=== PATIENT | male | born 1975 | race Caucasian/White ===

== ENCOUNTER 2024-06-24 08:33 | Emergency (ER) | payer OTHER, SELFPAY ==
[2024-06-24 08:42] VITALS: BP 132/95; PULSE 85; TEMP 36.6; O2SAT 97; BMI 38.4
--- NOTE | 2024-06-24 09:29 | ED_ITS ---
HPI HPI - General Adult General Chief complaint: Back Pain/Injury Stated complaint: BACK PAIN Time Seen by Provider: 06/24/24 08:56 Source: patient Mode of arrival: walk-in Limitations: no limitations History of Present Illness HPI narrative: Patient is a 49-year-old male who is presenting to the ER today with chief complaint of acute on chronic lower back pain, left lumbar radiculopathy and left sciatica. Patient said that on Sunday he was lifting a bucket of fish water to dump into the toilet at home, and he felt a pain to his left lower back. The pain has been radiating to left buttock and down his left lateral leg into his pinky toe and also down to the left ankle. Patient does have a history of sciatica, the last time patient had any sciatica complications was skip bally 1.5 years ago. Patient girlfriend at bedside. No loss of urine or bowels in his pants. Patient has been using ice, using [id number] ibuprofen with no relief. Patient try to get into Dr. Wilhelm office today, he was unable to get into the office today so he came to the ER. Patient has received Kenalog shots in the past from Dr. Wilhelm in his office when his pain is occurred no abdominal pain, nausea, vomiting, or any other acute complaints. All systems are negative except as noted/marked. All systems reviewed and otherwise negative. Nurses note and vital signs reviewed and patient is not hypoxic. General: The patient appears well and in no apparent distress. Patient is resting comfortably on cart. Patient is not toxic, lethargic, or listless Skin: Warm, dry, no pallor noted. There is no rash noted. No petechiae, purpura. Head: Normocephalic, atraumatic Eye: Normal conjunctiva, no drainage, EOMI. PERRL Ears, Nose, Mouth, and Throat: oral mucosa is moist. Nares patent. Mouth without vesicles. Cardiovascular: Regular Rate and Rhythm, no murmur, gallop, rub Respiratory: Patient is in no distress, no accessory muscle use, lungs are clear to auscultation, no wheezing, rales or rhonchi Back: Patient has moderate tenderness to palpation to the left lower paralumbar area, no midline lumbar tenderness to palpation. Patient had moderate tenderness to palpation to left piriformis muscle, positive straight leg raising test to the left, negative on the right. No loss of motor or sensory function into the left leg. No signs of saddle anesthesia or cauda equina. No right paralumbar tenderness to palpation, no right piriformis tenderness to palpation, otherwise non-tender, no CVA tenderness bilaterally to percussion. No CT LS midline pain GI: no tenderness to palpation, no masses appreciated. No rebound, guarding, or rigidity noted. No distention, obese, soft, Musculoskeletal: Patient has full range of motion of all of the extremities, no motor, sensory, or focal neurological deficits Neurological: A&O x4, normal speech Psychiatric: Cooperative Related Data Previous Rx's ?Medication ?Instructions ?Recorded hydrocodone 5 mg-acetaminophen 325 1 tab PO Q4H PRN pain #10 tabs 06/24/24 mg tablet lidocaine 5 % topical patch 1 patch topical Q24H #15 ea 06/24/24 (Lidoderm) methocarbamol 500 mg tablet 500 mg PO Q8H PRN muscle pain #10 06/24/24 tabs methylprednisolone 4 mg tablets in 4 mg PO DAILY 6 days #21 ea 06/24/24 a dose pack (Medrol (Fausto)) Allergies Allergy/AdvReac Type Severity Reaction Status Date / Time prochlorperazine (From AdvReac Severe panic Verified 06/24/24 08:41 Compazine) attack Opioid HPI Opioid Management Most Recent Opioid Data: Last Pain Scale 8 06/24/24 09:50 06/24/24 Last JUN Pain Assessment 06/24/24 09:50 PFSH PFSH Social History Little interest or pleasure in doing things: not at all Feeling down, depressed, or hopeless: not at all Exam Constitutional Vital Signs, click to edit/add: Last Vital Signs Temp 97.9 F 06/24/24 08:42 Pulse 85 06/24/24 08:42 Resp 20 06/24/24 08:42 BP 132/95 H 06/24/24 08:42 Pulse Ox 97 06/24/24 08:42 O2 Del Method Room Air 06/24/24 08:42 Course Vital Signs Vital signs: Vital Signs Temperature 97.9 F 06/24/24 08:42 Pulse Rate 85 06/24/24 08:42 Respiratory Rate 20 06/24/24 08:42 Blood Pressure 132/95 H 06/24/24 08:42 Pulse Oximetry 97 06/24/24 08:42 Oxygen Delivery Method Room Air 06/24/24 08:42 Temperature 97.9 F 06/24/24 08:42 Pulse Rate 85 06/24/24 08:42 Respiratory Rate 20 06/24/24 08:42 Blood Pressure 132/95 H 06/24/24 08:42 Pulse Oximetry 97 06/24/24 08:42 Oxygen Delivery Method Room Air 06/24/24 08:42 Medical Decision Making MDM Narrative Medical decision making narrative: Patient was given injection of Toradol and a Schuyler. Education on ice and stretching was done at bedside and on discharge paper. Patient was placed on a Medrol Dosepak, [place], Robaxin. Patient will follow-up with Dr. Wilhelm for further evaluation or physical therapy if needed. Patient may seek home care and home health aides teacher as well as needed. Patient girlfriend is driving home. Discharge Plan Discharge Chief Complaint: Back Pain/Injury Clinical Impression: Acute left lumbar radiculopathy, Left sided sciatica Patient Disposition: Home, Self-Care Time of Disposition Decision: 09:33 Condition: Fair Prescriptions / Home Meds: New methocarbamol 500 mg tablet 500 mg PO Q8H PRN (Reason: muscle pain) Qty: 10 0RF hydrocodone-acetaminophen 5-325 mg tablet 1 tab PO Q4H PRN (Reason: pain) Qty: 10 0RF lidocaine [Lidoderm] 5 % adhesive patch,medicated 1 patch topical Q24H Qty: 15 0RF Rx Instructions: leave on most painful area for up to 12 hrs methylprednisolone [Medrol (Fausto)] 4 mg tablets,dose pack 4 mg PO DAILY 6 Days Qty: 21 0RF Rx Instructions: as directed Print Language: Slovenian Instructions: Sciatica (ED), Acute Low Back Pain (ED), Lumbar Radiculopathy (ED), Lower Back Exercises (ED) Additional Instructions: Ice 20 minutes on, 20 minutes off. No heat. Sciatica and piriformis syndrome stretching 3-4 times a day for the next 1 to 2 weeks as discussed. Finish Medrol Dosepak. Alternate Tylenol and either Motrin, Advil, or ibuprofen every 4 hours to help with pain. If you are having severe pain, substitute a Schuyler tablet instead of Tylenol. Do not take Tylenol and Schuyler at the same time, you may actually take too much Tylenol at 1 setting or in 1 day. Maximum Tylenol dose of Tylenol is 3000 mg a day. Maximum dose of either Motrin, Advil, or ibuprofen is 2400 mg a day. Follow-up with PCP for referral to physical therapy if indicated or see a chiropractor if needed as well Referrals: Cesar Wilhelm MD [Primary Care Provider] - 1 week Discharge Date/Time: 06/24/24 09:58
[2024-06-24] MEDS: HYDROCODONE/ACET 5-325 MG TABLET 1 TAB PO (09:50)
[2024-06-24] MEDS: KETOROLAC TROMETHAMINE 60 MG/2 ML VIAL IM (09:50)
== END 2024-06-24 09:58 | disposition home or self-care (01) ==
PROVIDERS: Emergency Provider Emergency Medicine; PCP Family Medicine
DX: M54.16 Radiculopathy, lumbar region (principal); M54.42 Lumbago with sciatica, left side
CPT/HCPCS: 96372; 99284; J1885

== ENCOUNTER 2024-06-28 08:02 | Emergency (ER) | payer OTHER, SELFPAY ==
[2024-06-28 08:06] VITALS: BP 169/107; PULSE 84; TEMP 36.5; O2SAT 99; BMI 35.2
--- NOTE | 2024-06-28 08:25 | ED_ITS ---
HPI HPI - General Adult General Chief complaint: Back Pain/Injury Stated complaint: BACK PAIN Time Seen by Provider: 06/28/24 08:19 Source: patient Mode of arrival: walk-in Limitations: no limitations History of Present Illness HPI narrative: Patient presents to the ED with chief complaint of severe left lower back pain going down the left leg. He was seen in this ED 4 days ago for the same pain and was placed on lidocaine patch and oral pain meds and muscle relaxants. Last night he slept on the couch and when he got up this morning the pain had intensified. He does not report leg weakness or loss of bladder control. Patient is diabetic. Related Data Home Medications ?Medication ?Instructions ?Recorded ?Confirmed aripiprazole 2 mg tablet mg 06/28/24 atorvastatin 40 mg tablet mg 06/28/24 citalopram 20 mg tablet mg 06/28/24 clonidine HCl 0.2 mg tablet mg 06/28/24 diclofenac sodium 75 mg mg PO 06/28/24 tablet,delayed release insulin glargine 100 unit/mL (3 unit subcut 06/28/24 mL) subcutaneous pen (Lantus Solostar U-100 Insulin) insulin glulisine U-100 100 subcut 06/28/24 unit/mL subcutaneous pen (Apidra SoloStar U-100 Insulin) levothyroxine 100 mcg tablet mcg 06/28/24 lisinopril 40 mg tablet mg 06/28/24 pantoprazole 40 mg tablet,delayed mg PO 06/28/24 release pregabalin 300 mg capsule mg 06/28/24 tizanidine 4 mg tablet mg 06/28/24 trazodone 100 mg tablet mg 06/28/24 Previous Rx's ?Medication ?Instructions ?Recorded hydrocodone 5 mg-acetaminophen 325 1 tab PO Q4H PRN pain #10 tabs 06/24/24 mg tablet lidocaine 5 % topical patch 1 patch topical Q24H #15 ea 06/24/24 (Lidoderm) methocarbamol 500 mg tablet 500 mg PO Q8H PRN muscle pain #10 06/24/24 tabs methylprednisolone 4 mg tablets in 4 mg PO DAILY 6 days #21 ea 06/24/24 a dose pack (Medrol (Fausto)) hydrocodone 5 mg-acetaminophen 325 1 tab PO Q4H PRN pain #20 tabs 06/28/24 mg tablet methocarbamol 750 mg tablet 750 mg PO TID #30 tabs 06/28/24 Allergies Allergy/AdvReac Type Severity Reaction Status Date / Time prochlorperazine (From AdvReac Severe panic Verified 06/28/24 08:06 Compazine) attack Opioid HPI Opioid Management Most Recent Opioid Data: Last Pain Scale 6 06/28/24 09:15 06/28/24 Last ED Pain Assessment 06/28/24 09:15 Last MAR Pain Assessment 06/28/24 08:37 Review of Systems ROS Status of ROS 10 or more systems reviewed and unremark able except as noted in history and below [facility] Social History Little interest or pleasure in doing things: not at all Feeling down, depressed, or hopeless: not at all Exam Narrative Exam Narrative: Vital signs are stable and are as documented. Patient appears in mild discomfort due to pain. HEENT exam is normal to inspection. Neck is supple. Lung sounds are clear to auscultation bilaterally. Heart has regular rate and rhythm. Abdomen is protuberant, soft and nontender. Patient is lying in a Semi-Hancock position with the left leg slightly flexed. He does not tolerate straight leg raising at all in the left leg. Tone and power are normal and symmetric in both lower extremities. Examination of the back did not reveal any midline lumbar spine tenderness. There is no redness or warmth over the area. Constitutional Vital Signs, click to edit/add: Last Vital Signs Temp 97.7 F 06/28/24 08:06 Pulse 67 06/28/24 09:42 Resp 18 06/28/24 09:42 BP 119/81 06/28/24 09:42 Pulse Ox 99 06/28/24 09:42 O2 Del Method Room Air 06/28/24 09:42 Course Vital Signs Vital signs: Vital Signs Temperature 97.7 F 06/28/24 08:06 Pulse Rate 84 06/28/24 08:06 Respiratory Rate 16 06/28/24 08:06 Blood Pressure 169/107 H 06/28/24 08:06 Pulse Oximetry 99 06/28/24 08:06 Oxygen Delivery Method Room Air 06/28/24 08:06 Temperature 97.7 F 06/28/24 08:06 Pulse Rate 67 06/28/24 09:42 Respiratory Rate 18 06/28/24 09:42 Blood Pressure 119/81 06/28/24 09:42 Pulse Oximetry 99 06/28/24 09:42 Oxygen Delivery Method Room Air 06/28/24 09:42 Medical Decision Making [facility] Narrative Medical decision making narrative: Patient presents with lumbar radiculopathy symptoms without evidence of overt myelopathy. He is treated with Dilaudid 1 mg and Phenergan 25 mg IM and is discharged with an additional prescription for Robaxin and [place]. He is to follow-up with his PCP after the weekend and is to return anytime for worsening symptoms. Discharge Plan Discharge Chief Complaint: Back Pain/Injury Clinical Impression: Acute left lumbar radiculopathy Patient Disposition: Home, Self-Care Time of Disposition Decision: 08:27 Condition: Good Mode of Transportation: Private Vehicle Prescriptions / Home Meds: New methocarbamol 750 mg tablet 750 mg PO TID Qty: 30 0RF hydrocodone-acetaminophen 5-325 mg tablet 1 tab PO Q4H PRN (Reason: pain) Qty: 20 0RF No Action methocarbamol 500 mg tablet 500 mg PO Q8H PRN (Reason: muscle pain) Qty: 10 0RF hydrocodone-acetaminophen 5-325 mg tablet 1 tab PO Q4H PRN (Reason: pain) Qty: 10 0RF lidocaine [Lidoderm] 5 % adhesive patch,medicated 1 patch topical Q24H Qty: 15 0RF Rx Instructions: leave on most painful area for up to 12 hrs methylprednisolone [Medrol (Fausto)] 4 mg tablets,dose pack 4 mg PO DAILY 6 Days Qty: 21 0RF Rx Instructions: as directed atorvastatin 40 mg tablet tizanidine 4 mg tablet levothyroxine 100 mcg tablet clonidine HCl 0.2 mg tablet citalopram 20 mg tablet trazodone 100 mg tablet pantoprazole 40 mg tablet,delayed release (DR/EC) PO diclofenac sodium 75 mg tablet,delayed release (DR/EC) PO lisinopril 40 mg tablet pregabalin 300 mg capsule aripiprazole 2 mg tablet insulin glargine [Lantus Solostar U-100 Insulin] 100 unit/mL (3 mL) insulin pen SUBCUT Apidra SoloStar U-100 Insulin 100 unit/mL insulin pen SUBCUT Print Language: Armenian Instructions: Lumbar Radiculopathy (ED) Additional Instructions: Medications as prescribed. Follow-up with PCP after the weekend for further management. Return for worsening symptoms. Referrals: Cesar Wilhelm MD [Primary Care Provider] - 1 week Discharge Date/Time: 06/28/24 09:43
[2024-06-28] MEDS: PROMETHAZINE HCL 25 MG/ML VIAL IM (08:36)
[2024-06-28] MEDS: HYDROMORPHONE HCL 1 MG/ML CARTRIDGE IM (08:37)
--- OUTSIDE RECORDS SUMMARY | 2024-06-28 09:08 | XMS_ITS | CCD ---
Author Organization [facility] Care Team Providers Care Live In Housekeeper Name Role Phone VIVIAN LESTER Admitting Unavailable RAI DUPREE Attending Unavailable KENTON FINCH Referring Unavailable KENTON FINCH Primary Care Unavailable Jadyn Wilhelm Primary Care Physician [phone] CAROLINE LALA Attending Unavailable CAROLINE LALA Admitting Unavailable MEGHANA Carbajal, DR SALAMANCA Primary Care Unavailable CAROLINE LALA Consulting Unavailable DR JIMBO MCCOLLUM Consulting Unavailable LUCIO NEVAREZ Attending Unavailable DR JADYN SALEH Primary Care Unavailable LUCIO NEVAREZ Admitting Unavailable LUCIO NEVAREZ Consulting Unavailable SONA ELLSWORTH Consulting Unavailable AKILAH ., SONA Attending Unavailable MEGHANA Carbajal, DR SALAMANCA Primary Care Unavailable AKILAH Carbajal, SONA Admitting Unavailable ALBARO NORIEGA Attending Unavailable ALBARO NORIEGA Admitting Unavailable MEGHANA ., DR SALAMANCA Primary Care Unavailable AKILAH ., SONA Admitting Unavailable AKILAH ., SONA Consulting Unavailable AKILAH .SONA Attending Unavailable MEGHANA ., DR SALAMANCA Primary Care Unavailable MEGHANA ., DR SALAMANCA Primary Care Unavailable MEGHANA ., DR SALAMANCA Consulting Unavailable MEGHANA ., DR SALAMANCA Attending Unavailable HONigel ., DR SALAMANCA Admitting Unavailable JOSIAS, DR IGNACIO Ruiz Consulting Unavailable AKILAH ., SONA Admitting Unavailable AKILAH ., SONA Consulting Unavailable AKILAH .SONA Attending Unavailable MEGHANA .DR SALAMANCA Primary Care Unavailable MEGHANA ., DR SALAMANCA Primary Care Unavailable MEGHANA ., DR SALAMANCA Admitting Unavailable HONigel ., DR SALAMANCA Attending Unavailable MEGHANA ., DR SALAMANCA Consulting Unavailable JOSIAS, DR IGNACIO Ruiz Consulting Unavailable MEGHANA ., DR SALAMANCA Consulting Unavailable MEGHANA ., DR SALAMANCA Admitting Unavailable MEGHANA ., DR SALAMANCA Attending Unavailable EVARISTOY ., DR SALAMANCA Primary Care Unavailable HOY ., DR SALAMANCA Admitting Unavailable HOY ., DR SALAMANCA Attending Unavailable HOY ., DR SALAMANCA Primary Care Unavailable HOY ., DR SALAMANCA Consulting Unavailable HOY ., DR SALAMANCA Primary Care Unavailable HOY ., DR SALAMANCA Consulting Unavailable HOY ., DR SALAMANCA Admitting Unavailable HOY ., DR SALAMANCA Attending Unavailable NILL ., DR YANCEY Consulting Unavailable NILL ., DR YANCEY Attending Unavailable HOY ., DR SALAMANCA Primary Care Unavailable NILL ., DR YANCEY Admitting Unavailable MCCASTERROBERTA Consulting Unavailable GEMBUS, RENETTA Consulting Unavailable NILL ., DR YANCEY Admitting Unavailable NILL ., DR YANCEY Consulting Unavailable NILL ., DR YANCEY Attending Unavailable HOY ., DR SALAMANCA Primary Care Unavailable HAY ., DR CHOI Admitting Unavailable HAY ., DR CHOI Consulting Unavailable HAY ., DR CHOI Attending Unavailable HOY ., DR SALAMANCA Primary Care Unavailable GERI, LUCIO Consulting Unavailable GERI, LUCIO Attending Unavailable HOY ., DR SALAMANCA Primary Care Unavailable LUCIO NEVAREZ Admitting Unavailable NILL, Naye Ruiz Attending Unavailable NILL, Naye Ruiz Attending Unavailable NILL, Naye R Attending Unavailable Allergies Allergy Classification Reported Allergen(s) Allergy Type Date of Onset Reaction(s) Facility (3 sources) Prochlorperazine ; Translations: [Compazine] Drug Allergy [address] [facility] Repository (1 source) Prochlorperazine ; Translations: [prochlorperazin e] Drug Allergy Cramp (finding) [facility] Medications Current Medications Medication Drug Class(es) Dates Sig (Normalized) Sig (Original) ARIPiprazole 2 mg oral tablet (1 source) Atypical Antipsychotic Start: 03-08-2022 take 1 tablet by mouth once daily Abilify 2 mg Tab 2 mg = 1 tab(s), Oral, Daily, Refills(s) 0 Start Date: 03/08/22 Status: Ordered atorvastatin 40 mg oral tablet (1 source) HMG-CoA Reductase Inhibitor Start: 03-08-2022 take 1 tablet by mouth once daily atorvastatin 40 mg Tab 40 mg = 1 tab(s), Oral, Daily, Refills(s) 0 Start Date: 03/08/22 Status: Ordered buprenorphine 8 mg / naloxone 2 mg sublingual film (1 source) Partial Opioid Agonist, Opioid Antagonist Start: 03-08-2022 Suboxone 8 mg-2 mg sublingual film 1.5-2, SubLingual, Daily, Refill(s) 0 Start Date: 03/08/22 Status: Ordered citalopram 20 mg oral tablet (1 source) Serotonin Reuptake Inhibitor Start: 03-08-2022 take 1 tablet by mouth once daily CeleXA 20 mg Tab 20 mg = 1 tab(s), Oral, Daily, Refills(s) 0 Start Date: 03/08/22 Status: Ordered Dulera 100 mcg-5 mcg/inh inhalation aerosol (1 source) Start: 03-08-2022 take 2 puff(s) by inhalation twice daily Dulera 100 mcg-5 mcg/inh inhalation aerosol 2 puff(s), Inhalation, BID, Refill(s) 0 Start Date: 03/08/22 Status: Ordered ferrous sulfate 325 mg delayed release oral tablet (1 source) Start: 03-08-2022 take 1 tablet by mouth twice daily ferrous sulfate 325 mg oral enteric coated tablet 325 mg = 1 tab(s), Oral, BID, Refills(s) 0 Start Date: 03/08/22 Status: Ordered hyoscyamine sulfate 0.125 mg oral tablet (1 source) Start: 03-08-2022 take 1 tablet by mouth four times daily Levsin 0.125 mg SL Tab 0.125 mg = 1 tab(s), Oral, QID, Refills(s) 0 Start Date: 03/08/22 Status: Ordered 3 ml insulin glargine 100 unt/ml pen injector (1 source) Insulin Analog Start: 03-08-2022 Lantus Solostar Pen 100 units/mL subcutaneous solution 60 unit(s), SubCutaneous, BID, Refills(s) 0 Start Date: 03/08/22 Status: Ordered 3 ml insulin glulisine, human 100 unt/ml pen injector (1 source) Insulin Analog Start: 03-08-2022 Apidra SoloStar Pen 100 units/mL injectable solution per sliding scale, Refills(s) 0 Start Date: 03/08/22 Status: Ordered levothyroxine sodium 0.1 mg oral tablet (1 source) l-Thyroxine Start: 03-08-2022 take 1 tablet by mouth once daily levothyroxine 100 mcg (0.1 mg) Tab 100 mcg = 1 tab(s), Oral, Daily, Refills(s) 0 Start Date: 03/08/22 Status: Ordered lisinopril 40 mg oral tablet (1 source) Angiotensin Converting Enzyme Inhibitor Start: 03-08-2022 take 1 tablet by mouth once daily lisinopril 40 mg Tab 40 mg = 1 tab(s), Oral, Daily, Refills(s) 0 Start Date: 03/08/22 Status: Ordered pantoprazole 40 mg delayed release oral tablet (1 source) Proton Pump Inhibitor Start: 03-08-2022 take 1 tablet by mouth once daily Protonix 40 mg Tab-DR 40 mg = 1 tab(s), Oral, Daily, Refills(s) 0 Start Date: 03/08/22 Status: Ordered pregabalin 300 mg oral capsule (1 source) Start: 03-08-2022 Lyrica 300 mg Cap as directed, Refills(s) 0 Start Date: 03/08/22 Status: Ordered ProAir HFA 90 mcg/inh inhalation aerosol (1 source) Start: 03-08-2022 take 2 puff(s) by inhalation four times daily ProAir HFA 90 mcg/inh inhalation aerosol 2 puff(s), Inhalation, QID, Refill(s) 0 Start Date: 03/08/22 Status: Ordered 24 hr testosterone 0.167 mg/hr transdermal system (1 source) Androgen Start: 03-08-2022 Androderm 4 mg/24 hr transdermal film, extended release = 1 patch(es), Topical, Once a day (at bedtime), Refills(s) 0 Start Date: 03/08/22 Status: Ordered traZODone hydrochloride 50 mg oral tablet (1 source) Serotonin Reuptake Inhibitor Start: 03-08-2022 take 1-2 tablets by mouth once daily at bedtime traZODONE 50 mg Tab 1-2 tabs, Oral, Once a day (at bedtime), Refills(s) 0 Start Date: 03/08/22 Status: Ordered Problems Active Problems Problem Classification Problem Date Documented Da te Episodic/Chronic Anxiety disorders (6 sources) Anxiety; Translations: [Anxiety disorder, unspecified] Onset: 02-27-2022 03-08-2022 Chronic Congestive heart failure; nonhypertensive (1 source) Unspecified diastolic (congestive) heart failure; Translations: [UNSPECIFIED DIASTOLIC HEART FAILURE] Onset: 02-19-2022 Chronic Deficiency and other anemia (1 source) Anemia due to chronic blood loss; Translations: [Iron deficiency anemia secondary to blood loss (chronic)] Onset: 03-13-2022 Chronic Deficiency and other anemia (1 source) Iron deficiency anemia due to blood loss 03-13-2022 Chronic Deficiency and other anemia (1 source) Iron deficiency anemia 03-08-2022 Episodic Diabetes mellitus without complication (2 sources) Diabetes mellitus; Translations: [Type 2 diabetes mellitus without complications] Onset: 08-14-2022 03-08-2022 Chronic Disorders of lipid metabolism (4 sources) Pure hyperglyceridemia; Translations: [PURE HYPERGLYCERIDEMIA] Onset: 06-12-2022 Chronic Epilepsy; convulsions (1 source) Epilepsy, unspecified, not intractable, without status epilepticus; Translations: [EPILEPSY UNS NOT INTRACT W/O SE] Onset: 04-27-2022 Chronic Epilepsy; convulsions (1 source) Seizure 03-08-2022 Episodic Essential hypertension (2 sources) Hypertensive disorder; Translations: [Essential (primary) hypertension] Onset: 04-27-2022 03-08-2022 Chronic Headache; including migraine (3 sources) Migraine; Translations: [Migraine, unspecified, not intractable, without status migrainosus] Onset: 04-27-2022 03-08-2022 Chronic Headache; including migraine (3 sources) Headache; including migraine; Translations: [HEADACHE UNSPECIFIED] Onset: 08-10-2022 Hypertension with complications and secondary hypertension (2 sources) Hypertensive urgency; Translations: [Hypertensive heart disease with heart failure] Onset: 02-19-2022 Chronic Menopausal disorders (1 source) Hormone replacement therapy; Translations: [HORMONE REPLACEMENT THERAPY] Onset: 08-14-2022 Episodic Other aftercare (1 source) 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; Translations: [OTH FPC CURRENT DRUG THERAPY] Onset: 08-14-2022 Episodic Other aftercare (1 source) manager terminal (current) use of insulin; Translations: [FPC CURRENT USE OF INSULIN] Onset: 08-14-2022 Episodic Other endocrine disorders (1 source) Testicular hypofunction 03-08-2022 Chronic Other endocrine disorders (1 source) Testicular hypofunction; Translations: [TESTICULAR HYPOFUNCTION] Onset: 04-27-2022 Chronic Other nutritional; endocrine; and metabolic disorders (2 sources) Body mass index 40+ - severely obese; Translations: [Body mass index (BMI) 40.0-44.9, adult] Onset: 03-13-2022 Chronic Other nutritional; endocrine; and metabolic disorders (1 source) Obesity, unspecified; Translations: [OBESITY UNSPECIFIED] Onset: 04-27-2022 Chronic Other nutritional; endocrine; and metabolic disorders (1 source) Body mass index (BMI) 40.0-44.9, adult; Translations: [BODY MASS INDEX BMI 40.0-44.9 ADULT] Onset: 04-27-2022 Chronic Other upper respiratory disease (1 source) Allergic rhinitis 03-08-2022 Chronic Residual codes; unclassified (1 source) Tobacco user; Translations: [Tobacco use] Onset: 03-13-2022 Episodic Residual codes; unclassified (1 source) Insomnia 03-08-2022 Episodic Residual codes; unclassified (1 source) Nicotine-filled electronic cigarette user 03-13-2022 Episodic Residual codes; unclassified (1 source) Sleep disorder 03-08-2022 Episodic Residual codes; unclassified (1 source) Acquired absence of other specified parts of digestive tract; Translations: [ACQ ABSENCE OTH PART DIGESTV TRACT] Onset: 08-14-2022 Episodic Spondylosis; intervertebral disc disorders; other back problems (1 source) Disorder of lumbar disc 03-08-2022 Chronic Spondylosis; intervertebral disc disorders; other back problems (1 source) Lumbar radiculopathy 03-08-2022 Episodic Substance-related disorders (4 sources) Psychoactive substance abuse; Translations: [Opioid abuse, uncomplicated] Onset: 01-16-2022 03-08-2022 Chronic Thyroid disorders (3 sources) Ascencion thyroiditis; Translations: [Hypothyroidism, unspecified] Onset: 04-27-2022 03-08-2022 Chronic Unclassified (1 source) PERSONAL HISTORY OF COVID-19; Translations: [PERSONAL HISTORY OF COVID-19] Onset: 08-14-2022 Unclassified (1 source) CONTACT W/AND (SUSP) EXPOS COVID-19; Translations: [CONTACT W/AND (SUSP) EXPOS COVID-19] Onset: 04-21-2022 Unclassified (3 sources) COUGH, UNSPECIFIED; Translations: [COUGH, UNSPECIFIED] Onset: 01-16-2022 Past or Other Problems Problem Classification Problem Date Documented Da te Episodic/Chronic Abdominal pain (1 source) Unspecified abdominal pain; Translations: [UNSPECIFIED ABDOMINAL PAIN] Onset: 02-19-2022 Episodic Deficiency and other anemia (4 sources) Iron deficiency anemia, unspecified; Translations: [IRON DEFICIENCY ANEMIA UNSPECIFIED] Onset: 04-19-2022 Episodic Deficiency and other anemia (1 source) Anemia, unspecified; Translations: [ANEMIA UNSPECIFIED] Onset: 02-19-2022 Episodic Gastritis and duodenitis (1 source) Gastritis, unspecified, without bleeding; Translations: [GASTRITIS UNS WITHOUT BLEEDING] Onset: 04-27-2022 Episodic Nausea and vomiting (4 sources) Nausea with vomiting, unspecified; Translations: [NAUSEA WITH VOMITING UNSPECIFIED] Onset: 03-09-2022 Episodic Other and unspecified benign neoplasm (1 source) Benign neoplasm of rectum; Translations: [BENIGN NEOPLASM OF RECTUM] Onset: 04-27-2022 Episodic Other lower respiratory disease (4 sources) Dyspnea, unspecified; Translations: [DYSPNEA UNSPECIFIED] Onset: 02-15-2022 Episodic Other upper respiratory infections (1 source) Acute upper respiratory infection, unspecified; Translations: [ACUTE UP RESPIRATORY INFECTION UNS] Onset: 01-16-2022 Episodic Residual codes; unclassified (1 source) Insomnia, unspecified; Translations: [INSOMNIA UNSPECIFIED] Onset: 04-27-2022 Episodic Residual codes; unclassified (4 sources) Procedure and treatment not carried out due to patient leaving prior to being seen by health care provider; Translations: [PROC AND TX NOT CARRIED OUT PT LEAVE] Onset: 11-21-2021 Episodic Substance-related disorders (1 source) Cannabis use, unspecified, uncomplicated; Translations: [CANNABIS USE UNS UNCOMPLICATED] Onset: 01-23-2022 Episodic Unclassified (1 source) COUGH, UNSPECIFIED; Translations: [COUGH, UNSPECIFIED] Onset: 01-14-2022 Results Test Name Value Interpretation Reference Range Facility Auth for Release of Medical Recordson 12-07-2022 Auth for Release of Medical Records [id number] Normal [facility] CARDIAC ROSLYN 3-6on 3 CK [Catalytic activity/Vol] 288 U/L Normal 39-308 [facility] Comment on above: Performed By: #### C MREP #### [facility] [address] [place] [address] Dr. Kiran Ivey CK.MB [Mass/Vol] 4.71 ng/mL Critically high <=3.60 [facility] Comment on above: Performed By: #### C ALONZOP #### [facility] [address] [place] [address] Dr. Kiran Ivey HSTROP 5.8 pg/mL Normal 4.0-76.1 [facility] Comment on above: Result Comment: CUT- OFF POINTS HAVE BEEN ESTABLISHED BASED ON THE FOURTH UNIVERSAL DEFINITIONS OF MYOCARDIAL INFARCTION. THE UPPER REFERENCE LIMIT (URL) OF TROPONIN, DEFINED THE 99TH PERCENTILE OF cTnI DISTRIBUTION IN A REFERENCE POPULATION, HAS BEEN CONFIRMED THE DECISION THRESHOLD FOR MO DIAGNOSIS. Performed By: #### C ALONZOP #### [facility] [address] [place] [address] Dr. Kiran Ivey CARDIAC ROSLYN ADMITon 023 CK [Catalytic activity/Vol] 297 U/L Normal 39-308 [facility] Comment on above: Performed By: #### C ERICKA, BMP #### [facility] [address] [place] [address] Dr. Kiran Ivey CK.MB [Mass/Vol] 5.29 ng/mL Critically high <=3.60 [facility] Comment on above: Performed By: #### C ERICKA, BMP #### [facility] [address] [place] [address] Dr. Kiran Ivey HSTROP 6.1 pg/mL Normal 4.0-76.1 [facility] Comment on above: Result Comment: CUT- OFF POINTS HAVE BEEN ESTABLISHED BASED ON THE FOURTH UNIVERSAL DEFINITIONS OF MYOCARDIAL INFARCTION. THE UPPER REFERENCE LIMIT (URL) OF TROPONIN, DEFINED THE 99TH PERCENTILE OF cTnI DISTRIBUTION IN A REFERENCE POPULATION, HAS BEEN CONFIRMED THE DECISION THRESHOLD FOR MO DIAGNOSIS. Performed By: #### C ERICKA, BMP #### [facility] [address] [place], [place] [id number] Dr. Kiran Ivey MALIHA 50 ng/mL Normal 16-96 [facility] Comment on above: Performed By: #### C IBETHM, [facility] #### [facility] [address] [place] [address] Dr. Kiran Ivey CBC AUTO DIFFon 08-10-2022 BASO # 0.1 103/ul Normal 0.0-0.1 [facility] Comment on above: Performed By: #### C BC #### [facility] [address] [place] [address] Dr. Kiran Ivey Basophils/100 WBC (Bld) 0.8 % Normal 0.2-2.0 [facility] Comment on above: Performed By: #### C BC #### [facility] [address] [place] [address] Dr. Kiran Ivey EO # 0.3 103/ul Normal 0.0-0.7 [facility] Comment on above: Performed By: #### C BC #### [facility] [address] [place] [address] Dr. Kiran Ivey Eosinophils/100 WBC (Bld) 3.6 % Normal 0.9-7.0 [facility] Comment on above: Performed By: #### C BC #### [facility] [address] [place] [address] Dr. Kiran Ivey Erythrocyte distribution width (RBC) [Ratio] 14.9 % Normal 11.0-15.0 [facility] Comment on above: Performed By: #### C BC #### [facility] [address] [place] [address] Dr. Kiran Ivey Hematocrit (Bld) [Volume fraction] 38.9 % Critically low 42.0-54.0 [facility] Comment on above: Performed By: #### C BC #### [facility] [address] [place] [address] Dr. Kiran Ivey Hemoglobin (Bld) [Mass/Vol] 12.6 g/dL Critically low 14.0-18.0 [facility] Comment on above: Performed By: #### C BC #### [facility] [address] [place] [address] Dr. Kiran Ivey IG # 0.02 10e3/ul Normal 0.00-0.03 [facility] Comment on above: Performed By: #### C BC #### [facility] [address] [place] [address] Dr. Kiran Ivey IG % 0.3 % Normal 0.0-0.5 [facility] Comment on above: Performed By: #### C BC #### [facility] [address] [place] [address] Dr. Kiran Ivey LYMPH # 2.4 103/ul Normal 1.2-3.8 [facility] Comment on above: Performed By: #### C BC #### [facility] [address] [place] [address] Dr. Kiran Ivey Lymphocytes/100 WBC (Bld) 33.1 % Normal 20.5-60.0 [facility] Comment on above: Performed By: #### C BC #### [facility] [address] [place] [address] Dr. Kiran Ivey MANUAL DIFF REQ NO Normal [facility] Comment on above: Performed By: #### C BC #### [facility] [address] [place] [address] Dr. Kiran Ivey MCH (RBC) [Entitic mass] 24.4 pg Critically low 25.9-34.0 [facility] Comment on above: Performed By: #### C BC #### [facility] [address] [place] [address] Dr. Kiran Ivey MCHC (RBC) [Mass/Vol] 32.4 g/dL Normal 29.9-35.2 [facility] Comment on above: Performed By: #### C BC #### [facility] [address] [place] [address] Dr. Kiran Ivey MCV (RBC) [Entitic vol] 75.4 fL Critically low 80.0-94.0 [facility] Comment on above: Performed By: #### C BC #### [facility] [address] [place] [address] Dr. Kiran Ivey MONO # 0.5 103/ul Normal 0.3-0.8 [facility] Comment on above: Performed By: #### C BC #### [facility] [address] [place] [address] Dr. Kiran Ivey Monocytes/100 WBC (Bld) 7.0 % Normal 1.7-12.0 [facility] Comment on above: Performed By: #### C BC #### [facility] [address] [place] [address] Dr. Kiran Ivey NEUT # 4.0 103/ul Normal 1.4-6.5 [facility] Comment on above: Performed By: #### C BC #### [facility] [address] [place] [address] Dr. Kiran Ivey Neutrophils/100 WBC (Bld) 55.2 % Normal 43.0-75.0 [facility] Comment on above: Performed By: #### C BC #### [facility] [address] [place] [address] Dr. Kiran Ivey Platelet mean volume (Bld) [Entitic vol] 9.1 fL Critically low 9.5-13.5 [facility] Comment on above: Performed By: #### C BC #### [facility] [address] [place] [address] Dr. Kiran Ivey PLT 310 103/ul Normal 150-450 [facility] Comment on above: Performed By: #### C BC #### [facility] [address] [place] [address] Dr. Kiran Ivey RBC 5.16 106/ul Normal 4.70-6.10 [facility] Comment on above: Performed By: #### C BC #### [facility] [address] [place] [address] Dr. Kiran Ivey WBC 7.2 103/ul Normal 4.0-11.0 [facility] Comment on above: Performed By: #### C BC #### [facility] [address] [place] [address] Dr. Kiran Ivey PROF CHEM 8 (BAS METB)on Anion gap [Moles/Vol] 11.1 mmol/L Normal [facility] Comment on above: Performed By: #### C ERICKA, BMP #### [facility] [address] [place] [address] Dr. Kiran Ivey Calcium [Mass/Vol] 9.3 mg/dL Normal 8.5-10.1 [facility] Comment on above: Performed By: #### C ERICKA, BMP #### [facility] [address] [place] [address] Dr. Kiran Ivey Chloride [Moles/Vol] 100 mmol/L Normal 98-107 [facility] Comment on above: Performed By: #### C ERICKA, BMP #### [facility] [address] [place] [address] Dr. Kiran Ivey CO2 [Moles/Vol] 30.1 mmol/L Normal 21.0-32.0 [facility] Comment on above: Performed By: #### C ERICKA, BMP #### [facility] [address] [place] [address] Dr. Kiran Ivey Creatinine [Mass/Vol] 1.03 mg/dL Normal 0.70-1.30 [facility] Comment on above: Performed By: #### C ERICKA, BMP #### [facility] [address] [place] [address] Dr. Kiran Ivey EGFR-AF HAITIAN >60 Normal >=60 [facility] Comment on above: Performed By: #### C ERICKA, BMP #### [facility] [address] [place] [address] Dr. Kiran Ivey EGFR-NON AF HAITIAN >60 Normal >=60 [facility] Comment on above: Performed By: #### C ERICKA, BMP #### [facility] [address] [place] [address] Dr. Kiran Ivey Glucose [Mass/Vol] 226 mg/dL Critically high 74-106 [facility] Comment on above: Performed By: #### C ERICKA, BMP #### [facility] [address] [place] [address] Dr. Kiran Ivey Potassium [Moles/Vol] 4.2 mmol/L Normal 3.5-5.1 [facility] Comment on above: Performed By: #### C ERICKA, BMP #### [facility] [address] [place] [address] Dr. Kiran Ivey Sodium [Moles/Vol] 137 mmol/L Normal 136-145 [facility] Comment on above: Performed By: #### C ERICKA, BMP #### [facility] [address] [place] [address] Dr. Kiran Ivey Urea nitrogen [Mass/Vol] 19.0 mg/dL Critically high 7.0-18.0 [facility] Comment on above: Performed By: #### C ERICKA, BMP #### [facility] [address] [place] [address] Dr. Kiran Ivey Urea nitrogen/Creatinin e [Mass ratio] 18.4 mg/mg Normal [facility] Comment on above: Performed By: #### C ERICKA, BMP #### [facility] [address] [place] [address] Dr. Kiran Ievy GLYCOHEMOGLOBIN A1Con 2022 ADA RECOMMENDATION SEE BELOW Normal [facility] Comment on above: Result Comment: ADA RECOMMENDED LIMIT 4.0 - 6.0 ADA THERAPEUTIC TARGET < 7.0 ACTION SUGGESTED > 7.0 Performed By: #### C BC #### [facility] [address] [place] [address] Dr. Kiran Ivey Glucose [Mass/Vol] 269 mg/dL Normal [facility] Comment on above: Performed By: #### C BC #### [facility] [address] [place] [address] Dr. Kiran Ivey HbA1c (Bld) [Mass fraction] 11.0 % Critically high 4.5-6.2 [facility] Comment on above: Performed By: #### C BC #### [facility] [address] [place] [address] Dr. Kiran Ivey LIPID PROFILEon 06-12-2022 CHOL-HDL RATIO NORM SEE BELOW Normal [facility] Comment on above: Result Comment: 3.3 - 4.4 LOW RISK 4.4 - 7.1 AVERAGE RISK 7.1 - 11.0 MODERATE RISK >11.0 HIGH RISK Performed By: #### L IPID #### [facility] [address] [place] [address] Dr. Kiran Ivey Cholesterol [Mass/Vol] 193 mg/dL Normal <=200 [facility] Comment on above: Performed By: #### L IPID #### [facility] [address] [place] [address] Dr. Kiran Ivey Cholesterol in HDL [Mass/Vol] 47 mg/dL Normal 40-60 [facility] Comment on above: Performed By: #### L IPID #### [facility] [address] [place] [address] Dr. Kiran Ivey Cholesterol in LDL [Mass/Vol] 109.4 mg/dL Normal [facility] Comment on above: Performed By: #### L IPID #### [facility] [address] [place] [address] Dr. Kiran Ivey Cholesterol.total/ Cholesterol in HDL [Mass ratio] 4.1 {ratio} Normal [facility] Comment on above: Performed By: #### L IPID #### [facility] [address] [place] [address] Dr. Kirna Ivey HDL NORMAL > or = 60 mg/dl - LO W CARDIOVASCULAR RISK <40 mg/dl - HIGH CARDIOVASCULAR RISK Normal [facility] Comment on above: Performed By: #### L IPID #### [facility] [address] [place] [address] Dr. Kiran Ivey LDL CALC NORMAL SEE BELOW Normal [facility] Comment on above: Result Comment: <100 mg/dl OPTIMAL 100 - 129 mg/dl NEAR OR ABOVE OPTIMAL 130 - 159 mg/dl BORDERLINE HIGH 160 - 189 mg/dl HIGH >190 mg/dl VERY HIGH Performed By: #### L IPID #### [facility] [address] [place] [address] Dr. Kiran Ivey Triglyceride [Mass/Vol] 183 mg/dL Critically high <=150 [facility] Comment on above: Performed By: #### L IPID #### [facility] [address] [place], [place] [address] Dr. Kiran Ivey VLDL CALC 36.6 mg/dL Normal [facility] Comment on above: Performed By: #### L IPID #### [facility] [address] [place], [place] [address] Dr. Kiran Ivey General Surgery Office/Clini c Noteon 05-02-2022 General Surgery Office/Clinic Note Chief Complaint post operative follow up HPI Staff 13 day post operative follow up post EGD with antral biopsy and colonoscopy with rectal polypectomy. History of Present Illness f/u after EGD/colonoscopy with rectal polypectomy; EGD with mild antral gastritis, bx negative for H pylori; 4 mm rectal polyp removed, serrated adenoma, denies abd pain or blood in stools. Review of Systems ROS - Provider Constitutional: no fever, no sweats, no weight loss. Eyes: no glasses, no blurred vision, no visual loss. ENMT: no dentures, no hoarseness, no swallowing difficulties, no hearing loss, no ear infection(s), no nose bleeds. Cardiovascular: normal blood pressure, no chest pain, regular heartbeat, no heart murmur. Respiratory: no shortness of breath, no cough, no asthma, no wheezing. Gastrointestinal: no nausea, no vomiting, no diarrhea, no constipation, no blood in stool, no change in bowel habits, no abdominal pain, no hepatitis. Genitourinary: no kidney stones, no urine infection, no dysuria. Musculoskeletal: no pain, no weakness. Skin: no changing moles, no rash, no skin lumps. Neurologic: no seizures, no epilepsy, no headache. Psychiatric: no emotional or psychiatric problem. Heme/Lymph: no bleeding problems, no anemia, no blood clots, no transfusions. Allergy/Immunologic: no swollen lymph nodes/glands, no IV drug abuse. Other: Additional ROS info: Except as noted in the above Review of Systems and in the History of Present Illness, all other systems have been reviewed and are negative or noncontributory. Assessment/Plan 1. Serrated adenoma of colon (D12.6: Benign neoplasm of colon, unspecified) plan surveillance colonoscopy in 5 years, call sooner if problems/questions. Follow-up No qualifying data available Problem List/Past Medical History Ongoing Allergic rhinitis Anemia Anxiety BMI 40.0-44.9, adult Diabetes Ascencion's thyroiditis HTN (hypertension) Insomnia Iron deficiency anemia Lumbar disc disease Lumbar radiculopathy Migraines Narcotic abuse Seizure Serrated adenoma of colon Sleep disorder Testicular hypofunction Vapes nicotine containing substance Historical No qualifying data Procedure/Surgical History Colonoscopy (04/19/2022), EGD - Esophagogastroduodenoscopy (04/19/2022), Appendectomy, Cholecystectomy, Reconstruction of mandible, Renal artery stent. Medications Abilify 2 mg Tab, 2 mg= 1 tab(s), Oral, Daily Androderm 4 mg/24 hr transdermal film, extended release, 1 patch(es), Topical, Once a day (at bedtime) Apidra SoloStar Pen 100 units/mL injectable solution atorvastatin 40 mg Tab, 40 mg= 1 tab(s), Oral, Daily CeleXA 20 mg Tab, 20 mg= 1 tab(s), Oral, Daily Dulera 100 mcg-5 mcg/inh inhalation aerosol, 2 puff(s), Inhalation, BID ferrous sulfate 325 mg oral enteric coated tablet, 325 mg= 1 tab(s), Oral, BID Lantus Solostar Pen 100 units/mL subcutaneous solution, 60 unit(s), SubCutaneous, BID levothyroxine 100 mcg (0.1 mg) Tab, 100 mcg= 1 tab(s), Oral, Daily Levsin 0.125 mg SL Tab, 0.125 mg= 1 tab(s), Oral, QID lisinopril 40 mg Tab, 40 mg= 1 tab(s), Oral, Daily Lyrica 300 mg Cap ProAir HFA 90 mcg/inh inhalation aerosol, 2 puff(s), Inhalation, QID Protonix 40 mg Tab-DR, 40 mg= 1 tab(s), Oral, Daily Suboxone 8 mg-2 mg sublingual film, 1.5-2, SubLingual, Daily traZODONE 50 mg Tab, 1-2 tabs, Oral, Once a day (at bedtime) Allergies Compazine (Muscle cramp) Social History Alcohol - Denies Alcohol Use, 03/13/2022 Substance Abuse Current, Marijuana, 3-5 times per week, 03/13/2022 Tobacco Never (less than 100 in lifetime) Tobacco Use:. Smokeless tobacco user within last 30 days Smokeless Tobacco Use:. Vaping, Started age 46.0 Years. Yes, 03/13/2022 Family History Aneurysm: Sister. COPD: Father. Heart disease: Father. Normal [facility] Comment on above: Result Comment: Elec tronically Signed By: CAMI HUNT, Naye Bell\Date and Time Signed: 05/02/22 15:50 EST Reminderson 05-02-2022 Reminders - From: Suad Fitzpatrick LPN To: N - Clinical; Sent: 05/02/2022 15:51:15 EST Show up: 03/20/2027 07:00:00 EST Subject: colonoscopy recall Due Date/Time: 04/19/2027 07:00:00 EST Reminder/Recall Patient is due for colonoscopy 04/19/2027 due to history of colonic polyp. Normal [facility] Pathology Noteon 04-21-2022 Pathology Note [id number]#[id number]:127 Normal [facility] Outside Colonoscopyon 2021 Outside Colonoscopy [id number]#[id number]:127 Normal [facility] POINT OF CARE GLUCOSEon 03-24 Glucose [Mass/Vol] 114 mg/dL Critically high 74-106 T [facility] Comment on above: Performed By: #### P OCGLUC #### [facility] [address] [place] [address] Dr. Kiran Ivey Lab Reportson 2022 Lab Reports [id number]#[id number]:127 Normal [facility] Covid-19 PCR (CVDTBH)on 03-24 SARS-CoV-2 (COVID-19) RNA JOANNA+probe Ql (Unsp spec) Not detected Normal NOT DETECTED [facility] Comment on above: Result Comment: This test is not yet approved or cleared by the [place] FDA. When there are no FDA-approved or cleared tests available, and other criteria are met, FDA can make tests available under an emergency access mechanism called an Emergency Use Authorization (EUA). The EUA for this test is supported by the Ribbing Machine Operator of Health and Human Service's (HHS's) declaration that circumstances exist to justify the emergency use of in vitro diagnostics for the detection and/or diagnosis of the virus that causes COVID-19. This EUA will remain in effect (meaning this test can be used) for the duration of the COVID-19 declaration justifying emergency of IVDs, unless it is terminated or revoked by FDA (after which the test may no longer be used). When diagnostic testing is negative, the possibility of a false negative should be considered in the context of a patient's recent exposures and the presence of clinical signs and symptoms consistent with SARS-CoV-2. Performed By: #### C [facility] #### [facility] [address] [place] [address] Dr. Kiran Ivey Pre-Certification Formon Pre-Certification Form [id number]#[id number]:127 Normal [facility] Consent for Procedure/Surger yon 03-20-2022 Consent for Procedure/Surgery [id number]#[id number]:127 Normal [facility] Ambulatory Visit Summaryon 1 05-13-2021 Ambulatory Visit Summary NONI SOTO Sade :1975 Visit Date:03/13/2022 Ambulatory Visit Instructions Your Diagnosis Iron deficiency anemia secondary to blood loss (chronic) Vapes nicotine containing substance BMI 40.0-44.9, adult Your Care Team Attending Physician - CAMI HUNT, Naye Ruiz Primary Care Physician - Jadyn Wilhelm MD This Is Your Medications List Contact prescribing physician if questions or concerns albuterol (ProAir HFA 90 mcg/inh inhalation aerosol) aripiprazole (Abilify 2 mg Tab) atorvastatin (atorvastatin 40 mg Tab) buprenorphine-naloxone (Suboxone 8 mg-2 mg sublingual film) citalopram (CeleXA 20 mg Tab) ferrous sulfate (ferrous sulfate 325 mg oral enteric coated tablet) formoterol-mometasone (Dulera 100 mcg-5 mcg/inh inhalation aerosol) hyoscyamine (Levsin 0.125 mg SL Tab) insulin glargine (Lantus Solostar Pen 100 units/mL subcutaneous solution) insulin glulisine (Apidra SoloStar Pen 100 units/mL injectable solution) levothyroxine (levothyroxine 100 mcg (0.1 mg) Tab) lisinopril (lisinopril 40 mg Tab) pantoprazole (Protonix 40 mg Tab-DR) pregabalin (Lyrica 300 mg Cap) testosterone (Androderm 4 mg/24 hr transdermal film, extended release) trazodone (traZODONE 50 mg Tab) Procedures Performed Appendectomy, Cholecystectomy, Reconstruction of mandible, Renal artery stent. Discharge Vitals Heart Rate (Peripheral) 89 Respiratory Rate 16 Blood Pressure 160/97 Height 170 cm Height 67 in Weight 117.5 kg Weight 258.5 lb BMI 40.66 Medications What How Much When Instructions Unchanged albuterol (ProAir HFA 90 mcg/ inh inhalation aerosol) 2 Puffs Inhalation 4 times a day Contact prescribing physician if questions or concerns Unchanged aripiprazole (Abilify 2 mg Tab) 1 Tablets By Mouth Every day Contact prescribing physician if questions or concerns Unchanged atorvastatin (atorvastatin 40 mg Tab) 1 Tablets By Mouth Every day Contact prescribing physician if questions or concerns Unchanged buprenorphine-naloxone (Suboxone 8 mg-2 mg sublingual film) 1.5-2 Sublingual Every day Contact prescribing physician if questions or concerns Unchanged citalopram (CeleXA 20 mg Tab) 1 Tablets By Mouth Every day Contact prescribing physician if questions or concerns Unchanged ferrous sulfate (ferrous sulfate 325 mg oral enteric coated tablet) 1 Tablets By Mouth 2 times a day Contact prescribing physician if questions or concerns Unchanged formoterol-mometasone (Dulera 100 mcg-5 mcg/ inh inhalation aerosol) 2 Puffs Inhalation 2 times a day Contact prescribing physician if questions or concerns Unchanged hyoscyamine (Levsin 0.125 mg SL Tab) 1 Tablets By Mouth 4 times a day Contact prescribing physician if questions or concerns Unchanged insulin glargine (Lantus Solostar Pen 100 units/ mL subcutaneous solution) 60 Units Subcutaneous 2 times a day Contact prescribing physician if questions or concerns Unchanged insulin glulisine (Apidra SoloStar Pen 100 units/ mL injectable solution) per sliding scale Contact prescribing physician if questions or concerns Unchanged levothyroxine (levothyroxine 100 mcg (0.1 mg) Tab) 1 Tablets By Mouth Every day Contact prescribing physician if questions or concerns Unchanged lisinopril (lisinopril 40 mg Tab) 1 Tablets By Mouth Every day Contact prescribing physician if questions or concerns Unchanged pantoprazole (Protonix 40 mg Tab-DR) 1 Tablets By Mouth Every day Contact prescribing physician if questions or concerns Unchanged pregabalin (Lyrica 300 mg Cap) as directed Contact prescribing physician if questions or concerns Unchanged testosterone (Androderm 4 mg/ 24 hr transdermal film, extended release) 1 Patches Topical Once a day (at bedtime) Contact prescribing physician if questions or concerns Unchanged trazodone (traZODONE 50 mg Tab) 1-2 tabs By Mouth Once a day (at bedtime) Contact prescribing physician if questions or concerns Allergies Compazine (Muscle cramp) Problems Ongoing - Any problem that you are currently receiving treatment for. Allergic rhinitis Anemia Anxiety BMI 40.0-44.9, adult Diabetes Ascencion's thyroiditis HTN (hypertension) Insomnia Iron deficiency anemia Lumbar disc disease Lumbar radiculopathy Migraines Narcotic abuse Seizure Sleep disorder Testicular hypofunction Vapes nicotine containing substance Normal [facility] CBC AUTO DIFFon 03-09-2022 BASO # 0.0 103/ul Normal 0.0-0.1 [facility] Comment on above: Performed By: #### C BC #### [facility] [address] [place] [address] [address] Kiran Ivey Basophils/100 WBC (Bld) 0.6 % Normal 0.2-2.0 [facility] Comment on above: Performed By: #### C BC #### [facility] [address] [place] [address] [address] Kiran Ivey EO # 0.0 103/ul Normal 0.0-0.7 [facility] Comment on above: Performed By: #### C BC #### [facility] [address] [address] [address] Kiran Ivey Eosinophils/100 WBC (Bld) 1.2 % Normal 0.9-7.0 [facility] Comment on above: Performed By: #### C BC #### [facility] [address] [place] [address] Dr. Kiran Ivey Erythrocyte distribution width (RBC) [Ratio] 16.7 % Critically high 11.0-15.0 [facility] Comment on above: Performed By: #### C BC #### [facility] [address] [place] [address] Dr. Kiran Ivey Hematocrit (Bld) [Volume fraction] 38.5 % Critically low 42.0-54.0 [facility] Comment on above: Performed By: #### C BC #### [facility] [address] [place] [address] Dr. Kiran Ivey Hemoglobin (Bld) [Mass/Vol] 11.6 g/dL Critically low 14.0-18.0 [facility] Comment on above: Performed By: #### C BC #### [facility] [address] [place] [address] Dr. Kiran Ivey IG # 0.01 10e3/ul Normal 0.00-0.03 [facility] Comment on above: Performed By: #### C BC #### [facility] [address] [place] [address] Dr. Kiran Ivey IG % 0.3 % Normal 0.0-0.5 [facility] Comment on above: Performed By: #### C BC #### [facility] [address] [place] [address] Dr. Kiran Ivey LYMPH # 1.2 103/ul Normal 1.2-3.8 [facility] Comment on above: Performed By: #### C BC #### [facility] [address] [place] [address] Dr. Kiran Ivey Lymphocytes/100 WBC (Bld) 36.0 % Normal 20.5-60.0 [facility] Comment on above: Performed By: #### C BC #### [facility] [address] [place] [address] Dr. Kiran Ivey MANUAL DIFF REQ NO Normal [facility] Comment on above: Performed By: #### C BC #### [facility] [address] [place] [address] Dr. Kiran Ivey MCH (RBC) [Entitic mass] 22.2 pg Critically low 25.9-34.0 [facility] Comment on above: Performed By: #### C BC #### [facility] [address] [place] [address] Dr. Kiran Ivey MCHC (RBC) [Mass/Vol] 30.1 g/dL Normal 29.9-35.2 [facility] Comment on above: Performed By: #### C BC #### [facility] [address] [place] [address] Dr. Kiran Ivey MCV (RBC) [Entitic vol] 73.8 fL Critically low 80.0-94.0 [facility] Comment on above: Performed By: #### C BC #### [facility] [address] [place] [address] Dr. Kiran Ivey MONO # 0.5 103/ul Normal 0.3-0.8 [facility] Comment on above: Performed By: #### C BC #### [facility] [address] [place] [address] Dr. Kiran Ivey Monocytes/100 WBC (Bld) 15.1 % Critically high 1.7-12.0 [facility] Comment on above: Performed By: #### C BC #### [facility] [address] [place] [address] Dr. Kiran Ivey NEUT # 1.5 103/ul Normal 1.4-6.5 [facility] Comment on above: Performed By: #### C BC #### [facility] [address] [place] [address] Dr. Kiran Ivey Neutrophils/100 WBC (Bld) 46.8 % Normal 43.0-75.0 [facility] Comment on above: Performed By: #### C BC #### [facility] [address] [place] [address] Dr. Kiran Ivey Platelet mean volume (Bld) [Entitic vol] 10.2 fL Normal 9.5-13.5 [facility] Comment on above: Performed By: #### C BC #### [facility] [address] [place] [address] Dr. Kiran Ivey PLT 168 103/ul Normal 150-450 [facility] Comment on above: Performed By: #### C BC #### [facility] [address] [place] [address] [address] Kiran Ivey RBC 5.22 106/ul Normal 4.70-6.10 [facility] Comment on above: Performed By: #### C BC #### [facility] [address] [place] [address] [address] Kiran Ivey WBC 3.3 103/ul Critically low 4.0-11.0 [facility] Comment on above: Performed By: #### C BC #### [facility] [address] [place] [address] Dr. Kiran Ivey PROF CHEM 8 (BAS METB)on Anion gap [Moles/Vol] 10.3 mmol/L Normal [facility] Comment on above: Performed By: #### B MP #### [facility] [address] [place] [address] Dr. Kiran Ivey Calcium [Mass/Vol] 8.5 mg/dL Normal 8.5-10.1 [facility] Comment on above: Performed By: #### B MP #### [facility] [address] [place] [address] Dr. Kiran Ivey Chloride [Moles/Vol] 99 mmol/L Normal 98-107 [facility] Comment on above: Performed By: #### B MP #### [facility] [address] [place] [address] [address] Kiran Ivey CO2 [Moles/Vol] 28.3 mmol/L Normal 21.0-32.0 [facility] Comment on above: Performed By: #### B MP #### [facility] [address] [place] [address] Dr. Kiran Ievy Creatinine [Mass/Vol] 0.81 mg/dL Normal 0.70-1.30 [facility] Comment on above: Performed By: #### B MP #### [facility] [address] [place] [address] Dr. Kiran Ivey EGFR-AF HAITIAN >60 Normal >=60 [facility] Comment on above: Performed By: #### B MP #### [facility] [address] [place] [address] [address] Kiran Ivey EGFR-NON AF HAITIAN >60 Normal >=60 [facility] Comment on above: Performed By: #### B MP #### [facility] [address] [place] [id number] Kiran Ivey Glucose [Mass/Vol] 152 mg/dL Critically high 74-106 T [facility] Comment on above: Performed By: #### B MP #### [facility] [address] [place] [address] [address] Kiran Ivey Potassium [Moles/Vol] 4.6 mmol/L Normal 3.5-5.1 [facility] Comment on above: Performed By: #### B MP #### [facility] [address] [place] [address] [address] Kiran Ivey Sodium [Moles/Vol] 133 mmol/L Critically low 136-145 [facility] Comment on above: Performed By: #### B MP #### [facility] [address] [place] [address] [address] Kiran Ivey Urea nitrogen [Mass/Vol] 13.0 mg/dL Normal 7.0-18.0 [facility] Comment on above: Performed By: #### B MP #### [facility] [address] [place] [id number] Kiran Ivey Urea nitrogen/Creatinin e [Mass ratio] 16.0 mg/mg Normal [facility] Comment on above: Performed By: #### B MP #### [facility] [address] [place] [id number] Kiran Ivey Physician Referralon 022 Physician Referral [id number]:127 Normal [facility] TESTOSTERONE, TOTALon 2021 Testosterone [Mass/Vol] 56 ng/dL Critically low 264-916 [facility] Comment on above: Result Comment: Adul t male reference interval is based on a population of healthy nonobese males (BMI <30) between 19 and 39 years old. Carlos, et.al. JCEM 2017,102;6061-1299. PMID: [id number]. Performed By: #### C BC #### [facility] [address] [place] [address] Dr. Kiran Ivey AMYLASEon 02-15-2022 Amylase [Catalytic activity/Vol] 35 U/L Normal 25-115 [facility] Comment on above: Performed By: #### C BC #### [facility] [address] [place] [address] Dr. Kiran Ivey BNPon 02-15-2022 Natriuretic peptide B (Bld) [Mass/Vol] 7.0 pg/mL Normal <=450.0 [facility] Comment on above: Performed By: #### C BC #### [facility] [address] [place] [address] Dr. Kiran Ivey CBC AUTO DIFFon 02-15-2022 BASO # 0.1 103/ul Normal 0.0-0.1 [facility] Comment on above: Performed By: #### C BC #### [facility] [address] [place] [address] Dr. Kiran Ivey Basophils/100 WBC (Bld) 0.7 % Normal 0.2-2.0 [facility] Comment on above: Performed By: #### C BC #### [facility] [address] [place] [address] Dr. Kiran Ivey EO # 0.2 103/ul Normal 0.0-0.7 [facility] Comment on above: Performed By: #### C BC #### [facility] [address] [place] [address] Dr. Kiran Ivey Eosinophils/100 WBC (Bld) 2.3 % Normal 0.9-7.0 [facility] Comment on above: Performed By: #### C BC #### [facility] [address] [place] [address] Dr. Kiran Ivey Erythrocyte distribution width (RBC) [Ratio] 15.2 % Critically high 11.0-15.0 [facility] Comment on above: Performed By: #### C BC #### [facility] [address] [place] [address] Dr. Kiran Ivey Hematocrit (Bld) [Volume fraction] 38.3 % Critically low 42.0-54.0 [facility] Comment on above: Performed By: #### C BC #### [facility] [address] [place] [address] Dr. Kiran Ivey Hemoglobin (Bld) [Mass/Vol] 12.1 g/dL Critically low 14.0-18.0 [facility] Comment on above: Performed By: #### C BC #### [facility] [address] [place] [address] Dr. Kiran Ivey IG # 0.06 10e3/ul Critically high 0.00-0.03 [facility] Comment on above: Performed By: #### C BC #### [facility] [address] [place] [address] Dr. Kiran Ivey IG % 0.6 % Critically high 0.0-0.5 [facility] Comment on above: Performed By: #### C BC #### [facility] [address] [place] [address] Dr. Kiran Ivey LYMPH # 2.6 103/ul Normal 1.2-3.8 [facility] Comment on above: Performed By: #### C BC #### [facility] [address] [place] [address] Dr. Kiran Ivey Lymphocytes/100 WBC (Bld) 25.0 % Normal 20.5-60.0 [facility] Comment on above: Performed By: #### C BC #### [facility] [address] [place] [address] Dr. Kiran Ivey MANUAL DIFF REQ NO Normal [facility] Comment on above: Performed By: #### C BC #### [facility] [address] [place] [address] Dr. Kiran Ivey MCH (RBC) [Entitic mass] 22.5 pg Critically low 25.9-34.0 [facility] Comment on above: Performed By: #### C BC #### [facility] [address] [place] [address] [address] Kiran Ivey MCHC (RBC) [Mass/Vol] 31.6 g/dL Normal 29.9-35.2 [facility] Comment on above: Performed By: #### C BC #### [facility] [address] [place] [address] [address] Kiran Ivey MCV (RBC) [Entitic vol] 71.2 fL Critically low 80.0-94.0 [facility] Comment on above: Performed By: #### C BC #### [facility] [address] [address] [address] Kiran Ivey MONO # 0.7 103/ul Normal 0.3-0.8 [facility] Comment on above: Performed By: #### C BC #### [facility] [address] [address] [address] Kiran Ivey Monocytes/100 WBC (Bld) 6.6 % Normal 1.7-12.0 [facility] Comment on above: Performed By: #### C BC #### [facility] [address] [address] [address] Kiran Ivey NEUT # 6.7 103/ul Critically high 1.4-6.5 [facility] Comment on above: Performed By: #### C BC #### [facility] [address] [address] [address] Kiran Ivey Neutrophils/100 WBC (Bld) 64.8 % Normal 43.0-75.0 [facility] Comment on above: Performed By: #### C BC #### [facility] [address] [address] [address] Kiran Ivey Platelet mean volume (Bld) [Entitic vol] 9.0 fL Critically low 9.5-13.5 [facility] Comment on above: Performed By: #### C BC #### [facility] [address] [address] [address] Kiran Ivey PLT 338 103/ul Normal 150-450 [facility] Comment on above: Performed By: #### C BC #### [facility] [address] [address] [address] Kiran Ivey RBC 5.38 106/ul Normal 4.70-6.10 [facility] Comment on above: Performed By: #### C BC #### [facility] [address] [address] [address] Kiran Ivey WBC 10.3 103/ul Normal 4.0-11.0 [facility] Comment on above: Performed By: #### C BC #### [facility] [address] [place] [address] Dr. Kiran Ivey FREE THYROXINE INDEX T7on FTI 3.04 Normal 1.30-4.50 [facility] Comment on above: Performed By: #### C BC #### [facility] [address] [place] [address] Dr. Kiran Ivey T3U 33.0 % Normal 33.0-40.0 [facility] Comment on above: Performed By: #### C BC #### [facility] [address] [place] [address] Dr. Kiran Ivey T4 [Mass/Vol] 9.20 ug/dL Normal 4.50-12.10 [facility] Comment on above: Performed By: #### C BC #### [facility] [address] [place] [address] Dr. Kiran Ivey IRONon 02-15-2022 Iron [Mass/Vol] 25.0 ug/dL Critically low 65.0-175.0 [facility] Comment on above: Performed By: #### C BC #### [facility] [address] [place] [address] Dr. Kiran Ivey LIPASEon 02-15-2022 Lipase [Catalytic activity/Vol] 90.0 U/L Normal 73.0-393.0 [facility] Comment on above: Performed By: #### C BC #### [facility] [address] [place] [address] Dr. Kiran Ivey PROF 14(COMP METB)on 10-26-2 022 Albumin [Mass/Vol] 3.4 g/dL Normal 3.4-5.0 [facility] Comment on above: Performed By: #### C BC #### [facility] [address] [place] [address] Dr. Kiran Ivey Albumin/Globulin [Mass ratio] 0.8 {ratio} Normal [facility] Comment on above: Performed By: #### C BC #### [facility] [address] [place] [address] Dr. Kiran Ivey ALP [Catalytic activity/Vol] 118 U/L Critically high 46-116 [facility] Comment on above: Performed By: #### C BC #### [facility] [address] [place] [address] Dr. Kiran Ivey ALT [Catalytic activity/Vol] 30 U/L Normal 16-63 [facility] Comment on above: Performed By: #### C BC #### [facility] [address] [place] [address] Dr. Kiran Ivey Anion gap [Moles/Vol] 9.8 mmol/L Normal [facility] Comment on above: Performed By: #### C BC #### [facility] [address] [place] [address] Dr. Kiran Ivey AST [Catalytic activity/Vol] 20 U/L Normal 15-37 [facility] Comment on above: Performed By: #### C BC #### [facility] [address] [place] [address] Dr. Kiran Ivey Bilirubin [Mass/Vol] 0.2 mg/dL Normal 0.2-1.0 [facility] Comment on above: Performed By: #### C BC #### [facility] [address] [place] [address] Dr. Kiran Ivey Calcium [Mass/Vol] 9.5 mg/dL Normal 8.5-10.1 [facility] Comment on above: Performed By: #### C BC #### [facility] [address] [place] [address] Dr. Kiran Ivey Chloride [Moles/Vol] 99 mmol/L Normal 98-107 [facility] Comment on above: Performed By: #### C BC #### [facility] [address] [address] [address] Kiran Ivey CO2 [Moles/Vol] 29.1 mmol/L Normal 21.0-32.0 [facility] Comment on above: Performed By: #### C BC #### [facility] [address] [address] [address] Kiran Ivey Creatinine [Mass/Vol] 0.83 mg/dL Normal 0.70-1.30 [facility] Comment on above: Performed By: #### C BC #### [facility] [address] [address] [address] Kiran Ivey EGFR-AF HAITIAN >60 Normal >=60 [facility] Comment on above: Performed By: #### C BC #### [facility] [address] [place] [address] Dr. Kiran Ivey EGFR-NON AF HAITIAN >60 Normal >=60 [facility] Comment on above: Performed By: #### C BC #### [facility] [address] [place] [address] Dr. Kiran Ivey Globulin (S) [Mass/Vol] 4.1 g/dL Normal [facility] Comment on above: Performed By: #### C BC #### [facility] [address] [place] [address] Dr. Kiran Ivey Glucose [Mass/Vol] 157 mg/dL Critically high 74-106 T [facility] Comment on above: Performed By: #### C BC #### [facility] [address] [place] [address] Dr. Kiran Ivey Potassium [Moles/Vol] 3.9 mmol/L Normal 3.5-5.1 [facility] Comment on above: Performed By: #### C BC #### [facility] [address] [place] [address] Dr. Kiran Ivey Protein [Mass/Vol] 7.5 g/dL Normal 6.4-8.2 [facility] Comment on above: Performed By: #### C BC #### [facility] [address] [place] [address] Dr. Kiran Ivey Sodium [Moles/Vol] 134 mmol/L Critically low 136-145 [facility] Comment on above: Performed By: #### C BC #### [facility] [address] [place] [address] Dr. Kiran Ivey Urea nitrogen [Mass/Vol] 13.0 mg/dL Normal 7.0-18.0 [facility] Comment on above: Performed By: #### C BC #### [facility] [address] [place] [address] Dr. Kiran Ivey Urea nitrogen/Creatinin e [Mass ratio] 15.7 mg/mg Normal [facility] Comment on above: Performed By: #### C BC #### [facility] [address] [place] [address] Dr. Kiran Ivey TSHon 02-15-2022 TSH 1.756 uIU/mL Normal 0.358-3.740 [facility] Comment on above: Performed By: #### C BC #### [facility] [address] [place] [address] Dr. Kiran Ivey [facility]23 SARS-CoV-2 (COVID-19) RNA JOANNA+probe Ql (Unsp spec) Not detected Normal NOT DETECTED [facility] Comment on above: Result Comment: When diagnostic testing is negative, the possibility of a false negative should be considered in the context of a patient's recent exposures and the presence of clinical signs and symptoms consistent with SARS-CoV-2. This test is not yet approved or cleared by the [place] FDA. When there are no FDA-approved or cleared tests available, and other criteria are met, FDA can make tests available under an emergency access mechanism called an Emergency Use Authorization (EUA). The EUA for this test is supported by the [place] of Health and Human Service's declaration that circumstances exist to justify the emergency use of in vitro diagnostics for the detection and/or diagnosis of the virus that causes COVID-19. This EUA will remain in effect for the duration of the COVID-19 declaration justifying emergency of IVDs, unless it is terminated or revoked by the FDA (after which the test may no longer be used). Performed By: #### C #### [facility] [address] [address] [address] Kiran Ivey ECHOCARDIO M/2D COMPLETEon 0 09-14-2021 ECHOCARDIO M/2D COMPLETE Patient: NONI SOTO Exam Date: 09/14/2021 : 1975 Gender:M Ordering : DR JADYN WILHELM . Admission #: [id number] Family : Order #: [id number] CLICK HERE TO VIEW EXAM ECHOCARDIOGRAM REPORT PROCEDURE: CARDIO PULMONARY ECHOCARDIO M/2D COMP INDICATIONS: Dyspnea, S / P Covid (w/ scarring per pt) COMPARISON: None. DESCRIPTION: COMPLETE ECHOCARDIOGRAM Real-time transthoracic echocardiography with 2D, M-mode, spectral and color flow Doppler performed. QUALITY: Technical quality was limited. 66 240# 124/82 LEFT VENTRICLE: Normal chamber size. Normal left ventricular wall thickness. Global left ventricular systolic function appears normal. No segmental wall motion abnormalities are seen. Unable to evaluate diastolic function. LV EF: DIASTOLIC: ATRIAL SEPTUM: LEFT ATRIUM: Normal chamber size. RIGHT ATRIUM: Normal chamber size. RIGHT VENTRICLE: Normal chamber size. Normal right ventricular systolic function. TRICUSPID VALVE: Normal mobility and thickness. No stenosis with trivial regurgitation. No evidence of pulmonary hypertension. Unable to calculate right sided pressures due to lack of tricuspid regurgitation. MITRAL VALVE: Normal mobility and thickness. No evidence of mitral valve stenosis. Trivial mitral regurgitation. AORTIC VALVE: Normal trileaflet appearance. No evidence of aortic valve stenosis. No aortic regurgitation. AORTIC ROOT: Ascending aorta is normal in size. PULMONIC VALVE: Normal thickness and mobility. No stenosis. Trivial regurgitation. PERICARDIUM: No evidence of pericardial effusion. IVC: Not well visualized. PLEURA: CONCLUSION: 1. Normal ventricular systolic function. 2. No significant valvular dysfunction. 3. No pericardial effusion. 4. Unable to assess right-sided pressures due to lack of measurable tricuspid regurgitation. Adult Echocardiography Procedure Report Left Ventricle Left Atrium Mitral Valve Right Ventricle Aorta Aortic Valve Peak Velocity (Antegrade Flow): 1.43 m/s AoV Area (Peak Moses): 2.83 cm2, 2.83 cm2 Peak Velocity(Antegrade Flow): 1.43 m/s Peak Gradient(Antegrade Flow): 8.23 mm[Hg] Tricuspid Valve Peak Velocity: 0.64 m/s, 0.64 m/s Pulmonic Valve PV Max Moses (0.6 - 0.9 m per sec): 1.17 m/s PV Max Gradient: 5.48 mm[Hg] Right Atrium Dictated by: Topher Perez M.D. on 09/15/2021 at 13:10 Approved by: Topher Perez M.D. on 09/15/2021 at 13:12 Normal [facility] CREATININEon 09-09-2021 Creatinine [Mass/Vol] 0.95 mg/dL Normal 0.70-1.30 [facility] Comment on above: Performed By: #### C BC #### [facility] [address] [place] [address] Dr. Kiran vIey EGFR-AF HAITIAN >60 Normal >=60 [facility] Comment on above: Performed By: #### C BC #### [facility] [address] [place] [address] Dr. Kiran Ivey EGFR-NON AF HAITIAN >60 Normal >=60 [facility] Comment on above: Performed By: #### C BC #### [facility] [address] [place] [address] Dr. Kiran Ivey CTA CHEST WO W CONon 022 CTA CHEST WO W CON EXAMINATION: CTA PIPER ST WO W CON HISTORY: Dyspnea , shortness breath with exertion since Covid 7 months ago COMPARISON: No relevant comparison available. TECHNIQUE: Multi-planar CT images were created with IV contrast. Axial, Coronal, and Sagittal images. Dose reduction techniques were achieved by using automated exposure control and/or adjustment of mA and/or kV according to patient size and/or use of iterative reconstruction technique. 3-D reconstruction was performed on a separate workstation. FINDINGS: VASCULATURE: No pulmonary embolism or abnormal opacity. LUNGS: Underexpanded lungs with small amount of stranding in the lung bases favoring scarring or discoid atelectasis. PLEURA: No mass, effusion, or pneumothorax. DEX: No mass or adenopathy. MEDIASTINUM: No mass or adenopathy. CARDIAC: No enlargement, pericardial effusion, or pericardial thickening. AORTA: No aneurysm or dissection. CHEST WALL: No mass or axillary adenopathy. BONES: No bone lesion or fracture. LIMITED ABDOMEN: No suspicious findings. Limited images of the upper abdomen. OTHER: Negative. IMPRESSION: 1. No pulmonary embolism. 2. Trace amount of bibasilar scarring or discoid atelectasis. No acute infiltrates. Electronically authenticated by: IGNACIO FERRARA Date: 2021-09-09 10:05 Normal [facility] US WOODROW DOP LEG BILon 022 US WOODROW DOP LEG KEENA EXAMINATION: US WOODROW DOP LEG KEENA HISTORY: Dyspnea COMPARISON: No relevant comparison available. FINDINGS: REGION: Bilateral lower extremities THROMBI: None. COMPRESSIBILITY: Normal compressibility. FLOW: Normal waveform and antegrade flow between 5 and 20 cm/s. OTHER: None. IMPRESSION: 1. No deep vein thrombus within the right or left lower extremity. Electronically authenticated by: IGNACIO FERRARA Date: 2021-09-05 16:26 Normal [facility] POC GLUCOSE LABon 01-09-2019 Glucose [Mass/Vol] 233 mg/dL High 70-[address] [facility] Comment on above: Performed By: #### 8 [id number] #### [facility] [address] [place] [address], [place] Glucose [Mass/Vol] 199 mg/dL High 70-[address] [facility] Comment on above: Performed By: #### 8 [id number] #### [facility] [address] [place] [address], [place] POC GLUCOSE LABon 01-08-2019 Glucose [Mass/Vol] 251 mg/dL High 70-[address] [facility] Comment on above: Performed By: #### 8 [id number] #### [facility] [address] [place] [address], [place] Glucose [Mass/Vol] 212 mg/dL High 70-[address] [facility] Comment on above: Performed By: #### 8 [id number] #### [facility] [address] [place] [address], [place] Glucose [Mass/Vol] 238 mg/dL High 70-[address] [facility] Comment on above: Performed By: #### 8 [id number] #### [facility] [address] [place] [address], [place] Glucose [Mass/Vol] 160 mg/dL High 70-[address] [facility] Comment on above: Performed By: #### 0 0121 #### [facility] [address] [place] [address], [place] BASIC METABOLIC PANELon 12-22 Calcium [Mass/Vol] 9.3 mg/dL Normal 8.6-10.[address] [facility] Comment on above: Order Comment: Yes: Add to Previous draw if able Performed By: #### 0 0121 #### [facility] [address] [place] [address], [place] Chloride [Moles/Vol] 100 mmol/L Normal 98-[address] [facility] Comment on above: Order Comment: Yes: Add to Previous draw if able Performed By: #### 0 0121 #### [facility] [address] [place] [address], [place] CO2 [Moles/Vol] 30 mmol/L Normal 21-[address] [facility] Comment on above: Order Comment: Yes: Add to Previous draw if able Performed By: #### 0 0121 #### [facility] [address] [place] [address], [place] Creatinine [Mass/Vol] 0.74 mg/dL Normal 0.70-1.[address] [facility] Comment on above: Order Comment: Yes: Add to Previous draw if able Performed By: #### 0 0121 #### [facility] [address] [place] [address], [place] GFR/1.73 sq M predicted among blacks MDRD (S/P/Bld) [Vol rate/Area] mL/min/{1.73_m2} Normal >[address] [facility] Comment on above: Order Comment: Yes: Add to Previous draw if able Performed By: #### 0 0121 #### [facility] [address] [place] [address], [facility] GFR/1.73 sq M predicted among non-blacks MDRD (S/P/Bld) [Vol rate/Area] mL/min/{1.73_m2} Normal >[address] [facility] Comment on above: Order Comment: Yes: Add to Previous draw if able Performed By: #### 0 0121 #### [facility] [address] [place] [address], [place] Glucose [Mass/Vol] 176 mg/dL High 70-[address] [facility] Comment on above: Order Comment: Yes: Add to Previous draw if able Performed By: #### 0 0121 #### [facility] [address] [place] [address], [place] Potassium [Moles/Vol] 3.6 mmol/L Normal 3.5-5.[address] [facility] Comment on above: Order Comment: Yes: Add to Previous draw if able Performed By: #### 0 0121 #### [facility] [address] [place] [address], [place] Sodium [Moles/Vol] 137 mmol/L Normal 136-[address] [facility] Comment on above: Order Comment: Yes: Add to Previous draw if able Performed By: #### 0 0121 #### [facility] [address] [place] [address], [facility] Urea nitrogen [Mass/Vol] 15 mg/dL Normal 7-[address] [facility] Comment on above: Order Comment: Yes: Add to Previous draw if able Performed By: #### 0 0121 #### [facility] [address] [place] [address], [facility] CBC COMPLETE BLOOD COUNTon 0 - Erythrocyte distribution width (RBC) [Ratio] 12.7 % Normal 11.5-15.[address] [facility] Comment on above: Order Comment: Yes: Add to Previous draw if able Performed By: #### 0 0121 #### [facility] [address] [place] [address], [facility] Hematocrit (Bld) [Volume fraction] 35.4 % Low 39.0-50.[address] [facility] Comment on above: Order Comment: Yes: Add to Previous draw if able Performed By: #### 0 0121 #### [facility] [address] [place] [address], [facility] Hemoglobin (Bld) [Mass/Vol] 11.8 g/dL Low 13.0-17.[address] [facility] Comment on above: Order Comment: Yes: Add to Previous draw if able Performed By: #### 0 0121 #### [facility] [address] [place] [address], [facility] MCH (RBC) [Entitic mass] 26.1 pg Low 27.0-33.[address] [facility] Comment on above: Order Comment: Yes: Add to Previous draw if able Performed By: #### 0 0121 #### [facility] [address] [place] [address], [facility] MCHC (RBC) [Mass/Vol] 33.3 g/dL Normal 32.0-35.[address] [facility] Comment on above: Order Comment: Yes: Add to Previous draw if able Performed By: #### 0 0121 #### [facility] [address] [place] [address], [facility] MCV (RBC) [Entitic vol] 78.3 fL Low 82.0-98.[address] [facility] Comment on above: Order Comment: Yes: Add to Previous draw if able Performed By: #### 0 0121 #### [facility] [address] [place] [id number], [facility] Nucleated RBC/100 WBC (Bld) [Ratio] 0 % Normal 0-[address] [facility] Comment on above: Order Comment: Yes: Add to Previous draw if able Performed By: #### 0 0121 #### [facility] [address] [place] [address], [facility] PLAT CNT 411 10*3/uL High 150-[address] [facility] Comment on above: Order Comment: Yes: Add to Previous draw if able Performed By: #### 0 0121 #### [facility] [address] [place] [address], [facility] RBC (Bld) [#/Vol] 4.52 10*6/uL Normal 4.20-5.[address] [facility] Comment on above: Order Comment: Yes: Add to Previous draw if able Performed By: #### 0 0121 #### [facility] [address] [place] [address], [facility] WBC (Bld) [#/Vol] 7.62 10*3/uL Normal 4.00-10.[address] [facility] Comment on above: Order Comment: Yes: Add to Previous draw if able Performed By: #### 0 0121 #### [facility] [address] [place] [address], [facility] HEMOGLOBIN A1Con 01-07-2019 HbA1c (Bld) [Mass fraction] 338 mg/dL High 70-[address] [facility] Comment on above: Order Comment: Yes: Add to Previous draw if able Performed By: #### 8 [id number] #### [facility] [address] [place] [address], [facility] HbA1c (Bld) [Mass fraction] 13.4 % High 4.0-6.[address] [facility] Comment on above: Order Comment: Yes: Add to Previous draw if able Performed By: #### 8 [id number] #### [facility] [address] [place] [address], [facility] POC GLUCOSE LABon 01-07-2019 Glucose [Mass/Vol] 317 mg/dL High 70-[address] [facility] Comment on above: Performed By: #### 0 0121 #### [facility] [address] [place] [id number], [facility] Glucose [Mass/Vol] 142 mg/dL High 70-[address] [facility] Comment on above: Performed By: #### 0 0121 #### [facility] [address] [place] [address], [facility] Glucose [Mass/Vol] 190 mg/dL High 70-[address] [facility] Comment on above: Performed By: #### 0 0121 #### [facility] [address] [address], [facility] VANCOMYCIN TROUGHon 01-08-20 19 VANCOMYCIN TROU 11.5 mcg/mL Normal 5.0-20.[address] [facility] Comment on above: Performed By: #### 0 0121 #### [facility] [address] [facility] [place] [address], [facility] BASIC METABOLIC PANELon 12-22 Calcium [Mass/Vol] 9.1 mg/dL Normal 8.6-10.[address] [facility] Comment on above: Order Comment: No: D o not add to previous draw Performed By: #### 1 0, [id number], [id number] #### [facility] [address] [facility] [place] [address], [facility] Chloride [Moles/Vol] 100 mmol/L Normal 98-[address] [facility] Comment on above: Order Comment: No: D o not add to previous draw Performed By: #### 1 0, [id number], [id number] #### [facility] [address] [facility] [place] [address], [facility] CO2 [Moles/Vol] 29 mmol/L Normal 21-[address] [facility] Comment on above: Order Comment: No: D o not add to previous draw Performed By: #### 1 0070, 55154, 65810 #### [facility] [address] [place] [address], [place] Creatinine [Mass/Vol] 0.57 mg/dL Low 0.70-1.[address] [facility] Comment on above: Order Comment: No: D o not add to previous draw Performed By: #### 1 0, 99596, 68976 #### [facility] [address] [place] [address], [place] GFR/1.73 sq M predicted among blacks MDRD (S/P/Bld) [Vol rate/Area] mL/min/{1.73_m2} Normal >[address] [facility] Comment on above: Order Comment: No: D o not add to previous draw Performed By: #### 1 0, 15770, 43703 #### [facility] [address] [place] [address], [place] GFR/1.73 sq M predicted among non-blacks MDRD (S/P/Bld) [Vol rate/Area] mL/min/{1.73_m2} Normal >[address] [facility] Comment on above: Order Comment: No: D o not add to previous draw Performed By: #### 1 0, 09792, 36040 #### [facility] [address] [place] [address], [place] Glucose [Mass/Vol] 157 mg/dL High 70-[address] [facility] Comment on above: Order Comment: No: D o not add to previous draw Performed By: #### 1 0, 12908, 56241 #### [facility] [address] [place] [address], [place] Potassium [Moles/Vol] 3.5 mmol/L Normal 3.5-5.[address] [facility] Comment on above: Order Comment: No: D o not add to previous draw Performed By: #### 1 0, 90263, 73566 #### [facility] [address] [place] [address], [place] Sodium [Moles/Vol] 135 mmol/L Low 136-[address] [facility] Comment on above: Order Comment: No: D o not add to previous draw Performed By: #### 1 0, 02971, 69403 #### [facility] [address] Urea nitrogen [Mass/Vol] 7 mg/dL Normal 7-[address] [facility] Comment on above: Order Comment: No: D o not add to previous draw Performed By: #### 1 0070, 88075, 20939 #### [facility] [address] [place] [address], [facility] CBC W/DIFFon 01-06-2019 ABS BASOPHILS 0.1 10*3/uL Normal 0.0-0.[address] [facility] Comment on above: Order Comment: No: D o not add to previous draw Performed By: #### 5 0103 #### [facility] [address] ABS IMM GRANS 0.1 10*3/uL Normal 0.0-0.[address] [facility] Comment on above: Order Comment: No: D o not add to previous draw Performed By: #### 5 0103 #### [facility] [address] ABS NEUTROPHILS 4.5 10*3/uL Normal 1.6-7.[address] [facility] Comment on above: Order Comment: No: D o not add to previous draw Performed By: #### 5 0103 #### [facility] [address] [place] [address], [facility] Basophils/100 WBC (Bld) 0.7 % Normal 0.0-1.[address] [facility] Comment on above: Order Comment: No: D o not add to previous draw Performed By: #### 5 0103 #### [facility] [address] [place] [address], [facility] Eosinophils (Bld) [#/Vol] 0.3 10*3/uL Normal 0.0-0.[address] [facility] Comment on above: Order Comment: No: D o not add to previous draw Performed By: #### 5 0103 #### [facility] [address] [facility]. [address] Eosinophils/100 WBC (Bld) 3.4 % Normal 0.0-6.[address] [facility] Comment on above: Order Comment: No: D o not add to previous draw Performed By: #### 5 0103 #### [facility] [address] [place] [address], [facility] Erythrocyte distribution width (RBC) [Ratio] 12.7 % Normal 11.5-15.[address] [facility] Comment on above: Order Comment: No: D o not add to previous draw Performed By: #### 5 0103 #### [facility] [address] [place] [address], [facility] Hematocrit (Bld) [Volume fraction] 35.1 % Low 39.0-50.[address] [facility] Comment on above: Order Comment: No: D o not add to previous draw Performed By: #### 5 0103 #### [facility] [address] [place] [address], [facility] Hemoglobin (Bld) [Mass/Vol] 11.9 g/dL Low 13.0-17.[address] [facility] Comment on above: Order Comment: No: D o not add to previous draw Performed By: #### 5 0103 #### [facility] [address] [place] [address], [facility] IMMATURE GRANS 0.6 % Normal 0.0-1.[address] [facility] Comment on above: Order Comment: No: D o not add to previous draw Performed By: #### 5 0103 #### [facility] [address] [place] [id number], [facility] Lymphocytes (Bld) [#/Vol] 3.0 10*3/uL Normal 1.2-4.[address] [facility] Comment on above: Order Comment: No: D o not add to previous draw Performed By: #### 5 0103 #### [facility] [address] [place] [id number] [place] [address] Lymphocytes/100 WBC (Bld) 34.7 % Normal 20.0-45.[address] [facility] Comment on above: Order Comment: No: D o not add to previous draw Performed By: #### 5 0103 #### [facility] [address] [place] [id number], [facility] MCH (RBC) [Entitic mass] 26.6 pg Low 27.0-33.[address] [facility] Comment on above: Order Comment: No: D o not add to previous draw Performed By: #### 5 0103 #### [facility] [address] [place] [id number], [facility] MCHC (RBC) [Mass/Vol] 33.9 g/dL Normal 32.0-35.[address] [facility] Comment on above: Order Comment: No: D o not add to previous draw Performed By: #### 5 0103 #### [facility] [address] [place] [address], [facility] MCV (RBC) [Entitic vol] 78.5 fL Low 82.0-98.[address] [facility] Comment on above: Order Comment: No: D o not add to previous draw Performed By: #### 5 0103 #### [facility] [address] [place] [address], [facility] Monocytes (Bld) [#/Vol] 0.7 10*3/uL Normal 0.1-1.[address] [facility] Comment on above: Order Comment: No: D o not add to previous draw Performed By: #### 5 0103 #### [facility] [address] [place] [address], [facility] MONOS 8.1 % Normal 5.0-12.[address] [facility] Comment on above: Order Comment: No: D o not add to previous draw Performed By: #### 5 0103 #### [facility] [address] [place] [address], [facility] Neutrophils/100 WBC (Bld) 52.5 % Normal 40.0-72.[address] [facility] Comment on above: Order Comment: No: D o not add to previous draw Performed By: #### 5 0103 #### [facility] [address] [place] [address], [facility] Nucleated RBC/100 WBC (Bld) [Ratio] 0 % Normal 0-[address] [facility] Comment on above: Order Comment: No: D o not add to previous draw Performed By: #### 5 0103 #### [facility] [address] [place] [address], [facility] PLAT CNT 445 10*3/uL High 150-[address] [facility] Comment on above: Order Comment: No: D o not add to previous draw Performed By: #### 5 0103 #### [facility] [address] [facility] [place] [address], [facility] RBC (Bld) [#/Vol] 4.47 10*6/uL Normal 4.20-5.[address] [facility] Comment on above: Order Comment: No: D o not add to previous draw Performed By: #### 5 0103 #### [facility] [address] [facility] [address], [facility] WBC (Bld) [#/Vol] 8.51 10*3/uL Normal 4.00-10.[address] [facility] Comment on above: Order Comment: No: D o not add to previous draw Performed By: #### 5 0103 #### [facility] [address] [facility] [address], [facility] MAGNESIUM BLOODon 01-06-2019 Magnesium [Mass/Vol] 1.5 mg/dL Low 1.9-2.[address] [facility] Comment on above: Order Comment: No: D o not add to previous draw Performed By: #### 1 0070, [id number], [id number] #### [facility] [address] [place] [address], [facility] PHOSPHORUS BLOODon 9 Phosphate [Mass/Vol] 3.0 mg/dL Normal 2.5-5.[address] [facility] Comment on above: Order Comment: No: D o not add to previous draw Performed By: #### 1 0070, [id number], [id number] #### [facility] [address] [place] [address], [place] POC GLUCOSE LABon 01-06-2019 Glucose [Mass/Vol] 293 mg/dL High 70-[address] [facility] Comment on above: Performed By: #### 0 0121 #### [facility] [address] [place] [address], [place] Glucose [Mass/Vol] 317 mg/dL High 70-[address] [facility] Comment on above: Performed By: #### 0 0121 #### [facility] [address] [place] [address], [place] Glucose [Mass/Vol] 264 mg/dL High 70-[address] [facility] Comment on above: Performed By: #### 0 0121 #### [facility] [address] [place] [address], [place] Glucose [Mass/Vol] 104 mg/dL High 70-[address] [facility] Comment on above: Performed By: #### 8 5499 #### [facility] [address] [place] [address], [place] Glucose [Mass/Vol] 236 mg/dL High 70-[address] [facility] Comment on above: Performed By: #### 8 5499 #### [facility] [address] [place] [address], [place] Glucose [Mass/Vol] 247 mg/dL High 70-[address] [facility] Comment on above: Performed By: #### 8 5499 #### [facility] [address] [place] [address], [place] CBC W/DIFFon 01-05-2019 ABS BASOPHILS 0.1 10*3/uL Normal 0.0-0.[address] [facility] Comment on above: Performed By: #### 5 0103 #### [facility] [address] ABS IMM GRANS 0.1 10*3/uL Normal 0.0-0.[address] [facility] Comment on above: Performed By: #### 5 0103 #### [facility] [address] [place] [address], [facility] ABS NEUTROPHILS 5.9 10*3/uL Normal 1.6-7.[address] [facility] Comment on above: Performed By: #### 5 0103 #### [facility] [address] Basophils/100 WBC (Bld) 0.5 % Normal 0.0-1.[address] [facility] Comment on above: Performed By: #### 5 0103 #### [facility] [address] Eosinophils (Bld) [#/Vol] 0.4 10*3/uL Normal 0.0-0.[address] [facility] Comment on above: Performed By: #### 5 0103 #### [facility] [address] Eosinophils/100 WBC (Bld) 3.8 % Normal 0.0-6.[address] [facility] Comment on above: Performed By: #### 5 0103 #### [facility] [address] Erythrocyte distribution width (RBC) [Ratio] 12.8 % Normal 11.5-15.[address] [facility] Comment on above: Performed By: #### 5 3 #### [facility] [address] Hematocrit (Bld) [Volume fraction] 42.5 % Normal 39.0-50.[address] [facility] Comment on above: Performed By: #### 5 0103 #### [facility] [address] [facility] [address], [facility] Hemoglobin (Bld) [Mass/Vol] 14.2 g/dL Normal 13.0-17.[address] [facility] Comment on above: Performed By: #### 5 3 #### [facility] [address] [facility] [place] [address], [facility] IMMATURE GRANS 0.7 % Normal 0.0-1.[address] [facility] Comment on above: Performed By: #### 102 #### [facility] [address] [place] [address], [facility] Lymphocytes (Bld) [#/Vol] 2.9 10*3/uL Normal 1.2-4.[address] [facility] Comment on above: Performed By: #### 5 102 #### [facility] [address] [place] [address], [facility] Lymphocytes/100 WBC (Bld) 28.8 % Normal 20.0-45.[address] [facility] Comment on above: Performed By: #### 5 102 #### [facility] [address] [place] [address], [facility] MCH (RBC) [Entitic mass] 25.8 pg Low 27.0-33.[address] [facility] Comment on above: Performed By: #### 5 3 #### [facility] [address] [place] [address], [facility] MCHC (RBC) [Mass/Vol] 33.4 g/dL Normal 32.0-35.[address] [facility] Comment on above: Performed By: #### 5 3 #### [facility] [address] [facility] [place] [address], [facility] MCV (RBC) [Entitic vol] 77.3 fL Low 82.0-98.[address] [facility] Comment on above: Performed By: #### 5 0103 #### [facility] [address] [place] [address], [facility] Monocytes (Bld) [#/Vol] 0.8 10*3/uL Normal 0.1-1.[address] [facility] Comment on above: Performed By: #### 3 #### [facility] [address] [place] [address], [facility] MONOS 8.1 % Normal 5.0-12.[address] [facility] Comment on above: Performed By: #### 102 #### [facility] [address] [facility] [place] [address], [facility] Neutrophils/100 WBC (Bld) 58.1 % Normal 40.0-72.[address] [facility] Comment on above: Performed By: #### 102 #### [facility] [address] [facility] [place] [address], [facility] Nucleated RBC/100 WBC (Bld) [Ratio] 0 % Normal 0-[address] [facility] Comment on above: Performed By: #### 102 #### [facility] [address] [facility] [address], [facility] PLAT CNT 524 10*3/uL High 150-[address] [facility] Comment on above: Performed By: #### 102 #### [facility] [address] [facility] [place] [address], [facility] RBC (Bld) [#/Vol] 5.50 10*6/uL Normal 4.20-5.[address] [facility] Comment on above: Performed By: #### 3 #### [facility] [address] [facility] [place] [address], [facility] WBC (Bld) [#/Vol] 10.19 10*3/uL Normal 4.00-10.[address] [facility] Comment on above: Performed By: #### 102 #### [facility] [address] [place] [address], [facility] COMP METABOLIC PANELon 01-05 Albumin [Mass/Vol] 4.3 g/dL Normal 3.5-5.[address] [facility] Comment on above: Performed By: #### 0 0121 #### [facility] [address] [place] [address], [place] ALKALINE PHOSPH 115 IU/L High 34-[address] [facility] Comment on above: Performed By: #### 0 0121 #### [facility] [address] [place] [address], [place] ALT [Catalytic activity/Vol] 14 U/L Normal 7-[address] [facility] Comment on above: Performed By: #### 0 0121 #### [facility] [address] [place] [address], [facility] AST [Catalytic activity/Vol] 16 U/L Normal 13-[address] [facility] Comment on above: Performed By: #### 0 0121 #### [facility] [address] [place] [address], [place] Bilirubin [Mass/Vol] 0.4 mg/dL Normal 0.3-1.[address] [facility] Comment on above: Performed By: #### 0 0121 #### [facility] [address] [place] [address], [place] Calcium [Mass/Vol] 10.2 mg/dL Normal 8.6-10.[address] [facility] Comment on above: Performed By: #### 0 0121 #### [facility] [address] [place] [address], [place] Chloride [Moles/Vol] 92 mmol/L Low 98-[address] [facility] Comment on above: Performed By: #### 0 0121 #### [facility] [address] [place] [address], [place] CO2 [Moles/Vol] 32 mmol/L High 21-[address] [facility] Comment on above: Performed By: #### 0 0121 #### [facility] [address] [place] [address], [facility] Creatinine [Mass/Vol] 0.74 mg/dL Normal 0.70-1.[address] [facility] Comment on above: Performed By: #### 0 0121 #### [facility] [address] [place] [address], [place] GFR/1.73 sq M predicted among blacks MDRD (S/P/Bld) [Vol rate/Area] mL/min/{1.73_m2} Normal >[address] [facility] Comment on above: Performed By: #### 0 0121 #### [facility] [address] [place] [address], [facility] GFR/1.73 sq M predicted among non-blacks MDRD (S/P/Bld) [Vol rate/Area] mL/min/{1.73_m2} Normal >[address] [facility] Comment on above: Performed By: #### 0 0121 #### [facility] [address] [place] [address], [place] Glucose [Mass/Vol] 320 mg/dL High 70-[address] [facility] Comment on above: Performed By: #### 0 0121 #### [facility] [address] [place] [address], [place] Potassium [Moles/Vol] 4.2 mmol/L Normal 3.5-5.[address] [facility] Comment on above: Performed By: #### 0 0121 #### [facility] [address] [place] [address], [place] Protein [Mass/Vol] 8.6 g/dL High 6.0-8.[address] [facility] Comment on above: Performed By: #### 0 0121 #### [facility] [address] [place] [address], [place] Sodium [Moles/Vol] 133 mmol/L Low 136-[address] [facility] Comment on above: Performed By: #### 0 0121 #### [facility] [address] [facility] [address] Urea nitrogen [Mass/Vol] 9 mg/dL Normal 7-[address] [facility] Comment on above: Performed By: #### 0 0121 #### [facility] [address] [facility] SOFT TISSUE NECK W CONTRA STon 01-05-2019 CT SOFT TISSUE NECK W CONTRAST [facility] Department of Radiology [address] [place] [id number] Patient Name: NONI SOTO : 1975 Sex: M Age: Race: White Pt. Location: [facility] Patient Status: I Ordered Date: 01/05/2019 6:40:00 PM Completed Date: 01/05/2019 08:06 PM Requesting Provider: ARIES OLMSTEAD Attending Provider: KENTON FINCH Report Copy To: Signs & Symptoms: Mass/Tumor History: See Comments Comments: Exam: CT SOFT TISSUE NECK W CONTRAST CT SOFT TISSUE NECK W CONTRAST 01/05/2019 8:06 PM EDT SIGNS AND SYMPTOMS: Mass/Tumor TECHNOLOGIST COMMENTS: pt states he had a tooth removed dec 17 at dentist was on antibiotics and found out he had a fracture to his jaw c/o running out of his meds and that an abscess appeared on his face in the last few days PROTOCOL: Axial CT images of the soft tissue neck were obtained with IV contrast. CONTRAST: Contrast: OMNIPAQUE 350 (LOCM), 100 milliliter, Intravenous TECHNIQUE: Multidetector CT axial slices of the soft tissues of the neck were obtained with IV contrast. Sagittal, coronal, and 3-D reconstructions were performed and viewed on separate workstation. Appropriate CT dose lowering techniques were utilized. COMPARISON: None. FINDINGS: There is a right submandibular phlegmonous collection measuring approximately 4.8 x 2.1 x 3.6 cm. There is a comminuted fracture at the base of the right mandible and cannot exclude superimposed bony erosion and destruction. There is reactive lymphadenopathy within the submandibular and level 2A lymph node regions, the largest measuring approximately 1.5 cm in short axis in the right submandibular region. There are multiple right lower teeth periodontal lucencies. Soft tissues of the orbits are within normal limits. The soft tissues of the infratemporal fossa fossa structures show no acute abnormality. Mucosal surfaces of the nasopharynx, oropharynx, hypopharynx, glottic, and subglottic airways are grossly unremarkable. The parotid glands, submandibular, and the thyroid gland are within normal limits. The carotid and jugular circulations are within normal limits. The visualized lung parenchyma shows no acute pathology. No acute bony abnormalities of the cervical spine are appreciated. The skull base, craniocervical junction, atlantoaxial joints are within normal limits. Nonaggressive mucosal thickening in the right maxillary sinus otherwise paranasal sinuses are clear. IMPRESSION: 1. Right submandibular phlegmon measuring approximately 4.8 x 2.1 x 3.6 cm with reactive right lymphadenopathy. No drainable abscess formation. 2. Comminuted fracture at the base of the right mandible however cannot exclude superimposed osteomyelitis. 3. Multiple right lower teeth periodontal disease. Approved by:Antonella Whitfield on 01/05/2019 8:39 PM EDT. I, Mamta Garcia, have reviewed the images and report and concur with these findings. Electronically signed by:Mamta aGrcia. Transcribed by: [email or web address], User Resident: ANTONELLA WHITFIELD Electronically Signed by: MAMTA GARCIA @ 01/06/2019 09:55 AM I personally read this/these film(s) with this resident Normal [facility] Vital Signs Date Time Vital Sign Value Performing Clinician Ynes méndez 03-13-2022 13:08-0500 Blood Pressure Location Naye STILL [facility] 03-13-2022 13:08-0500 Diastolic blood pressure 97 mm[Hg] Naye FLEMINGL [facility] 03-13-2022 13:08-0500 Heart rate 89 /min Naye NILL [facility] 03-13-2022 13:08-0500 Respiratory rate 16 /min Naye FLEMINGL [facility] 03-13-2022 13:08-0500 Systolic blood pressure 160 mm[Hg] Naye STILL [facility] Encounters Encounter Date Encounter Type Care Provider Facility Start: 08-10-2022 End: 08-11-2022 ambulatory LUCIO NEVAREZ Facility:[facility] Start: 06-12-2022 End: 06-13-[address] JADYN WILHELM . Facility: Start: 05-02-2022 End: 05-03-2022 ambulatory Naye STILL Facility:[facility] Start: 04-26-2022 ambulatory Naye STILL Facility:[facility] Start: 04-21-2022 Encounter for preprocedural laboratory examination DR NAYE Carbajal [facility] Start: 04-19-2022 End: 04-20-[address] NAYE Carbajal Facility:[facility] Start: 04-17-2022 End: [address] NAYE STILL . Facility:[facility] Start: 04-17-2022 End: 2022 Encounter for preprocedural laboratory examination DR NAYE STILL . Facility: Start: 03-13-2022 End: 03-14-2022 ambulatory Naye STILL Facility:[facility] Start: 03-13-2022 End: 03-13-2022 Patient encounter procedure Naye Ruiz [facility] [place] Start: 03-09-2022 End: 03-09-2022 ambulatory CAROLINE ALLA Facility:[facility] Start: 02-27-2022 End: 02-27-2022 ambulatory SONA ISBELL . Facility:[facility] Start: 02-15-2022 ambulatory Naye STILL Facility:[facility] Start: 02-15-2022 End: 02-16-[address] JADYN WILHELM . Facility:[facility] Start: 01-21-2022 End: 01-21-2022 ambulatory SONA ISBELL . Facility:[facility] Start: 01-14-2022 End: 01-14-[address] JIMBO HER . Facility:[facility] Start: 12-19-2021 End: 12-19-2021 ambulatory SONA ISBELL . Facility:[facility] Start: 11-27-2021 End: 11-27-[address] JIMBO HER . Facility:[facility] Start: 11-21-2021 End: 11-22-2021 ambulatory ALBARO NORIEGA Facility:[facility] Start: 09-14-2021 End: 09-15-[address] JADYN WILHELM . Facility:[facility] Start: 09-09-2021 End: 09-10-[address] JADYN WILHELM . Facility:[facility] Start: 09-05-2021 End: 09-06-[address] JADYN WILHELM . Facility:[facility] Start: 01-05-2019 End: 01-09-2019 Evaluation and management of inpatient MUBBASHER A TREVON Facility:[facility] Procedures Date Procedure Procedure Detail Performing Clinician Appendectomy Naye SITLL Cholecystectomy Naye STILL Reconstruction of mandible Sade justin [facility] Renal artery stent ( physical object) Naye STILL Payers Date Payer Category Payer Unknown [id number] 2.16.8 [id number] 1975 Unknown [id number] 2.16.84 [id number] 1975 Unknown [id number] 2.16.84 0.1.877901.3.579.2.593 1975 Unknown [id number] 2.16.84 0.1.294794.3.579.2.593 1975 Unknown [id number] 2.16.84 0.1.219759.3.579.2.593 1975 Unknown [id number] 2.16.84 0.1.015758.3.579.2.593 1975 Unknown [id number] 2.16.84 0.1.416847.3.579.2.593 1975 Unknown [id number] 2.16.84 0.1.502446.3.579.2.593 1975 Unknown [id number] 2.16.84 0.1.684271.3.579.2.593 1975 Unknown [id number] 2.16.84 0.1.324186.3.579.2.593 1975 Unknown [id number] 2.16.84 0.1.951052.3.579.2.593 1975 Unknown [id number] 2.16.84 0.1.839456.3.579.2.593 1975 Unknown [id number] 2.16.84 0.1.383187.3.579.2.593 1975 Unknown [id number] 2.16.84 0.1.155540.3.579.2.593 1975 Unknown [id number] 2.16.84 0.1.401827.3.579.2.593 1975 Unknown [id number] 2.16.84 0.1.196068.3.579.2.593 1975 Unknown [id number] 2.16.8 40.1.804028.3.579.2.727 1975 Unknown [id number] 2.16.8 40.1.903542.3.579.2.727 1975 Unknown [id number] 2.16.8 40.1.313163.3.579.2.727 1975 Unknown [id number] 2.16.8 40.1.766635.3.579.2.727 1959 Unknown [id number] Social History Date Type Detail Facility Start: 03-13-2022 Tobacco smoking status Never s moked tobacco (finding) [facility] Tobacco smoking status Smokeless tobacco user within last 30 days [facility] Sex Assigned At Male [facility] Functional Status Date Assessment Result Facility 03-13-2022 Functional Status N/A [facility] Clinical Note 04-19-2022 Note Date & Type Note Facility 04-19-2022 Note OPERATIVE NOTE OPERATION DATE: 04/19/2022 PREOPERATIVE DIAGNOSIS: Iron deficiency anemia. POSTOPERATIVE DIAGNOSIS: Antral gastritis and rectal polyp. PROCEDURE: EGD with antral biopsy and colonoscopy to cecum with cold forceps polypectomy x1 for rectal polyp. SURGEON: Naye Still M.D. ANESTHESIA: Monitored anesthesia care. ESTIMATED BLOOD LOSS: Less than 1 mL. INDICATIONS AND CONSENT: Patient is a 47-year-old male with history of iron deficiency anemia. Indications, risks, benefits, alternatives of proceeding with EGD and colonoscopy were explained extensively to the patient, including the risks of bleeding, aspiration, esophageal/gastric/duodenal or colonic perforation or anesthetic complications. All of his questions were answered. Informed consent was obtained. PROCEDURE: Patient brought to the operating room, placed in the left lateral decubitus position. Monitored anesthesia care was provided. A bite block was placed in the patient's mouth. Scope was inserted into the oropharynx. Under direct visualization, it was advanced into the esophagus, past the cricopharyngeus, down to the stomach. The stomach was insufflated with air. The pylorus was traversed down to the descending portion of the duodenum. There was no evidence of duodenitis or ulceration. There was no scarring within the pyloric channel. The scope was pulled back into the stomach and retroflexed. There was no significant hiatal hernia. There was some mild antral gastritis, mosaic pattern. Biopsies were obtained x2 with cold biopsy forceps with good hemostasis. The GE junction was noted at 41 cm. There was no distal esophagitis or Davis's changes. Remainder of the esophagus was unremarkable. The scope was then withdrawn. The patient was then positioned for colonoscopy. Rectal exam was performed which showed decreased tone but no masses. Scope was inserted into the anal canal. Under direct visualization was advanced. With the aid of abdominal compression, it was advanced to the cecum where cecal markings were clearly identified. There was noted to be a good prep. Upon withdrawal of the scope, mucosal surfaces were carefully examined. There were no mass lesions or inflammatory changes. No significant diverticulosis. Within the rectum, at approximately 17 cm, there was noted to be a sessile, 4 mm polyp that was removed with cold biopsy forceps with good hemostasis. The scope was retroflexed in the anal canal. There was no significant hemorrhoidal disease. Scope was then withdrawn. Patient tolerated procedure well, was sent to recovery room in good condition. CC: Jadyn Wilhelm M.D. [facility] Clinical Note 03-13-2022 Note Date & Type Note Facility 03-13-2022 Note Chief Complaint consultation for iron deficiency anemia HPI Staff 46 year old male presents on consultation from Dr. Wilhelm for iron deficiency anemia. Labs completed 02/15- iron 25, HGB 12.1, HCT 38.3. Recently prescribed Ferrous Sulfate 325mg BID. Denies abdominal or rectal pain. No rectal bleeding or change in bowel habits. Denies nausea or vomiting. No unexplained weight loss. Denies dizziness, lightheadedness or SOB. Never had colonoscopy or EGD in the past. Uncle with history of colon cancer, diagnosed late 70's or early 80's. History of Present Illness 46 yo male with h/o DMII, htn, migraines, seizure d/o, anxiety, h/o narcotic abuse, on Suboxone, referred for iron deficiency anemia, denies change in bowel habits or blood in stools, no melena or hematochezia, no GERD symptoms or abdominal pain; abdominal operations significant for cholecystectomy and appendectomy; no previous endoscopy; vapes nicotine containing substance. Review of Systems PHQ Score Initial Depression Screen Score: 0 ROS - Provider Constitutional: no fever, no sweats, no weight loss. Eyes: no glasses, no blurred vision, no visual loss. ENMT: no dentures, no hoarseness, no swallowing difficulties, no hearing loss, no ear infection(s), no nose bleeds. Cardiovascular: normal blood pressure, no chest pain, regular heartbeat, no heart murmur. Respiratory: no shortness of breath, no cough, no asthma, no wheezing. Gastrointestinal: no nausea, no vomiting, no diarrhea, no constipation, no blood in stool, no change in bowel habits, no abdominal pain, no hepatitis. Genitourinary: no kidney stones, no urine infection, no dysuria. Musculoskeletal: no pain, no weakness. Skin: no changing moles, no rash, no skin lumps. Neurologic: no seizures, no epilepsy, no headache. Psychiatric: no emotional or psychiatric problem. Heme/Lymph: no bleeding problems, no anemia, no blood clots, no transfusions. Allergy/Immunologic: no swollen lymph nodes/glands, no IV drug abuse. Other: Additional ROS info: Except as noted in the above Review of Systems and in the History of Present Illness, all other systems have been reviewed and are negative or noncontributory. Physical Exam Vitals & Measurements HR: 89(Peripheral) RR: 16 BP: 160/97 HT: 67 in HT: 170 cm WT: 117.5 kg WT: 258.5 lb BMI: 40.66 HEENT: normal conjunctiva, sclera clear, no scleral icterus, EOM intact, PERRLA, oral mucosa moist without lesions. Neck: trachea midline, no mass, symmetric, no thyromegaly or nodules, no adenopathy Respiratory: lungs CTA, respirations non labored. Cardiovascular: regular rate and rhythm, no murmur, no pedal edema or varicosities. Gastrointestinal: obese,soft, non distended, no tenderness, no masses, no palpable hernias, diastasis recti yes, no hepatosplenomegaly; normal bs Lymphatic: no cervical adenopathy, no axillary adenopathy, no inguinal adenopathy. Musculoskeletal: normal gait, digits and nails without infection, nodes, cyanosis, clubbing. Skin: no rashes, no lesions, no ulcers, no subcutaneous nodules, induration. Psychiatric/Neuro: oriented to time, place, person, judgement normal, affect appropriate for age, insight intact, no focal deficits. Tests: labs reviewed, review of old records completed, Discussed surgical options, risks, and possible complications with patient. Assessment/Plan 1. Iron deficiency anemia secondary to blood loss (chronic) (D50.0: Iron deficiency anemia secondary to blood loss (chronic)) plan EGD and colonoscopy under anesthesia, informed consent obtained. 2. Vapes nicotine containing substance (Z72.0: Tobacco use) We strongly recommend to quit tobacco use. Cigarette smoking harms nearly every organ of the body, causes many diseases, and reduces the health of smokers in general. Quitting smoking lowers your risk for smoking-related diseases and can add years to your life. We encourage you to visit www.smokefree.gov access to helpful resources including free telephone support. If you decide on prescription treatment to help you quit, your family doctor would be happy to provide these. 3. BMI 40.0-44.9, adult (Z68.41: Body mass index [BMI] 40.0-44.9, adult) recommend diet and exercise. Follow-up No qualifying data available Problem List/Past Medical History Ongoing Allergic rhinitis Anemia Anxiety BMI 40.0-44.9, adult Diabetes Ascencion's thyroiditis HTN (hypertension) Insomnia Iron deficiency anemia Lumbar disc disease Lumbar radiculopathy Migraines Narcotic abuse Seizure Sleep disorder Testicular hypofunction Vapes nicotine containing substance Historical No qualifying data Procedure/Surgical History Appendectomy, Cholecystectomy, Reconstruction of mandible, Renal artery stent. Medications Abilify 2 mg Tab, 2 mg= 1 tab(s), Oral, Daily Androderm 4 mg/24 hr transdermal film, extended release, 1 patch(es), Topical, Once a day (at bedtime) Apidra SoloStar Pen 100 units/mL injectable solution huang (more content not included)... [facility] Comment on above: Result Comment: Elec tronically Signed By: CAMI HUNT, Naye Srivastava.melania\Date and Time Signed: 03/13/22 13:38 EST Evaluation + Plan note Note Date & Type Note Facility Evaluation + Plan note No data available for this section [facility] Discharge instructions Note Date & Type Note Facility Hospital Discharge instructions No data available for this section [facility] note Note Date & Type Note Facility Progress note No data available for this section [facility] Summary Purpose Family History No Family History Records FoundNo Family History Records FoundNo Family History Records Found Advance Directives No Advanced Directives Records FoundNo Advanced Directives Records FoundNo Advanced Directives Records Found Hospital Course Note MR#: [id number] [facility] Pt. Name: Noni Soto Admitted: 01/06/2019 Discharged: 01/09/2019 Date of : 1975 Physician: Rai Dupree MD DISCHARGE SUMMARY PRIMARY CARE PHYSICIAN: Kenton Finch MD. CONSULTING PHYSICIAN: Plastic Surgery. HOSPITAL COURSE: This is a 43-year-old male with past medical history of IV drug abuse, on Suboxone for the last almost 3 years along with history of essential hypertension, who came to the hospital with swelling on the angle of right side of the face. There was some discharge on the wound on the right submandibular area. The patient was admitted with dental abscess. CT neck was obtained which confirmed the patient has right submandibular phlegmon measuring 0.4 x 0.8 x 2.1 x 3.6 cm with reactive lymphadenopathy, though no drainable abscess formation along with comminuted fracture at the base of the right mandible. So, the patient was started on Zosyn and vancomycin. The patient was afebrile without any leukocyt (more content not included)... Additional Source Comments (unrecognized sect ion and content) No Status Records FoundNo Status Records FoundNo Status Records Found INFORMATION SOURCE (unrecogn ized section and content) DATE CREATED AUTHOR 01/27/2019 [facility] DATE CREATED AUTHOR AUTHOR'S ORGANIZ ATION 08/14/2022 [facility] DATE CREATED AUTHOR AUTHOR'S ORGANIZ ATION 12/08/2022 [facility] Patient Care team informatio n (unrecognized section and content) Personnel Name: Jadyn Wilhelm MD Address: Address: [address] [place] [address] FOR RECORDS PERTAINING TO PATIENTS WHO ARE OR HAVE BEEN ENROLLED IN A CHEMICAL DEPENDENCY/SUBSTANCEABUSE PROGRAM, SOME INFORMATION MAY BE OMITTED. This clinical summary was aggregated from multiple sources. Caution should be exercised in using it in the provision of clinical care. This summary normalizes information from multiple sources, and as a consequence, information in this document may materially change the coding, format and clinical context of patient data. In addition, data may be omitted in some cases. CLINICAL DECISIONS SHOULD BE BASED ON THE PRIMARY CLINICAL RECORDS. [facility] [employer] [facility]. provides no warranty or guarantee of the accuracy or completeness of information in this document.
[2024-06-28 09:42] VITALS: BP 119/81; PULSE 67; O2SAT 99
== END 2024-06-28 09:43 | disposition home or self-care (01) ==
LOC: ER 09:06
PROVIDERS: Emergency Provider Emergency Medicine; PCP Family Medicine
DX: M54.16 Radiculopathy, lumbar region (principal); E11.9 Type 2 diabetes mellitus without complications; Z79.4 Long term (current) use of insulin
CPT/HCPCS: 96372; 99284; J1171; J2550

== ENCOUNTER 2024-07-08 14:46 | Emergency (ER) | payer OTHER, SELFPAY ==
[2024-07-08 14:57] VITALS: BP 153/94; PULSE 82; TEMP 36.9; O2SAT 97; BMI 33.5
[2024-07-08] MEDS: OXYCODONE HCL/ACETAMINOPHEN 5MG/325MG 1 TAB PO (16:55)
[2024-07-08] MEDS: KETOROLAC TROMETHAMINE 60 MG/2 ML VIAL IM (16:55)
--- NOTE | 2024-07-08 17:11 | ED_ITS ---
HPI HPI - Back Pain/Injury General Chief Complaint: Back Pain/Injury Stated Complaint: BACK PAIN Time Seen by Provider: 07/08/24 16:15 History of Present Illness HPI Narrative: Patient is coming today with history of chronic back pain that got exacerbated over the last few days, he mentioned that he was doing some work at home and apparently that got his pain worse pain radiated to the left leg he already had a history of chronic back pain and supposed to get an MRI as outpatient The patient denies any incontinence of urine or stool he denies any fall or trauma, Related Data Home Medications ?Medication ?Instructions ?Recorded ?Confirmed aripiprazole 2 mg tablet mg 06/28/24 atorvastatin 40 mg tablet mg 06/28/24 citalopram 20 mg tablet mg 06/28/24 clonidine HCl 0.2 mg tablet mg 06/28/24 diclofenac sodium 75 mg mg PO 06/28/24 tablet,delayed release insulin glargine 100 unit/mL (3 unit subcut 06/28/24 mL) subcutaneous pen (Lantus Solostar U-100 Insulin) insulin glulisine U-100 100 subcut 06/28/24 unit/mL subcutaneous pen (Apidra SoloStar U-100 Insulin) levothyroxine 100 mcg tablet mcg 06/28/24 lisinopril 40 mg tablet mg 06/28/24 pantoprazole 40 mg tablet,delayed mg PO 06/28/24 release pregabalin 300 mg capsule mg 06/28/24 tizanidine 4 mg tablet mg 06/28/24 trazodone 100 mg tablet mg 06/28/24 Previous Rx's ?Medication ?Instructions ?Recorded hydrocodone 5 mg-acetaminophen 325 1 tab PO Q4H PRN pain #10 tabs 06/24/24 mg tablet lidocaine 5 % topical patch 1 patch topical Q24H #15 ea 06/24/24 (Lidoderm) methocarbamol 500 mg tablet 500 mg PO Q8H PRN muscle pain #10 06/24/24 tabs methylprednisolone 4 mg tablets in 4 mg PO DAILY 6 days #21 ea 06/24/24 a dose pack (Medrol (Fausto)) hydrocodone 5 mg-acetaminophen 325 1 tab PO Q4H PRN pain #20 tabs 06/28/24 mg tablet methocarbamol 750 mg tablet 750 mg PO TID #30 tabs 06/28/24 diclofenac sodium 75 mg 75 mg PO BID PRN pain #14 tabs 07/08/24 tablet,delayed release oxycodone-acetaminophen 5 mg-325 1 tab PO Q8H PRN pain 2 days #6 07/08/24 mg tablet (Percocet) tabs Allergies Allergy/AdvReac Type Severity Reaction Status Date / Time prochlorperazine (From AdvReac Severe panic Verified 07/08/24 15:00 Compazine) attack Opioid HPI Opioid Management Most Recent Opioid Data: Last Pain Scale 8 07/08/24 16:55 07/08/24 Last MAR Pain Assessment 07/08/24 16:55 Review of Systems ROS Status of ROS 10 or more systems reviewed and unremark able except as noted in history and below [facility] Social History Little interest or pleasure in doing things: not at all Feeling down, depressed, or hopeless: not at all Exam Narrative Exam Narrative: Nurses notes and vital signs reviewed and patient is not hypoxic. General: Well-appearing and in no apparent distress. Skin: Warm, dry, no pallor noted. No rash. Head: Normocephalic, atraumatic. Neck: Supple Lungs are clear to auscultation, no wheezing, rales or rhonchi Chest Wall: no tenderness Back: The patient have tenderness at the sacral area mostly in the lower lumbar spine at the mid vertebral and also paraspinal Musculoskeletal: normal ROM, no calf or popliteal tenderness, no lower ex tremity edema/swelling Neurological: A&O x4. No cranial nerve dysfunction observed. No truncal ataxia. Psychiatric: Cooperative and interactive. Normal mood and affect. Constitutional Vital Signs, click to edit/add: Last Vital Signs Temp 98.4 F 07/08/24 14:57 Pulse 82 07/08/24 14:57 Resp 20 07/08/24 14:57 BP 153/94 H 07/08/24 14:57 Pulse Ox 97 07/08/24 14:57 O2 Del Method Room Air 07/08/24 14:57 Course Vital Signs Vital signs: Vital Signs Temperature 98.4 F 07/08/24 14:57 Pulse Rate 82 07/08/24 14:57 Respiratory Rate 20 07/08/24 14:57 Blood Pressure 153/94 H 07/08/24 14:57 Pulse Oximetry 97 07/08/24 14:57 Oxygen Delivery Method Room Air 07/08/24 14:57 Temperature 98.4 F 07/08/24 14:57 Pulse Rate 82 07/08/24 14:57 Respiratory Rate 20 07/08/24 14:57 Blood Pressure 153/94 H 07/08/24 14:57 Pulse Oximetry 97 07/08/24 14:57 Oxygen Delivery Method Room Air 07/08/24 14:57 MDM - Back Pain/Injury MDM Narrative Medical decision making narrative: Reviewing the patient opiate intake I found that he only been prescribed opiate 2 times in the last few months and most of them were in the ER I did explain to the patient right now that we will start him on Voltaren twice daily for control of the pain and I will give him 3 days of Percocet to control his pain. But I also spoke with the patient explained to him that he should be addressing the back pain with his primary care regarding pain management The patient also will come back to the ER in case of any increase in pain or any alarming symptoms The patient is to follow up with primary care physician in next 2-3 days or to return to the emergency department should any of the signs or symptoms worsen or new symptoms develop. The patient agrees with the following Diagnosis and Treatment plan and the patient will be discharged home. Discharge Plan Discharge Chief Complaint: Back Pain/Injury Clinical Impression: Back pain Patient Disposition: Home, Self-Care Time of Disposition Decision: 16:47 Condition: Good Prescriptions / Home Meds: New oxycodone-acetaminophen [Percocet] 5-325 mg tablet 1 tab PO Q8H PRN (Reason: pain) 2 Days Qty: 6 0RF diclofenac sodium 75 mg tablet,delayed release (DR/EC) 75 mg PO BID PRN (Reason: pain) Qty: 14 0RF No Action methocarbamol 500 mg tablet 500 mg PO Q8H PRN (Reason: muscle pain) Qty: 10 0RF hydrocodone-acetaminophen 5-325 mg tablet 1 tab PO Q4H PRN (Reason: pain) Qty: 10 0RF lidocaine [Lidoderm] 5 % adhesive patch,medicated 1 patch topical Q24H Qty: 15 0RF Rx Instructions: leave on most painful area for up to 12 hrs methylprednisolone [Medrol (Fausto)] 4 mg tablets,dose pack 4 mg PO DAILY 6 Days Qty: 21 0RF Rx Instructions: as directed atorvastatin 40 mg tablet tizanidine 4 mg tablet levothyroxine 100 mcg tablet clonidine HCl 0.2 mg tablet citalopram 20 mg tablet trazodone 100 mg tablet pantoprazole 40 mg tablet,delayed release (DR/EC) PO diclofenac sodium 75 mg tablet,delayed release (DR/EC) PO lisinopril 40 mg tablet pregabalin 300 mg capsule aripiprazole 2 mg tablet insulin glargine [Lantus Solostar U-100 Insulin] 100 unit/mL (3 mL) insulin pen SUBCUT Apidra SoloStar U-100 Insulin 100 unit/mL insulin pen SUBCUT methocarbamol 750 mg tablet 750 mg PO TID Qty: 30 0RF hydrocodone-acetaminophen 5-325 mg tablet 1 tab PO Q4H PRN (Reason: pain) Qty: 20 0RF Print Language: Armenian Instructions: Acute Low Back Pain (ED), Back Pain (ED) Referrals: Cesar Wilhelm MD [Primary Care Provider] - 1 week Discharge Date/Time: 07/08/24 17:00
== END 2024-07-08 17:00 | disposition home or self-care (01) ==
PROVIDERS: Emergency Provider Emergency Medicine; PCP Family Medicine
DX: M54.9 Dorsalgia, unspecified (principal); G89.29 Other chronic pain
CPT/HCPCS: 96372; 99284; J1885

== ENCOUNTER 2024-07-22 16:04 | Outpatient (RCR) | payer OTHER, SELFPAY | END 2024-07-31 13:25 | disposition home or self-care (01) | LOC: PT 16:04 | PROVIDERS: PCP Family Medicine; Visit Provider Family Medicine | DX: M54.16 Radiculopathy, lumbar region (principal) | CPT/HCPCS: 97012; 97110; 97162 ==

== ENCOUNTER 2024-07-25 07:43 | Outpatient (OUT) | payer OTHER, SELFPAY ==
--- NOTE | 2024-07-25 07:53 | MR_ITS ---
The [address] [address] Patient Name: NONI SOTO MRN: [id number] date: 1975 Sex: M Assigned Patient Location: PT Current Patient Location: PT Accession/Order Number: [id number] Exam Date: 07/25/2024 10:46 Report Date: 07/25/2024 11:08 At the request of: JADYN KOWALSKI MD Procedure: MR lumbar spine wo con MRI LUMBAR SPINE WITHOUT CONTRAST CLINICAL DATA: Acute back pain with left lower extremity radiculopathy COMPARISON: 03/28/2021 Multiecho imaging in the axial and sagittal plane was performed without contrast. There is minor stairstep retrolisthesis from L3-4 through L5-S1. There are no acute compression fractures or marrow edema. Conus medullaris is within normal limits for caliber, position and signal intensity. No paraspinal soft tissue abnormalities are noted. And T12-L1 and L1-2 there is no disc disease or stenosis. At L2-3 and L3-4, the discs are within normal limits for height and signal intensity. There is minor disc bulging toward the neural foramen. There is minimal facet and ligamentous hypertrophy. There is no significant thecal sac effacement. There is slight inferior foraminal encroachment at both levels bilaterally. At L4-5, there is loss of disc height. There is annular disc bulging with a persistent central/left parasagittal disc protrusion measuring approximately 12 mm in width. This may be minimally larger. Slight caudal extension of disc material is present. Bilateral facet hypertrophy is seen. Moderate thecal sac effacement is noted toward the left. There is impingement of the traversing L5 nerve root on the left. There is minor inferior right and mild to moderate left foraminal encroachment. At the lumbosacral junction, there is slight loss of disc height. There is annular disc bulging with a persistent central/left parasagittal broad-based protrusion contacting the traversing left S1 nerve root. There is no significant thecal sac effacement. Bilateral facet hypertrophy is seen. Mild to moderate foraminal impingement is seen, left side slightly worse than right. MR/MR lumbar spine wo con IMPRESSION: CONTINUED DISC HERNIATIONS AT L4-5 AND L5-S1 TOWARD THE LEFT, SLIGHTLY PROGRESSED SINCE THE PRIOR Impression dictated by: Samara Waddell M.D.07/25/2024 11:08 AM Dictation Location: [place] [address] Electronically authenticated by: [id number] Y Date: 07/25/2024 11:08
--- NOTE | 2024-07-25 07:54 | XR_ITS ---
The [address] [address] Patient Name: NONI SOTO MRN: [id number] date: 1975 Sex: M Assigned Patient Location: PT Current Patient Location: PT Accession/Order Number: [id number] Exam Date: 07/25/2024 09:04 Report Date: 07/25/2024 09:07 At the request of: JADYN KOWALSKI MD Procedure: XR foreign body eye KEENA PRE-MRI ORBITS - 2 views COMPARISON: 03/28/2021 CLINICAL DATA: Foreign body assessment. AP and lateral views were obtained. No orbital radiopaque foreign bodies are identified. The bony structures are intact. The imaged paranasal sinuses are clear. Patient is edentulous. XR/XR foreign body eye KEENA IMPRESSION: NO EVIDENCE OF RADIOPAQUE ORBITAL FOREIGN BODY. Impression dictated by: Samara Waddell M.D.07/25/2024 9:07 AM Dictation Location: [place] [address] Electronically authenticated by: [id number] Y Date: 07/25/2024 09:07
== END 2024-07-25 07:44 | disposition home or self-care (01) ==
LOC: RAD 07:44
PROVIDERS: PCP Family Medicine; Visit Provider Family Medicine
DX: M54.16 Radiculopathy, lumbar region (principal); M51.26 Other intervertebral disc displacement, lumbar region
CPT/HCPCS: 70030; 72148

== ENCOUNTER 2024-07-28 13:53 | Outpatient (OUT) | payer OTHER, SELFPAY ==
--- NOTE | 2024-07-28 15:30 | P.CN_ITS ---
Consult Note: HPI Data of Consult Patient: new to practice Consult date: 07/28/24 Requesting Physician: Hawk Ryan MD Primary Care Provider: Cesar Wilhelm MD Consult Narrative Reason for consult: low back, left leg pain Narrative: 49yom who presents for evaluation. longstanding low back pain with radiation i nto left leg. imaging reviewed, significant for disc herniation at l4-5 and l5- s1 with resultant stenosis. has engaged in >6 weeks of provider directed home exercise course, without benefit. uses lyrica. cc:: CC: Hawk Ryan MD Review of Systems ROS Status of ROS 10 or more systems reviewed and unremark able except as noted in history and below PFSH PFSH Social History Little interest or pleasure in doing things: not at all Feeling down, depressed, or hopeless: not at all Meds Home Medications and Allergies Home Medications ?Medication ?Instructions ?Recorded ?Confirmed ?Type aripiprazole 2 mg tablet 2 mg PO BEDTIME 06/28/24 07/28/24 History atorvastatin 40 mg tablet 40 mg PO BEDTIME 06/28/24 07/28/24 History citalopram 20 mg tablet 20 mg PO BEDTIME 06/28/24 07/28/24 History clonidine HCl 0.2 mg tablet 0.2 mg PO Q8H 06/28/24 07/28/24 History insulin glargine 100 unit/mL (3 60 unit subcut BID 06/28/24 07/28/24 History mL) subcutaneous pen (Lantus Solostar U-100 Insulin) insulin glulisine U-100 100 15 unit subcut QID 06/28/24 07/28/24 History unit/mL subcutaneous pen (Apidra SoloStar U-100 Insulin) lisinopril 40 mg tablet 40 mg PO DAILY 06/28/24 07/28/24 History pantoprazole 40 mg tablet,delayed 40 mg PO DAILY 06/28/24 07/28/24 History release pregabalin 300 mg capsule 300 mg PO TID 06/28/24 07/28/24 History trazodone 100 mg tablet 100 mg PO DAILY 06/28/24 07/28/24 History etodolac 400 mg tablet (Lodine) 400 mg PO BID PRN pain #60 tabs 07/28/24 Rx Allergies Allergy/AdvReac Type Severity Reaction Status Date / Time prochlorperazine (From AdvReac Severe panic Verified 07/08/24 15:00 Compazine) attack Exam Narrative Exam Narrative: Psych-alert and oriented x 3. Attentive and appropriate, constitutionally normal, displays normal mood and affect per situation. There are no obvious deficits in memory, reasoning, or intellect.? Skin-no obvious rashes, bruising, erythema noted to the patient's area of pain.? Extremities- extremities are warm with minimal edema and palpable pulses. Lumbar-tenderness to palpation noted in the lumbar spine and paraspinal musculature. Pain is elicited with flexion, extension, and lateral rotation of the lumbar spine. Range of motion is diminished with these motions. Facet loading maneuvers are positive.? Strength-noted to be unremarkable with the exception of decreased strength rated at 4 out of 5 in left quadriceps femoris, anterior tibialis. Sensory-no notable sensory deficits in the bilateral lower extremities to touch or pinprick in all dermatomal distributions with the exception to decreased sensation to the left L4, 5 dermatomal distribution Coordination remains intact.? Gait remains non-antalgic. Assessment and Plan Assessment and Plan (1) Lumbar stenosis with neurogenic claudication: (2) Disc displacement, lumbar: Plan 49yom who presents for evaluation. failed conservative measures, as noted. imaging reviewed, as noted. given symptoms and imaging, prudent to attempt left l4-5, l5-s1 tfesi under fluoroscopic guidance. he is in agreement. meds reviewed, will trial lodine 400mg bid prn. follow up after procedure.
== END 2024-07-28 13:54 | disposition home or self-care (01) ==
PROVIDERS: PCP Family Medicine; Visit Provider Anesthesiology
DX: M48.062 Spinal stenosis, lumbar region with neurogenic claudication (principal); M51.26 Other intervertebral disc displacement, lumbar region
CPT/HCPCS: G0463

== ENCOUNTER 2024-08-01 15:26 | Emergency (ER) | payer OTHER, SELFPAY ==
[2024-08-01 15:29] VITALS: BP 163/95; PULSE 88; TEMP 36.7; O2SAT 98; BMI 35.5
--- NOTE | 2024-08-01 15:49 | ED.BACK1 ---
HPI HPI - Back Pain/Injury General Chief Complaint: Back Pain/Injury Stated Complaint: BACK PAIN Time Seen by Provider: 08/01/24 15:27 Source: patient Mode of arrival: Wheelchair History of Present Illness HPI Narrative: Patient is a 49-year-old male presents to the ER with concerns of left lower back pain radiating into his left leg. He denies any fever fall or trauma. States he has had this episode in the past but symptoms flared more recently and has been dealing with symptoms for the past 6 to 8 weeks he had a outpatient MRI done on 07/25 and has had 1 appointment with pain management to discuss potential injections and treatment. Patient states he has been on gabapentin without relief and recently started etodolac. They are discussing potential injections but concerned with his history of elevated blood sugars from diabetes. He denies any anterior abdominal pain. Denies nausea or vomiting. He notes pain with numbness and tingling radiating from his left lower back to the left lateral thigh left lateral quarles and into his foot. Patient states his leg has been numb for over a month and has had difficulty walking using a cane. He denies any bowel or bladder incontinence or saddle paresthesias. Patient states he was at home and was in the process of pulling a trash can back out and into another container when he felt increased pain in his lower back which is more acute than his previous symptoms. MD elicited complaint: Reports back pain Pertinent past history: Reports prior back pain Onset (ago): month(s) Timing: Reports constant Severity: severe Similar Symptoms Previously: Yes Quality: Reports sharp, aching and tingling Location: Reports left lower back Radiation: Reports left upper leg (Left upper leg to left lower quarles along the L5 dermatome.) Exacerbating factors: Reports coughing/sneezing Relieving factors: Reports other (. Positional.) Context: turning/twisting Associated symptoms: numbness (left lateral leg. more pain, sensation to pinch present. ), increased urinary urgency, urinary incontinence, fecal incontinence, a change in bowel habits and fever Related Data Home Medications ?Medication ?Instructions ?Recorded ?Confirmed aripiprazole 2 mg tablet 2 mg PO BEDTIME 06/28/24 08/01/24 atorvastatin 40 mg tablet 40 mg PO BEDTIME 06/28/24 08/01/24 citalopram 20 mg tablet 20 mg PO BEDTIME 06/28/24 08/01/24 clonidine HCl 0.2 mg tablet 0.2 mg PO Q8H 06/28/24 08/01/24 insulin glargine 100 unit/mL (3 60 unit subcut BID 06/28/24 08/01/24 mL) subcutaneous pen (Lantus Solostar U-100 Insulin) insulin glulisine U-100 100 15 unit subcut QID 06/28/24 08/01/24 unit/mL subcutaneous pen (Apidra SoloStar U-100 Insulin) lisinopril 40 mg tablet 40 mg PO DAILY 06/28/24 08/01/24 pantoprazole 40 mg tablet,delayed 40 mg PO DAILY 06/28/24 08/01/24 release pregabalin 300 mg capsule 300 mg PO TID 06/28/24 08/01/24 trazodone 100 mg tablet 100 mg PO DAILY 06/28/24 08/01/24 tizanidine 4 mg tablet 4 mg PO TID 08/01/24 08/01/24 Previous Rx's ?Medication ?Instructions ?Recorded etodolac 400 mg tablet (Lodine) 400 mg PO BID PRN pain #60 tabs 07/28/24 hydrocodone 5 mg-acetaminophen 325 1 tab PO Q6H PRN pain 3 days #12 08/01/24 mg tablet tabs Allergies Allergy/AdvReac Type Severity Reaction Status Date / Time prochlorperazine (From AdvReac Severe panic Verified 07/08/24 15:00 Compazine) attack Opioid HPI Opioid Management Most Recent Opioid Data: Last Pain Scale 9 08/01/24 15:57 08/01/24 Last MAR Pain Assessment 08/01/24 15:57 Review of Systems ROS Constitutional Denies: fever or chills Eyes Denies: change in vision Ears, nose, mouth, and throat Denies: throat pain or neck pain Cardiovascular Denies: chest pain, palpitations or edema Respiratory Denies: shortness of breath, cough or wheezing Gastrointestinal Denies: abdominal pain, nausea or vomiting Genitourinary Denies: painful urination Musculoskeletal Reports: back pain; Denies: neck pain Integumentary/Breast Denies: rash Neurological Reports: numbness in extremities (left leg/ lateral); Denies: headache Psychiatric Denies: anxiety PFSH PFS Social History Little interest or pleasure in doing things: not at all Feeling down, depressed, or hopeless: not at all Exam Narrative Exam Narrative: Vital Signs reviewed and nurse's notes reviewed. The patient is not hypoxic. General: Alert, patient appears uncomfortable lying in a certain position noting constant pain radiating from his left lower back to his left lower leg. Skin: warm, intact, no pallor noted, no rash Head: Normocephalic, atraumatic Eye: Normal conjunctiva, EOMI Respiratory: No acute distress Abdomen: Normal bowel sounds, soft, nontender, no masses detected. No rebound, guarding, or rigidity noted. No midline pulsatile mass. Back: inspection of the back shows no obvious deformity, no swelling, no ecchymosis, contusion, abrasion, swelling, erythema, fluctuance or induration. No step offs or crepitus noted. No CVA tenderness noted bilaterally. Tenderness noted to left paravertebral lumbar region. Straight leg raise on left is positive at 20 degrees. Straight leg raise on right is negative. Musculoskeletal: No deformity noted to bilateral lower extremities. no cyanosis or mottling noted. normal pulses at DP and PT 2+ bilaterally and symmetrically. Normal 5/5 strength at ankles with dorsiflexion and plantar flexion on right, Left ankle with 3/5 dorsiflexion and 5/5 plantar flexion. Patient is able to ambulate. Normal sensation noted to the bilateral lower extremities. Neurological: alert and oriented x4, normal sensory and motor observed exception of paresthesia to L5 dermatome left leg.. DTR 2+ at patellar and achilles bilaterally. Negative clonus he does have mild drop foot on left Psychiatric: Cooperative Constitutional Vital Signs, click to edit/add: Last Vital Signs Temp 98.1 F 08/01/24 15:29 Pulse 88 08/01/24 15:29 Resp 20 08/01/24 15:29 BP 163/95 H 08/01/24 15:29 Pulse Ox 98 08/01/24 15:29 O2 Del Method Room Air 08/01/24 15:29 Course Vital Signs Vital signs: Vital Signs Temperature 98.1 F 08/01/24 15: Pulse Rate 88 08/01/24 15:29 Respiratory Rate 20 08/01/24 15:29 Blood Pressure 163/95 H 04/11/25 15:29 Pulse Oximetry 98 08/01/24 15:29 Oxygen Delivery Method Room Air 08/01/24 15:29 Temperature 98.1 F 08/01/24 15:29 Pulse Rate 88 08/01/24 15:29 Respiratory Rate 20 08/01/24 15:29 Blood Pressure 163/95 H 08/01/24 15:29 Pulse Oximetry 98 08/01/24 15:29 Oxygen Delivery Method Room Air 08/01/24 15:29 MDM - Back Pain/Injury MDM Narrative Medical decision making narrative: Patient notes increase in lower left black back pain with pain radiating into the left lower leg lateral aspect and into his toes. Patient states for the last 6 to 8 weeks he has been battling symptoms from a likely bulged disc, he had an MRI done on 07/25/2024 that showed disc herniations at L4-L5 and L5-S1 on the left which have been progressed from prior MRI done 12 09/2020. Patient has met with pain management who prescribed pregabalin which she is taking 300 mg 3 times a day and at times muscle relaxant. He is diabetic and treated with insulin and they are considering epidural steroid injections but concerned about elevated blood sugars patient notes his blood sugars have been well lately with recent treatment. He is currently taking etodolac without relief. Patient states he reached to throw a garbage bag into the trash with worsening symptoms this evening prompting ER visit. He denies any bowel or bladder continence or saddle paresthesias. His MRI done 1 week ago was reviewed noting significant disc herniation consistent with his clinical presentation we did express concern regarding his dropfoot which patient was unaware of previously and discussed prompt follow-up to his pain management doctor and is also given the name of local spine surgeons for possible surgical consultation. We discussed the need to return to the ER if any red flag symptoms such as bowel or bladder incontinence or saddle paresthesias discussed in layman's terms at the bedside. Patient denies having any of these issues today and is looking for pain relief with IM [id number] and IM Dilaudid 1 mg given here. Patient is aware that the Decadron will likely raise his blood sugars and he will need to treat with his insulin. He will be given a short prescription of [place] with medication caution discussed and the need to establish more definitive treatment plan if symptoms or not improving. Patient was very thankful for appointment supine The patient is to followup with primary care physician in next 2-3 days or to return to the emergency department should any of the signs or symptoms worsen or new symptoms develop. Patient had questions answered. The patient agrees with the following Diagnosis and Treatment plan and the patient will be discharged home. Medical Records Attestation: I reviewed the patient's medical records. Medical records narrative: JADYN WILHELM MD Procedure: MR lumbar spine wo con MRI LUMBAR SPINE WITHOUT CONTRAST CLINICAL DATA: Acute back pain with left lower extremity radiculopathy COMPARISON: 03/28/2021 Multiecho imaging in the axial and sagittal plane was performed without contrast. There is minor stairstep retrolisthesis from L3-4 through L5-S1. There are no acute compression fractures or marrow edema. Conus medullaris is within normal limits for caliber, position and signal intensity. No paraspinal soft tissue abnormalities are noted. And T12-L1 and L1-2 there is no disc disease or stenosis. At L2-3 and L3-4, the discs are within normal limits for height and signal intensity. There is minor disc bulging toward the neural foramen. There is minimal facet and ligamentous hypertrophy. There is no significant thecal sac effacement. There is slight inferior foraminal encroachment at both levels bilaterally. At L4-5, there is loss of disc height. There is annular disc bulging with a persistent central/left parasagittal disc protrusion measuring approximately 12 mm in width. This may be minimally larger. Slight caudal extension of disc material is present. Bilateral facet hypertrophy is seen. Moderate thecal sac effacement is noted toward the left. There is impingement of the traversing L5 nerve root on the left. There is minor inferior right and mild to moderate left foraminal encroachment. At the lumbosacral junction, there is slight loss of disc height. There is annular disc bulging with a persistent central/left parasagittal broad-based protrusion contacting the traversing left S1 nerve root. There is no significant thecal sac effacement. Bilateral facet hypertrophy is seen. Mild to moderate foraminal impingement is seen, left side slightly worse than right. IMPRESSION: CONTINUED DISC HERNIATIONS AT L4-5 AND L5-S1 TOWARD THE LEFT, SLIGHTLY PROGRESSED SINCE THE PRIOR Impression dictated by: Samara Waddell M.D.07/25/2024 11:08 AM Discharge Plan Discharge Chief Complaint: Back Pain/Injury Clinical Impression: Acute left lumbar radiculopathy, Foot drop, left Patient Disposition: Home, Self-Care Time of Disposition Decision: 15:49 Condition: Good Prescriptions / Home Meds: New hydrocodone-acetaminophen 5-325 mg tablet 1 tab PO Q6H PRN (Reason: pain) 3 Days Qty: 12 0RF No Action tizanidine 4 mg tablet 4 mg PO TID atorvastatin 40 mg tablet 40 mg PO BEDTIME clonidine HCl 0.2 mg tablet 0.2 mg PO Q8H citalopram 20 mg tablet 20 mg PO BEDTIME trazodone 100 mg tablet 100 mg PO DAILY pantoprazole 40 mg tablet,delayed release (DR/EC) 40 mg PO DAILY lisinopril 40 mg tablet 40 mg PO DAILY pregabalin 300 mg capsule 300 mg PO TID aripiprazole 2 mg tablet 2 mg PO BEDTIME insulin glargine [Lantus Solostar U-100 Insulin] 100 unit/mL (3 mL) insulin pen 60 unit SUBCUT BID Apidra SoloStar U-100 Insulin 100 unit/mL insulin pen 15 unit SUBCUT QID etodolac [Lodine] 400 mg tablet 400 mg PO BID PRN (Reason: pain) Qty: 60 2RF Print Language: Ivorian Instructions: Foot Drop (ED), Lumbar Radiculopathy (ED) Additional Instructions: Dr. Fuentes ortho spine surgeon [phone] ( call for appt) [facility], [place] Spine surgeons: [phone] [place] [address] ( MRI was pushed to [facility] [place] PACS) Referrals: Hawk Ryan MD [Physician] - As soon as possible Jadyn Wilhelm MD [Primary Care Provider] - 1 week
--- OUTSIDE RECORDS SUMMARY | 2024-08-01 15:51 | XMS_ITS | CCD ---
Author Organization [facility] ion [facility] Care Team Providers Care Record Searcher Name Role Phone VIVIAN LESTER Admitting Unavailable RAI DUPREE Attending Unavailable KENTON FINCH Referring Unavailable KENTON FINCH Primary Care Unavailable Jadyn Wilhelm Primary Care Physician CAROLINE LALA Attending Unavailable CAROLINE LALA Admitting Unavailable CHOCO Carbajal, DR SALAMANCA Primary Care Unavailable CAROLINE LALA Consulting Unavailable DR JIMBO MCCOLLUM Consulting Unavailable LUCIO NEVAREZ Attending Unavailable DR JADYN SALEH Primary Care Unavailable LUCIO NEVAREZ Admitting Unavailable LUCIO NEVAREZ Consulting Unavailable SONA ELLSWORTH Consulting Unavailable SONA ELLSWORTH Attending Unavailable CHOCO Carbajal, DR SALAMANCA Primary Care Unavailable AKILAH Carbajal, SONA Admitting Unavailable ALBARO NORIEGA Attending Unavailable ALBARO NORIEGA Admitting Unavailable CHOCO Carbajal, DR SALAMANCA Primary Care Unavailable AKILAH ., SONA Admitting Unavailable AKILAH ., SONA Consulting Unavailable SONA ELLSWORTH Attending Unavailable DR JADYN SALEH Primary Care Unavailable CHOCO ., DR SALAMANCA Primary Care Unavailable CHOCO ., DR SALAMANCA Consulting Unavailable CHOCO ., DR SALAMANCA Attending Unavailable HOY ., DR SALAMANCA Admitting Unavailable JOSIAS, DR IGNACIO Ruzi Consulting Unavailable AKILAH ., SONA Admitting Unavailable AKILAH ., SONA Consulting Unavailable SONA ELLSWORTH Attending Unavailable CHOCO .DR SALAMANCA Primary Care Unavailable CHOCO ., DR SALAMANCA Primary Care Unavailable EVARISTOY ., DR SALAMANCA Admitting Unavailable CHOCO ., DR SALAMANCA Attending Unavailable CHOCO ., DR SALAMANCA Consulting Unavailable ZISARTHAKER, DR IGNACIO Ruiz Consulting Unavailable CHOCO ., DR SALAMANCA Consulting Unavailable CHOCO ., DR SALAMANCA Admitting Unavailable HONigel ., DR SALAMANCA Attending Unavailable HOY ., [...] Unavailable NILL ., DR YANCEY Admitting Unavailable MCCASTER, ROBERTA Consulting Unavailable GEMBUS, RENETTA Consulting Unavailable NILL [...] DR SALAMANCA Primary Care Unavailable GERI, LUCIO Admitting Unavailable NILL, Naye Ruiz Attending Unavailable NILL, Naye R Attending Unavailable NILL, Naye R Attending Unavailable Shelby HUNT, Hawk Cuellar Attending Unavailable Allergies Allergy Classification Reported Allergen(s) Allergy Type Date of Onset Reaction(s) Facility (3 sources) Prochlorperazine ; Translations: [Compazine] Drug Allergy 3 [facility] (1 source) Prochlorperazine ; Translations: [prochlorperazin e] Drug Allergy Cramp (finding) [facility] [place] Medications Current Medications Medication Drug Class(es) Dates [...] 08-14-2022 Episodic Other aftercare (1 source) Other alf (current) drug therapy; Translations: [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 Kiran Ivey CK.MB [Mass/Vol] 4.71 ng/mL Critically high <=3.60 [facility] Comment on above: Performed By: #### C MREP #### [facility] [address] [place] [address] Dr. Kiran Ivey HSTROP 5.8 pg/mL Normal 4.0-76.1 [facility] Comment on above: Result Comment: CUT- OFF POINTS HAVE BEEN ESTABLISHED BASED ON THE FOURTH UNIVERSAL DEFINITIONS OF MYOCARDIAL INFARCTION. THE UPPER REFERENCE LIMIT (URL) OF TROPONIN, DEFINED THE 99TH PERCENTILE OF cTnI DISTRIBUTION IN A REFERENCE POPULATION, HAS BEEN CONFIRMED THE DECISION THRESHOLD FOR WA DIAGNOSIS. Performed By: #### C MREP #### [facility] [address] [place] [address] Dr. Kiran Ivey CARDIAC ROSLYN ADMITon 023 CK [Catalytic activity/Vol] 297 U/L Normal 39-308 [facility] Comment on above: Performed By: #### C MADM, BMP #### [facility] [address] [place] [address] Dr. Kiran Ivey CK.MB [Mass/Vol] 5.29 ng/mL Critically high <=3.60 [facility] Comment on above: Performed By: #### C MADM, BMP #### [facility] [address] [place] [address] Dr. Kiran Ivey HSTROP 6.1 pg/mL Normal 4.0-76.1 [facility] Comment on above: Result Comment: CUT- OFF POINTS HAVE BEEN ESTABLISHED BASED ON THE FOURTH UNIVERSAL DEFINITIONS OF MYOCARDIAL INFARCTION. THE UPPER REFERENCE LIMIT (URL) OF TROPONIN, DEFINED THE 99TH PERCENTILE OF cTnI DISTRIBUTION IN A REFERENCE POPULATION, HAS BEEN CONFIRMED THE DECISION THRESHOLD FOR WA DIAGNOSIS. Performed By: #### C MADM, BMP #### [facility] [address] [place] [address] Dr. Kiran Ivey MALIHA 50 ng/mL Normal 16-96 [facility] Comment on above: Performed By: #### C MADM, BMP #### [facility] [address] [address] [address] Kiran Ivey CBC AUTO DIFFon 08-10-2022 BASO # 0.1 103/ul Normal 0.0-0.1 [facility] Comment on above: Performed By: #### C BC #### [facility] [address] [place] [address] Dr. Kiran Ivey Basophils/100 WBC (Bld) 0.8 % Normal 0.2-2.0 [facility] Comment on above: Performed By: #### C BC #### [facility] [address] [place] [address] Dr. Kiran Ivey EO # 0.3 103/ul Normal 0.0-0.7 [facility] Comment on above: Performed By: #### C BC #### [facility] [address] [place] [address] Dr. Kiran Ivey Eosinophils/100 WBC (Bld) 3.6 % Normal 0.9-7.0 [facility] Comment on above: Performed By: #### C BC #### [facility] [address] [place] [address] Dr. Kiran Ivey Erythrocyte distribution width (RBC) [Ratio] 14.9 % Normal 11.0-15.0 [facility] Comment on above: Performed By: #### C BC #### [facility] [address] [place] [address] Dr. Kiran Ivey Hematocrit (Bld) [Volume fraction] 38.9 % Critically low 42.0-54.0 [facility] Comment on above: Performed By: #### C BC #### [facility] [address] [place] [address] Dr. Kiran Ivey Hemoglobin (Bld) [Mass/Vol] 12.6 g/dL Critically low 14.0-18.0 [facility] Comment on above: Performed By: #### C BC #### [facility] [address] [place] [address] Dr. Kiran Ivey IG # 0.02 10e3/ul Normal 0.00-0.03 [facility] Comment on above: Performed By: #### C BC #### [facility] [address] [place] [address] Dr. Kiran Ivey IG % 0.3 % Normal 0.0-0.5 [facility] Comment on above: Performed By: #### C BC #### [facility] [address] [place] [address] Dr. Kiran Ivey LYMPH # 2.4 103/ul Normal 1.2-3.8 [facility] Comment on above: Performed By: #### C BC #### [facility] [address] [place] [address] Dr. Kiran Ivey Lymphocytes/100 WBC (Bld) 33.1 % Normal 20.5-60.0 [facility] Comment on above: Performed By: #### C BC #### [facility] [address] [place] [address] Dr. Kiran Ivey MANUAL DIFF REQ NO Normal [facility] Comment on above: Performed By: #### C BC #### [facility] [address] [place] [address] Dr. Kiran Ivey MCH (RBC) [Entitic mass] 24.4 pg Critically low 25.9-34.0 [facility] Comment on above: Performed By: #### C BC #### [facility] [address] [place] [address] Dr. Kiran Ivey MCHC (RBC) [Mass/Vol] 32.4 g/dL Normal 29.9-35.2 [facility] Comment on above: Performed By: #### C BC #### [facility] [address] [place] [address] Dr. Kiran Ivey MCV (RBC) [Entitic vol] 75.4 fL Critically low 80.0-94.0 [facility] Comment on above: Performed By: #### C BC #### [facility] [address] [place] [address] Dr. Kiran Ivey MONO # 0.5 103/ul Normal 0.3-0.8 [facility] Comment on above: Performed By: #### C BC #### [facility] [address] [place] [address] Dr. Kiran Ivey Monocytes/100 WBC (Bld) 7.0 % Normal 1.7-12.0 [facility] Comment on above: Performed By: #### C BC #### [facility] [address] [place] [address] Dr. Kiran Ivey NEUT # 4.0 103/ul Normal 1.4-6.5 [facility] Comment on above: Performed By: #### C BC #### [facility] [address] [place] [address] Dr. Kiran Ivey Neutrophils/100 WBC (Bld) 55.2 % Normal 43.0-75.0 [facility] Comment on above: Performed By: #### C BC #### [facility] [address] [place] [address] Dr. Kiran Ivey Platelet mean volume (Bld) [Entitic vol] 9.1 fL Critically low 9.5-13.5 [facility] Comment on above: Performed By: #### C BC #### [facility] [address] [place] [address] Dr. Kiran Ivey PLT 310 103/ul Normal 150-450 [facility] Comment on above: Performed By: #### C BC #### [facility] [address] [place] [address] Dr. Kiran Ivey RBC 5.16 106/ul Normal 4.70-6.10 [facility] Comment on above: Performed By: #### C BC #### [facility] [address] [place] [address] Dr. Kiran Ivey WBC 7.2 103/ul Normal 4.0-11.0 [facility] Comment on above: Performed By: #### C BC #### [facility] [address] [place] [address] Dr. Kiran Ivey PROF CHEM 8 (BAS METB)on Anion gap [Moles/Vol] 11.1 mmol/L Normal [facility] Comment on above: Performed By: #### C ERICKA, BMP #### [facility] [address] [place] [address] Dr. Kiran Ivey Calcium [Mass/Vol] 9.3 mg/dL Normal 8.5-10.1 [facility] Comment on above: Performed By: #### C IBETHM, BMP #### [facility] [address] [place] [address] Dr. Kiran Ivey Chloride [Moles/Vol] 100 mmol/L Normal 98-107 [facility] Comment on above: Performed By: #### C ERICKA, BMP #### [facility] [address] [place] [address] Dr. Kiran Ivey CO2 [Moles/Vol] 30.1 mmol/L Normal 21.0-32.0 [facility] Comment on above: Performed By: #### C ERICKA, BMP #### [facility] [address] [place] [address] Dr. Kiran Ivey Creatinine [Mass/Vol] 1.03 mg/dL Normal 0.70-1.30 [facility] Comment on above: Performed By: #### C ERICKA, BMP #### [facility] [address] [place] [address] Dr. Kiran Ivey EGFR-AF SERBIAN >60 Normal >=60 [facility] Comment on above: Performed By: #### C ERICKA, BMP #### [facility] [address] [place] [address] Dr. Kiran Ivey EGFR-NON AF SERBIAN >60 Normal >=60 [facility] Comment on above: Performed By: #### C IBETHM, BMP #### [facility] [address] [place] [address] Dr. Kiran Ivey Glucose [Mass/Vol] 226 mg/dL Critically high 74-[address] [facility] Comment on above: Performed By: #### C ERICKA, BMP #### [facility] [address] [address] [address] Kiran Ivey Potassium [Moles/Vol] 4.2 mmol/L Normal 3.5-5.1 [facility] Comment on above: Performed By: #### C ERICKA, BMP #### [facility] [address] [place] [address] Dr. Kiran Ivey Sodium [Moles/Vol] 137 mmol/L Normal 136-145 [facility] Comment on above: Performed By: #### C ERICKA, BMP #### [facility] [address] [place] [address] Dr. Kiran Ivey Urea nitrogen [Mass/Vol] 19.0 mg/dL Critically high 7.0-18.0 [facility] Comment on above: Performed By: #### C ERICKA, BMP #### [facility] [address] [place] [address] Dr. Kiran Ivey Urea nitrogen/Creatinin e [Mass ratio] 18.4 mg/mg Normal [facility] Comment on above: Performed By: #### C ERICKA, BMP #### [facility] [address] [place] [address] Dr. Kiran Ivey GLYCOHEMOGLOBIN A1Con 2022 ADA RECOMMENDATION SEE BELOW Normal [facility] Comment on above: Result Comment: ADA RECOMMENDED LIMIT 4.0 - 6.0 ADA THERAPEUTIC TARGET < 7.0 ACTION SUGGESTED > 7.0 Performed By: #### C BC #### [facility] [address] [place] [address] Dr. Kiran Ivey Glucose [Mass/Vol] 269 mg/dL Normal [facility] Comment on above: Performed By: #### C BC #### [facility] [address] [place] [address] Dr. Kiran Ivey HbA1c (Bld) [Mass fraction] 11.0 % Critically high 4.5-6.2 [facility] Comment on above: Performed By: #### C BC #### [facility] [address] [place] [address] Dr. Kiran Ivey LIPID PROFILEon 06-12-2022 CHOL-HDL RATIO NORM SEE BELOW Normal [facility] Comment on above: Result Comment: 3.3 - 4.4 LOW RISK 4.4 - 7.1 AVERAGE RISK 7.1 - 11.0 MODERATE RISK >11.0 HIGH RISK Performed By: #### L IPID #### [facility] [address] [address] [address] Kiran Ivey Cholesterol [Mass/Vol] 193 mg/dL Normal <=200 [facility] Comment on above: Performed By: #### L IPID #### [facility] [address] [address] [address] Kiran Ivey Cholesterol in HDL [Mass/Vol] 47 mg/dL Normal 40-60 [facility] Comment on above: Performed By: #### L IPID #### [facility] [address] [address] [address] Kiran Ivey Cholesterol in LDL [Mass/Vol] 109.4 mg/dL Normal [facility] Comment on above: Performed By: #### L IPID #### [facility] [address] [address] [address] Kiran Ivey Cholesterol.total/ Cholesterol in HDL [Mass ratio] 4.1 {ratio} Normal [facility] Comment on above: Performed By: #### L IPID #### [facility] [address] [address] [address] Kiran Ivey HDL NORMAL > or = 60 mg/dl - LO W CARDIOVASCULAR RISK <40 mg/dl - HIGH CARDIOVASCULAR RISK Normal [facility] Comment on above: Performed By: #### L IPID #### [facility] [address] [address] [address] Kiran Ivey LDL CALC NORMAL SEE BELOW Normal [facility] Comment on above: Result Comment: <100 mg/dl OPTIMAL 100 - 129 mg/dl NEAR OR ABOVE OPTIMAL 130 - 159 mg/dl BORDERLINE HIGH 160 - 189 mg/dl HIGH >190 mg/dl VERY HIGH Performed By: #### L IPID #### [facility] [address] [address] [address] Kiran Ivey Triglyceride [Mass/Vol] 183 mg/dL Critically high <=150 [facility] Comment on above: Performed By: #### L IPID #### [facility] [address], [place] [address] Dr. Kiran Ivey VLDL CALC 36.6 mg/dL Normal [facility] Comment on above: Performed By: #### L IPID #### [facility] [address], [place] [address] Dr. Kiran Ivey General Surgery Office/Clini c [...] Sister. COPD: Father. Heart disease: Father. Normal [facility] Comment on above: Result Comment: Elec tronically Signed By: CAMI HUNT, Naye Bell\Date and Time Signed: 05/02/22 15:50 EST Reminderson 05-02-2022 Reminders - From: Suad Fitzpatrick LPN To: [facility] - Clinical; Sent: 05/02/2022 15:51:15 EST Show up: 03/20/2027 07:00:00 EST Subject: colonoscopy recall Due Date/Time: 04/19/2027 07:00:00 EST Reminder/Recall Patient is due for colonoscopy 04/19/2027 due to history of colonic polyp. Normal [facility] Pathology Noteon 04-21-2022 Pathology Note [id number]#[id number]:127 Normal [facility] Outside Colonoscopyon 2021 Outside Colonoscopy [id number]#[id number]:127 Normal [facility] POINT OF CARE GLUCOSEon 03-24 Glucose [Mass/Vol] 114 mg/dL Critically high 74-106 [facility] Comment on above: Performed By: #### P OCGLUC #### [facility] [address] [place] [address] Dr. Kiran Ivey Lab Reportson 2022 Lab Reports [id number]#[id number]:127 Normal [facility] Covid-19 PCR (CVDTBH)on 03-24 SARS-CoV-2 (COVID-19) RNA JOANNA+probe Ql (Unsp spec) Not detected Normal NOT DETECTED [facility] Comment on above: Result Comment: This test is not yet approved or cleared by the [place] FDA. When there are no FDA-approved or cleared tests available, and other criteria are met, FDA can make tests available under an emergency access mechanism called an Emergency Use Authorization (EUA). The EUA for this test is supported by the [employer] of Health and Human Service's (HHS's) [...] consistent with SARS-CoV-2. Performed By: #### C [facility] #### [facility] [address] [place] [address] Dr. Kiran Ivey Pre-Certification Formon Pre-Certification Form [id number]#[id number]:127 Normal [facility] Consent for Procedure/Surger yon 03-20-2022 Consent for Procedure/Surgery [id number]#[id number]:127 Normal [facility] Ambulatory Visit Summaryon 1 05-13-2021 Ambulatory Visit Summary ALVARADOGEOFF OLSONRalph Stuart :1975 Visit Date:03/13/2022 Ambulatory Visit Instructions Your Diagnosis Iron deficiency anemia secondary to blood loss (chronic) Vapes nicotine containing substance BMI 40.0-44.9, adult Your Care Team Attending Physician - CAMI HUNT, Naye Ruiz Primary Care Physician - Choco HUNT, Jadyn This Is Your Medications List Contact prescribing [...] Testicular hypofunction Vapes nicotine containing substance Normal [facility] CBC AUTO DIFFon 03-09-2022 BASO # 0.0 103/ul Normal 0.0-0.1 [facility] Comment on above: Performed By: #### C BC #### [facility] [address] [address] [address] Kiran Ivey Basophils/100 WBC (Bld) 0.6 % Normal 0.2-2.0 [facility] Comment on above: Performed By: #### C BC #### [facility] [address] [address] [address] Kiran Ivey EO # 0.0 103/ul Normal 0.0-0.7 [facility] Comment on above: Performed By: #### C BC #### [facility] [address] [address] [address] Kiran Ivey Eosinophils/100 WBC (Bld) 1.2 % Normal 0.9-7.0 [facility] Comment on above: Performed By: #### C BC #### [facility] [address] [place] [address] Dr. Kiran Ivey Erythrocyte distribution width (RBC) [Ratio] 16.7 % Critically high 11.0-15.0 [facility] Comment on above: Performed By: #### C BC #### [facility] [address] [place] [address] Dr. Kiran Ivey Hematocrit (Bld) [Volume fraction] 38.5 % Critically low 42.0-54.0 [facility] Comment on above: Performed By: #### C BC #### [facility] [address] [place] [address] Dr. Kiran Ivey Hemoglobin (Bld) [Mass/Vol] 11.6 g/dL Critically low 14.0-18.0 [facility] Comment on above: Performed By: #### C BC #### [facility] [address] [place] [address] Dr. Kiran Ivey IG # 0.01 10e3/ul Normal 0.00-0.03 [facility] Comment on above: Performed By: #### C BC #### [facility] [address] [place] [address] Dr. Kiran Ivey IG % 0.3 % Normal 0.0-0.5 [facility] Comment on above: Performed By: #### C BC #### [facility] [address] [place] [address] Dr. Kiran Ivey LYMPH # 1.2 103/ul Normal 1.2-3.8 [facility] Comment on above: Performed By: #### C BC #### [facility] [address] [place] [address] Dr. Kiran Ivey Lymphocytes/100 WBC (Bld) 36.0 % Normal 20.5-60.0 [facility] Comment on above: Performed By: #### C BC #### [facility] [address] [place] [address] Dr. Kiran Ivey MANUAL DIFF REQ NO Normal [facility] Comment on above: Performed By: #### C BC #### [facility] [address] [place] [address] Dr. Kiran Ivey MCH (RBC) [Entitic mass] 22.2 pg Critically low 25.9-34.0 [facility] Comment on above: Performed By: #### C BC #### [facility] [address] [place] [address] Dr. Kiran Ivey MCHC (RBC) [Mass/Vol] 30.1 g/dL Normal 29.9-35.2 [facility] Comment on above: Performed By: #### C BC #### [facility] [address] [place] [address] Dr. Kiran Ivey MCV (RBC) [Entitic vol] 73.8 fL Critically low 80.0-94.0 [facility] Comment on above: Performed By: #### C BC #### [facility] [address] [place] [address] Dr. Kiran Ivey MONO # 0.5 103/ul Normal 0.3-0.8 [facility] Comment on above: Performed By: #### C BC #### [facility] [address] [place] [address] Dr. Kiran Ivey Monocytes/100 WBC (Bld) 15.1 % Critically high 1.7-12.0 [facility] Comment on above: Performed By: #### C BC #### [facility] [address] [place] [address] Dr. Kiran Ivey NEUT # 1.5 103/ul Normal 1.4-6.5 [facility] Comment on above: Performed By: #### C BC #### [facility] [address] [place] [address] Dr. Kiran Ivey Neutrophils/100 WBC (Bld) 46.8 % Normal 43.0-75.0 [facility] Comment on above: Performed By: #### C BC #### [facility] [address] [place] [address] Dr. Kiran Ivey Platelet mean volume (Bld) [Entitic vol] 10.2 fL Normal 9.5-13.5 [facility] Comment on above: Performed By: #### C BC #### [facility] [address] [address] [address] Kiran Ivey PLT 168 103/ul Normal 150-450 [facility] Comment on above: Performed By: #### C BC #### [facility] [address] [address] [address] Kiran Ivey RBC 5.22 106/ul Normal 4.70-6.10 [facility] Comment on above: Performed By: #### C BC #### [facility] [address] [address] [address] Kiran Ivey WBC 3.3 103/ul Critically low 4.0-11.[address] [facility] Comment on above: Performed By: #### C BC #### [facility] [address] [place] [address] Dr. Kiran Ivey PROF CHEM 8 (BAS METB)on Anion gap [Moles/Vol] 10.3 mmol/L Normal [facility] Comment on above: Performed By: #### B MP #### [facility] [address] [place] [address] Dr. Kiran Ivey Calcium [Mass/Vol] 8.5 mg/dL Normal 8.5-10.1 [facility] Comment on above: Performed By: #### B MP #### [facility] [address] [place] [address] Dr. Kiran Ivey Chloride [Moles/Vol] 99 mmol/L Normal 98-107 [facility] Comment on above: Performed By: #### B MP #### [facility] [address] [place] [address] Dr. Kiran Ivey CO2 [Moles/Vol] 28.3 mmol/L Normal 21.0-32.0 [facility] Comment on above: Performed By: #### B MP #### [facility] [address] [place] [address] Dr. Kiran Ivey Creatinine [Mass/Vol] 0.81 mg/dL Normal 0.70-1.30 [facility] Comment on above: Performed By: #### B MP #### [facility] [address] [address] [address] Kiran Ivey EGFR-AF SERBIAN >60 Normal >=60 [facility] Comment on above: Performed By: #### B MP #### [facility] [address] [place] [address] Dr. Kiran Ivey EGFR-NON AF SERBIAN >60 Normal >=60 [facility] Comment on above: Performed By: #### B MP #### [facility] [address] [address] [address] Kiran Ivey Glucose [Mass/Vol] 152 mg/dL Critically high 74-106 [facility] Comment on above: Performed By: #### B MP #### [facility] [address] [place] [address] Dr. Kiran Ivey Potassium [Moles/Vol] 4.6 mmol/L Normal 3.5-5.1 [facility] Comment on above: Performed By: #### B MP #### [facility] [address] [place] [address] Dr. Kiran Ivey Sodium [Moles/Vol] 133 mmol/L Critically low 136-145 Th [facility] Comment on above: Performed By: #### B MP #### [facility] [address] [place] [address] Dr. Kiran Ivey Urea nitrogen [Mass/Vol] 13.0 mg/dL Normal 7.0-18.0 [facility] Comment on above: Performed By: #### B MP #### [facility] [address] [place] [address] Dr. Kiran Ivey Urea nitrogen/Creatinin e [Mass ratio] 16.0 mg/mg Normal [facility] Comment on above: Performed By: #### B MP #### [facility] [address] [place] [address] Dr. Kiran Ivey Physician Referralon 022 Physician Referral [id number]:[id number] Normal [facility] TESTOSTERONE, TOTALon 2021 Testosterone [Mass/Vol] 56 ng/dL Critically low 264-916 [facility] Comment on above: Result Comment: Adul t male reference interval is based on a population of healthy nonobese males (BMI <30) between 19 and 39 years old. tatiana Gonzalez.al. JCEM 2017,102;2812-3594. PMID: [id number]. Performed By: #### C BC #### [facility] [address] [place] [address] Dr. Kiran Ivey AMYLASEon 02-15-2022 Amylase [Catalytic activity/Vol] 35 U/L Normal 25-115 [facility] Comment on above: Performed By: #### C BC #### [facility] [address] [place] [address] Dr. Kiran Ivey BNPon 02-15-2022 Natriuretic peptide B (Bld) [Mass/Vol] 7.0 pg/mL Normal <=450.0 [facility] Comment on above: Performed By: #### C BC #### [facility] [address] [place] [address] Dr. Kiran Ivey CBC AUTO DIFFon 02-15-2022 BASO # 0.1 103/ul Normal 0.0-0.1 [facility] Comment on above: Performed By: #### C BC #### [facility] [address] [place] [address] Dr. Kiran Ivey Basophils/100 WBC (Bld) 0.7 % Normal 0.2-2.0 [facility] Comment on above: Performed By: #### C BC #### [facility] [address] [place] [address] Dr. Kiran Ivey EO # 0.2 103/ul Normal 0.0-0.7 [facility] Comment on above: Performed By: #### C BC #### [facility] [address] [place] [address] Dr. Kiran Ivey Eosinophils/100 WBC (Bld) 2.3 % Normal 0.9-7.0 [facility] Comment on above: Performed By: #### C BC #### [facility] [address] [place] [address] Dr. Kiran Ivey Erythrocyte distribution width (RBC) [Ratio] 15.2 % Critically high 11.0-15.0 [facility] Comment on above: Performed By: #### C BC #### [facility] [address] [place] [address] Dr. Kiran Ivey Hematocrit (Bld) [Volume fraction] 38.3 % Critically low 42.0-54.0 [facility] Comment on above: Performed By: #### C BC #### [facility] [address] [place] [address] Dr. Kiran Ivey Hemoglobin (Bld) [Mass/Vol] 12.1 g/dL Critically low 14.0-18.0 [facility] Comment on above: Performed By: #### C BC #### [facility] [address] [place] [address] Dr. Kiran Ivey IG # 0.06 10e3/ul Critically high 0.00-0.03 [facility] Comment on above: Performed By: #### C BC #### [facility] [address] [place] [address] Dr. Kiran Ivey IG % 0.6 % Critically high 0.0-0.5 [facility] Comment on above: Performed By: #### C BC #### [facility] [address] [place] [address] Dr. Kiran Ivey LYMPH # 2.6 103/ul Normal 1.2-3.8 [facility] Comment on above: Performed By: #### C BC #### [facility] [address] [place] [address] Dr. Kiran Ivey Lymphocytes/100 WBC (Bld) 25.0 % Normal 20.5-60.0 [facility] Comment on above: Performed By: #### C BC #### [facility] [address] [place] [address] Dr. Kiran Ivey MANUAL DIFF REQ NO Normal [facility] Comment on above: Performed By: #### C BC #### [facility] [address] [place] [address] Dr. Kiran Ivey MCH (RBC) [Entitic mass] 22.5 pg Critically low 25.9-34.0 [facility] Comment on above: Performed By: #### C BC #### [facility] [address] [place] [address] Dr. Kiran Ivey MCHC (RBC) [Mass/Vol] 31.6 g/dL Normal 29.9-35.2 [facility] Comment on above: Performed By: #### C BC #### [facility] [address] [place] [address] Dr. Kiran Ivey MCV (RBC) [Entitic vol] 71.2 fL Critically low 80.0-94.0 [facility] Comment on above: Performed By: #### C BC #### [facility] [address] [place] [address] Dr. Kiran Ivey MONO # 0.7 103/ul Normal 0.3-0.8 [facility] Comment on above: Performed By: #### C BC #### [facility] [address] [place] [address] Dr. Kiran Ivey Monocytes/100 WBC (Bld) 6.6 % Normal 1.7-12.0 [facility] Comment on above: Performed By: #### C BC #### [facility] [address] [place] [address] Dr. Kiran Ivey NEUT # 6.7 103/ul Critically high 1.4-6.5 [facility] Comment on above: Performed By: #### C BC #### [facility] [address] [place] [address] Dr. Kiran Ivey Neutrophils/100 WBC (Bld) 64.8 % Normal 43.0-75.0 [facility] Comment on above: Performed By: #### C BC #### [facility] [address] [place] [address] Dr. Kiran Ivey Platelet mean volume (Bld) [Entitic vol] 9.0 fL Critically low 9.5-13.5 [facility] Comment on above: Performed By: #### C BC #### [facility] [address] [place] [address] Dr. Kiran Ivey PLT 338 103/ul Normal 150-450 [facility] Comment on above: Performed By: #### C BC #### [facility] [address] [place] [address] Dr. Kiran Ivey RBC 5.38 106/ul Normal 4.70-6.10 [facility] Comment on above: Performed By: #### C BC #### [facility] [address] [place] [address] Dr. Kiran Ivey WBC 10.3 103/ul Normal 4.0-11.0 [facility] Comment on above: Performed By: #### C BC #### [facility] [address] [place] [address] Dr. Kiran Ivey FREE THYROXINE INDEX T7on FTI 3.04 Normal 1.30-4.50 [facility] Comment on above: Performed By: #### C BC #### [facility] [address] [place] [address] Dr. Kiran Ivey T3U 33.0 % Normal 33.0-40.0 [facility] Comment on above: Performed By: #### C BC #### [facility] [address] [place] [address] Dr. Kiran Ivey T4 [Mass/Vol] 9.20 ug/dL Normal 4.50-12.10 [facility] Comment on above: Performed By: #### C BC #### [facility] [address] [place] [address] Dr. Kiran Ivey IRONon 02-15-2022 Iron [Mass/Vol] 25.0 ug/dL Critically low 65.0-175.0 [facility] Comment on above: Performed By: #### C BC #### [facility] [address] [place] [address] Dr. Kiran Ivey LIPASEon 02-15-2022 Lipase [Catalytic activity/Vol] 90.0 U/L Normal 73.0-393.0 [facility] Comment on above: Performed By: #### C BC #### [facility] [address] [place] [address] Dr. Kiran Ivey PROF 14(COMP METB)on 022 Albumin [Mass/Vol] 3.4 g/dL Normal 3.4-5.0 [facility] Comment on above: Performed By: #### C BC #### [facility] [address] [place] [address] Dr. Kiran Ivey Albumin/Globulin [Mass ratio] 0.8 {ratio} Normal [facility] Comment on above: Performed By: #### C BC #### [facility] [address] [place] [address] Dr. Kiran Ivey ALP [Catalytic activity/Vol] 118 U/L Critically high 46-116 [facility] Comment on above: Performed By: #### C BC #### [facility] [address] [place] [address] Dr. Kiran Ivey ALT [Catalytic activity/Vol] 30 U/L Normal 16-63 [facility] Comment on above: Performed By: #### C BC #### [facility] [address] [place] [address] Dr. Kiran Ivey Anion gap [Moles/Vol] 9.8 mmol/L Normal [facility] Comment on above: Performed By: #### C BC #### [facility] [address] [place] [address] Dr. Kiran Ivey AST [Catalytic activity/Vol] 20 U/L Normal 15-37 [facility] Comment on above: Performed By: #### C BC #### [facility] [address] [place] [address] Dr. Kiran Ivey Bilirubin [Mass/Vol] 0.2 mg/dL Normal 0.2-1.0 [facility] Comment on above: Performed By: #### C BC #### [facility] [address] [place] [address] Dr. Kiran Ivey Calcium [Mass/Vol] 9.5 mg/dL Normal 8.5-10.1 [facility] Comment on above: Performed By: #### C BC #### [facility] [address] [place] [address] Dr. Kiran Ivey Chloride [Moles/Vol] 99 mmol/L Normal 98-107 [facility] Comment on above: Performed By: #### C BC #### [facility] [address] [address] [address] Kiran Ivey CO2 [Moles/Vol] 29.1 mmol/L Normal 21.0-32.0 [facility] Comment on above: Performed By: #### C BC #### [facility] [address] [address] [address] Kiran Ivey Creatinine [Mass/Vol] 0.83 mg/dL Normal 0.70-1.30 [facility] Comment on above: Performed By: #### C BC #### [facility] [address] [place] [address] Dr. Kiran Ivey EGFR-AF SERBIAN >60 Normal >=60 [facility] Comment on above: Performed By: #### C BC #### [facility] [address] [place] [address] Dr. Kiran Ivey EGFR-NON AF SERBIAN >60 Normal >=60 [facility] Comment on above: Performed By: #### C BC #### [facility] [address] [address] [address] Kiran Ivey Globulin (S) [Mass/Vol] 4.1 g/dL Normal [facility] Comment on above: Performed By: #### C BC #### [facility] [address] [place] [address] Dr. Kiran Ivey Glucose [Mass/Vol] 157 mg/dL Critically high 74-[address] [facility] Comment on above: Performed By: #### C BC #### [facility] [address] [place] [address] Dr. Kiran Ivey Potassium [Moles/Vol] 3.9 mmol/L Normal 3.5-5.1 [facility] Comment on above: Performed By: #### C BC #### [facility] [address] [address] [address] Kiran Ivey Protein [Mass/Vol] 7.5 g/dL Normal 6.4-8.2 [facility] Comment on above: Performed By: #### C BC #### [facility] [address] [address] [address] Kiran Ivey Sodium [Moles/Vol] 134 mmol/L Critically low 136-145 [facility] Comment on above: Performed By: #### C BC #### [facility] [address] [id number] Kiran Ivey Urea nitrogen [Mass/Vol] 13.0 mg/dL Normal 7.0-18.0 [facility] Comment on above: Performed By: #### C BC #### [facility] [address] [place] [address] Dr. Kiran Ivey Urea nitrogen/Creatinin e [Mass ratio] 15.7 mg/mg Normal [facility] Comment on above: Performed By: #### C BC #### [facility] [address] [place] [address] Dr. Kiran Ivey TSHon 02-15-2022 TSH 1.756 uIU/mL Normal 0.358-3.740 [facility] Comment on above: Performed By: #### C BC #### [facility] [address] [place] [address] Dr. Kiran Ivey Covid-19 PCR ([facility])on 12-23 SARS-CoV-2 (COVID-19) RNA JOANNA+probe Ql (Unsp spec) Not detected Normal NOT DETECTED [facility] Comment on above: Result Comment: When diagnostic [...] for this test is supported by the [employer] of Health and Human Service's declaration that [...] be used). Performed By: #### C #### [facility] [id number] Kiran Ivey ECHOCARDIO M/2D COMPLETEon 0 09-14-2021 ECHOCARDIO M/2D COMPLETE Patient: NONI SOTO. Exam Date: 09/14/2021 : 1975 Gender:M Ordering : DR JADYN WILHELM . Admission #: [id number] Family : Order #: [id number] CLICK HERE TO VIEW EXAM ECHOCARDIOGRAM REPORT [...] Perez M.D. on 09/15/2021 at 13:12 Normal [facility] CREATININEon 09-09-2021 Creatinine [Mass/Vol] 0.95 mg/dL Normal 0.70-1.30 [facility] Comment on above: Performed By: #### C BC #### [facility] [address] [place] [address] Dr. Kiran Ivey EGFR-AF SERBIAN >60 Normal >=60 [facility] Comment on above: Performed By: #### C BC #### [facility] [address] [place] [address] Dr. Kiran Ivey EGFR-NON AF SERBIAN >60 Normal >=60 [facility] Comment on above: Performed By: #### C BC #### [facility] [address] [place] [address] Dr. Kiran Ivey CTA CHEST WO W [...] by: IGNACIO FERRARA Date: 2021-09-09 10:05 Normal [facility] US WOODROW DOP LEG BILon 022 US [...] by: IGNACIO FERRARA Date: 2021-09-05 16:26 Normal [facility] POC GLUCOSE LABon 01-09-2019 Glucose [Mass/Vol] 233 mg/dL High 70-100 [facility] Comment on above: Performed By: #### 8 [id number] #### [facility] [address] [place] [address], [facility] Glucose [Mass/Vol] 199 mg/dL High 70-100 [facility] Comment on above: Performed By: #### 8 [id number] #### [facility] [address] [facility] [place] [address], [place] POC GLUCOSE LABon 01-08-2019 Glucose [Mass/Vol] 251 mg/dL High 70-100 [facility] Comment on above: Performed By: #### 8 [id number] #### [facility] [address] [place] [address], [place] Glucose [Mass/Vol] 212 mg/dL High 70-100 [facility] Comment on above: Performed By: #### 8 [id number] #### [facility] [address] [place] [address], [place] Glucose [Mass/Vol] 238 mg/dL High 70-100 [facility] Comment on above: Performed By: #### 8 [id number] #### [facility] [address] [place] [address], [place] Glucose [Mass/Vol] 160 mg/dL High 70-100 [facility] Comment on above: Performed By: #### 0 0121 #### [facility] [address] [place] [address], [facility] BASIC METABOLIC PANELon 12-22 Calcium [Mass/Vol] 9.3 mg/dL Normal 8.6-10.3 [facility] Comment on above: Order Comment: Yes: Add to Previous draw if able Performed By: #### 0 0121 #### [facility] [address] [place] [address], [facility] Chloride [Moles/Vol] 100 mmol/L Normal 98-107 [facility] Comment on above: Order Comment: Yes: Add to Previous draw if able Performed By: #### 0 0121 #### [facility] [address] [place] [address], [facility] CO2 [Moles/Vol] 30 mmol/L Normal 21-31 [facility] Comment on above: Order Comment: Yes: Add to Previous draw if able Performed By: #### 0 0121 #### [facility] [address] [place] [address], [place] Creatinine [Mass/Vol] 0.74 mg/dL Normal 0.70-1.30 [facility] Comment on above: Order Comment: Yes: Add to Previous draw if able Performed By: #### 0 0121 #### [facility] [address] [place] [address], [facility] GFR/1.73 sq M predicted among blacks MDRD (S/P/Bld) [Vol rate/Area] mL/min/{1.73_m2} Normal >60 [facility] Comment on above: Order Comment: Yes: Add to Previous draw if able Performed By: #### 0 0121 #### [facility] [address] [place] [address], [facility] GFR/1.73 sq M predicted among non-blacks MDRD (S/P/Bld) [Vol rate/Area] mL/min/{1.73_m2} Normal >60 [facility] Comment on above: Order Comment: Yes: Add to Previous draw if able Performed By: #### 0 0121 #### [facility] [address] [place] [address], [facility] Glucose [Mass/Vol] 176 mg/dL High 70-100 [facility] Comment on above: Order Comment: Yes: Add to Previous draw if able Performed By: #### 0 0121 #### [facility] [address] [place] [id number], [facility] Potassium [Moles/Vol] 3.6 mmol/L Normal 3.5-5.1 [facility] Comment on above: Order Comment: Yes: Add to Previous draw if able Performed By: #### 0 0121 #### [facility] [address] [place] [id number], [facility] Sodium [Moles/Vol] 137 mmol/L Normal 136-145 [facility] Comment on above: Order Comment: Yes: Add to Previous draw if able Performed By: #### 0 0121 #### [facility] [address] [place] [address], [facility] Urea nitrogen [Mass/Vol] 15 mg/dL Normal 7-25 [facility] Comment on above: Order Comment: Yes: Add to Previous draw if able Performed By: #### 0 0121 #### [facility] [address] CBC COMPLETE BLOOD COUNTon 0 - Erythrocyte distribution width (RBC) [Ratio] 12.7 % Normal 11.5-15.0 [facility] Comment on above: Order Comment: Yes: Add to Previous draw if able Performed By: #### 0 0121 #### [facility] [address] [place] [address], [facility] Hematocrit (Bld) [Volume fraction] 35.4 % Low 39.0-50.0 [facility] Comment on above: Order Comment: Yes: Add to Previous draw if able Performed By: #### 0 0121 #### [facility] [address] [place] [address], [facility] Hemoglobin (Bld) [Mass/Vol] 11.8 g/dL Low 13.0-17.0 [facility] Comment on above: Order Comment: Yes: Add to Previous draw if able Performed By: #### 0 0121 #### [facility] [address] [place] [address], [facility] MCH (RBC) [Entitic mass] 26.1 pg Low 27.0-33.0 [facility] Comment on above: Order Comment: Yes: Add to Previous draw if able Performed By: #### 0 0121 #### [facility] [address] [place] [address], [facility] MCHC (RBC) [Mass/Vol] 33.3 g/dL Normal 32.0-35.0 [facility] Comment on above: Order Comment: Yes: Add to Previous draw if able Performed By: #### 0 0121 #### [facility] [address] [place] [address], [facility] MCV (RBC) [Entitic vol] 78.3 fL Low 82.0-98.0 [facility] Comment on above: Order Comment: Yes: Add to Previous draw if able Performed By: #### 0 0121 #### [facility] [address] [place] [address], [facility] Nucleated RBC/100 WBC (Bld) [Ratio] 0 % Normal 0-0 [facility] Comment on above: Order Comment: Yes: Add to Previous draw if able Performed By: #### 0 0121 #### [facility] [address] [place] [address], [place] PLAT CNT 411 10*3/uL High 150-400 [facility] Comment on above: Order Comment: Yes: Add to Previous draw if able Performed By: #### 0 0121 #### [facility] [address] [place] [address], [place] RBC (Bld) [#/Vol] 4.52 10*6/uL Normal 4.20-5.70 [facility] Comment on above: Order Comment: Yes: Add to Previous draw if able Performed By: #### 0 0121 #### [facility] [address] [place] [address], [facility] WBC (Bld) [#/Vol] 7.62 10*3/uL Normal 4.00-10.60 [facility] Comment on above: Order Comment: Yes: Add to Previous draw if able Performed By: #### 0 0121 #### [facility] [address] [place] [address], [facility] HEMOGLOBIN A1Con 01-07-2019 HbA1c (Bld) [Mass fraction] 338 mg/dL High 70-126 [facility] Comment on above: Order Comment: Yes: Add to Previous draw if able Performed By: #### 8 [id number] #### [facility] [address] [place] [address], [facility] HbA1c (Bld) [Mass fraction] 13.4 % High 4.0-6.0 [facility] Comment on above: Order Comment: Yes: Add to Previous draw if able Performed By: #### 8 [id number] #### [facility] [address] [place] [address], [facility] POC GLUCOSE LABon 01-07-2019 Glucose [Mass/Vol] 317 mg/dL High 70-100 [facility] Comment on above: Performed By: #### 0 0121 #### [facility] [address] [place] [address], [facility] Glucose [Mass/Vol] 142 mg/dL High 70-100 [facility] Comment on above: Performed By: #### 0 0121 #### [facility] [address] [place] [address], [place] Glucose [Mass/Vol] 190 mg/dL High 70-100 [facility] Comment on above: Performed By: #### 0 0121 #### [facility] [address] [place] [address], [facility] VANCOMYCIN TROUGHon 01-08-20 19 VANCOMYCIN TROU 11.5 mcg/mL Normal 5.0-20.0 [facility] Comment on above: Performed By: #### 0 0121 #### [facility] [address] [place] [address], [facility] BASIC METABOLIC PANELon 12-22 Calcium [Mass/Vol] 9.1 mg/dL Normal 8.6-10.3 [facility] Comment on above: Order Comment: No: D o not add to previous draw Performed By: #### 1 0, 64839, 16637 #### [facility] [address] [place] [address], [place] Chloride [Moles/Vol] 100 mmol/L Normal 98-107 [facility] Comment on above: Order Comment: No: D o not add to previous draw Performed By: #### 1 0, 70652, 79119 #### [facility] [address] [place] [address], [place] CO2 [Moles/Vol] 29 mmol/L Normal 21-31 [facility] Comment on above: Order Comment: No: D o not add to previous draw Performed By: #### 1 0, 97942, 50584 #### [facility] [address] [place] [address], [place] Creatinine [Mass/Vol] 0.57 mg/dL Low 0.70-1.30 [facility] Comment on above: Order Comment: No: D o not add to previous draw Performed By: #### 1 0, 28408, 62904 #### [facility] [address] [place] [address], [place] GFR/1.73 sq M predicted among blacks MDRD (S/P/Bld) [Vol rate/Area] mL/min/{1.73_m2} Normal >60 [facility] Comment on above: Order Comment: No: D o not add to previous draw Performed By: #### 1 0070, 11328, 54946 #### [facility] [address] [place] [address], [place] GFR/1.73 sq M predicted among non-blacks MDRD (S/P/Bld) [Vol rate/Area] mL/min/{1.73_m2} Normal >60 [facility] Comment on above: Order Comment: No: D o not add to previous draw Performed By: #### 1 0, 87743, 59354 #### [facility] [address] [place] [address], [place] Glucose [Mass/Vol] 157 mg/dL High 70-100 [facility] Comment on above: Order Comment: No: D o not add to previous draw Performed By: #### 1 0, 10181, 11483 #### [facility] [address] [place] [address], [place] Potassium [Moles/Vol] 3.5 mmol/L Normal 3.5-5.1 [facility] Comment on above: Order Comment: No: D o not add to previous draw Performed By: #### 1 0, 21978, 74123 #### [facility] [address] [place] [address], [place] Sodium [Moles/Vol] 135 mmol/L Low 136-145 [facility] Comment on above: Order Comment: No: D o not add to previous draw Performed By: #### 1 0, [id number], [id number] #### [facility] [address] [place] [address], [facility] Urea nitrogen [Mass/Vol] 7 mg/dL Normal 7-25 [facility] Comment on above: Order Comment: No: D o not add to previous draw Performed By: #### 1 0070, [id number], 23035 #### [facility] [address] [place] [address], [facility] CBC W/DIFFon 01-06-2019 ABS BASOPHILS 0.1 10*3/uL Normal 0.0-0.2 [facility] Comment on above: Order Comment: No: D o not add to previous draw Performed By: #### 5 0103 #### [facility] [address] [place] [address], [facility] ABS IMM GRANS 0.1 10*3/uL Normal 0.0-0.2 [facility] Comment on above: Order Comment: No: D o not add to previous draw Performed By: #### 5 0103 #### [facility] [address] [place] [address], [facility] ABS NEUTROPHILS 4.5 10*3/uL Normal 1.6-7.6 [facility] Comment on above: Order Comment: No: D o not add to previous draw Performed By: #### 5 0103 #### [facility] [address] [place] [address], [facility] Basophils/100 WBC (Bld) 0.7 % Normal 0.0-1.0 [facility] Comment on above: Order Comment: No: D o not add to previous draw Performed By: #### 5 0103 #### [facility] [address] [place] [address], [facility] Eosinophils (Bld) [#/Vol] 0.3 10*3/uL Normal 0.0-0.5 [facility] Comment on above: Order Comment: No: D o not add to previous draw Performed By: #### 5 0103 #### [facility] [address] [place] [address], [facility] Eosinophils/100 WBC (Bld) 3.4 % Normal 0.0-6.0 [facility] Comment on above: Order Comment: No: D o not add to previous draw Performed By: #### 5 3 #### [facility] [address] [place] [address], [facility] Erythrocyte distribution width (RBC) [Ratio] 12.7 % Normal 11.5-15.0 [facility] Comment on above: Order Comment: No: D o not add to previous draw Performed By: #### 3 #### [facility] [address] [place] [address], [facility] Hematocrit (Bld) [Volume fraction] 35.1 % Low 39.0-50.0 [facility] Comment on above: Order Comment: No: D o not add to previous draw Performed By: #### 3 #### [facility] [address] Hemoglobin (Bld) [Mass/Vol] 11.9 g/dL Low 13.0-17.0 [facility] Comment on above: Order Comment: No: D o not add to previous draw Performed By: #### 102 #### [facility] [address] [place] [address], [facility] IMMATURE GRANS 0.6 % Normal 0.0-1.0 [facility] Comment on above: Order Comment: No: D o not add to previous draw Performed By: #### 5 0103 #### [facility] [address] [place] [address], [facility] Lymphocytes (Bld) [#/Vol] 3.0 10*3/uL Normal 1.2-4.0 [facility] Comment on above: Order Comment: No: D o not add to previous draw Performed By: #### 5 3 #### [facility] [address] [place] [address], [facility] Lymphocytes/100 WBC (Bld) 34.7 % Normal 20.0-45.0 [facility] Comment on above: Order Comment: No: D o not add to previous draw Performed By: #### 5 0103 #### [facility] [address] [place] [id number], [facility] MCH (RBC) [Entitic mass] 26.6 pg Low 27.0-33.0 [facility] Comment on above: Order Comment: No: D o not add to previous draw Performed By: #### 5 0103 #### [facility] [address] [facility] [place] [address], [facility] MCHC (RBC) [Mass/Vol] 33.9 g/dL Normal 32.0-35.0 [facility] Comment on above: Order Comment: No: D o not add to previous draw Performed By: #### 5 0103 #### [facility] [address] [place] [address], [facility] MCV (RBC) [Entitic vol] 78.5 fL Low 82.0-98.0 [facility] Comment on above: Order Comment: No: D o not add to previous draw Performed By: #### 5 0103 #### [facility] [address] [facility] [place] [place] [address], [facility] Monocytes (Bld) [#/Vol] 0.7 10*3/uL Normal 0.1-1.0 [facility] Comment on above: Order Comment: No: D o not add to previous draw Performed By: #### 5 0103 #### [facility] [address] [place] [address], [facility] MONOS 8.1 % Normal 5.0-12.0 [facility] Comment on above: Order Comment: No: D o not add to previous draw Performed By: #### 5 0103 #### [facility] [address] [place] [address], [facility] Neutrophils/100 WBC (Bld) 52.5 % Normal 40.0-72.0 [facility] Comment on above: Order Comment: No: D o not add to previous draw Performed By: #### 5 0103 #### [facility] [address] [place] [id number], [facility] Nucleated RBC/100 WBC (Bld) [Ratio] 0 % Normal 0-0 [facility] Comment on above: Order Comment: No: D o not add to previous draw Performed By: #### 5 0103 #### [facility] [address] [facility] [place] [place] [address], [facility] PLAT CNT 445 10*3/uL High 150-400 [facility] Comment on above: Order Comment: No: D o not add to previous draw Performed By: #### 5 0103 #### [facility] [address] [place] [address], [facility] RBC (Bld) [#/Vol] 4.47 10*6/uL Normal 4.20-5.70 [facility] Comment on above: Order Comment: No: D o not add to previous draw Performed By: #### 5 0103 #### [facility] [address] [facility] [place] [place] [address], [facility] WBC (Bld) [#/Vol] 8.51 10*3/uL Normal 4.00-10.60 [facility] Comment on above: Order Comment: No: D o not add to previous draw Performed By: #### 5 0103 #### [facility] [address] [facility] [place] [id number], [place] MAGNESIUM BLOODon 01-06-2019 Magnesium [Mass/Vol] 1.5 mg/dL Low 1.9-2.7 [facility] Comment on above: Order Comment: No: D o not add to previous draw Performed By: #### 1 0070, 46908, [id number] #### [facility] [address] [place] [address], [place] PHOSPHORUS BLOODon 9 Phosphate [Mass/Vol] 3.0 mg/dL Normal 2.5-5.0 [facility] Comment on above: Order Comment: No: D o not add to previous draw Performed By: #### 1 0070, 38030, 74889 #### [facility] [address] [place] [address], [place] POC GLUCOSE LABon 01-06-2019 Glucose [Mass/Vol] 293 mg/dL High 70-100 [facility] Comment on above: Performed By: #### 0 0121 #### [facility] [address] [place] [address], [place] Glucose [Mass/Vol] 317 mg/dL High 70-100 [facility] Comment on above: Performed By: #### 0 0121 #### [facility] [address] [place] [address], [place] Glucose [Mass/Vol] 264 mg/dL High 70-100 [facility] Comment on above: Performed By: #### 0 0121 #### [facility] [address] [place] [address], [place] Glucose [Mass/Vol] 104 mg/dL High 70-100 [facility] Comment on above: Performed By: #### 8 5499 #### [facility] [address] [place] [address], [place] Glucose [Mass/Vol] 236 mg/dL High 70-100 [facility] Comment on above: Performed By: #### 8 5499 #### [facility] [address] [place] [address], [place] Glucose [Mass/Vol] 247 mg/dL High 70-100 [facility] Comment on above: Performed By: #### 8 5499 #### [facility] [address] [place] [address], [place] CBC W/DIFFon 01-05-2019 ABS BASOPHILS 0.1 10*3/uL Normal 0.0-0.2 [facility] Comment on above: Performed By: #### 5 0103 #### [facility] [address] [place] [address], [facility] ABS IMM GRANS 0.1 10*3/uL Normal 0.0-0.2 [facility] Comment on above: Performed By: #### 5 0103 #### [facility] [address] [place] [address], [facility] ABS NEUTROPHILS 5.9 10*3/uL Normal 1.6-7.6 [facility] Comment on above: Performed By: #### 5 0103 #### [facility] [address] Basophils/100 WBC (Bld) 0.5 % Normal 0.0-1.0 [facility] Comment on above: Performed By: #### 5 0103 #### [facility] [address] [place] [address], [facility] Eosinophils (Bld) [#/Vol] 0.4 10*3/uL Normal 0.0-0.5 [facility] Comment on above: Performed By: #### 5 0103 #### [facility] [address] [place] [address], [facility] Eosinophils/100 WBC (Bld) 3.8 % Normal 0.0-6.0 [facility] Comment on above: Performed By: #### 5 0103 #### [facility] [address] Erythrocyte distribution width (RBC) [Ratio] 12.8 % Normal 11.5-15.0 [facility] Comment on above: Performed By: #### 5 0103 #### [facility] [address] [place] [address], [facility] Hematocrit (Bld) [Volume fraction] 42.5 % Normal 39.0-50.0 [facility] Comment on above: Performed By: #### 5 0103 #### [facility] [address] [facility] [place] [place] [address], [facility] Hemoglobin (Bld) [Mass/Vol] 14.2 g/dL Normal 13.0-17.0 [facility] Comment on above: Performed By: #### 5 0103 #### [facility] [address] [place] [address], [facility] IMMATURE GRANS 0.7 % Normal 0.0-1.0 [facility] Comment on above: Performed By: #### 5 0103 #### [facility] [address] [place] [address], [facility] Lymphocytes (Bld) [#/Vol] 2.9 10*3/uL Normal 1.2-4.0 [facility] Comment on above: Performed By: #### 5 0103 #### [facility] [address] [place] [address], [facility] Lymphocytes/100 WBC (Bld) 28.8 % Normal 20.0-45.0 [facility] Comment on above: Performed By: #### 5 0103 #### [facility] [address] [facility] [place] [place] [address], [facility] MCH (RBC) [Entitic mass] 25.8 pg Low 27.0-33.0 [facility] Comment on above: Performed By: #### 5 0103 #### [facility] [address] [facility] [place] [place] [address], [facility] MCHC (RBC) [Mass/Vol] 33.4 g/dL Normal 32.0-35.0 [facility] Comment on above: Performed By: #### 5 3 #### [facility] [address] [place] [address], [facility] MCV (RBC) [Entitic vol] 77.3 fL Low 82.0-98.0 [facility] Comment on above: Performed By: #### 5 0103 #### [facility] [address] [place] [address], [facility] Monocytes (Bld) [#/Vol] 0.8 10*3/uL Normal 0.1-1.0 [facility] Comment on above: Performed By: #### 5 0103 #### [facility] [address] MONOS 8.1 % Normal 5.0-12.0 [facility] Comment on above: Performed By: #### 5 3 #### [facility] [address] [place] [address], [facility] Neutrophils/100 WBC (Bld) 58.1 % Normal 40.0-72.0 [facility] Comment on above: Performed By: #### 5 3 #### [facility] [address] [place] [address], [facility] Nucleated RBC/100 WBC (Bld) [Ratio] 0 % Normal 0-0 [facility] Comment on above: Performed By: #### 5 3 #### [facility] [address] [place] [address], [facility] PLAT CNT 524 10*3/uL High 150-400 [facility] Comment on above: Performed By: #### 5 3 #### [facility] [address] [place] [address], [facility] RBC (Bld) [#/Vol] 5.50 10*6/uL Normal 4.20-5.70 [facility] Comment on above: Performed By: #### 5 3 #### [facility] [address] [place] [address], [facility] WBC (Bld) [#/Vol] 10.19 10*3/uL Normal 4.00-10.60 [facility] Comment on above: Performed By: #### 5 0103 #### [facility] [address] [place] [address], [facility] COMP METABOLIC PANELon 01-05 Albumin [Mass/Vol] 4.3 g/dL Normal 3.5-5.7 [facility] Comment on above: Performed By: #### 0 0121 #### [facility] [address] [place] [address], [facility] ALKALINE PHOSPH 115 IU/L High 34-104 [facility] Comment on above: Performed By: #### 0 0121 #### [facility] [address] [place] [address], [facility] ALT [Catalytic activity/Vol] 14 U/L Normal 7-52 [facility] Comment on above: Performed By: #### 0 0121 #### [facility] [address] [place] [address], [facility] AST [Catalytic activity/Vol] 16 U/L Normal 13-39 [facility] Comment on above: Performed By: #### 0 0121 #### [facility] [address] [place] [place] [address], [facility] Bilirubin [Mass/Vol] 0.4 mg/dL Normal 0.3-1.0 [facility] Comment on above: Performed By: #### 0 0121 #### [facility] [address] [place] [id number], [facility] Calcium [Mass/Vol] 10.2 mg/dL Normal 8.6-10.3 [facility] Comment on above: Performed By: #### 0 0121 #### [facility] [address] [place] [address], [facility] Chloride [Moles/Vol] 92 mmol/L Low 98-107 [facility] Comment on above: Performed By: #### 0 0121 #### [facility] [address] [place] [address], [facility] CO2 [Moles/Vol] 32 mmol/L High 21-31 [facility] Comment on above: Performed By: #### 0 0121 #### [facility] [address] [place] [address], [facility] Creatinine [Mass/Vol] 0.74 mg/dL Normal 0.70-1.30 [facility] Comment on above: Performed By: #### 0 0121 #### [facility] [address] [place] [address], [facility] GFR/1.73 sq M predicted among blacks MDRD (S/P/Bld) [Vol rate/Area] mL/min/{1.73_m2} Normal >60 [facility] Comment on above: Performed By: #### 0 0121 #### [facility] [address] [facility] [place] [place] [address], [facility] GFR/1.73 sq M predicted among non-blacks MDRD (S/P/Bld) [Vol rate/Area] mL/min/{1.73_m2} Normal >60 [facility] Comment on above: Performed By: #### 0 0121 #### [facility] [address] [facility] [place] [address], [facility] Glucose [Mass/Vol] 320 mg/dL High 70-100 [facility] Comment on above: Performed By: #### 0 0121 #### [facility] [address] [facility] [place] [id number], [facility] Potassium [Moles/Vol] 4.2 mmol/L Normal 3.5-5.1 [facility] Comment on above: Performed By: #### 0 0121 #### [facility] [address] [facility] [place] [address], [facility] Protein [Mass/Vol] 8.6 g/dL High 6.0-8.3 [facility] Comment on above: Performed By: #### 0 0121 #### [facility] [address] [place] [address], [facility] Sodium [Moles/Vol] 133 mmol/L Low 136-145 [facility] Comment on above: Performed By: #### 0 0121 #### [facility] [address] [place] [address], [facility] Urea nitrogen [Mass/Vol] 9 mg/dL Normal 7-25 [facility] Comment on above: Performed By: #### 0 0121 #### [facility] [address] [place], [place] [address] [place] [address] CT SOFT TISSUE NECK W CONTRA STon 01-05-2019 CT SOFT TISSUE NECK W CONTRAST [facility] Department of Radiology [address] [place] [id number] Patient Name: NONI SOTO : 1975 Sex: M Age: Race: White Pt. Location: [facility] Patient Status: I Ordered Date: 01/05/2019 6:40:00 [...] on 01/05/2019 8:39 PM EDT. I, Mamta Ashby, have reviewed the images and report and concur with these findings. Electronically signed by:Mamta Ashby. Transcribed by: [email or web address], User Resident: ANTONELLA WHITFIELD Electronically Signed by: MAMTA LOVELLNigel @ 01/06/2019 09:55 AM I personally read this/these film(s) with this resident Normal [facility] Vital Signs Date Time Vital Sign Value Performing Clinician Ynes méndez 03-13-2022 13:08-0500 Blood Pressure Location Naye NILL [facility] 03-13-2022 13:08-0500 Diastolic blood pressure 97 mm[Hg] Naye NILL [facility] 03-13-2022 13:08-0500 Heart rate 89 /min Naye NILL [facility] 03-13-2022 13:08-0500 Respiratory rate 16 /min Naye NILL [facility] 03-13-2022 13:08-0500 Systolic blood pressure 160 mm[Hg] Naye NILL [facility] Encounters Encounter Date Encounter Type Care Provider Facility Start: 07-28-2024 End: 07-28-2024 ambulatory Hawk Ryan MD Facility: [facility] Start: 08-10-2022 End: 08-11-2022 ambulatory LUCIO NEVAREZ Facility: Start: 06-12-2022 End: 06-13-[address] JADYN Carbajal Facility: Start: 05-02-2022 End: 05-03-2022 [facility]ulatory [facility] Start: 04-26-2022 ambulatory Naye STILL Facility:[facility] Start: 04-21-2022 Encounter for preprocedural laboratory examination DR NAYE Carbajal [facility] Start: 04-19-2022 End: 04-20-[address] NAYE Carbajal Facility:[facility] Start: 04-17-2022 End: [address] NAYE Carbajal Facility:[facility] Start: 04-17-2022 End: 2022 Encounter for preprocedural laboratory examination DR NAYE STILL . Facility: Start: 03-13-2022 End: 03-14-2022 ambulatory Naye STILL Facility: [facility] Start: 03-13-2022 End: 03-13-2022 Patient encounter procedure Naye STILL [facility] Start: 03-09-2022 End: 03-09-2022 ambulatory CAROLINE LALA Facility:[facility] Start: 02-27-2022 End: 02-27-2022 ambulatory SONA ISBELL . Facility:[facility] Start: 02-15-2022 ambulatory Naye STILL Facility:[facility] Start: 02-15-2022 End: 02-16-[address] JADYN [...] End: 01-09-2019 Evaluation and management of inpatient ASHLYNASHER Ariel TREVON Facility:[facility] Procedures Date Procedure Procedure Detail Performing Clinician Appendectomy Naye STILL Cholecystectomy Naye STILL Reconstruction of mandible Sade levymiguel STILL Renal artery stent ( physical object) Naye STILL Payers Date Payer Category Payer Unknown 1975 Unknown [id number] 2.16.8 [id number] 1975 Unknown [id number] 2.16.84 0.1.149419.3.579.2.593 1975 Unknown [id number] 2.16.84 0.1.772215.3.579.2.593 1975 Unknown [id number] 2.16.84 0.1.928970.3.579.2.593 1975 Unknown [id number] 2.16.84 0.1.035081.3.579.2.593 1975 Unknown [id number] 2.16.84 0.1.010743.3.579.2.593 1975 Unknown [id number] 2.16.84 0.1.665639.3.579.2.593 1975 Unknown [id number] 2.16.84 0.1.312300.3.579.2.593 1975 Unknown [id number] 2.16.84 0.1.695591.3.579.2.593 1975 Unknown [id number] 2.16.84 0.1.920704.3.579.2.593 1975 Unknown [id number] 2.16.84 0.1.641483.3.579.2.593 1975 Unknown [id number] 2.16.84 0.1.829857.3.579.2.593 1975 Unknown [id number] 2.16.84 0.1.447411.3.579.2.593 1975 Unknown [id number] 2.16.84 0.1.384079.3.579.2.593 1975 Unknown [id number] 2.16.84 0.1.096185.3.579.2.593 1975 Unknown [id number] 2.16.84 0.1.021654.3.579.2.593 1975 Unknown [id number] 2.16.8 40.1.381382.3.579.2.727 1975 Unknown [id number] 2.16.8 40.1.097073.3.579.2.727 1975 Unknown [id number] 2.16.8 40.1.116338.3.579.2.727 1975 Unknown [id number] 2.16.8 40.1.081718.3.579.2.727 1975 Unknown [id number] 2.16. 840.1.978929.3.579.2.196 1959 Unknown [id number] Social History Date Type Detail Facility Start: 03-13-2022 Tobacco smoking status Never s moked tobacco (finding) [facility] Tobacco smoking status Smokeless tobacco user within last 30 days [facility] Sex Assigned At Male [facility] Functional Status Date Assessment Result Facility 03-13-2022 Functional Status N/A [facility] Clinical Note 04-19-2022 Note Date & [...] good condition. CC: Jadyn Wilhelm M.D. [facility] Clinical Note 03-13-2022 Note Date & Type Note Facility 03-13-2022 Note Chief Complaint consultation for iron deficiency anemia [facility] [employer] 46 year old male presents on [...] injectable solution huang (more content not included)... [facility] Comment on above: Result Comment: Elec tronically Signed By: CAMI HUNT, Naye Srivastava.melania\Date and Time Signed: 03/13/22 13:38 EST Evaluation + Plan note Note Date & Type Note Facility Evaluation + Plan note No data available for this section [facility] Discharge instructions Note Date & Type Note Facility Hospital Discharge instructions No data available for this section [facility] Progress note Note Date & Type Note Facility Progress note No data available for this section [facility] Summary Purpose Family History No Family History Records FoundNo Family History Records FoundNo Family History Records FoundNo Family History Records Found Advance Directives No Advanced Directives Records FoundNo Advanced Directives Records FoundNo Advanced Directives Records FoundNo Advanced Directives Records Found Hospital Course Note MR#: [id number] [facility] Pt. Name: Noni Soto Admitted: 01/06/2019 Discharged: [...] Records FoundNo Status Records FoundNo Status Records FoundNo Status Records Found INFORMATION SOURCE (unrecogn ized section and content) DATE CREATED AUTHOR 01/27/2019 [facility] DATE CREATED AUTHOR AUTHOR'S ORGANIZ ATION 08/14/2022 [facility] DATE CREATED AUTHOR AUTHOR'S ORGANIZ ATION 12/08/2022 [facility] DATE CREATED AUTHOR AUTHOR'S ORGANIZ ATION 08/01/2024 [facility] Patient Care team barbara torre (unrecognized section and content) Personnel Name: Jadyn Wilhelm MD Address: Address: [address] [place] [address] FOR RECORDS PERTAINING TO PATIENTS WHO ARE [...] BE BASED ON THE PRIMARY CLINICAL RECORDS. [facility] provides no warranty or guarantee of the accuracy or completeness of information in this document.
[2024-08-01] MEDS: HYDROMORPHONE HCL 1 MG/ML CARTRIDGE IM (15:57)
[2024-08-01] MEDS: DEXAMETHASONE SOD PHOS 10 MG/ML VIAL IM (15:57)
== END 2024-08-01 16:10 | disposition home or self-care (01) ==
PROVIDERS: Emergency Provider Emergency Medicine; PCP Family Medicine
DX: M54.16 Radiculopathy, lumbar region (principal); M21.372 Foot drop, left foot; E11.9 Type 2 diabetes mellitus without complications; Z79.4 Long term (current) use of insulin
CPT/HCPCS: 96372; 99284; J1100; J1171

== ENCOUNTER 2024-08-25 09:14 | Day surgery (SDC) | payer OTHER, SELFPAY ==
[2024-08-25 10:11] VITALS: BP 132/90; PULSE 63; TEMP 36.2; O2SAT 97
[2024-08-25 10:17] LABS: Glucometer 310 mg/dL (74-106)
[2024-08-25 10:47] VITALS: BP 125/86; PULSE 67; O2SAT 94
[2024-08-25 10:48] VITALS: BP 131/85; PULSE 66; O2SAT 93
[2024-08-25] MEDS: BUPIVACAINE HCL 0.25% PF 25 MG/10 ML VIAL INJ (10:49)
[2024-08-25] MEDS: 0.9 % SODIUM CHLORIDE 10 ML SYRINGE - SALINE FLUSH INJ (10:49)
[2024-08-25] MEDS: IOHEXOL 240 MG/ML - 10 ML VIAL INJ (10:49)
[2024-08-25] MEDS: METHYLPREDNISOLONE ACETATE 80 MG/ML VIAL INJ (10:50)
[2024-08-25] MEDS: LIDOCAINE HCL 2% 400 MG/20 ML MDV 3 ML INJ (10:50)
--- NOTE | 2024-08-25 10:54 | P.ON_ITS ---
Date of procedure: 08/25/24 Pre-op diagnosis: Pain due to lumbar stenosis with neurogenic claudication Post-op diagnosis: same as pre-op Procedure: Procedure: Left L4-5, L5-S1 transforaminal epidural steroid injection Medications: Bupivacaine 0.25% 2cc, lidocaine 2% 1cc, depomedrol 80mg The patient was seen and examined in the preoperative holding area.? Informed consent was obtained and placed on the chart.? Patient was brought to the medical procedure unit and placed in the prone position where a timeout was completed verifying the correct patient, procedure site, position, and planned special equipment using sterile aseptic technique.? Under direct fluoroscopic visualization a 25-gauge Quincke tipped spinal needle was advanced to the designated neural foramen where contrast dye was injected to show adequate spread.? The needle was inserted at level left L4-5. There was no evidence of vascular or adverse uptake.? Epidural spread was appreciated.? The above- mentioned injectate was then placed in a 1.5 mL aliquot preceded by negative aspiration.? The needle was removed. The needle was inserted and the procedure repeated at level left L5-S1.? The surgery site was covered.? Patient was taken to the postprocedural recovery area and monitored for an appropriate length of time before found suitable for discharge in the accompaniment of a responsible adult. Anesthesia: Local Surgeon: Hawk Ryan Pathology: none sent Condition: stable Disposition: no change
== END 2024-08-25 10:59 | disposition home or self-care (01) ==
LOC: SURGOUT 09:14
PROVIDERS: PCP Family Medicine; Visit Provider Anesthesiology
DX: M48.062 Spinal stenosis, lumbar region with neurogenic claudication (principal); E11.69 Type 2 diabetes mellitus with other specified complication; Z79.85 Long-term (current) use of injectable non-insulin antidiabetic drugs
CPT/HCPCS: 36415; 64483; 64484; 82948; J0665; J1010; Q9966

== ENCOUNTER 2024-09-03 14:26 | Outpatient (OUT) | payer OTHER, SELFPAY ==
--- NOTE | 2024-09-03 15:02 | PM.CN ---
Consult Note: HPI Data of Consult Patient: known to practice within the last 3 years Requesting Physician: Brii Moran NP Primary Care Provider: Cesar Wilhelm MD Consult Narrative Reason for consult: back pain Narrative: Jeffery Razoishman a 49 year old male with low back and SIJ pain presents for evaluation. pt has failed > 6 weeks of PT/provider guided HEP, heat, ice, tylenol, NSAIDs. pending lumbar fusion with Dr Werner. recently underwent left L4/5 L5/S1 TFESI with 50% improvement in radicular pain. SHERYL 64% with severe pain impacting ADLs, sitting, standing, walking, lying, sleep, social life, and travel. pain today 6/10 increasing to 10/10. pt utilizing kratom, marijuana, advil, lyrica, lodine PRN. cc:: CC: Brii Moran NP Review of Systems ROS Status of ROS 10 or more systems reviewed and unremarkable except as noted in history and below Musculoskeletal Reports: back pain, extremity pain and joint pain PFSH PFSH Medical History (Updated 09/03/24 @ 15:06 by Brii Moran NP) TMJ (dislocation of temporomandibular joint) ?S03.00XA - Dislocation of jaw, unspecified side, initial encounter (ICD-10) Low back pain ?M54.50 - Low back pain, unspecified (ICD-10) Osteoarthritis ?M19.90 - Unspecified osteoarthritis, unspecified site (ICD-10) Anxiety ?F41.9 - Anxiety disorder, unspecified (ICD-10) Heartburn ?R12 - Heartburn (ICD-10) Obesity ?E66.9 - Obesity, unspecified (ICD-10) Diabetes ?E11.9 - Type 2 diabetes mellitus without complications (ICD-10) High cholesterol ?E78.00 - Pure hypercholesterolemia, unspecified (ICD-10) Surgical History History of appendectomy ?Z90.49 - Acquired absence of other specified parts of digestive tract (ICD-10) Hx of cholecystectomy ?Z90.49 - Acquired absence of other specified parts of digestive tract (ICD-10) Social History Little interest or pleasure in doing things: not at all Feeling down, depressed, or hopeless: not at all Meds Home Medications and Allergies Home Medications ?Medication ?Instructions ?Recorded ?Confirmed ?Type aripiprazole 2 mg tablet 2 mg PO BEDTIME 06/28/24 08/25/24 History atorvastatin 40 mg tablet 40 mg PO BEDTIME 06/28/24 08/25/24 History citalopram 20 mg tablet 20 mg PO BEDTIME 06/28/24 08/25/24 History clonidine HCl 0.2 mg tablet 0.2 mg PO Q8H 06/28/24 08/25/24 History insulin glargine 100 unit/mL (3 60 unit subcut BID 06/28/24 08/25/24 History mL) subcutaneous pen (Lantus Solostar U-100 Insulin) insulin glulisine U-100 100 15 unit subcut QID 06/28/24 08/25/24 History unit/mL subcutaneous pen (Apidra SoloStar U-100 Insulin) lisinopril 40 mg tablet 40 mg PO DAILY 06/28/24 08/25/24 History pantoprazole 40 mg tablet,delayed 40 mg PO DAILY 06/28/24 08/25/24 History release pregabalin 300 mg capsule 300 mg PO TID 06/28/24 08/25/24 History trazodone 100 mg tablet 100 mg PO DAILY 06/28/24 08/25/24 History etodolac 400 mg tablet (Lodine) 400 mg PO BID PRN pain #60 tabs 07/28/24 08/25/24 Rx hydrocodone 5 mg-acetaminophen 325 1 tab PO Q6H PRN pain 3 days #12 08/01/24 08/25/24 Rx mg tablet tabs tizanidine 4 mg tablet 4 mg PO TID 08/01/24 08/25/24 History diazepam 10 mg tablet (Valium) 10 mg PO .before procedure PRN 08/25/24 08/25/24 History procedure Allergies Allergy/AdvReac Type Severity Reaction Status Date / Time prochlorperazine (From AdvReac Severe panic Verified 08/25/24 10:08 Compazine) attack Exam Back & Pelvis Lumbar spine/lower back: ROM limited, pain with ROM and lumbar spinal tenderness Sacroiliac joints: SI joint(s) abnormal Other: left sij positive haris(patricks), gaenslens, thigh thrust, compression test Assessment and Plan Assessment and Plan (1) Sacroiliitis: (2) Disc displacement, lumbar: (3) Lumbar stenosis with neurogenic claudication: Plan left SIJ injection under fluoroscopy for sacroiliitis continue f/u with NS as planned pt advised to caution kratom use and discuss with PCP stop otc nsaids, utilize lodine 400mg BID PRN pain with food continue HEP as tolerated f/u 2 weeks after SIJ injection
== END 2024-09-03 14:27 | disposition home or self-care (01) ==
LOC: PM 14:27
PROVIDERS: PCP Family Medicine; Visit Provider Nurse Practitioner
DX: M46.1 Sacroiliitis, not elsewhere classified (principal); M51.26 Other intervertebral disc displacement, lumbar region; M48.062 Spinal stenosis, lumbar region with neurogenic claudication
CPT/HCPCS: G0463

== ENCOUNTER 2024-09-20 08:35 | Outpatient (OUT) | payer OTHER, SELFPAY ==
--- OUTSIDE RECORDS SUMMARY | 2024-08-22 05:40 | XMS_ITS ---
Author Organization [facility] Address [address] [place] [address] Care Team Providers Care Wrapper Caser Name Role Phone Royal Eugene Unavailable [phone] Cesar Wilhelm Unavailable Unavailable Simon Bello Unavailable [phone] Allergies Allergen (clinical drug ingredient) Drug/Non Drug Allergy documented on EMR Reaction Allergy Type Onset Date Status compazine (uncoded) severe muscle cramps Allergy Active REASON FOR VISIT Lumbar pain Medications Medication SIG (Take, Route, Frequency, Duration) Notes Start Date End Date Status Abilify Active CeleXA Active Lyrica Active Lodine Active Protonix Active traZODone Active cloNIDine Active lisinopril Active Social History Tobacco Use: Social History Observation Description Date Details (start date - stop date) Never Smoker NA - NA AUDIT-C (Standard) Question Answer Notes Did you have a drink containing alcohol in the p ast year? No Points 0 Interpretation Negative Tobacco Control (Standard) Question Answer Notes Tobacco use: Nonsmoker Encounters Encounter Location Date Provider Diagnosis [address] [place] [address] 08/22/2024 Simon Bello Degeneration of intervertebral disc of lumbar region with discogenic back pain M51.360 Assessments Encounter Date Diagnosis (ICD Code) Assessment Notes Treatment Notes Treatment Clinical Notes Section Notes 08/22/2024 Degeneration of intervertebral disc of lumbar region with discogenic back pain (ICD-10 - M51.360) 1. L4-S1 degenerative disc disease and disc herniation with neuroforaminal stenosis and radiculopathy 08/22/2024 Other Plan established by Dr. Wilde. Patient seen and evaluated by Dr. Wilde today. MR imaging of the lumbar spine was reviewed and discussed with the patient. The recommended surgery is a L4-S1 decompression and fusion with L5-S1 transforaminal lumbar interbody fusion. Fusion being necessary due to the destabilizing facetectomy required to free up the moderate to severe foraminal stenosis. Risk, benefits and alternatives to surgery were discussed. Risk include but not limited to infection, hematoma, dural tear, nerve root injury, paralysis, nonunion, DVT/PE, ME, stroke etc. Patient has tried and failed conservative treatment medication management and physical therapy would like to proceed with surgery. We will have him medically cleared prior to proceeding with surgery. We will then see him back in our office at a later date for preoperative history and physical to discuss surgery in further detail pending medical clearance. Recommend continuing/compl eting physical therapy. He is okay to proceed with an upcoming epidural steroid injection planned with pain management if he wishes. The patient is very much in agreement with the treatment and/or diagnostic plan set forth and all questions were answered to the patient's satisfaction. Thanks once again. If we can be of further service to your patients with disorders of the spine, cervical, thoracic, or lumbar, please do not hesitate to contact Dr. Wilde. Best regards, 1. L4-S1 degenerative disc disease and disc herniation with neuroforaminal stenosis and radiculopathy Plan Of Treatment Treatment Notes Assessment Notes Other Plan established by Dr. Wilde. Patient seen and evaluated by Dr. Wilde today. MR imaging of the lumbar spine was reviewed and discussed with the patient. The recommended surgery is a L4-S1 decompression and fusion with L5-S1 transforaminal lumbar interbody fusion. Fusion being necessary due to the destabilizing facetectomy required to free up the moderate to severe foraminal stenosis. Risk, benefits and alternatives to surgery were discussed. Risk include but not limited to infection, hematoma, dural tear, nerve root injury, paralysis, nonunion, DVT/PE, ME, stroke etc. Patient has tried and failed conservative treatment medication management and physical therapy would like to proceed with surgery. We will have him medically cleared prior to proceeding with surgery. We will then see him back in our office at a later date for preoperative history and physical to discuss surgery in further detail pending medical clearance. Recommend continuing/completing physical therapy. He is okay to proceed with an upcoming epidural steroid injection planned with pain management if he wishes. The patient is very much in agreement with the treatment and/or diagnostic plan set forth and all questions were answered to the patient's satisfaction. Thanks once again. If we can be of further service to your patients with disorders of the spine, cervical, thoracic, or lumbar, please do not hesitate to contact Dr. Wilde. Best regards, Pending Test Test Name Order Date Lumbar spine, 4v flex ext - 64043 2024 Next Appt Details Follow Up: SCHEDULE SURGERY, Reason: Provider Name:Royal Kent, 11/11/2024 01:30:00 PM, [address] [place] [address], [phone], Progress Notes * NONI SOTO MDOB:[birth year] (49 yo M)Acc No.[id number]:08/22/2024 Patient: Kvng MEZA CHAD Sade Provider: Ariel Bello PA-C :1975 A ge:49 Y S ex:Male Date:08/22/2024 Address:[address] [place], [place] [id number] Subjective: * Chief Complaints: * L umbar pain * HPI: H PI: Dictated by Simon Bello PA-C Thank you for referring your patient to see Dr. Wilde in surgical spine consultation at the [facility]. The patient is a 49-year-old male with complaints of left-sided low back pain that radiates pain, numbness and tingling down the lateral thigh into the anterior lateral quarles top of the foot and big toe. He also reports electric shocks intermittently. Patient reports symptoms began initially in 2003. No specific injury or fall. His most recent flareup started about 2 months ago when he was dumping a 5 gallon bucket of fish water. Current VAS score of 6 out of 10. Percentagewise, 50% the pain is the back, 50% left leg. Activities aggravate the pain include standing, walking, leaning forward, bending forward, rising from sitting and changing positions. Activities to help relieve the pain include sitting, lying on his side and lying on his back. Modifying factors include Advil, muscle relaxers, narcotic pain medications, couple sessions of physical therapy, back exercises and traction. These modalities provided only minimal relief of his symptoms. No previous spinal surgeries. No bowel or bladder incontinence. G eneral Info per Patient Report: Side affected is L eft. J oint or body part affected is?lower back, leg. D ate of Injury: 2 months. S tart of Pain/Cause of Injury . P ain occurred i njury. W ork related: N o. M otor vehicle accident: N o. T hird democrat responsibility: N o. H ave you been seen by a Dentist in the last year? N o. D o you have any dental problems? N o. * ROS: C onstitutional: Difficulty Sleeping Y es. M arked Fatigue Y es.?Night Sweats Y es. E yes: Glasses/ Contacts Y es. G astrointestinal: Frequent Constipation Y es. G enitourinary: Denies I ncontinence. D ifficulty Starting to Urinate?Yes. U rinate at Night More Than Once Y es. P sychiatric: Anxiety Y es. * Medical History: * Surgical History: N o Surgical History documented. * Family History: N o Family History documented.. * Social History: E xercise regularly D o you exercise? N o. W hat is your place of residence? W here do you live? P rivate apartment. A DAJA-C (Standard) D id you have a drink containing alcohol in the past year? N o, P oints 0 , I nterpretation N egative. T obacco Control (Standard) T obacco use: N onsmoker. * Medications: T akingtraZODone Protonix Lodine Lyrica CeleXA Abilify lisinopril cloNIDine Medication List reviewed and reconciled with the patientTaking traZODone Taking Protonix Taking Lodine Taking Lyrica Taking CeleXA Taking Abilify Taking lisinopril Taking cloNIDine Medication List reviewed and reconciled with the patient * Allergies: c ompazine: severe muscle crampsno[Allergies Verified] Objective: * Vitals: P ain Scale (NRS): 6. * Examination: G eneral examination: O n examination, the patient is well-developed, well-nourished, well-groomed, alert and oriented x3, normal mood. Antalgic gait. On inspection of the spine, no skin lesions or open wounds. Using no assistive device to ambulate. Limited lumbar ROM. Tender over the left low lumbar spine. 5/5 muscle strength bilateral lower extremities. Sensory intact lower extremities except decreased to touch along the lateral left leg and top of foot. Negative clonus. Positive straight leg raise on the left. X -ray Imaging Studies: X -rays of the lumbar spine, 4 views AP, lateral, flexion extension done in the office today show L4-S1 degenerative disc disease. Overall alignment is well- maintained. No obvious signs of any acute fractures. [facility] Imaging Studies: [facility] lumbar spine dated 07/25/2024 done at [facility]; disc herniation at L4-5 and L5-S1 toward the left, slightly progressed since the prior study. Assessment: * Assessment: 1. D egeneration of intervertebral disc of lumbar region with discogenic back pain - M51.360 (Primary) 1. L4-S1 degenerative disc d isease and disc herniation with neuroforaminal stenosis and radiculopathy. Plan: * Treatment: * Procedure Codes: 7 2109 X-ray Lumbar Spine, 5 view complete * Follow Up: [facility] Forms: * Images: * Sign off status: Completed true * Provider: Ariel Bello PA-C Date: 0 08/22/2024 Generated for Russel gillespie/Lior/Madhuitting on: 0 09/20/2024 08:37 AM EDT History and Physical Notes * HPI (History of Present Illness) Category Sub-Category Detail Notes Category Not es General Info per Patient Report Side affected is Left Joint or body part affected is lower carey k, leg Pain occurred injury Work related: No Motor vehicle accident: No Date of Injury: 2 months Start of Pain/Cause of Injury 06/21/24 Third democrat responsibility: No Have you been seen by a Dentist in the l ast year? No Do you have any dental problems? No HPI Dictated by Simon Bello PA-C Thank you for referring your patient to see Dr. Wilde in surgical spine consultation at the [facility]. The patient is a 49-year-old male with complaints of left-sided low back pain that radiates pain, numbness and tingling down the lateral thigh into the anterior lateral quarles top of the foot and big toe. He also reports electric shocks intermittently. Patient reports symptoms began initially in 2003. No specific injury or fall. His most recent flareup started about 2 months ago when he was dumping a 5 gallon bucket of fish water. Current VAS score of 6 out of 10. Percentagewise, 50% the pain is the back, 50% left leg. Activities aggravate the pain include standing, walking, leaning forward, bending forward, rising from sitting and changing positions. Activities to help relieve the pain include sitting, lying on his side and lying on his back. Modifying factors include Advil, muscle relaxers, narcotic pain medications, couple sessions of physical therapy, back exercises and traction. These modalities provided only minimal relief of his symptoms. No previous spinal surgeries. No bowel or bladder incontinence. Examination Category Sub-Category Detail Notes Category Not es General examination On exami nation, the patient is well-developed, well-nourished, well-groomed, alert and oriented x3, normal mood. Antalgic gait. On inspection of the spine, no skin lesions or open wounds. Using no assistive device to ambulate. Limited lumbar ROM. Tender over the left low lumbar spine. 5/5 muscle strength bilateral lower extremities. Sensory intact lower extremities except decreased to touch along the lateral left leg and top of foot. Negative clonus. Positive straight leg raise on the left. X-ray Imaging Studies X-rays of the lumbar spine, 4 views AP, lateral, flexion extension done in the office today show L4-S1 degenerative disc disease. Overall alignment is well-maintained. No obvious signs of any acute fractures. MRI Imaging Studies MRI lumbar spine dated 07/25/2024 done at [facility]; disc herniation at L4-5 and L5-S1 toward the left, slightly progressed since the prior study
--- OUTSIDE RECORDS SUMMARY | 2024-09-08 06:18 | XMS_ITS | Encounter Summary ---
Author Organization [place] Address [id number] [address] [place] [address] Care Team Providers Care Computer Patternmaker Name Role Phone Cesar Wilhelm MD Primary Care Provider [phone] Reason for Visit * Reason Comments Panic Attack Encounter Details Date Type Department Care Team (Late st Contact Info) Description 09/08/2024 6:18 AM EDT - 09/08/2024 7:16 AM EDT Emergency [facility] - Emergency [address] [place] [address] Guido Dotson MD [address] [place] [address] Panic attack (Primary Dx); Epigastric pain Discharge Disposition: Left Against Medical Advice or Discontinued Care Social History Tobacco Use Types Packs/Day Years Used Date Smoking Tobacco: Never Smokeless Tobacco: Never Alcohol Use Standard Drinks/Week Comments No 0 (1 standard drink = 0.6 oz pur e alcohol) Childcare Answer Date Recorded Childcare Unknown 10/02/2018 Employment Answer Date Recorded Employment Unknown 10/02/2018 Hunger Screening Answer Date Recorded Within the past 12 months we worried whether our food would run out before we got money to buy more. Never True 09/08/2024 Within the past 12 months th e food we bought just didn't last and we didn't have money to get more. Never True 09/08/2024 Purpose - Life Answer Date Recorded Purpose and direction in life Unknown Sex and Gender Information Value Date Recorded Sex Assigned at Not on file Legal Sex Male 11:56 AM EDT Gender Identity Not on file Sexual Orientation Not on file documented as of this encounter Last Filed Vital Signs Vital Sign Reading Time Taken Comments Blood Pressure 132/96 09/08/2024 6:21 AM EDT Pulse 90 09/08/2024 6:21 AM EDT Temperature 36.4 C (97.6 F) 09/08/2024 6:21 AM EDT Respiratory Rate 16 09/08/2024 6:21 AM EDT Oxygen Saturation 97% 09/08/2024 6:21 AM EDT Inhaled Oxygen Concentration - - Weight - - Height - - Body Mass Index - - documented in this encounter Discharge Instructions * Discharge Instructions* Guido Dotson MD - 09/08/2024 7:11 AM EDT As we discussed your evaluation today shows that you have an elevated white blood cell count, whichcan be an indication of an infection or something more serious causing your symptoms, as we discussed I do recommend that you stay in the emergency department to have further evaluation as going homeat this time could result in life-threatening or deadly injuries if not diagnosed or treated. As wediscussed if you develop any worsening or concerning symptoms return to the emergency department orcall 911. * Attachments The following attachments cannot be sent through Care Everywhere. * Abdominal pain in adults ??? ED discharge instructions (Mauritian) documented in this encounter Medications at Time of Discharge ARIPiprazole (ABILIFY) 2 mg tablet Take 1 tablet (2 mg total) by mouth in the morning. buprenorphine-naloxo ne (SUBOXONE) 8-2 mg per [address] tablet Place 1 tablet under the tongue daily. PT ONLY TAKES A 1/4 OF THIS TAB. citalopram (CeleXA) 20 mg tablet Take 20 mg by mouth daily. guaiFENesin (ROBITUSSIN) 100 mg/5 mL syrup Take 10 mL (200 mg total) by mouth 3 (three) times a day as needed for cough. 120 mL 08/09/2024 hydrOXYzine (ATARAX) 50 mg tablet Take 1 tablet (50 mg total) by mouth 3 (three) times a day as needed for itching. levothyroxine (SYNTHROID, LEVOTHROID) 100 MCG tablet Take 100 mcg by mouth daily. lisinopril (PRINIVIL,ZESTRIL) 40 mg tablet Take 40 mg by mouth daily. ondansetron ODT (ZOFRAN-ODT) 4 mg disintegrating tablet Dissolve 1 tablet (4 mg total) on tongue every 8 (eight) hours as needed for nausea for up to 10 doses. 10 tablet 06/19/2018 documented as of this encounter ED Notes * Kraig Odom RN - 09/08/2024 7:00 AM EDT Pt currently refusing CT and IV access. * Guido Dotson MD - 09/08/2024 6:24 AM EDT Images from the original note were not included. [facility] - EMERGENCY Pt Name: Jeffery Gibbs Birthdate: 1975 Chief Complaint: Chief Complaint Patient presents with Panic Attack History of Present Illness: Patient is a 49-year-old male, history of anxiety, panic attacks, DM, hypertension, presenting withpanic attack. Patient reports earlier today he started have some epigastric abdominal pain followedby some nonbloody diarrhea after eating, states following this he became very anxious, and feels like he is having a panic attack which he has had before. Denies any chest pain, shortness of breath, vomiting, fevers, palpitations, nausea/vomiting. Has not taken any medications for the anxiety. Denies SI/HI. Hx of appendectomy and cholecystectomy. Past Medical History: Past Medical History: Diagnosis Date Anxiety Chronic back pain DM (diabetes mellitus screen) HTN (hypertension) Past Surgical History: Past Surgical History: Procedure Laterality Date APPENDECTOMY CHOLECYSTECTOMY Family History: History reviewed. No pertinent family history. Social History: Social History Socioeconomic History Marital status: Single Tobacco Use Smoking status: Never Smokeless tobacco: Never Substance and Sexual Activity Alcohol use: No Drug use: Yes Types: Marijuana Comment: RARELY Sexual activity: Defer Social Drivers of Health Food Insecurity: No Food Insecurity (09/08/2024) Hunger Screening Food Insecurity - Worry: Never True Food Insecurity - Inability: Never True Received from [facility] Safety & Environment Review of Systems: Review of Systems All other systems are reviewed and are negative except as noted. Physical Exam: ED Triage Vitals [09/08/24 0621] Temp Heart Rate Resp BP SpO2 36.4 ??C (97.6 ??F) 90 16 (!) 132/96 97 % Temp Source Heart Rate Source Patient Position BP Location FiO2 (%) Skin Pulse Ox Sitting Left arm -- Vitals: 09/08/24 0621 BP: (!) 132/96 Temp: 36.4 ??C (97.6 ??F) TempSrc: Skin Pulse: 90 Resp: 16 SpO2: 97% 97 Physical Exam Vitals and nursing note reviewed. Constitutional: General: He is not in acute distress. HENT: Head: Normocephalic and atraumatic. Nose: Nose normal. Mouth/Throat: Mouth: Mucous membranes are moist. Eyes: Extraocular Movements: Extraocular movements intact. Conjunctiva/sclera: Conjunctivae normal. Cardiovascular: Rate and Rhythm: Normal rate and regular rhythm. Pulses: Normal pulses. Heart sounds: Normal heart sounds. Pulmonary: Effort: Pulmonary effort is normal. Breath sounds: Normal breath sounds. Abdominal: General: Abdomen is flat. There is no distension. Palpations: Abdomen is soft. Comments: TTP epigastric and periumbilical, no guarding or rebound Musculoskeletal: General: Normal range of motion. Cervical back: Normal range of motion. Right lower leg: No edema. Left lower leg: No edema. Skin: General: Skin is warm and dry. Capillary Refill: Capillary refill takes less than 2 seconds. Neurological: General: No focal deficit present. Mental Status: He is alert. Psychiatric: Comments: Anxious Procedure: Procedures Re-evaluation: Re-Evaluation Medical Decision Making See ED course Amount and/or Complexity of Data Reviewed Labs: ordered. Decision-making details documented in ED Course. Radiology: ordered. ECG/medicine tests: ordered and independent interpretation performed. Decision- making details documented in ED Course. Risk Prescription drug management. ED Course: ED Course as of 09/09/24 0541 SunSeptember 08, 2024 0649 White Blood Cells(!): 17.1 [EW] 0649 Neutrophils Absolute (A)(!): 14.0 [EW] 0653 Independent interpretation of ECG notable for sinus rhythm, rate of 88, PVC, evidence of LVH, narrow QRS, QTC 423, no evidence of STEMI. [EW] [address] scan [EW] 0701 Potassium(!): 3.4 [EW] 0701 Glucose(!): 202 [EW] 0701 Creatinine: 0.76 [EW] 0701 AST: 40 [EW] 0701 ALT(!): 65 [EW] 0701 BILIRUBIN,TOTAL: 0.8 [EW] 0709 Patient requesting to leave, I discussed he has an elevated white blood cell count, we are still pending laboratory evaluation and CT scan, I discussed that these symptoms could be related to aninfection or surgical problem in the abdomen, as well as the heart, I discussed that at leaving at this time could result in life-threatening injuries and . Patient indicates understanding of these risks and declined staying at this time. Patient deciding to leave against medical advice. Patient is able to demonstrate understanding of the risks and decision-making ability. [EW] 0711 Troponin I, High Sensitivity: 2 [EW] ED Course User Index [EW] Guido Dotson MD Clinical Impressions as of 09/09/24 0541 Panic attack Epigastric pain . ED Disposition ED Disposition AMA Date/Time SunSeptember 08, 2024 7:11 AM Comment At this time, patient is clinically sober and appears free from distracting injury. The patient appears to have intact insight, judgment and reason. Clinically, this patient has the capacity to make decisions. Patient was informed of the risks of d[place] ving the emergency department. Patient understands that the risks of leaving include worsening condition, temporary or permanent disability, or . Patient is adamant that they are leaving the emergency department. Patient was asked to return ass oon as possible to complete their evaluation. Recommended that the patient follow up with their primary care provider as soon as possible. . Please note that portions of this note were completed with a voice recognition program. Efforts were made to edit the dictations but occasionally words are mis-transcribed. Guido Dotson MD 09/08/24 0627 Guido Dotson MD 09/08/24 0652 Guido Dotson MD 09/08/24 0655 Guido Dotson MD 09/09/24 0544 Guido Dotson MD 09/09/24 1769 * Pearl Goodman RN - 09/08/2024 6:20 AM EDT Pt to er with c/o having a panic attack that started around 0300 s/p having some ABD pain and diarrhea. Pt is alert and oriented during triage, appears anxious. documented in this encounter Plan of Treatment Not on file documented as of this encounter Procedures Procedure Name Priority Date/Time Associated Diagnosis Comments ECG 12-LEAD STAT 09/08/2024 6:41 AM EDT TROPONIN I, HIGH SENSITIVITY 0 HOUR STAT 09/08/2024 6:37 AM EDT EXTRA TUBES BLUE TOP Routine 09/08/2024 6:37 AM EDT TROPONIN I, HIGH SENSITIVITY 0 HOUR STAT 09/08/2024 6:37 AM EDT EXTRA TUBES Routine 09/08/2024 6:37 AM EDT CBC WITH AUTO DIFFERENTIAL STAT 09/08/2024 6:37 AM EDT LIPASE STAT 09/08/2024 6:37 AM EDT COMPREHENSIVE METABOLIC PANEL STAT 09/08/2024 6:37 AM EDT documented in this encounter Results * ECG 12 lead (09/08/2024 6:41 AM EDT) 09/08/2024 6:41 AM EDT Narrative [facility]AC[facility] - 09/09/2024 4:46 AM EDT us Guido Dotson MD ECG ORDERABLES Final Result Performing Organization Address [facility] Co de Phone Number [facility] * Light Blue Top (09/08/2024 6:37 AM EDT) Extra Tube Auto Resulted 09/08/2024 8:02 AM EDT [facility] Blood Venous blood / Unknown 09/08/2024 6:37 AM EDT 09/08/2024 6:43 AM EDT Guido Dotson MD LAB BLOOD ORDERABLES Final R esult Performing Organization Address [facility] de Phone Number [address] [place] [address], [place] * Troponin I, High Sensitivity 0 Hour (09/08/2024 6:37 AM EDT) TROPONIN I, HIGH SENSITIVITY 2 <21 ng/L 09/08/2024 7:10 AM EDT [facility] Blood Venous blood / Unknown Venipuncture / Unknown 09/08/2024 6:37 AM EDT 09/08/2024 6:42 AM EDT Guido Dotson MD LAB BLOOD ORDERABLES Final R esult Performing Organization Address [facility] de Phone Number [address] [place] [address], [place] * (ABNORMAL) Lipase (09/08/2024 6:37 AM EDT) LIPASE 72(H) 17 - 40 U/L 09/08/2024 7:31 AM EDT [facility] Blood Venous blood / Unknown Venipuncture / Unknown 09/08/2024 6:37 AM EDT 09/08/2024 6:42 AM EDT us Guido Dotson MD LAB BLOOD ORDERABLES Final R esult Performing Organization Address [facility] Co de Phone Number [facility] [address] [facility] [place] [address], * (ABNORMAL) Comprehensive metabolic panel (09/08/2024 6:37 AM EDT) SODIUM 134 134 - 146 mmol/L 09/08/2024 7:01 AM EDT [facility] POTASSIUM 3.4(L) 3.5 - 5.0 mmol/L 09/08/2024 7:01 AM EDT [facility] CHLORIDE 100 98 - 109 mmol/L 09/08/2024 7:01 AM EDT [facility] CARBON DIOXIDE 22 22 - 32 mmol/L 09/08/2024 7:01 AM EDT [facility] ANION GAP 12 5 - 15 mmol/L 09/08/2024 7:01 AM EDT [facility] BLOOD UREA NITROGEN 23 5 - 23 mg/dL 09/08/2024 7:01 AM EDT [facility] CREATININE 0.76 0.70 - 1.20 mg/dL 09/08/2024 7:01 AM EDT [facility] Comment:METHOD TRACEABLE TO IDMS STANDARD GLUCOSE 202(H) 65 - 99 mg/dL 09/08/2024 7:01 AM EDT [facility] CALCIUM 9.0 8.5 - 10.5 mg/dL 09/08/2024 7:01 AM EDT [facility] TOTAL PROTEIN 7.8 6.0 - 8.0 g/dL 09/08/2024 7:01 AM EDT [facility] ALBUMIN 3.9 3.2 - 5.3 g/dL 09/08/2024 7:01 AM EDT [facility] ALKALINE PHOSPHATASE 99 39 - 130 U/L 09/08/2024 7:01 AM EDT [facility] AST 40 <=41 U/L 09/08/2024 7:01 AM EDT [facility] ALT 65(H) <=40 U/L 09/08/2024 7:01 AM EDT [facility] BILIRUBIN,TOTAL 0.8 0.3 - 1.2 mg/dL 09/08/2024 7:01 AM EDT [facility] EGFR Non-Race Dependent >90 >=60 ml/min/1.7 3sq.m 09/08/2024 7:01 AM EDT [facility] Comment: eGFR not reported due to non-numeric value for Creatinine. Reported eGFR is based on the CKD-EPI 2020 equation that does not use a race coefficient. Blood Venous blood / Unknown Venipuncture / Unknown 09/08/2024 6:37 AM EDT 09/08/2024 6:42 AM EDT us Guido Dotson MD LAB BLOOD ORDERABLES Final R esult [facility] [address] [facility] [place] [address], * (ABNORMAL) CBC auto differential (09/08/2024 6:37 AM EDT) WBC 17.1(H) 4 - 11 x10E9/L 09/08/2024 6:48 AM EDT [facility] RBC Count 5.66 4.1 - 5.7 X10E12/L 09/08/2024 6:48 AM EDT [facility] Hemoglobin 15.6 13 - 17 g/dL 09/08/2024 6:48 AM EDT [facility] Hematocrit 46.2 39 - 50 % 09/08/2024 6:48 AM EDT [facility] MCV 82 80 - 100 fL 09/08/2024 6:48 AM EDT [facility] MCH 27.6 27 - 34 pg 09/08/2024 6:48 AM EDT [facility] MCHC 33.8 32 - 36 g/dL 09/08/2024 6:48 AM EDT [facility] RDW 15.5(H) 11.5 - 15 % 09/08/2024 6:48 AM EDT [facility] Platelet Count 295 150 - 450 X10E9/L 09/08/2024 6:48 AM EDT [facility] MPV 7.3 7 - 12 fL 09/08/2024 6:48 AM EDT [facility] Neutrophils Relative 82.2 % 09/08/2024 6:48 AM EDT [facility] Lymphocytes Relative 11.2 % 09/08/2024 6:48 AM EDT [facility] Monocytes Relative 5.3 % 09/08/2024 6:48 AM EDT [facility] Eosinophils Relative 1.0 % 09/08/2024 6:48 AM EDT [facility] Basophils Relative 0.3 % 09/08/2024 6:48 AM EDT [facility] Neutrophils Absolute (A) 14.0(H) 1.5 - 6.6 10*3/uL 09/08/2024 6:48 AM EDT [facility] Lymphocytes Absolute 1.9 1.0 - 3.5 10*3/uL 09/08/2024 6:48 AM EDT [facility] Monocytes Absolute 0.9 0.0 - 0.9 10*3/uL 09/08/2024 6:48 AM EDT [facility] Eosinophils Absolute 0.2 0.0 - 0.4 10*3/uL 09/08/2024 6:48 AM EDT [facility] Basophils Absolute 0.1 0.0 - 0.2 10*3/uL 09/08/2024 6:48 AM EDT [facility] Differential Type AUTOMATED DIFFERENTIAL 09/08/2024 6:48 AM EDT [facility] Blood Venous blood / Unknown Venipuncture / Unknown 09/08/2024 6:37 AM EDT 09/08/2024 6:42 AM EDT us Guido Dotson MD LAB BLOOD ORDERABLES Final R esult [facility] [address] [place] [address], documented in this encounter Visit Diagnoses Diagnosis Panic attack- Primary Panic disorder without agoraphobia Epigastric pain Abdominal pain, epigastric documented in this encounter Administered Medications Inactive Administered Medications - up to 3 most recent administrations Medication Order MAR Action Action Date Dose Rate Site LORazepam (ATIVAN) tablet 1 mg 1 mg, oral, Once, On Sun09/08/24 at 0635, For 1 dose, Look-alike/sound-alike medication - verify indication for use. Given 09/08/2024 6:56 AM EDT 1 mg documented in this encounter Active and Recently Administered Medications Times are shown in EDT. Scheduled Medication Order 09/06/2024 09/07/2024 09/08/2024 LORazepam (ATIVAN) tablet 1 mg (COMPLETED) 1 mg, oral, Once, On Sun09/08/24 at 0635, For 1 dose, Look-alike/sound-alike medication - verify indication for use. 0656 (Given - [facility] er: Kraig Odom RN) documented in this encounter Care Teams Computer Patternmaker Relationship Specialty Start Date End Date Cesar Wilhelm MD PCP - General 10/19/16 documented as of this encounter
--- OUTSIDE RECORDS SUMMARY | 2024-09-10 09:57 | XMS_ITS ---
Author Organization [facility] [place] Address [address] [place] [address] Care Team Providers Care Email Operations Manager Name Role Phone Lui Wilhelm Primary Care Provider REASON FOR VISIT A1C Encounters Encounter Location Date Provider Diagnosis [place] [address] [place] [address] 09/10/2024 Lui Wilhelm Diabetes mellitus E11.9 Assessments Encounter Date Diagnosis (ICD Code) Assessment Notes Treatment Notes Treatment Clinical Notes Section Notes 09/10/2024 Diabetes mellitus (ICD-10 - E11.9) Plan Of Treatment Pending Test Test Name Order Date GLYCOHEMOGLOBIN A1C 09/10/2024 Progress Notes * Jeffery SOTO MDOB:[birth year] (49 yo M)Acc No.[id number]:09/10/2024 Patient: Kvng MEZA Jeffery Stuart :1975 A ge:49 Y S ex:Male Address:[address] [place] [address] [address], [place], [address] Subjective: * Chief Complaints: * A 1C * Medical History: * Surgical History: * Hospitalization/Major Diagno stic Procedure: * Medications: Objective: * Vitals: * Physical Examination: Assessment: * Assessment: 1. D iabetes mellitus - E11.9 (Primary) Plan: * Treatment: * Procedure Codes: * true * Date: Generated for Printi ng/Faxing/eTransmitting on: 0 09/20/2024 08:38 AM EDT
--- OUTSIDE RECORDS SUMMARY | 2024-09-18 11:36 | XMS_ITS ---
Author Organization [facility] [place] Address [address] [place] [address] Care Team Providers Care Doughnut Glazier Name Role Phone Lui Wilhelm Primary Care Provider REASON FOR VISIT DM Meter Medications Medication SIG (Take, Route, Fr equency, Duration) Notes Start Date End Date Status Blood Glucose Meter -- Use as directed t o test blood sugar once a day DX: E11.9 09/18/2024 Activ e Lancets 33G - Use as directed to t est blood sugar once a day DX: E11.9 for 90 days 09/18/2024 Active Test Strips - Use in meter to tet blood sugar once a day DX: E11.09/18/2024 Activ e Encounters Encounter Location Date Provider Diagnosis [address] [address] 09/18/2024 Lui Wilhelm Plan Of Treatment Medication Medication Name Sig Start Date Stop Date Notes Blood Glucose Meter -- Use as directed t o test blood sugar once a day DX: E11.9 09/18/2024 Lancets 33G - Use as directed to t est blood sugar once a day DX: E11.9 for 90 days 09/18/2024 Test Strips - Use in meter to tet blood sugar once a day DX: E11.9 09/18/2024 Progress Notes * Jeffery SOTO MDOB:[birth year] (49 yo M)Acc No.[id number]:09/18/2024 Patient: Kvng Jeffery MEZA :1975 A ge:49 Y S ex:Male Address:[address] [place] [address] [address], [place], [address] * Refills Start Blood Glucose Meter --, --, 1 Each, Use as directed to test blood sugar once a day DX: E11.9, Refills=0 Start Lancets 33G Miscellaneous, -, 100 Each, Use as directed to test blood sugar once a day DX: E11.9, 90 days, Refills=3 Start Test Strips -, -, 100 Each, Use in meter to tet blood sugar once a day DX: E11.9, Refills=3 * true * Date: Generated for Russel gillespie/Lior/Josefa on: 0 09/20/2024 08:37 AM EDT
--- OUTSIDE RECORDS SUMMARY | 2024-09-20 08:38 | XMS_ITS | Referral Summary ---
Author Organization [facility] Address [address] [place] [address] Care Team Providers Care Fleshing Machine Operator Name Role Phone Unavailable Primary Care Provider Unavailabl e Social History Tobacco Use Types Packs/Day Years Used Date Smoking Tobacco: Never Assessed [place] Safety & Environment Answer Date Rec orded Fear of Current or Ex-Partner Not on file Emotionally Abused Not on file 06/14/2023 Physically Abused Not on file 06/14/2023 Sexually Abused Not on file 06/14/2023 Physically or Sexually Abused Not on file Sex and Gender Information Value Date Recorded Sex Assigned at Not on file Gender Identity Not on file Sexual Orientation Not on file Plan of Treatment Not on file
--- OUTSIDE RECORDS SUMMARY | 2024-09-20 08:38 | XMS_ITS | Patient Health Record ---
Author Organization [facility] in [place] Address [address] [place] [address] Care Team Providers Care Rn Family Name Role Phone Lui Kowalski Primary Care Provider JADYN KOWALSKI Unavailable [phone] Allergies Allergen (clinical drug ingredient) Drug/Non Drug Allergy documented on EMR Reaction Allergy Type Onset Date Status Compazine Unknown Drug Allergy Active Results Component Value Reference Range Notes MR lumbar spine wo con Reviewed date:07/27/2024 03:29:53 PM Interpretation: Performing Lab: Notes/Report: Source Facility: [place] [address] Magnetic Resonance Report Signed Patient: JEFFERY SOTO MR#: [id number] : 1975 Acct:[id number] Age/Sex: 49 / M ADM Date: 07/25/24 Loc: RAD Attending Dr: Jadyn Kowalski M.D. Ordering Physician: Jadyn Kowalski M.D. Date of Service: 07/25/24 Procedure(s): MR lumbar spine wo con Accession Number(s): [id number] cc: Jadyn Kowalski M.D. [place] [address] Patient Name: JEFFERY SOTO MRN: [id number] date: 1975 Sex: M Assigned Patient Location: PT Current Patient Location: PT Accession/Order Number: [id number] Exam Date: 07/25/2024 10:46 Report Date: 07/25/2024 11:08 At the request of: JADYN KOWALSKI MD Procedure: MR lumbar spine wo con MRI LUMBAR SPINE WITHOUT CONTRAST CLINICAL DATA: Acute back pain with left lower extremity radiculopathy COMPARISON: 03/28/2021 Multiecho imaging in the axial and sagittal plane was performed without contrast. There is minor stairstep retrolisthesis from L3-4 through L5-S1. There are no acute compression fractures or marrow edema. Conus medullaris is within normal limits for caliber, position and signal intensity. No paraspinal soft tissue abnormalities are noted. And T12-L1 and L1-2 there is no disc disease or stenosis. At L2-3 and L3-4, the discs are within normal limits for height and signal intensity. There is minor disc bulging toward the neural foramen. There is minimal facet and ligamentous hypertrophy. There is no significant thecal sac effacement. There is slight inferior foraminal encroachment at both levels bilaterally. At L4-5, there is loss of disc height. There is annular disc bulging with a persistent central/left parasagittal disc protrusion measuring approximately 12 mm in width. This may be minimally larger. Slight caudal extension of disc material is present. Bilateral facet hypertrophy is seen. Moderate thecal sac effacement is noted toward the left. There is impingement of the traversing L5 nerve root on the left. There is minor inferior right and mild to moderate left foraminal encroachment. At the lumbosacral junction, there is slight loss of disc height. There is annular disc bulging with a persistent central/left parasagittal broad-based protrusion contacting the traversing left S1 nerve root. There is no significant thecal sac effacement. Bilateral facet hypertrophy is seen. Mild to moderate foraminal impingement is seen, left side slightly worse than right. MR/MR lumbar spine wo con IMPRESSION: CONTINUED DISC HERNIATIONS AT L4-5 AND L5-S1 TOWARD THE LEFT, SLIGHTLY PROGRESSED SINCE THE PRIOR Impression dictated by: Samara Waddell M.D.07/25/2024 11:08 AM Dictation Location: [place] [address] Electronically authenticated by: [id number] Y Date: 07/25/2024 11:08 Dictated By: Samara Waddell M.D. Signed By: 07/25/24 1111 DD/ 1108 TD/TT: Corporate Receptionist: [place] [address] Magnetic Resonance Report Signed Patient: YASIR SOTO MR#: [id number] : 1975 Acct:[id number] Age/Sex: 49 / M ADM Date: 07/25/24 Loc: RAD Attending Dr: Jadyn Kowalski M.D. Ordering Physician: Jadyn Kowalski M.D. Date of Service: 07/25/24 Procedure(s): MR lum bar spine wo con Accession Number(s): [id number] cc: Jadyn Kowalski M.D. [place] [id number] Patient Name: JEFFERY SOTO MRN: [id number] date: 1975 Sex: M Assigned Patient Location: PT Current Patient Location: PT Accession/Order Numb er: [id number] Exam Date: 07/25/2024 10:46 Report Date: 07/25/2024 11:08 At the request of: JADYN KOWALSKI MD Procedure: MR lumbar spine wo con MRI LUMBAR SPINE WIT HOUT CONTRAST CLINICAL DATA: Acute back pain with left lower extremity radiculopathy COMPARISON: 03/28/2021 Multiecho imaging in the axial and sagittal plane was performed without contrast. There is minor stair step retrolisthesis from L3-4 through L5-S1. There are no acute compression fr actures or marrow edema. Conus medullaris is within normal limits for ca liber, position and signal intensity. No paraspinal soft tissue abnormalities are noted. And T12-L1 and L1-2 there is no disc disease or stenosis. At L2-3 and L3-4, th e discs are within normal limits for height and signal intensity. There is minor disc bulging toward the neural foramen. There is minimal facet and li gamentous hypertrophy. There is no significant thecal sac effacement. There is slight inferior foraminal encroachment at both levels bilaterally. At L4-5, there is lo ss of disc height. There is annular disc bulging with a persistent central/l eft parasagittal disc protrusion measuring approximately 12 mm in width. This may be minimally larger. Slight caudal extension of disc material is pre sent. Bilateral facet hypertrophy is seen. Moderate thecal sac effacemen t is noted toward the left. There is impingement of the traversing L5 nerve root on the left. There is minor inferior right and mild to moderate left for aminal encroachment. At the lumbosacral j unction, there is slight loss of disc height. There is annular disc bulging with a persistent central/left parasagittal broad-based protrusion contactin g the traversing left S1 nerve root. There is no significant thecal s ac effacement. Bilateral facet hypertrophy is seen. Mild to moderate foramina l impingement is seen, left side slightly worse than right. M R/MR lumbar spine wo con IMPRESSION: CONTINUED DISC HERNI ATIONS AT L4-5 AND L5-S1 TOWARD THE LEFT, SLIGHTLY PROGRESSED SINCE THE PRIOR Impression dictated by: Samara Waddell M.D.07/25/2024 11:08 AM Dictation Location: [place] [address] Electronically authe nticated by: [id number] Y Date: 07/25/2024 11:08 Dictated By: Samara Waddell M.D. Signed By: 07/25/24 1111 DD/ 1108 TD/TT: Corporate Receptionist: XR FOREIGN BODY EYE Reviewed date:07/27/2024 03:29:53 PM Interpretation: Performing Lab: Notes/Report: Source Facility: [place] [address] [place] [address] XRay Report Signed Patient: JEFFERY SOTO MR#: [id number] : 1975 Acct:[id number] Age/Sex: 49 / M ADM Date: 07/25/24 Loc: RAD Attending Dr: Jadyn Kowalski M.D. Ordering Physician: Jadyn Kowalski M.D. Date of Service: 07/25/24 Procedure(s): XR foreign body eye KEENA Accession Number(s): [id number] cc: Jadyn Kowalski M.D. [place] [address] Patient Name: JEFFERY SOTO MRN: [id number] date: 1975 Sex: M Assigned Patient Location: PT Current Patient Location: PT Accession/Order Number: [id number] Exam Date: 07/25/2024 09:04 Report Date: 07/25/2024 09:07 At the request of: JADYN KOWALSKI MD Procedure: XR foreign body eye KEENA PRE-MRI ORBITS - 2 views COMPARISON: 03/28/2021 CLINICAL DATA: Foreign body assessment. AP and lateral views were obtained. No orbital radiopaque foreign bodies are identified. The bony structures are intact. The imaged paranasal sinuses are clear. Patient is edentulous. XR/XR foreign body eye KEENA IMPRESSION: NO EVIDENCE OF RADIOPAQUE ORBITAL FOREIGN BODY. Impression dictated by: Samara Waddell M.D.07/25/2024 9:07 AM Dictation Location: [place] [address] Electronically authenticated by: [id number] Y Date: 07/25/2024 09:07 Dictated By: Samara Waddell M.D. Signed By: 07/25/24908 DD/ 6 TD/TT: Corporate Receptionist: [place] [address] XRay Report Signed Patient: YASIR SOTO MR#: [id number] : 1975 Acct:[id number] Age/Sex: 49 / M ADM Date: 07/25/24 Loc: RAD Attending Dr: Jadyn Kowalski M.D. Ordering Physician: Jadyn Kowalski M.D. Date of Service: 07/25/24 Procedure(s): XR for eign body eye KEENA Accession Number(s): [id number] cc: Jadyn Kowalski M.D. [address] [address] Patient Name: JEFFERY SOTO MRN: [id number] date: 1975 Sex: M Assigned Patient Location: PT Current Patient Location: PT Accession/Order Numb er: [id number] Exam Date: 07/25/2024 09:04 Report Date: 07/25/2024 09:07 At the request of: JADYN KOWALSKI MD Procedure: XR foreig n body eye KEENA PRE-MRI ORBITS - 2 views COMPARISON: 03/28/2021 CLINICAL DATA: Forei gn body assessment. AP and lateral views were obtained. No orbital radiopaque foreign bodies are identified. The bony structures are intact. The imaged paranasal sinuses are clear. Patient is edentulous. X R/XR foreign body eye KEENA IMPRESSION: NO EVIDENCE OF RADIO PAQUE ORBITAL FOREIGN BODY. Impression dictated by: Samara Waddell M.D.07/25/2024 9:07 AM Dictation Location: [place] [address] Electronically authe nticated by: [id number] Y Date: 07/25/2024 09:07 Dictated By: Samara Waddell M.D. Signed By: 07/25/24908 DD/ 6 TD/TT: Corporate Receptionist: Reason For Referral Diagnosis 1 Lumbar radiculopathy (M54.16) Referral Organization [facility] Referring Provider First Name Lui Referring Provider Last Name [facility] Physical Therap [facility] Referred Provider Specialty Physical The rapist Referral Priority Routine Diagnosis 1 Lumbar radiculopathy (M54.16) Referral Organization [facility] Referring Provider First Name Lui Referring Provider Last Name [facility] Referring Provider [facility] Referred Provider Pain Management, [facility] Referred Provider Specialty Pain Medicin e Referral Priority Routine Reason Needs sen madan Diagnosis 1 Lumbar stenosis with neurogenic claudication (M48.062) Referral Organization [facility] Referring Provider First Name Lui Referring Provider Last Name [facility] Referring Provider Speciality [facility] Referred Provider [facility] Referred Provider Specialty Orthopedic S urgery Referral Priority Routine Medications Medication SIG (Take, Route, Frequency, Duration) Notes Start Date End Date Status Blood Glucose Meter -- Use as directed t o test blood sugar once a day DX: E11.9 09/18/2024 Active Insulin Pen Needle 31G X 5 MM Use 1 need twice daily to inject insulin DX E11.9 for 90 days Active Apidra SoloStar 100 UNIT/ML Inject 10 units Subcutaneous TID (with meals) DX E11.9 for 90 days Needs 9 pens for 90 days Active Abilify 2 MG 1 tablet Orally Once a day for 30 days Active Blood Glucose Monitor System w/Device as directed Active Atorvastatin Calcium 40 MG 1 tablet Orally Once a day for 30 days Active Pregabalin 300 mg 2 tabs oral bid for 30 days 09/04/2024 Active cloNIDine HCl 0.2 mg TAKE 1 TABLET BY MOUTH THREE TIMES DAILY for 90 Active Citalopram Hydrobromide 20 mg TAKE 1 TABLET BY MOUTH ONCE DAILY for 30 Active Lantus SoloStar 100 UNIT/ML 60 U Subcutaneous BID for 30 days Active Lancets Thin - as directed Act aylin Lisinopril 40 mg TAKE 1 TABLET BY MOUTH DAILY for 90 Active Levothyroxine Sodium 100 MCG 1 capsule in the morning on an empty stomach Orally Once a day for 30 days Active Protonix 40 MG 1 tablet Orally Ever y Evening for 30 day(s) 12/18/2022 Active traZODone HCl 100 MG 1 tablet at bedtime as needed Orally Once a day for 30 days Active tiZANidine HCl 4 MG 1 tablet Orally qid for 30 days 07/04/2024 Active Lancets 33G - Use as directed to test blood sugar once a day DX: E11.9 for 90 days 09/18/2024 Active DULoxetine HCl 60 MG 1 capsule Orally On ce a day for 30 day(s) 08/13/2024 Active Test Strips - Use in meter to tet blood sugar once a day DX: E11.9 09/18/2024 Active Ozempic (0.25 or 0.5 MG/DOSE) 2 MG/3ML Inject 0.25mg Subcutaneous once weekly for 28 days Active Social History Tobacco Use: Social History Observation Description Date Details (start date - stop date) Never Smoker NA - NA Tobacco Use/Smoking Question Answer Notes Patient is a nonsmoker Alcohol Screen (Audit-C) Question Answer Notes Did you have a drink containing alcohol in the p ast year? No Points 0 Interpretation Negative AUDIT-C (Standard) Question Answer Notes Did you have a drink containing alcohol in the p ast year? No Points 0 Interpretation Negative Problems Problem Type SNOMED Code ICD Code Onset Dates Problem Status W/U Status Risk Notes Problem Testicular hypofunction (358547581) Testicular hypofunction (E29.1) Active confirmed Problem [id number] Other interverte bral disc displacement, lumbar region (M51.26) Active confirmed Problem Pain in right hand (258404261028104) Pain in right hand (M79.641) Active confirmed Problem Abdominal pain (82398826) Abdominal pain (R10.9) Active confirmed Problem Migraine variant wit h headache (disorder) (379020336) Migraine headache (G43.909) Active confirmed Problem Seizure (95382757) Seizure (R56.9) Active confi rmed Problem Hypertension (15530868) Hypertension (I10) Active confirmed Problem Anxiety (76664401) Anxiety (F41.9) Active confi rmed Problem Edema (63481400) Edema (R60.9) Active confirmed Problem Anemia (290987069) Anemia (D64.9) Active confir med Problem Peripheral neuropath y (484397662) Peripheral neuropathy (G62.9) Active confirmed Problem Dyspnea (943580789) Dyspnea (R06.00) Active con firmed Problem Insomnia (603297015) Insomnia (G47.00) Active c onfirmed Problem Lumbar radiculopathy (256997615) Lumbar radiculopathy (M54.16) Active confirmed Problem Hypertriglyceridemia (180464687) Hypertriglyceridemia (E78.1) Active confirmed Problem Allergic rhinitis (15895668) Allergic rhinitis (J30.9) Active confirmed Problem Disorder of lumbar disc (326601467) Lumbar disc disease (M51.9) Active confirmed Problem Prolapsed lumbar intervertebral disc (805469563) Lumbar disc herniation (M51.26) Active confirmed Problem Acute bronchitis (84593377) Acute bronchitis (J20.9) Active confirmed Problem Sleep disorder (51112278) Sleep disorder (G47.9) Active confirmed Problem Left lower quadrant pain (483214036) Abdominal pain, LLQ (R10.32) Active confirmed Problem Ascencion's thyroiditis (54938047) Ascencion's thyroiditis (E06.3) Active confirmed Problem Opioid abuse (2903645) Narcotic abuse (F11.10) Active confirmed Problem Otitis externa (5140694) Otitis external (H60.90) Active confirmed Problem Impingement syndrome of shoulder region (992246448) Shoulder impingement syndrome, right (M75.41) Active confirmed Problem Acute osteomyelitis of mandible (095474270) Acute osteomyelitis of mandible (M27.2) Active confirmed Problem Closed fracture of mandible, angle of jaw (211708859) Fracture of angle of right mandible, initial encounter for closed fracture (S02.651A) Active confirmed Problem Neurogenic claudication (690386774) Lumbar stenosis with neurogenic claudication (M48.062) Active confirmed Problem Type II diabetes mellitus without complication (809984157) Diabetes (E11.9) Active confirmed Problem Diabetes mellitus (66396276) Diabetes mellitus (E11.9) Active confirmed Problem Disease caused by Severe acute respiratory syndrome coronavirus 2 (disorder) (697054280) COVID-19 virus infection (U07.1) Active confirmed Vital Signs Blood pressure diastolic 90 mm Hg 09/04/2024 Height 66 in 09/04/2024 Blood pressure systolic 124 mm Hg 09/04/2024 Weight 223.0 lbs 09/04/2024 BMI 35.99 kg/m2 09/04/2024 Encounters Encounter Location Date Provider Diagnosis [place] [address] [place] [address] 01/11/2024 Lui Hoy Shoulder impingement syndrome, right M75.41 [place] [address] [place] [address] 06/25/2024 Lui Hoy Lumbar radiculopathy M54.16 [place] [address] [place] [address] 07/04/2024 Lui Hoy Lumbar radiculopathy M54.16 [facility] [address] [place] [address] 08/13/2024 Lui Hoy Lumbar stenosis with neurogenic claudication M48.062 [place] [address] [place] [address] 09/04/2024 Lui Hoy Hypertension I10 ; Lumbar radiculopathy M54.16 and Diabetes E11.9 [facility] [address] [place] [address] 10/16/2023 JADYN HOY Insomnia G47.00 [facility] [address] [place] [address] 12/03/2023 Lui Hoy Insomnia G47.00 [facility] [address] [facility] [place] [address] 04/14/2024 Lui Sony Shoulder impingement syndrome, right M75.41 [facility] [address] [facility] [place] [address] 05/07/2024 Lui Kowalski Wellness examination Z01.89 [facility] [address] [place] [facility] [place] [place] [address] 05/19/2024 uLi Sony [facility] [address] [place] [facility] [place] [place] [address] 05/20/2024 Lui Kowalski [facility] [address] [place] [facility] [place] [place] [address] 07/04/2024 Lui Hoy Lumbar radiculopathy M54.16 [facility] [address] [place] [facility] [place] [address] 07/21/2024 Lui Hoy Lumbar radiculopathy M54.16 ; Other intervertebral disc displacement, lumbar region M51.26 ; Lumbar disc disease M51.9 and Lumbar disc herniation M51.26 [facility] [address] [place] [facility] [place] [place] [address] 07/25/2024 Lui Kowalski Shoulder impingement syndrome, right M75.41 [facility] [address] [place] [facility] [place] [place] [address] 07/27/2024 Lui Sony [facility] [address] [place] [facility] [place] [place] [address] 09/10/2024 Lui Kowalski Diabetes mellitus E1 1.9 [facility] [address] [facility] [place] [address] 09/18/2024 Lui Sony [facility] [address] [place] [facility] [place] [address] 09/18/2024 Lui Kowalski Assessments Encounter Date Diagnosis (ICD Code) Assessment Notes Treatment Notes Treatment Clinical Notes Section Notes 01/11/2024 Shoulder impingement syndrome, right (ICD-10 - M75.41) 06/25/2024 Lumbar radiculopathy (ICD-10 - M54.16) 07/04/2024 Lumbar radiculopathy (ICD-10 - M54.16) 08/13/2024 Lumbar stenosis with neurogenic claudication (ICD-10 - M48.062) 09/04/2024 Hypertension (ICD-10 - I10) 09/04/2024 Lumbar radiculopathy (ICD-10 - M54.16) needs diabetes control and weight loss - recommending ozempic 10/16/2023 Insomnia (ICD-10 - G47.00) 12/03/2023 Insomnia (ICD-10 - G47.00) 04/14/2024 Shoulder impingement syndrome, right (ICD-10 - M75.41) 05/07/2024 Wellness examination (ICD-10 - Z01.89) 07/04/2024 Lumbar radiculopathy (ICD-10 - M54.16) 07/21/2024 Lumbar radiculopathy (ICD-10 - M54.16) 07/21/2024 Other intervertebral disc displacement, lumbar region (ICD-10 - M51.26) 07/25/2024 Shoulder impingement syndrome, right (ICD-10 - M75.41) 09/10/2024 Diabetes mellitus (ICD-10 - E11.9) 07/21/2024 Lumbar disc disease (ICD-10 - M51.9) 09/04/2024 Diabetes (ICD-10 - E11.9) 07/21/2024 Lumbar disc herniation (ICD-10 - M51.26) 06/25/2024 Other Recommended to rest and use a heating pad on the area. Take NSAIDs for pain as needed 07/04/2024 Other Recommended to rest and use a heating pad on the area. Take NSAIDs for pain as needed 08/13/2024 Other Recommended to rest and use a heating pad on the area. Take NSAIDs for pain as needed Plan Of Treatment Pending Test Test Name Order Date CMP - Comprehensive Metabolic Panel 04/23 CBC W/AUTO DIFF 05/07/2024 STOOL OCCULT BLOOD 05/07/2024 GLYCOHEMOGLOBIN A1C 05/07/2024 GLYCOHEMOGLOBIN A1C 09/10/2024 MRI LSPINE WO CON 07/04/2024 XR SHOULDER RT 2V or > 01/11/2024 THYROID PANEL (T4/TSH/FREE T3) PSA, SCREENING 05/07/2024 Insurance Providers Payer Name Payer Address Payer Phone Subscriber Number Group Number Insured Name Patient Relationship to Insured Coverage Start Date Coverage End Date [employer] [place] [employer] [address] [place] [phone] [id number] Jeffery Soto Self - patient is the insured Medications Administered Medication Instructions Date of Administration Dosage Notes Dexamethasone, 4mg/mL 07/04/2024 8 mg Kenalog-40 01/11/2024 120 mg 120 Ketorolac Tromethamine 01/11/2024 60 mg 60 Ketorolac Tromethamine 06/25/2024 60 mg Ketorolac Tromethamine 07/04/2024 60 mg Ketorolac Tromethamine 08/13/2024 60 mg Orphenadrine Citrate 08/13/2024 60 mg Triamcinolone 40 mg/ml 06/25/2024 120 mg Triamcinolone 40 mg/ml 08/13/2024 120 mg Medical (General) History Medical History History ICD Code Hypertriglyceridemia E78.1 Dyspnea R06.00 Lumbar radiculopathy M54.16 Lumbar disc disease M51.9 Abdominal pain, LLQ R10.32 COVID-19 virus infection U07.1 Acute bronchitis J20.9 Abdominal pain R10.9 Ascencion's thyroiditis E06.3 Anemia D64.9 Acute osteomyelitis of mandible M27.2 Fracture of angle of right mandible, ini tial encounter for closed fracture S02.651A Otitis external H60.90 Testicular hypofunction E29.1 Diabetes mellitus E11.9 Edema R60.9 Insomnia G47.00 Narcotic abuse F11.10 Hypertension I10 Migraine headache G43.909 Lumbar disc herniation M51.26 Seizure R56.9 Anxiety F41.9 Sleep disorder G47.9 Pain in right hand M79.641 Allergic rhinitis J30.9 Surgical History Surgery Date(Month/Year) Jaw reconstruction Gallbladder Appendix Lithotripsy- kidney stone
--- OUTSIDE RECORDS SUMMARY | 2024-09-20 08:38 | XMS_ITS | Clinical Summary ---
Author Organization [facility] Address [address] [place] [address] Care Team Providers Care [employer] Superintendent Name Role Phone Unavailable Primary Care Provider [...] Orientation Not on file Plan of Treatment Health Maintenance Due Date Last Done Comments CT Colonography 1975 Colonoscopy 1975 Colorectal Cancer Screening 1975 FIT-DNA 1975 FIT 1975 FOBT 1975 Sigmoidoscopy 1975 Depression Screening 1987 Hepatitis B Vaccines (1 of 3 - 19+ 3-dose series) 1994 Adult Tetanus 1997 Influenza Vaccine (Season Ended) 2024 Zoster Vaccines (1 of 2) 2025 HIB Vaccines Aged Out No longer eligi ble based on patient's age to complete this topic HPV Vaccines Aged Out No longer eligi ble based on patient's age to complete this topic IPV Vaccines Aged Out No longer eligi ble based on patient's age to complete this topic Meningococcal B Vaccine Aged Out No l onger eligible based on patient's age to complete this topic Meningococcal Vaccine Aged Out No pavel david eligible based on patient's age to complete this topic Pneumococcal Vaccine: Pediat rics (0 to 5 Years) and At-Risk Patients (6 to 64 Years) Aged Out No longer eligible b ased on patient's age to complete this topic Rotavirus Vaccines Aged Out No longer eligible based on patient's age to complete this topic
--- OUTSIDE RECORDS SUMMARY | 2024-09-20 08:38 | XMS_ITS | Encounter Summary ---
Author Organization [facility] [employer] enter Address [address] [place] [address] Care Team Providers Care Internship Coordinator Name Role Phone Cesar Wilhelm MD Primary Care Provider [phone] Reason for Referral * MRI/CAT Scan (Routine) - Closed Specialty Diagnoses / Procedures Referred By Fuentes holland Referred To Contact Diagnoses Disease of jaw Procedures CT FACIAL WITHOUT CONTRAST WY CT SCAN,MAXILLOFACIAL AREA,W/O CONTRAST Darwin Mojica DDS Referral ID Status Reason Start Date Expiration Date Visits Re quested Visits Authorized [id number] Closed 06/30/2019 07/24/2020 1 1 Encounter Details Date Type Department Care Team (Late st Contact Info) Description 06/30/2019 Orders Only [facility] [address] [place] [address] Rigoberto Tripp DDS Disease of jaw Social History Tobacco Use Types Packs/Day Years Used Date Smoking Tobacco: Never Smokeless Tobacco: Never Alcohol Use Standard Drinks/Week Comments Not Currently 0 (1 standard drink = 0.6 oz pur e alcohol) Sex and Gender Information Value Date Recorded Sex Assigned at Not on file Legal Sex Male 3:46 PM EDT Gender Identity Not on file Sexual Orientation Not on file documented as of this encounter Functional Status * Are you deaf or do you have serious difficulty hearing? Answer Date of Assessment Author No 05/10/2019 3:35 AM Marcie Nunez RN * Are you blind or do you have serious difficulty seeing, even when wearing glasses? Answer Date of Assessment Author No 05/10/2019 3:35 AM EST Dye, Jord an, RN * Do you have serious difficulty walking or climbing stairs (5 years or older)? Answer Date of Assessment Author No 05/10/2019 3:35 AM Marcie Nunez RN * Do you have difficulty dressing or bathing (5 yrs or older)? Answer Date of Assessment Author No 05/10/2019 3:35 AM Marcei Nunez RN * Because of a physical, mental, or emotional condition, do you have difficulty doing errands alone such as visiting a doctor's office or shopping (5 yrs or older)? Answer Date of Assessment Author No 05/10/2019 3:35 AM Marcie Nunez RN documented as of this encounter Mental Status * Because of a physical, mental, or emotional condition, do you have serious difficulty concentrating, remembering, or making decisions (5 yrs or older)? Answer Entry Date Author No 05/10/2019 3:35 AM Marcie Nunez RN documented in this encounter Plan of Treatment Not on file documented as of this encounter Results * CT FACIAL WITHOUT CONTRAST (07/04/2019 10:52 AM EDT) Anatomical Region Laterality Modality Head Computed Tomogra phy 07/07/2019 8:38 AM EDT Impressions 07/07/2019 8:44 AM EDT IMPRESSION: No significant change from prior exam on June 18, 2019. Minimally displaced right mandibular fracture with external fixator device in place. No significant interval osseous bridging. Narrative 07/07/2019 8:44 AM EDT EXAM: CT FACIAL WITHOUT CONTRAST, 07/04/2019 10:52 AM COMPARISON: CT face on June 18, 2019 CLINICAL INDICATIONS: 44 years Male Disease of jaw; RELEVANT CLINICAL HISTORY: M27.9:Disease of jaw TECHNIQUE: A series of thin section transaxial tomographic images of the facial region are obtained without contrast. Coronal, sagittal, and axial reformats are provided. FINDINGS: There is redemonstration of a fracture of the right mandibular body with approximately 5 mm of displacement. No significant osseous bridging is noted. There is an external fixator device in place with screws in the right mandibular body and left symphysis. The hardware appears intact. No subcutaneous gas. No focal collection in the area. Patient is edentulous. There are multiple lucencies the maxilla and mandible, unchanged from prior study. No new fracture, dislocation, or destructive lesion is identified. There no significant inflammatory changes in the subcutaneous tissue. No fluid collection is identified. Sinuses are well-developed. There is mucosal thickening of the ethmoid and maxillary sinuses. Right maxillary sinus polyp/mucous retention cyst. No abnormality of the orbits is identified. Procedure Note Joseph Carl MD - 07/07/2019 EXAM: CT FACIAL WITHOUT CONTRAST, 07/04/2019 10:52 AM COMPARISON: CT face on June 18, 2019 CLINICAL INDICATIONS: 44 years Male Disease of jaw; RELEVANT CLINICAL HISTORY: M27.9:Disease of jaw TECHNIQUE: A series of thin section transaxial tomographic images of the facial region are obtained without contrast. Coronal, sagittal, andaxial reformats are provided. FINDINGS: There is redemonstration of a fracture of the right mandibular body with approximately 5 mm of displacement. No significant osseous bridging isnoted. There is an external fixator device in place with screws in the right mandibular body and left symphysis. The hardware appears intact. No subcutaneous gas. No focal collection in the area. Patient isedentulous. There are multiple lucencies the maxilla and mandible, unchanged fromprior study. No new fracture, dislocation, or destructive lesion is identified. There no significant inflammatory changes in the subcutaneous tissue. Nofluid collection is identified. Sinuses are well-developed. There is mucosal thickening of the ethmoidand maxillary sinuses. Right maxillary sinus polyp/mucous retention cyst. No abnormality of the orbits is identified. IMPRESSION IMPRESSION: No significant change from prior exam on June 18, 2019. Minimally displaced right mandibular fracture with external fixator devicein place. No significant interval osseous bridging. Darwin Mojica DDOly CT ORDERABLES Final Result documented in this encounter Visit Diagnoses Diagnosis Disease of jaw Unspecified disease of the jaws Disease of jaw Unspecified disease of the jaws documented in this encounter Care Teams Internship Coordinator Relationship Specialty Start Date End Date Cesar Wilhelm MD PCP - General Family Medicine 05/19/19 documented as of this encounter
--- OUTSIDE RECORDS SUMMARY | 2024-09-20 08:38 | XMS_ITS | Encounter Summary ---
Author Organization [facility] tem Address [id number] [address] [place] [address] Care Team Providers Care Pelt Grader Name Role Phone Cesar Wilhelm MD Primary Care Provider [phone] Encounter Details Date Type Department Care Team (Latest Contact Info) Description 09/08/2024 Travel Social History Tobacco Use Types Packs/Day Years [...] on file documented as of this encounter Plan of Treatment Not on file documented as of this encounter Visit Diagnoses Not on filedocumented in this encounter Care Teams Pelt Grader Relationship Specialty Start Date End Date Cesar Wilhelm MD PCP - General 10/19/16 documented as of this encounter
--- OUTSIDE RECORDS SUMMARY | 2024-09-20 08:38 | XMS_ITS | Patient Health Record ---
Author Organization [facility] Address [address] [place] [address] Care Team Providers Care Mobile Equipment Operator Name Role Phone Royal Eugene Unavailable [phone] Cesar Wilhelm Unavailable Unavailable Simon Bello Unavailable [phone] Allergies Allergen (clinical drug ingredient) Drug/Non Drug Allergy documented on EMR Reaction Allergy Type Onset Date Status compazine (uncoded) severe muscle cramps Allergy Active Reason For Referral No Information Medications Medication SIG (Take, Route, Frequency, Duration) Notes Start Date End Date Status Abilify Active CeleXA Active Lyrica Active Lodine Active Protonix Active traZODone Active cloNIDine Active lisinopril Active Social History Tobacco Use: Social History Observation Description Date Details (start date - stop date) Never Smoker NA - NA Tobacco Control (Standard) Question Answer Notes Tobacco use: Nonsmoker Encounters Encounter Location Date Provider Diagnosis [facility] Office [address] [place] [address] [place] [address] 08/22/2024 Simon Bello Degeneration of intervertebral disc [...] tear, nerve root injury, paralysis, nonunion, DVT/PE, VT, stroke etc. Patient has tried and failed [...] neuroforaminal stenosis and radiculopathy Plan Of Treatment Pending Test Test Name Order Date Lumbar spine, 4v flex ext - [id number] 2024 Next Appt Details Provider Name:Royal Joan Kent, 11/11/2024 01:30:00 PM, [address] [place], [place], [id number], Insurance Providers Payer Name Payer Address Payer Phone Subscriber Number Group Number Insured Name Patient Relationship to Insured Coverage Start Date Coverage End Date Medicaid [employer] [place] [address] [facility] [place] [id number] [phone] [id number] NONI SOTO Self - patient is the insured 5 Medical (General) History Medical History History ICD Code High Blood Pressure Kidney stones Diabetes Anxiety Depression Drug Allergies
--- OUTSIDE RECORDS SUMMARY | 2024-09-20 08:38 | XMS_ITS | Clinical Summary ---
Author Organization [employer] tem Address [id number] [address] [place] [address] Care Team Providers Care Home Appliance Tech Name Role Phone Cesar Wilhelm MD Primary Care Provider [phone] Allergies Active Allergy Reactions Criticality Noted Date Comments Prochlorperazine Other (See Comments) Medium 7 Causes muscle shaking Medications citalopram (CeleXA) 20 mg tablet Take 20 mg by mouth daily. Active levothyroxine (SYNTHROID, LEVOTHROID) 100 MCG tablet Take 100 mcg by mouth daily. Active lisinopril (PRINIVIL,ZESTRIL) 40 mg tablet Take 40 mg by mouth daily. Active ondansetron ODT (ZOFRAN-ODT) 4 mg disintegrating tablet Dissolve 1 tablet (4 mg total) on tongue every 8 (eight) hours as needed for nausea for up to 10 doses. 10 tablet 9 Active buprenorphine-nalox one (SUBOXONE) 8-2 mg per SL tablet Place 1 tablet under the tongue daily. PT ONLY TAKES A 1/4 OF THIS TAB. Active hydrOXYzine (ATARAX) 50 mg tablet Take 1 tablet (50 mg total) by mouth 3 (three) times a day as needed for itching. Active ARIPiprazole (ABILIFY) 2 mg tablet Take 1 tablet (2 mg total) by mouth in the morning. Active guaiFENesin (ROBITUSSIN) 100 mg/5 mL syrup Take 10 mL (200 mg total) by mouth 3 (three) times a day as needed for cough. 120 mL 5 Active Encounters Date Type Department Care Team Description 09/08/2024 6:18 AM EDT - 09/08/2024 7:16 AM EDT Emergency [facility] [address] [facility] [id number] Guido Dotson MD Panic attack (Primary Dx); Epigastric pain Discharge Disposition: Left Against Medical Advice or Discontinued Care 09/08/2024 Travel 08/09/2024 9:36 AM EDT - 08/09/2024 10:08 AM EDT Emergency [facility] [address] [facility] [place] [id number] Erik Mcdonald DO Viral sinusitis (Primary Dx) Discharge Disposition: Home 08/09/2024 Travel 07/25/2024 9:00 AM EDT Ancillary Procedure [facility] [employer] [address] [place] [id number] Pain from Last 3 Months Social History Tobacco Use Types Packs/Day Years Used Date Smoking Tobacco: Never Smokeless Tobacco: Never Tobacco Cessation:Counseling Given: Not Answered Alcohol Use Standard Drinks/Week Comments No 0 [...] on file Sexual Orientation Not on file Last Filed Vital Signs Vital Sign Reading Time Taken Comments Blood Pressure 132/96 09/08/2024 6:21 AM EDT Pulse 90 09/08/2024 6:21 AM EDT Temperature 36.4 C (97.6 F) 09/08/2024 6:21 AM EDT Respiratory Rate 16 09/08/2024 6:21 AM EDT Oxygen Saturation 97% 09/08/2024 6:21 AM EDT Inhaled Oxygen Concentration - - Weight 99.8 kg (220 lb) 08/09/2024 9:38 AM EDT Height 167.6 cm (5' 6 ) 08/09/2024 9:38 AM EDT Body Mass Index 35.51 08/09/2024 9:38 AM EDT Plan of Treatment Health Maintenance Due Date Last Done Comments Depression Screening 1987 Adult BMI Follow Up Plan 1993 DTaP,Tdap and Td Vaccines (1 - Tdap) 1994 COVID-19 Vaccine (4 2023-2 5 season) 2023 03/24/2022, 05/25/2021, 01/13/2021 Influenza Vaccine 12/22/2024 Adult BMI Screening 08/09/2025 08/09/2024 Tobacco Screening 09/08/2025 09/08/2024 Medical Devices Not on file Procedures Procedure Name Priority Date/Time Associated Diagnosis Comments ECG 12-LEAD STAT 09/08/2024 6:41 AM EDT EXTRA TUBES BLUE TOP Routine 09/08/2024 6:37 AM EDT EXTRA TUBES Routine 09/08/2024 6:37 AM EDT TROPONIN I, HIGH SENSITIVITY 0 HOUR STAT 09/08/2024 6:37 AM EDT TROPONIN I, HIGH SENSITIVITY 0 HOUR STAT 09/08/2024 6:37 AM EDT LIPASE STAT 09/08/2024 6:37 AM EDT COMPREHENSIVE METABOLIC PANEL STAT 09/08/2024 6:37 AM EDT CBC WITH AUTO DIFFERENTIAL STAT 09/08/2024 6:37 AM EDT MR LUMBAR SPINE WO CONT Routine 07/25/2024 9:00 AM EDT Pain from Last 3 Months Results * ECG 12 lead (09/08/2024 6:41 AM EDT) 09/08/2024 6:41 AM EDT Narrative [facility] - 09/09/2024 4:46 AM EDT us Guido Dotson MD ECG ORDERABLES Final Result [facility] * Troponin I, High Sensitivity 0 Hour (09/08/2024 6:37 AM EDT) TROPONIN I, HIGH SENSITIVITY 2 <21 ng/L 09/08/2024 7:10 AM EDT [facility] Blood Venous blood / Unknown Venipuncture / Unknown 09/08/2024 6:37 AM EDT 09/08/2024 6:42 AM EDT us Guido Dotson MD LAB BLOOD ORDERABLES Final R esult Performing Organization Address City/[facility] Co de Phone Number [address] [place] [address], [place] * Light Blue Top (09/08/2024 6:37 AM EDT) Extra Tube Auto Resulted 09/08/2024 8:02 AM EDT [facility] Blood Venous blood / Unknown 09/08/2024 6:37 AM EDT 09/08/2024 6:43 AM EDT us Guido Dotson MD LAB BLOOD ORDERABLES Final R esult Performing Organization Address City/[facility] Co de Phone Number [address] [address], [place] * (ABNORMAL) CBC auto differential (09/08/2024 6:37 AM EDT) WBC 17.1(H) 4 - 11 x10E9/L 09/08/2024 6:48 AM EDT [facility] RBC Count 5.66 4.1 - 5.7 X10E12/L 09/08/2024 6:48 AM EDT [facility] Hemoglobin 15.6 13 - 17 g/dL 09/08/2024 6:48 AM EDT [facility] Hematocrit 46.2 39 - 50 % 09/08/2024 6:48 AM EDT [facility] MCV 82 80 - 100 fL 09/08/2024 6:48 AM EDT [facility] MCH 27.6 27 - 34 pg 09/08/2024 6:48 AM EDT [facility] MCHC 33.8 32 - 36 g/dL 09/08/2024 6:48 AM EDT [facility] RDW 15.5(H) 11.5 - 15 % 09/08/2024 6:48 AM EDT [facility] Platelet Count 295 150 - 450 X10E9/L 09/08/2024 6:48 AM EDT [facility] MPV 7.3 7 - 12 fL 09/08/2024 6:48 AM EDT [facility] Neutrophils Relative 82.2 % 09/08/2024 6:48 AM EDT [facility] Lymphocytes Relative 11.2 % 09/08/2024 6:48 AM EDT [facility] Monocytes Relative 5.3 % 09/08/2024 6:48 AM EDT [facility] Eosinophils Relative 1.0 % 09/08/2024 6:48 AM EDT [facility] Basophils Relative 0.3 % 09/08/2024 6:48 AM EDT [facility] Neutrophils Absolute (A) 14.0(H) 1.5 - 6.6 10*3/uL 09/08/2024 6:48 AM EDT [facility] Lymphocytes Absolute 1.9 1.0 - 3.5 10*3/uL 09/08/2024 6:48 AM EDT [facility] Monocytes Absolute 0.9 0.0 - 0.9 10*3/uL 09/08/2024 6:48 AM EDT [facility] Eosinophils Absolute 0.2 0.0 - 0.4 10*3/uL 09/08/2024 6:48 AM EDT [facility] Basophils Absolute 0.1 0.0 - 0.2 10*3/uL 09/08/2024 6:48 AM EDT [facility] Differential Type AUTOMATED DIFFERENTIAL 09/08/2024 6:48 AM EDT [facility] Blood Venous blood / Unknown Venipuncture / Unknown 09/08/2024 6:37 AM EDT 09/08/2024 6:42 AM EDT us Guido Dotson MD LAB BLOOD ORDERABLES Final R esult Performing Organization Address City/[facility] Co de Phone Number [address] [place] [address], [place] * (ABNORMAL) Lipase (09/08/2024 6:37 AM EDT) LIPASE 72(H) 17 - 40 U/L 09/08/2024 7:31 AM EDT [facility] Blood Venous blood / Unknown Venipuncture / Unknown 09/08/2024 6:37 AM EDT 09/08/2024 6:42 AM EDT Guido Dotson MD LAB BLOOD ORDERABLES Final R esult Performing Organization Address City/[facility] Co de Phone Number [address] [place] [address], [place] * (ABNORMAL) Comprehensive metabolic panel (09/08/2024 6:37 AM EDT) SODIUM 134 134 - 146 mmol/L 09/08/2024 7:01 AM EDT [facility] POTASSIUM 3.4(L) 3.5 - 5.0 mmol/L 09/08/2024 7:01 AM EDT [facility] CHLORIDE 100 98 - 109 mmol/L 09/08/2024 7:01 AM EDT [facility] CARBON DIOXIDE 22 22 - 32 mmol/L 09/08/2024 7:01 AM EDT [facility] ANION GAP 12 5 - 15 mmol/L 09/08/2024 7:01 AM EDT [facility] BLOOD UREA NITROGEN 23 5 - 23 mg/dL 09/08/2024 7:01 AM EDT [facility] CREATININE 0.76 0.70 - 1.20 mg/dL 09/08/2024 7:01 AM EDT [facility] Comment:METHOD TRACEABLE TO IDMS STANDARD GLUCOSE 202(H) 65 - 99 mg/dL 09/08/2024 7:01 AM EDT [facility] CALCIUM 9.0 8.5 - 10.5 mg/dL 09/08/2024 7:01 AM EDT [facility] TOTAL PROTEIN 7.8 6.0 - 8.0 g/dL 09/08/2024 7:01 AM EDT [facility] ALBUMIN 3.9 3.2 - 5.3 g/dL 09/08/2024 7:01 AM EDT [facility] ALKALINE PHOSPHATASE 99 39 - 130 U/L 09/08/2024 7:01 AM EDT [facility] AST 40 <=41 U/L 09/08/2024 7:01 AM EDT [facility] ALT 65(H) <=40 U/L 09/08/2024 7:01 AM EDT [facility] BILIRUBIN,TOTAL 0.8 0.3 - 1.2 mg/dL 09/08/2024 7:01 AM T [facility] EGFR Non-Race Dependent >90 >=60 ml/min/1.7 3sq.m 09/08/2024 7:01 AM T [facility] Comment: eGFR not reported due to non-numeric value for Creatinine. Reported eGFR is based on the CKD-EPI 2020 equation that does not use a race coefficient. Blood Venous blood / Unknown Venipuncture / Unknown 09/08/2024 6:37 AM EDT 09/08/2024 6:42 AM EDT us Guido Dotson MD LAB BLOOD ORDERABLES Final R esult [place] [facility] [address] [place] [address], [place] * MR lumbar spine without contrast (07/25/2024 9:00 AM EDT) us Scanning Provider External IMG MRI ORDERABLES Fi nal Result from Last 3 Months Insurance [place] [employer] Care Teams Home Appliance Tech Relationship Specialty Start Date End Date Cesar Wilhelm MD PCP - General 10/19/16
--- OUTSIDE RECORDS SUMMARY | 2024-09-20 08:38 | XMS_ITS | Clinical Summary ---
Author Organization [facility] Address [address] [place] [address] [place] [address] Care Team Providers Care Short Haul Driver Name Role Phone Cesar Wilhelm MD Primary Care Provider [phone] Allergies Active Allergy Reactions Criticality Noted Date Comments Prochlorperazine Anxiety High 05/09/2019 Medications levothyroxine (SYNTHROID) 100 MCG Tab tablet Take by mouth at bedtime. Active pregabalin 300 MG Cap Take 300 mg by mouth 2 times daily. Active Buprenorphine 4 mg/naloxone [address] 1 strip under tongue daily. Active insulin glargine 100 UNIT/ML vial Inject 40 Units under the skin daily every morning. Active insulin lispro 100 UNIT/ML Solution Inject 8 Units under the skin 3 times daily (take before meals). Active polyethylene glycol Pack packet Take 1 packet by mouth 2 times daily. 60 packet 05/20/2019 Active oxyCODONE 10 MG Tab tabletIndication s:Chronic pain syndrome Take 1 tablet by mouth every 4 hours as needed for Severe Pain for up to 3 days. 18 tablet 05/20/2019 Active cloNIDine 0.2 MG Tab tablet Take 1 tablet by mouth at bedtime. 30 tablet 05/20/2019 Active citalopram 20 MG Tab tablet Take 1 tablet by mouth daily. 30 tablet 05/21/2019 Active atorvastatin 40 MG Tab tablet Take 1 tablet by mouth daily. 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 05/10/2019 Type 2 diabetes mellitus wit h hyperglycemia, without long-term current use of insulin 05/10/2019 Benign essential hypertension 05/10/2019 Mixed hyperlipidemia 05/10/2019 Chronic pain syndrome 05/10/2019 History of opioid abuse 05/10/2019 Hyponatremia with normal extracellular fluid vol ume 05/10/2019 Obesity: body mass index of 30.0-34.9 05/10/2019 Closed fracture of symphysis of body of mandible 05/09/2019 Overview (05/10/2019): Added automatically from request for surgery [id number] Family History Medical History Relation Name Comments Heart Disease - Other Father elliott ry arter disease, AoV calcification s/p replacement Relation Name Status Comments Father Social History Tobacco Use Types Packs/Day Years [...] Sign Reading Time Taken Comments Blood Pressure 118/57 06/19/2019 3:00 AM EST Pulse 87 06/19/2019 3:00 AM EST Temperature 36.7 C (98 F) 06/18/2019 2:08 PM EST Respiratory Rate 16 06/19/2019 3:00 AM EST Oxygen Saturation 96% 06/19/2019 3:00 AM EST Inhaled Oxygen Concentration - - Weight 98.4 kg (217 lb) 06/18/2019 1:00 PM EST Height 167.6 cm (5' 6 ) 06/18/2019 2:01 PM EST Body Mass Index 35.02 05/10/2019 3:49 AM EST Plan of Treatment Health Maintenance Due Date Last Done Comments DIABETIC FOOT EXAM 1975 EYE EXAM 1975 HEPATITIS C VIRUS SCREENING 1975 TETANUS 1975 URINE MICROALBUMIN TEST 1975 HEP B VACCINE (1 of 3 - 19+ 3-dose series) 1994 TDAP (ADULT) 1994 HBA1C TEST 11/07/2019 05/09/2019 COLORECTAL CANCER SCREENING DISCUSSION 2020 LIPIDS 05/09/2020 05/09/2019 COVID-19 VACCINE (2023-2 5 season) 2023 INFLUENZA VACCINE (Season Ended) 2024 TSH Discontinued 05/10/2019 HIV SCREENING DISCUSSION Completed 05/15/2019 PNEUMOCOCCAL VACCINE SERIES Aged Out No longer eligible based on patient's age to complete this topic Medical Devices Implanted Type Area Tools Programmer Device Identifier Shelf Expiration Date Model / Serial / Lot Xfix Pin, 2.7 X 80 Mm, 9 Mm Implanted:Qty: 1 on 05/15/2019 by Darwin Mojica DDS at [facility] Right: Mandible [employer] 51-673- / / Xfix Pin, 2.7 X 80 Mm, 13 Mm Implanted:Qty: 3 on 05/15/2019 by Darwin Mojica DDS at [facility] Bilateral: Mandible [employer] [id number] / / Bar Connection Clamp Implanted:Qty: 4 on 05/15/2019 by Darwin Mojica DDS at [facility] Bilateral: Mandible [employer] [id number] / / Fadi, 3/4 Mandible Implanted:Qty: 1 on 05/15/2019 by Darwin Mojica DDS at [facility] Bilateral: Mandible [employer] [id number] / / Procedures Procedure Name Priority Date/Time Associated Diagnosis Comments HIV 1 AND 2 ANTIBODIES Routine 05/15/2019 3:21 AM EST TSH W/FT4 REFLEX STAT 05/10/2019 3:50 AM EST HEMOGLOBIN A1C STAT 05/09/2019 10:32 PM EST LIPID PANEL W CALCULATED LDL STAT 05/09/2019 10:32 PM EST from Last 3 Months or Most Recently Relevant to Health Maintenance Results * HIV 1 AND 2 ANTIBODIES (05/15/2019 3:21 AM EST) HIV-1/HIV-2 Ab With p24 Antigen Non Reactive Non Reactive 05/15/2019 9:22 AM EST [facility] Blood Venipuncture / Unknown 05/15/2019 3:21 AM EST 05/15/2019 4:04 AM EST us Bettie Apodaca MD IMMUNOLOGY ORDERABLES Final Res ult Performing Organization Address [facility]/ZIP Co de Phone Number [facility] [address] [address] * (ABNORMAL) TSH W/FT4 REFLEX (05/10/2019 3:50 AM EST) TSH 5.090(H) 0.550 - 4.780 uIU/mL 05/10/2019 5:33 AM EST [facility] Blood Venipuncture / Unknown 05/10/2019 3:50 AM EST 05/10/2019 4:26 AM EST us Oscar Marc MD ENDOCRINOLOGY Final Result Performing Organization Address [facility]/ZIP Co de Phone Number [facility] [address] [address] * (ABNORMAL) HEMOGLOBIN A1C (05/09/2019 10:32 PM EST) Hemoglobin A1C HPLC 11.2(H) 4.7 - 5.6 % 05/10/2019 7:48 AM EST [facility] Estimated Average Glucose 275 mg/dL 05/10/2019 7:48 AM EST [facility] Blood Venipuncture / Unknown 05/09/2019 10:32 PM EST 05/09/2019 10:41 PM EST us Oscar aMrc MD HEMATOLOGY ORDERABLES Final Resu lt Performing Organization Address [facility]/ZIP Co de Phone Number [facility] [address] [address] * (ABNORMAL) LIPID PANEL W CALCULATED LDL (05/09/2019 10:32 PM EST) Cholesterol 221(H) <200 mg/dL 05/10/2019 3:05 AM EST [facility] Comment: [<200 mg/dL: Desirable] [200-239 mg/dL: Borderline High] [>239 mg/dL: High] Triglycerides 311(H) <150 mg/dL 05/10/2019 3:[address] [facility] Comment: [<150 mg/dL: Desirable] [150-199 mg/dL: Borderline] [200-499 mg/dL: High] [>500 mg/dL: Very High] HDL Cholesterol 49 >=40 mg/dL 05/10/2019 3:[address] [facility] Comment: [<40 mg/dL: Low (High Risk)] [>59 mg/dL: High (Low Risk)] Calculated LDL Cholesterol 110(H) 0 - 99 mg/dL 05/10/2019 3:[address] [facility] Comment: [<100 mg/dL: Optimal] [100-129 mg/dL: Near Optimal] [130-159 mg/dL: Borderline High] [160-189 mg/dL: High] [>189 mg/dL: Very High] Total Cholesterol/HDL Ratio 4.5(H) <4.5 05/10/2019 3:[address] [facility] Non HDL Cholesterol 172(H) <130 mg/dL 05/10/2019 3:[address] [facility] Blood Venipuncture / Unknown 05/09/2019 10:32 PM EST 05/09/2019 10:40 PM EST us Oscar Marc MD CHEMISTRY ORDERABLES Final Resul t [facility] [address] [address] from Last 3 Months or Most Recently Relevant to Health Maintenance Insurance [facility] Advance Directives For more information, please contact: [phone] (7:30 AM - 6PM [facility], Sunday-Sunday) * Full Code (Latest Code Status on File) Date Activated Date Inactivated Comments 05/10/2019 3:08 AM Care Teams Short Haul Driver Relationship Specialty Start Date End Date Cesar Wilhelm MD PCP - General Family Medicine 05/19/19
--- OUTSIDE RECORDS SUMMARY | 2024-09-20 08:38 | XMS_ITS | CCD ---
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 Role Phone EFREM LESTERMIREYA George Admitting Unavailable RAI DUPREE Attending Unavailable KENTON FINCH Referring Unavailable KENTON FINCH Primary Care Unavailable Jadyn Wilhelm Primary Care Physician [phone] CAROLINE LALA Attending Unavailable CAROLINE LALA Admitting Unavailable MEGHANA Carbajal, DR SALAMANCA Primary Care Unavailable CAROLINE LALA Consulting Unavailable DR JIMBO MCCOLLUM Consulting Unavailable LUCIO NEVAREZ Attending Unavailable MEGHANA Carbajal, DR SALAMANCA Primary Care Unavailable LUCIO NEVAREZ Admitting Unavailable LUCIO NEVAREZ Consulting Unavailable SONA ELLSWORTH Consulting Unavailable AKILAH Carbajal, SONA Attending Unavailable MEGHANA Carbajal, DR SALAMANCA Primary Care Unavailable AKILAH Carbajal, SONA Admitting Unavailable ALBARO NORIEGA Attending Unavailable ABLARO NORIEGA Admitting Unavailable MEGHANA ., DR SALAMANCA Primary Care Unavailable AKILAH ., SONA Admitting Unavailable AKILAH ., SONA Consulting Unavailable SONA ELLSWORTH Attending Unavailable MEGHANA .DR SALAMANCA Primary Care Unavailable MEGHANA ., DR SALAMANCA Primary Care Unavailable MEGHANA ., DR SALAMANCA Consulting Unavailable MEGHANA ., DR SALAMANCA Attending Unavailable MEGHANA ., DR SALAMANCA Admitting Unavailable JOSIAS, DR IGNACIO Ruiz Consulting Unavailable AKILAH ., SONA Admitting Unavailable AKILAH ., SONA Consulting Unavailable AKILAH .SONA Attending Unavailable MEGHANA .DR SALAMANCA Primary Care Unavailable MEGHANA ., DR SALAMANCA Primary Care Unavailable MEGHANA ., DR SALAMANCA Admitting Unavailable MEGHANA ., DR SALAMANCA Attending Unavailable MEGHANA ., DR SALAMANCA Consulting Unavailable ZISARTHAKER, DR IGNACIO Ruiz Consulting Unavailable MEGHANA ., DR SALAMANCA Consulting Unavailable MEGHANA ., DR SALAMANCA Admitting Unavailable MEGHANA ., DR SALAMANCA Attending Unavailable HOY ., [...] DR YANCEY Admitting Unavailable MCCASTERROBERTA Consulting Unavailable MONROEBUSRENETTA Consulting Unavailable NILL ., DR YANCEY Admitting Unavailable NILL ., DR YANCEY Consulting Unavailable NILL ., DR YANCEY Attending Unavailable HOY ., DR SALAMANCA Primary Care Unavailable HAY ., DR CHOI Admitting Unavailable HAY ., DR CHOI Consulting Unavailable HAY ., DR CHOI Attending Unavailable HOY ., DR SALAMANCA Primary Care Unavailable LUCIO NEVAREZ Consulting Unavailable LUCIO NEVAREZ Attending Unavailable HOY ., DR SALAMANCA Primary Care Unavailable LUCIO NEVAREZ Admitting Unavailable NILL, Naye R Attending Unavailable NILL, Naye R Attending Unavailable NILL, Naye R Attending Unavailable Shelby HUNT, Hawk Cuellar Attending Unavailable HOY, JADYN M Referring Unavailable HOY, JADYN M Primary Care Unavailable HOY, JADYN M Referring Unavailable HOY, JADYN M Primary Care Unavailable STEPHANY NORIEGA Attending Unavailable HOY, JADYN M Primary Care Unavailable HOY, JADYN M Primary Care Unavailable LISSET SANTAMARIA Attending Unavailable Allergies Allergy Classification Reported Allergen(s) Allergy Type Date of Onset Reaction(s) Facility (3 sources) Prochlorperazine ; Translations: [Compazine] Drug Allergy 3 [facility] Repository (3 sources) Prochlorperazine ; Translations: [prochlorperazin e] Drug Allergy 7 Maurilio (finding) [facility] [place] Medications Current Medications Medication Drug Class(es) Dates [...] Date Documented Da te Episodic/Chronic Abdominal pain (2 sources) Unspecified abdominal pain; Translations: [Epigastric pain] Onset: 02-19-2022 Episodic Anxiety disorders (9 sources) Anxiety; Translations: [Anxiety disorder, unspecified] Onset: [...] 08-14-2022 Episodic Other aftercare (1 source) 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; Translations: [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 CURRENT DRUG THERAPY] Onset: 08-14-2022 Episodic Other aftercare (1 source) skilled nursing (current) use of insulin; Translations: [ASSISTANT WAREHOUSE MANAGER CURRENT USE OF INSULIN] Onset: 08-14-2022 Episodic [...] disease (1 source) Allergic rhinitis 03-08-2022 Chronic Other upper respiratory infections (1 source) Chronic sinusitis, unspecified; Translations: [Chronic sinusitis, unspecified] Onset: 08-09-2024 Chronic Residual codes; unclassified (1 source) Tobacco [...] OTH PART DIGESTV TRACT] Onset: 08-14-2022 Episodic Residual codes; unclassified (1 source) Pain, unspecified; Translations: [Pain, unspecified] Onset: 08-03-2024 Episodic Spondylosis; intervertebral disc disorders; other back [...] COUGH, UNSPECIFIED; Translations: [COUGH, UNSPECIFIED] Onset: 01-16-2022 Unclassified (1 source) Cold Like Symptoms Onset: 08-09-2024 Unclassified (1 source) Congestion Onset: 08-09-2024 Viral infection (1 source) Other viral agents as the cause of diseases classified elsewhere; Translations: [Other viral agents as the cause of diseases classified elsewhere] Onset: 08-09-2024 Episodic Past or Other Problems Problem Classification Problem Date Documented Da te Episodic/Chronic Deficiency and other anemia (4 sources) Iron [...] Test Name Value Interpretation Reference Range Facility CBC WITH AUTO DIFFERENTIALon 09-08-2024 BASOPHILS ABSOLUTE COUNT (10*3/UL) BY AUTOMATED COUNT 0.1 10*3/uL Normal 0.0-0.2 [facility] Comment on above: Performed By: #### C BCA #### [address] [address] VIR BASOPHILS RELATIVE PERCENT BY AUTOMATED COUNT 0.3 % Normal [facility] Comment on above: Performed By: #### C BCA #### [facility] ([address] [address] VIR CELLAVISION DIFFERENTIAL TYPE AUTOMATED DIFFERENTIAL Normal [facility] Comment on above: Performed By: #### C BCA #### [facility] ([address] [address] VIR Eosinophils (Bld) [#/Vol] 0.2 10*3/uL Normal 0.0-0.4 [facility] Comment on above: Performed By: #### C BCA #### [facility] ([address] [address] VIR EOSINOPHILS RELATIVE PERCENT BY AUTOMATED COUNT 1.0 % Normal [facility] Comment on above: Performed By: #### C BCA #### [facility] ([address] [address] VIR Erythrocyte distribution width (RBC) [Ratio] 15.5 % High 11.5-15 [facility] Comment on above: Performed By: #### C BCA #### [facility] ([address] [address] VIR Hematocrit (Bld) [Volume fraction] 46.2 % Normal 39-50 [facility] Comment on above: Performed By: #### C BCA #### [facility] ([address] [address] VIR Hemoglobin (Bld) [Mass/Vol] 15.6 g/dL Normal 13-17 [facility] Comment on above: Performed By: #### C BCA #### [facility] ([address] [address] VIR LYMPHOCYTES ABSOLUTE COUNT (10*3/UL) BY AUTOMATED COUNT 1.9 10*3/uL Normal 1.0-3.5 [facility] Comment on above: Performed By: #### C BCA #### [facility] ([address] [address] VIR LYMPHOCYTES RELATIVE PERCENT BY AUTOMATED COUNT 11.2 % Normal [facility] Comment on above: Performed By: #### C BCA #### [facility] ([address] [address] VIR MCH (RBC) [Entitic mass] 27.6 pg Normal 27-34 [facility] Comment on above: Performed By: #### C BCA #### [facility] ([address] [address] VIR MCHC (RBC) [Mass/Vol] 33.8 g/dL Normal 32-36 [facility] Comment on above: Performed By: #### C BCA #### [facility] ([address] [address] VIR MCV (RBC) [Entitic vol] 82 fL Normal 80-100 [facility] Comment on above: Performed By: #### C BCA #### [facility] ([address] [address] VIR MONOCYTES ABSOLUTE COUNT (10*3/UL) BY AUTOMATED COUNT 0.9 10*3/uL Normal 0.0-0.9 [facility] Comment on above: Performed By: #### C BCA #### [facility] ([address] [address] VIR MONOCYTES RELATIVE PERCENT BY AUTOMATED COUNT 5.3 % Normal [facility] Comment on above: Performed By: #### C BCA #### [facility] ([address] [address] VIR NEUTROPHILS ABSOLUTE COUNT BY AUTOMATED COUNT 14.0 10*3/uL High 1.5-6.6 [facility] Comment on above: Performed By: #### C BCA #### [facility] ([address] [address] VIR NEUTROPHILS RELATIVE PERCENT BY AUTOMATED COUNT 82.2 % Normal [facility] Comment on above: Performed By: #### C BCA #### [facility] ([address] [place] [address] VIR Platelet mean volume (Bld) [Entitic vol] 7.3 fL Normal 7-12 [facility] Comment on above: Performed By: #### C BCA #### [facility] ([address] [address] VIR Platelets (Bld) [#/Vol] 295 10*3/uL Normal 150-450 [facility] Comment on above: Performed By: #### C BCA #### [facility] ([address] [place] [address] VIR RBC COUNT 5.66 X10E12/L Normal 4.1-5.7 [facility] Comment on above: Performed By: #### C BCA #### [facility] ([address] [place] [address] VIR WBC (Bld) [#/Vol] 17.1 10*3/uL High 4-11 [facility] Comment on above: Performed By: #### C BCA #### [facility] ([address] [place] [address] VIR COMPREHENSIVE METABOLIC PANE Ruddy 09-08-2024 Albumin [Mass/Vol] 3.9 g/dL Normal 3.2-5.[address] [facility] Comment on above: Performed By: #### C MP #### [facility] ([address] [place] [address] VIR ALP [Catalytic activity/Vol] 99 U/L Normal 39-130 [facility] Comment on above: Performed By: #### C MP #### [facility] ([address] [place] [address] VIR ALT [Catalytic activity/Vol] 65 U/L High <=40 [facility] Comment on above: Performed By: #### C MP #### [facility] ([address] [place] [address] VIR Anion gap [Moles/Vol] 12 mmol/L Normal 5-15 [facility] Comment on above: Performed By: #### C MP #### [facility] ([address] [place] [address] VIR AST [Catalytic activity/Vol] 40 U/L Normal <=41 [facility] Comment on above: Performed By: #### C MP #### [facility] ([place] [address] [place] [address] VIR Bilirubin [Mass/Vol] 0.8 mg/dL Normal 0.3-1.2 [facility] Comment on above: Performed By: #### C MP #### [facility] ([place] [address] [place] [address] VIR Calcium [Mass/Vol] 9.0 mg/dL Normal 8.5-10.[address] [facility] Comment on above: Performed By: #### C MP #### [facility] ([address] [place] [address] VIR Chloride [Moles/Vol] 100 mmol/L Normal 98-109 [facility] Comment on above: Performed By: #### C MP #### [facility] ([address] [place] [address] VIR CO2 [Moles/Vol] 22 mmol/L Normal 22-32 [facility] Comment on above: Performed By: #### C MP #### [facility] ([address] [place] [address] VIR Creatinine [Mass/Vol] 0.76 mg/dL Normal 0.70-1.20 [facility] Comment on above: Result Comment: METH OD TRACEABLE TO IDMS STANDARD Performed By: #### C MP #### [facility] ([address] [place] [address] VIR EGFR (CKD-EPI) NON-RACE DEPENDENT >^90 Normal >=60 [facility] Comment on above: Result Comment: eGFR not reported due to non-numeric value for Creatinine. Reported eGFR is based on the CKD-EPI 2021 equation that does not use a race coefficient. Performed By: #### C MP #### [facility] ([place] [address] [place] [address] VIR Glucose [Mass/Vol] 202 mg/dL High 65-[address] [facility] Comment on above: Performed By: #### C MP #### [facility] ([address] [place] [address] VIR Potassium [Moles/Vol] 3.4 mmol/L Low 3.5-5.0 [facility] Comment on above: Performed By: #### C MP #### [facility] ([address] [place] [address] VIR Protein [Mass/Vol] 7.8 g/dL Normal 6.0-8.[address] [facility] Comment on above: Performed By: #### C MP #### [facility] ([address] [place] [address] VIR Sodium [Moles/Vol] 134 mmol/L Normal 134-[address] [facility] Comment on above: Performed By: #### C MP #### [facility] ([address] [place] [address] VIR Urea nitrogen [Mass/Vol] 23 mg/dL Normal 5-23 [facility] Comment on above: Performed By: #### C MP #### [facility] ([address] [place] [address] VIR LIPASEon 09-08-2024 Lipase [Catalytic activity/Vol] 72 U/L High 17-40 [facility] Comment on above: Performed By: #### L IPA #### [facility] ([address] [place] [address] VIR TROPONIN I, HIGH SENSITIVITY 0 HOURon 09-08-2024 TROPONIN I, HIGH SENSITIVITY 2 ng/L Normal <21 [facility] Comment on above: Performed By: #### T NIHS0 #### [facility] ([address] [place] [address] VIR Auth for Release of Medical Recordson 12-07-2022 Auth for Release of Medical Records [id number] Normal [facility] CARDIAC ROSLYN 3-6on 3 CK [Catalytic activity/Vol] 288 U/L Normal 39-308 [facility] Comment on above: Performed By: #### C MREP #### [facility] [address] [place] [address] Dr. Kiran Ivey CK.MB [Mass/Vol] 4.71 ng/mL Critically high <=3.60 [facility] Comment on above: Performed By: #### C MREP #### [facility] [address] [place] [address] Dr. Kiran Ivey HSTROP 5.8 pg/mL Normal 4.0-76.1 [facility] Comment on above: Result Comment: CUT- OFF POINTS HAVE BEEN ESTABLISHED BASED ON THE FOURTH UNIVERSAL DEFINITIONS OF MYOCARDIAL INFARCTION. THE UPPER REFERENCE LIMIT (URL) OF TROPONIN, DEFINED THE 99TH PERCENTILE OF cTnI DISTRIBUTION IN A REFERENCE POPULATION, HAS BEEN CONFIRMED THE DECISION THRESHOLD FOR MN DIAGNOSIS. Performed By: #### C MREP #### [facility] [address] [place] [address] Dr. Kiran Ivey CARDIAC ROSLYN ADMITon 023 CK [Catalytic activity/Vol] 297 U/L Normal 39-308 [facility] Comment on above: Performed By: #### C ERICKA, BMP #### [facility] [address] [place] [address] Dr. Kiran Ivey CK.MB [Mass/Vol] 5.29 ng/mL Critically high <=3.60 [facility] Comment on above: Performed By: #### C MADM, BMP #### [facility] [address] [place] [address] Dr. Kiran Ivey HSTROP 6.1 pg/mL Normal 4.0-76.1 [facility] Comment on above: Result Comment: CUT- OFF POINTS HAVE BEEN ESTABLISHED BASED ON THE FOURTH UNIVERSAL DEFINITIONS OF MYOCARDIAL INFARCTION. THE UPPER REFERENCE LIMIT (URL) OF TROPONIN, DEFINED THE 99TH PERCENTILE OF cTnI DISTRIBUTION IN A REFERENCE POPULATION, HAS BEEN CONFIRMED THE DECISION THRESHOLD FOR MN DIAGNOSIS. Performed By: #### C IBETHM, BMP #### [facility] [address] [address] [address] Kiran Ivey MALIHA 50 ng/mL Normal 16-96 [facility] Comment on above: Performed By: #### C MADM, [facility] #### [facility] [address] [address] [address] Kiran Ivey CBC AUTO DIFFon 08-10-2022 BASO # 0.1 103/ul Normal 0.0-0.1 [facility] Comment on above: Performed By: #### C BC #### [facility] [address] [place] [address] Dr. Kiran Ivey Basophils/100 WBC (Bld) 0.8 % Normal 0.2-2.0 [facility] Comment on above: Performed By: #### C BC #### [facility] [address] [place] [address] Dr. Kiran Ivey EO # 0.3 103/ul Normal 0.0-0.7 [facility] Comment on above: Performed By: #### C BC #### [facility] [address] [place] [address] Dr. Kiran Ivey Eosinophils/100 WBC (Bld) 3.6 % Normal 0.9-7.0 [facility] Comment on above: Performed By: #### C BC #### [facility] [address] [place] [address] Dr. Kiran Ivey Erythrocyte distribution width (RBC) [Ratio] 14.9 % Normal 11.0-15.0 [facility] Comment on above: Performed By: #### C BC #### [facility] [address] [place] [address] Dr. Kiran Ivey Hematocrit (Bld) [Volume fraction] 38.9 % Critically low 42.0-54.0 [facility] Comment on above: Performed By: #### C BC #### [facility] [address] [place] [address] Dr. Kiran Ivey Hemoglobin (Bld) [Mass/Vol] 12.6 g/dL Critically low 14.0-18.0 [facility] Comment on above: Performed By: #### C BC #### [facility] [address] [place] [address] Dr. Kiran Ivey IG # 0.02 10e3/ul Normal 0.00-0.03 [facility] Comment on above: Performed By: #### C BC #### [facility] [address] [place] [address] Dr. Kiran Ivey IG % 0.3 % Normal 0.0-0.5 [facility] Comment on above: Performed By: #### C BC #### [facility] [address] [place] [address] Dr. Kiran Ivey LYMPH # 2.4 103/ul Normal 1.2-3.8 [facility] Comment on above: Performed By: #### C BC #### [facility] [address] [place] [address] Dr. Kiran Ivey Lymphocytes/100 WBC (Bld) 33.1 % Normal 20.5-60.0 [facility] Comment on above: Performed By: #### C BC #### [facility] [address] [place] [address] Dr. Kiran Ivey MANUAL DIFF REQ NO Normal [facility] Comment on above: Performed By: #### C BC #### [facility] [address] [place] [address] Dr. Kiran Ivey MCH (RBC) [Entitic mass] 24.4 pg Critically low 25.9-34.0 [facility] Comment on above: Performed By: #### C BC #### [facility] [address] [place] [address] Dr. Kiran Ivey MCHC (RBC) [Mass/Vol] 32.4 g/dL Normal 29.9-35.2 [facility] Comment on above: Performed By: #### C BC #### [facility] [address] [place] [address] Dr. Kiran Ivey MCV (RBC) [Entitic vol] 75.4 fL Critically low 80.0-94.0 [facility] Comment on above: Performed By: #### C BC #### [facility] [address] [place], [place] [id number] Dr. Kiran Ivey MONO # 0.5 103/ul Normal 0.3-0.8 [facility] Comment on above: Performed By: #### C BC #### [facility] [address] [place] [address] Dr. Kiran Ivey Monocytes/100 WBC (Bld) 7.0 % Normal 1.7-12.0 [facility] Comment on above: Performed By: #### C BC #### [facility] [address] [place] [address] Dr. Kiran Ivey NEUT # 4.0 103/ul Normal 1.4-6.5 [facility] Comment on above: Performed By: #### C BC #### [facility] [address] [place] [address] Dr. Kiran Ivey Neutrophils/100 WBC (Bld) 55.2 % Normal 43.0-75.0 [facility] Comment on above: Performed By: #### C BC #### [facility] [address] [place] [address] Dr. Kiran Ivey Platelet mean volume (Bld) [Entitic vol] 9.1 fL Critically low 9.5-13.5 [facility] Comment on above: Performed By: #### C BC #### [facility] [address] [place] [address] Dr. Kiran Ivey PLT 310 103/ul Normal 150-450 [facility] Comment on above: Performed By: #### C BC #### [facility] [address] [place] [address] Dr. Kiran Ivey RBC 5.16 106/ul Normal 4.70-6.10 [facility] Comment on above: Performed By: #### C BC #### [facility] [address] [place] [address] Dr. Kiran Ivey WBC 7.2 103/ul Normal 4.0-11.0 [facility] Comment on above: Performed By: #### C BC #### [facility] [address] [place] [address] Dr. Kiran Ivey PROF CHEM 8 (BAS METB)on Anion gap [Moles/Vol] 11.1 mmol/L Normal [facility] Comment on above: Performed By: #### C ERICKA, BMP #### [facility] [address] [place] [address] Dr. Kiran Ivey Calcium [Mass/Vol] 9.3 mg/dL Normal 8.5-10.1 [facility] Comment on above: Performed By: #### C ERICKA, BMP #### [facility] [address] [place] [address] Dr. Kiran Ivey Chloride [Moles/Vol] 100 mmol/L Normal 98-107 [facility] Comment on above: Performed By: #### C ERICAK, BMP #### [facility] [address] [place] [address] Dr. Kiran Ivey CO2 [Moles/Vol] 30.1 mmol/L Normal 21.0-32.0 [facility] Comment on above: Performed By: #### C ERICKA, BMP #### [facility] [address] [place] [address] Dr. Kiran Ivey Creatinine [Mass/Vol] 1.03 mg/dL Normal 0.70-1.30 [facility] Comment on above: Performed By: #### C ERICKA, BMP #### [facility] [address] [place] [address] Dr. Kiran Ivey EGFR-AF KYRGYZ >60 Normal >=60 [facility] Comment on above: Performed By: #### C ERICKA, BMP #### [facility] [address] [place] [address] Dr. Kiran Ivey EGFR-NON AF KYRGYZ >60 Normal >=60 [facility] Comment on above: Performed By: #### C ERICKA, BMP #### [facility] [address] [place] [address] Dr. Kiran Ivey Glucose [Mass/Vol] 226 mg/dL Critically high 74-106 [facility] Comment on above: Performed By: #### C ERICKA, BMP #### [facility] [address] [place] [address] Dr. Kiran Ivey Potassium [Moles/Vol] 4.2 mmol/L Normal 3.5-5.1 [facility] Comment on above: Performed By: #### C ERICKA, BMP #### [facility] [address] [place] [address] Dr. Kiran Ivey Sodium [Moles/Vol] 137 mmol/L Normal 136-145 [facility] Comment on above: Performed By: #### C ERICKA, BMP #### [facility] [address] [place] [address] Dr. Kiran Ivey Urea nitrogen [Mass/Vol] 19.0 mg/dL Critically high 7.0-18.0 [facility] Comment on above: Performed By: #### C ERICKA, BMP #### [facility] [address] [place] [address] Dr. Kiran Ivey Urea nitrogen/Creatinin e [Mass ratio] 18.4 mg/mg Normal [facility] Comment on above: Performed By: #### C ERICKA, BMP #### [facility] [address] [place] [address] Dr. Kiran Ivey GLYCOHEMOGLOBIN A1Con 2022 ADA RECOMMENDATION SEE BELOW Normal [facility] Comment on above: Result Comment: ADA RECOMMENDED LIMIT 4.0 - 6.0 ADA THERAPEUTIC TARGET < 7.0 ACTION SUGGESTED > 7.0 Performed By: #### C BC #### [facility] [address] [place] [address] Dr. Kiran Ivey Glucose [Mass/Vol] 269 mg/dL Normal [facility] Comment on above: Performed By: #### C BC #### [facility] [address] [place] [address] Dr. Kiran Ivey HbA1c (Bld) [Mass fraction] 11.0 % Critically high 4.5-6.2 [facility] Comment on above: Performed By: #### C BC #### [facility] [address] [place] [address] Dr. Kiran Ivey LIPID PROFILEon 06-12-2022 CHOL-HDL RATIO NORM SEE BELOW Normal [facility] Comment on above: Result Comment: 3.3 - 4.4 LOW RISK 4.4 - 7.1 AVERAGE RISK 7.1 - 11.0 MODERATE RISK >11.0 HIGH RISK Performed By: #### L IPID #### [facility] [address] [address] [address] Kiran Ivey Cholesterol [Mass/Vol] 193 mg/dL Normal <=200 [facility] Comment on above: Performed By: #### L IPID #### [facility] [address] [address] [address] Kiran Ivey Cholesterol in HDL [Mass/Vol] 47 mg/dL Normal 40-60 [facility] Comment on above: Performed By: #### L IPID #### [facility] [address] [place] [address] Dr. Kiran Ivey Cholesterol in LDL [Mass/Vol] 109.4 mg/dL Normal [facility] Comment on above: Performed By: #### L IPID #### [facility] [address] [address] [address] Kiran Ivey Cholesterol.total/ Cholesterol in HDL [Mass ratio] 4.1 {ratio} Normal [facility] Comment on above: Performed By: #### L IPID #### [facility] [address] [place] [address] Dr. Kiran Ivey HDL NORMAL > or = 60 mg/dl - LO W CARDIOVASCULAR RISK <40 mg/dl - HIGH CARDIOVASCULAR RISK Normal [facility] Comment on above: Performed By: #### L IPID #### [facility] [address] [address] [address] Kiran Ivey LDL CALC NORMAL SEE BELOW Normal [facility] Comment on above: Result Comment: <100 mg/dl OPTIMAL 100 - 129 mg/dl NEAR OR ABOVE OPTIMAL 130 - 159 mg/dl BORDERLINE HIGH 160 - 189 mg/dl HIGH >190 mg/dl VERY HIGH Performed By: #### L IPID #### [facility] [address] [place] [address] Dr. Kiran Ivey Triglyceride [Mass/Vol] 183 mg/dL Critically high <=150 [facility] Comment on above: Performed By: #### L IPID #### [facility] [address] [place], [place] [address] Dr. Kiran Ivey VLDL CALC 36.6 mg/dL Normal [facility] Comment on above: Performed By: #### L IPID #### [facility] [address] [place], [place] [address] Dr. Kiran Ivey General Surgery Office/Clini c [...] Sister. COPD: Father. Heart disease: Father. Normal [facility] Comment on above: Result Comment: Elec jasonnically Signed By: CAMI HUNT, Naye Bell\Date and Time Signed: 05/02/22 15:50 EST Reminderson 05-02-2022 Reminders - From: Suad Fitzpatrick LPN To: N - Clinical; Sent: 05/02/2022 15:51:15 EST Show up: 03/20/2027 07:00:00 EST Subject: colonoscopy recall Due Date/Time: 04/19/2027 07:00:00 EST Reminder/Recall Patient is due for colonoscopy 04/19/2027 due to history of colonic polyp. Normal [facility] Pathology Noteon 04-21-2022 Pathology Note [id number]#[id number]:127 Normal [facility] Outside Colonoscopyon 2021 Outside Colonoscopy [id number]#[id number]:127 Normal [facility] POINT OF CARE GLUCOSEon 03-24 Glucose [Mass/Vol] 114 mg/dL Critically high 74-106 [facility] Comment on above: Performed By: #### P OCGLUC #### [facility] [address] [place] [address] Dr. Kiran Ivey Lab Reportson 2022 Lab Reports [id number]#[id number]:127 Normal [facility] Covid-19 PCR (CVDTBH)on 03-24 SARS-CoV-2 (COVID-19) RNA JOANNA+probe Ql (Unsp spec) Not detected Normal NOT DETECTED [facility] Comment on above: Result Comment: This test is not yet approved or cleared by the [place] FDA. When there are no FDA-approved or cleared tests available, and other criteria are met, FDA can make tests available under an emergency access mechanism called an Emergency Use Authorization (EUA). The EUA for this test is supported by the [place] of Health and Human Service's (HHS's) declaration [...] consistent with SARS-CoV-2. Performed By: #### C [facility] #### [facility] [address] [place] [address] Dr. Kiran Ivey Pre-Certification Formon Pre-Certification Form [id number]#[id number]:127 Normal [facility] Consent for Procedure/Surger yon 03-20-2022 Consent for Procedure/Surgery [id number]#[id number]:127 [facility] Ambulatory Visit Summaryon 1 05-13-2021 Ambulatory Visit Summary NONI SOTO :1975 Visit Date:03/13/2022 Ambulatory Visit Instructions Your [...] Testicular hypofunction Vapes nicotine containing substance Normal [facility] CBC AUTO DIFFon 03-09-2022 BASO # 0.0 103/ul Normal 0.0-0.1 [facility] Comment on above: Performed By: #### C BC #### [facility] [address] [address] [address] Kiran Ivey Basophils/100 WBC (Bld) 0.6 % Normal 0.2-2.0 [facility] Comment on above: Performed By: #### C BC #### [facility] [address] [address] [address] Kiran Ivey EO # 0.0 103/ul Normal 0.0-0.7 [facility] Comment on above: Performed By: #### C BC #### [facility] [address] [address] [address] Kiran Ivey Eosinophils/100 WBC (Bld) 1.2 % Normal 0.9-7.0 [facility] Comment on above: Performed By: #### C BC #### [facility] [address] [place] [address] Dr. Kiran Ivey Erythrocyte distribution width (RBC) [Ratio] 16.7 % Critically high 11.0-15.0 [facility] Comment on above: Performed By: #### C BC #### [facility] [address] [place] [address] Dr. Kiran Ivey Hematocrit (Bld) [Volume fraction] 38.5 % Critically low 42.0-54.0 [facility] Comment on above: Performed By: #### C BC #### [facility] [address] [place] [address] Dr. Kiran Ivey Hemoglobin (Bld) [Mass/Vol] 11.6 g/dL Critically low 14.0-18.0 [facility] Comment on above: Performed By: #### C BC #### [facility] [address] [place] [address] Dr. Kiran Ivey IG # 0.01 10e3/ul Normal 0.00-0.03 [facility] Comment on above: Performed By: #### C BC #### [facility] [address] [place] [address] Dr. Kiran Ivey IG % 0.3 % Normal 0.0-0.5 [facility] Comment on above: Performed By: #### C BC #### [facility] [address] [place] [address] Dr. Kiran Ivey LYMPH # 1.2 103/ul Normal 1.2-3.8 [facility] Comment on above: Performed By: #### C BC #### [facility] [address] [place] [address] Dr. Kiran Ivey Lymphocytes/100 WBC (Bld) 36.0 % Normal 20.5-60.0 [facility] Comment on above: Performed By: #### C BC #### [facility] [address] [place] [address] Dr. Kiran Ivey MANUAL DIFF REQ NO Normal [facility] Comment on above: Performed By: #### C BC #### [facility] [address] [place] [address] Dr. Kiran Ivey MCH (RBC) [Entitic mass] 22.2 pg Critically low 25.9-34.0 [facility] Comment on above: Performed By: #### C BC #### [facility] [address] [address] [address] Kiran Ivey MCHC (RBC) [Mass/Vol] 30.1 g/dL Normal 29.9-35.2 [facility] Comment on above: Performed By: #### C BC #### [facility] [address] [place] [address] Dr. Kiran Ivey MCV (RBC) [Entitic vol] 73.8 fL Critically low 80.0-94.0 [facility] Comment on above: Performed By: #### C BC #### [facility] [address] [place] [address] Dr. Kiran Ivey MONO # 0.5 103/ul Normal 0.3-0.8 [facility] Comment on above: Performed By: #### C BC #### [facility] [address] [place] [address] Dr. Kiran Ivey Monocytes/100 WBC (Bld) 15.1 % Critically high 1.7-12.0 [facility] Comment on above: Performed By: #### C BC #### [facility] [address] [place] [address] Dr. Kiran Ivey NEUT # 1.5 103/ul Normal 1.4-6.5 [facility] Comment on above: Performed By: #### C BC #### [facility] [address] [place] [address] Dr. Kiran Ivey Neutrophils/100 WBC (Bld) 46.8 % Normal 43.0-75.0 [facility] Comment on above: Performed By: #### C BC #### [facility] [address] [place] [address] Dr. Kiran Ivey Platelet mean volume (Bld) [Entitic vol] 10.2 fL Normal 9.5-13.5 [facility] Comment on above: Performed By: #### C BC #### [facility] [address] [place] [address] Dr. Kiran Ivey PLT 168 103/ul Normal 150-450 [facility] Comment on above: Performed By: #### C BC #### [facility] [address] [place] [address] Dr. Kiran Ivey RBC 5.22 106/ul Normal 4.70-6.10 [facility] Comment on above: Performed By: #### C BC #### [facility] [address] [address] [address] Kiran Ivey WBC 3.3 103/ul Critically low 4.0-11.0 [facility] Comment on above: Performed By: #### C BC #### [facility] [address] [place] [address] Dr. Kiran Ivey PROF CHEM 8 (BAS METB)on Anion gap [Moles/Vol] 10.3 mmol/L Normal [facility] Comment on above: Performed By: #### B MP #### [facility] [address] [place] [address] Dr. Kiran Ivey Calcium [Mass/Vol] 8.5 mg/dL Normal 8.5-10.1 [facility] Comment on above: Performed By: #### B MP #### [facility] [address] [place] [address] Dr. Kiran Ivey Chloride [Moles/Vol] 99 mmol/L Normal 98-107 [facility] Comment on above: Performed By: #### B MP #### [facility] [address] [place] [address] Dr. Kiran Ivey CO2 [Moles/Vol] 28.3 mmol/L Normal 21.0-32.0 [facility] Comment on above: Performed By: #### B MP #### [facility] [address] [place] [address] Dr. Kiran Ivey Creatinine [Mass/Vol] 0.81 mg/dL Normal 0.70-1.30 [facility] Comment on above: Performed By: #### B MP #### [facility] [address] [place] [address] Dr. Kiran Ivey EGFR-AF KYRGYZ >60 Normal >=60 [facility] Comment on above: Performed By: #### B MP #### [facility] [address] [place] [address] Dr. Kiran Ivey EGFR-NON AF KYRGYZ >60 Normal >=60 [facility] Comment on above: Performed By: #### B MP #### [facility] [address] [place] [address] Dr. Kiran Ivey Glucose [Mass/Vol] 152 mg/dL Critically high 74-106 [facility] Comment on above: Performed By: #### B MP #### [facility] [address] [place] [address] Dr. Kiran Ivey Potassium [Moles/Vol] 4.6 mmol/L Normal 3.5-5.1 [facility] Comment on above: Performed By: #### B MP #### [facility] [address] [place] [address] Dr. Kiran Ivey Sodium [Moles/Vol] 133 mmol/L Critically low 136-145 [facility] Comment on above: Performed By: #### B MP #### [facility] [address] [place] [address] Dr. Kiran Ivey Urea nitrogen [Mass/Vol] 13.0 mg/dL Normal 7.0-18.0 [facility] Comment on above: Performed By: #### B MP #### [facility] [address] [place] [address] Dr. Kiran Ivey Urea nitrogen/Creatinin e [Mass ratio] 16.0 mg/mg Normal [facility] Comment on above: Performed By: #### B MP #### [facility] [address] [place] [address] Dr. Kiran Ivey Physician Referralon 022 Physician Referral [id number]:127 Normal [facility] TESTOSTERONE, TOTALon 2021 Testosterone [Mass/Vol] 56 ng/dL Critically low 264-916 [facility] Comment on above: Result Comment: Adul t male reference interval is based on a population of healthy nonobese males (BMI <30) between 19 and 39 years old. Carlos et.al. JCEM 2017,102;1591-4588. PMID: [id number]. Performed By: #### C BC #### [facility] [address] [place] [address] Dr. Kiran Ivey AMYLASEon 02-15-2022 Amylase [Catalytic activity/Vol] 35 U/L Normal 25-115 [facility] Comment on above: Performed By: #### C BC #### [facility] [address] [place] [address] Dr. Kiran Ivey BNPon 02-15-2022 Natriuretic peptide B (Bld) [Mass/Vol] 7.0 pg/mL Normal <=450.0 [facility] Comment on above: Performed By: #### C BC #### [facility] [address] [place] [address] Dr. Kiran Ivey CBC AUTO DIFFon 02-15-2022 BASO # 0.1 103/ul Normal 0.0-0.1 [facility] Comment on above: Performed By: #### C BC #### [facility] [address] [place] [address] Dr. Kiran Ivey Basophils/100 WBC (Bld) 0.7 % Normal 0.2-2.0 [facility] Comment on above: Performed By: #### C BC #### [facility] [address] [place] [address] Dr. Kiran Ivey EO # 0.2 103/ul Normal 0.0-0.7 [facility] Comment on above: Performed By: #### C BC #### [facility] [address] [place] [address] Dr. Kiran Ivey Eosinophils/100 WBC (Bld) 2.3 % Normal 0.9-7.0 [facility] Comment on above: Performed By: #### C BC #### [facility] [address] [place] [address] Dr. Kiran Ivey Erythrocyte distribution width (RBC) [Ratio] 15.2 % Critically high 11.0-15.0 [facility] Comment on above: Performed By: #### C BC #### [facility] [address] [place] [address] Dr. Kiran Ivey Hematocrit (Bld) [Volume fraction] 38.3 % Critically low 42.0-54.0 [facility] Comment on above: Performed By: #### C BC #### [facility] [address] [place] [address] Dr. Kiran Ivey Hemoglobin (Bld) [Mass/Vol] 12.1 g/dL Critically low 14.0-18.0 [facility] Comment on above: Performed By: #### C BC #### [facility] [address] [place] [address] Dr. Kiran Ivey IG # 0.06 10e3/ul Critically high 0.00-0.03 [facility] Comment on above: Performed By: #### C BC #### [facility] [address] [place] [address] Dr. Kiran Ivey IG % 0.6 % Critically high 0.0-0.5 [facility] Comment on above: Performed By: #### C BC #### [facility] [address] [place] [address] Dr. Kiran Ivey LYMPH # 2.6 103/ul Normal 1.2-3.8 [facility] Comment on above: Performed By: #### C BC #### [facility] [address] [place] [address] Dr. Kiran Ivey Lymphocytes/100 WBC (Bld) 25.0 % Normal 20.5-60.0 [facility] Comment on above: Performed By: #### C BC #### [facility] [address] [place] [address] Dr. Kiran Ivey MANUAL DIFF REQ NO Normal [facility] Comment on above: Performed By: #### C BC #### [facility] [address] [place] [address] Dr. Kiran Ivey MCH (RBC) [Entitic mass] 22.5 pg Critically low 25.9-34.0 [facility] Comment on above: Performed By: #### C BC #### [facility] [address] [address] [address] Kiran Ivey MCHC (RBC) [Mass/Vol] 31.6 g/dL Normal 29.9-35.2 [facility] Comment on above: Performed By: #### C BC #### [facility] [address] [address] [address] Kiran Ivey MCV (RBC) [Entitic vol] 71.2 fL Critically low 80.0-94.0 [facility] Comment on above: Performed By: #### C BC #### [facility] [address] [address] [address] Kiran Ivey MONO # 0.7 103/ul Normal 0.3-0.8 [facility] Comment on above: Performed By: #### C BC #### [facility] [address] [address] [address] Kiran Ivey Monocytes/100 WBC (Bld) 6.6 % Normal 1.7-12.0 [facility] Comment on above: Performed By: #### C BC #### [facility] [address] [address] [address] Kiran Ivey NEUT # 6.7 103/ul Critically high 1.4-6.5 [facility] Comment on above: Performed By: #### C BC #### [facility] [address] [address] [address] Kiran Ivey Neutrophils/100 WBC (Bld) 64.8 % Normal 43.0-75.0 [facility] Comment on above: Performed By: #### C BC #### [facility] [address] [address] [address] Kiran Ivey Platelet mean volume (Bld) [Entitic vol] 9.0 fL Critically low 9.5-13.5 [facility] Comment on above: Performed By: #### C BC #### [facility] [address] [address] [address] Kiran Ivey PLT 338 103/ul Normal 150-450 [facility] Comment on above: Performed By: #### C BC #### [facility] [address] [address] [address] Kiran Ivye RBC 5.38 106/ul Normal 4.70-6.10 [facility] Comment on above: Performed By: #### C BC #### [facility] [address] [address] [address] Kiran Ivey WBC 10.3 103/ul Normal 4.0-11.0 [facility] Comment on above: Performed By: #### C BC #### [facility] [address] [address] [address] Kiran Ivey FREE THYROXINE INDEX T7on FTI 3.04 Normal 1.30-4.50 [facility] Comment on above: Performed By: #### C BC #### [facility] [address] [place] [address] Dr. Kiran Ivey T3U 33.0 % Normal 33.0-40.0 [facility] Comment on above: Performed By: #### C BC #### [facility] [address] [place] [address] Dr. Kiran Ivey T4 [Mass/Vol] 9.20 ug/dL Normal 4.50-12.10 [facility] Comment on above: Performed By: #### C BC #### [facility] [address] [place] [address] Dr. Kiran Ivey IRONon 02-15-2022 Iron [Mass/Vol] 25.0 ug/dL Critically low 65.0-175.0 [facility] Comment on above: Performed By: #### C BC #### [facility] [address] [place] [address] Dr. Kiran Ivey LIPASEon 02-15-2022 Lipase [Catalytic activity/Vol] 90.0 U/L Normal 73.0-393.0 [facility] Comment on above: Performed By: #### C BC #### [facility] [address] [place] [address] Dr. Kiran Ivey PROF 14(COMP METB)on 022 Albumin [Mass/Vol] 3.4 g/dL Normal 3.4-5.0 [facility] Comment on above: Performed By: #### C BC #### [facility] [address] [place] [address] Dr. Kiran Ivey Albumin/Globulin [Mass ratio] 0.8 {ratio} Normal [facility] Comment on above: Performed By: #### C BC #### [facility] [address] [place] [address] Dr. Kiran Ivey ALP [Catalytic activity/Vol] 118 U/L Critically high 46-116 [facility] Comment on above: Performed By: #### C BC #### [facility] [address] [place] [address] Dr. Kiran Ivey ALT [Catalytic activity/Vol] 30 U/L Normal 16-63 [facility] Comment on above: Performed By: #### C BC #### [facility] [address] [place] [address] Dr. Kiran Ivey Anion gap [Moles/Vol] 9.8 mmol/L Normal [facility] Comment on above: Performed By: #### C BC #### [facility] [address] [place] [address] Dr. Kiran Ivey AST [Catalytic activity/Vol] 20 U/L Normal 15-37 [facility] Comment on above: Performed By: #### C BC #### [facility] [address] [place] [address] Dr. Kiran Ivey Bilirubin [Mass/Vol] 0.2 mg/dL Normal 0.2-1.0 [facility] Comment on above: Performed By: #### C BC #### [facility] [address] [place] [address] Dr. Kiran Ivey Calcium [Mass/Vol] 9.5 mg/dL Normal 8.5-10.1 [facility] Comment on above: Performed By: #### C BC #### [facility] [address] [place] [address] Dr. Kiran Ivey Chloride [Moles/Vol] 99 mmol/L Normal 98-107 [facility] Comment on above: Performed By: #### C BC #### [facility] [address] [address] [address] Kiran Ivey CO2 [Moles/Vol] 29.1 mmol/L Normal 21.0-32.0 [facility] Comment on above: Performed By: #### C BC #### [facility] [address] [address] [address] Kiran Ivey Creatinine [Mass/Vol] 0.83 mg/dL Normal 0.70-1.30 [facility] Comment on above: Performed By: #### C BC #### [facility] [address] [address] [address] Kiran Ivey EGFR-AF KYRGYZ >60 Normal >=60 [facility] Comment on above: Performed By: #### C BC #### [facility] [address] [place] [address] Dr. Kiran Ivey EGFR-NON AF KYRGYZ >60 Normal >=60 [facility] Comment on above: Performed By: #### C BC #### [facility] [address] [place] [address] Dr. Kiran Ivey Globulin (S) [Mass/Vol] 4.1 g/dL Normal [facility] Comment on above: Performed By: #### C BC #### [facility] [address] [address] [address] Kiran Ivey Glucose [Mass/Vol] 157 mg/dL Critically high 74-106 [facility] Comment on above: Performed By: #### C BC #### [facility] [address] [place] [address] Dr. Kiran Ivey Potassium [Moles/Vol] 3.9 mmol/L Normal 3.5-5.1 [facility] Comment on above: Performed By: #### C BC #### [facility] [address] [place] [address] Dr. Kiran Ivey Protein [Mass/Vol] 7.5 g/dL Normal 6.4-8.2 [facility] Comment on above: Performed By: #### C BC #### [facility] [address] [address] [address] Kiran Ivey Sodium [Moles/Vol] 134 mmol/L Critically low 136-145 [facility] Comment on above: Performed By: #### C BC #### [facility] [id number] Kiran Ivey Urea nitrogen [Mass/Vol] 13.0 mg/dL Normal 7.0-18.0 [facility] Comment on above: Performed By: #### C BC #### [facility] [address] [place] [address] Dr. Kiran Ivey Urea nitrogen/Creatinin e [Mass ratio] 15.7 mg/mg Normal [facility] Comment on above: Performed By: #### C BC #### [facility] [address] [place] [address] Dr. Kiran Ivey TSHon 02-15-2022 TSH 1.756 uIU/mL Normal 0.358-3.740 [facility] Comment on above: Performed By: #### C BC #### [facility] [address] [place] [address] Dr. Kiran Ivey Covid-19 PCR ([facility])on 12-23 SARS-CoV-2 (COVID-19) RNA JOANNA+probe Ql (Unsp spec) Not detected Normal NOT DETECTED [facility] Comment on above: Result Comment: [...] for this test is supported by the [place] of Health and Human Service's declaration that [...] be used). Performed By: #### C #### [facility] [address] [place] [address] Dr. Kiran Ivey ECHOCARDIO M/2D COMPLETEon 0 09-14-2021 ECHOCARDIO M/2D COMPLETE Patient: NONI SOTO. Exam Date: 09/14/2021 : 1975 Gender:M Ordering : DR JADYN WILHELM . Admission #: [id number] Family : Order #: [id number] CLICK HERE TO VIEW EXAM ECHOCARDIOGRAM REPORT [...] Perez M.D. on 09/15/2021 at 13:12 Normal [facility] CREATININEon 09-09-2021 Creatinine [Mass/Vol] 0.95 mg/dL Normal 0.70-1.30 [facility] Comment on above: Performed By: #### C BC #### [facility] [address] [place] [address] Dr. Kiran Ivey EGFR-AF KYRGYZ >60 Normal >=60 [facility] Comment on above: Performed By: #### C BC #### [facility] [address] [place] [address] Dr. Kiran Ivey EGFR-NON AF KYRGYZ >60 Normal >=60 [facility] Comment on above: Performed By: #### C BC #### [facility] [address] [place] [address] Dr. Kiran Ivey CTA CHEST WO W [...] by: IGNACIO FERRARA Date: 2021-09-09 10:05 Normal [facility] US WOODROW DOP LEG BILon [...] by: IGNACIO FERRARA Date: 2021-09-05 16:26 Normal [facility] POC GLUCOSE LABon 01-09-2019 Glucose [Mass/Vol] 233 mg/dL High 70-100 [facility] Comment on above: Performed By: #### 8 [id number] #### [facility] [address] [place] [address], [place] Glucose [Mass/Vol] 199 mg/dL High 70-100 [facility] Comment on above: Performed By: #### 8 [id number] #### [facility] [address] [place] [address], [place] POC GLUCOSE LABon 01-08-2019 Glucose [Mass/Vol] 251 mg/dL High 70-100 [facility] Comment on above: Performed By: #### 8 [id number] #### [facility] [address] [place] [address], [place] Glucose [Mass/Vol] 212 mg/dL High 70-100 [facility] Comment on above: Performed By: #### 8 5499 #### [facility] [address] [place] [address], [place] Glucose [Mass/Vol] 238 mg/dL High 70-100 [facility] Comment on above: Performed By: #### 8 [id number] #### [facility] [address] [place] [address], [place] Glucose [Mass/Vol] 160 mg/dL High 70-100 [facility] Comment on above: Performed By: #### 0 0121 #### [facility] [address] [place] [address], [place] BASIC METABOLIC PANELon 12-22 Calcium [Mass/Vol] 9.3 mg/dL Normal 8.6-10.3 [facility] Comment on above: Order Comment: Yes: Add to Previous draw if able Performed By: #### 0 0121 #### [facility] [address] [place] [address], [place] Chloride [Moles/Vol] 100 mmol/L Normal 98-107 [facility] Comment on above: Order Comment: Yes: Add to Previous draw if able Performed By: #### 0 0121 #### [facility] [address] [place] [address], [place] CO2 [Moles/Vol] 30 mmol/L Normal 21-31 [facility] Comment on above: Order Comment: Yes: Add to Previous draw if able Performed By: #### 0 0121 #### [facility] [address] [place] [address], [place] Creatinine [Mass/Vol] 0.74 mg/dL Normal 0.70-1.30 [facility] Comment on above: Order Comment: Yes: Add to Previous draw if able Performed By: #### 0 0121 #### [facility] [address] [place] [address], [place] GFR/1.73 sq M predicted among blacks MDRD (S/P/Bld) [Vol rate/Area] mL/min/{1.73_m2} Normal >60 [facility] Comment on above: Order Comment: Yes: Add to Previous draw if able Performed By: #### 0 0121 #### [facility] [address] [place] [address], [facility] GFR/1.73 sq M predicted among non-blacks MDRD (S/P/Bld) [Vol rate/Area] mL/min/{1.73_m2} Normal >60 [facility] Comment on above: Order Comment: Yes: Add to Previous draw if able Performed By: #### 0 0121 #### [facility] [address] [place] [address], [facility] Glucose [Mass/Vol] 176 mg/dL High 70-100 [facility] Comment on above: Order Comment: Yes: Add to Previous draw if able Performed By: #### 0 0121 #### [facility] [address] [place] [address], [facility] Potassium [Moles/Vol] 3.6 mmol/L Normal 3.5-5.1 [facility] Comment on above: Order Comment: Yes: Add to Previous draw if able Performed By: #### 0 0121 #### [facility] [address] [place] [address], [facility] Sodium [Moles/Vol] 137 mmol/L Normal 136-145 [facility] Comment on above: Order Comment: Yes: Add to Previous draw if able Performed By: #### 0 0121 #### [facility] [address] [place] [address], [facility] Urea nitrogen [Mass/Vol] 15 mg/dL Normal 7-25 [facility] Comment on above: Order Comment: Yes: Add to Previous draw if able Performed By: #### 0 0121 #### [facility] [address] [place] [address], [facility] CBC COMPLETE BLOOD COUNTon 0 - Erythrocyte distribution width (RBC) [Ratio] 12.7 % Normal 11.5-15.0 [facility] Comment on above: Order Comment: Yes: Add to Previous draw if able Performed By: #### 0 0121 #### [facility] [address] [place] [address], [facility] Hematocrit (Bld) [Volume fraction] 35.4 % Low 39.0-50.0 [facility] Comment on above: Order Comment: Yes: Add to Previous draw if able Performed By: #### 0 0121 #### [facility] [address] [place] [address], [facility] Hemoglobin (Bld) [Mass/Vol] 11.8 g/dL Low 13.0-17.0 [facility] Comment on above: Order Comment: Yes: Add to Previous draw if able Performed By: #### 0 0121 #### [facility] [address] [facility] [place] [address], [facility] MCH (RBC) [Entitic mass] 26.1 pg Low 27.0-33.0 [facility] Comment on above: Order Comment: Yes: Add to Previous draw if able Performed By: #### 0 0121 #### [facility] [address] [place] [address], [facility] MCHC (RBC) [Mass/Vol] 33.3 g/dL Normal 32.0-35.0 [facility] Comment on above: Order Comment: Yes: Add to Previous draw if able Performed By: #### 0 0121 #### [facility] [address] [place] [address], [facility] MCV (RBC) [Entitic vol] 78.3 fL Low 82.0-98.0 [facility] Comment on above: Order Comment: Yes: Add to Previous draw if able Performed By: #### 0 0121 #### [facility] [address] [facility] [place] [address], [facility] Nucleated RBC/100 WBC (Bld) [Ratio] 0 % Normal 0-0 [facility] Comment on above: Order Comment: Yes: Add to Previous draw if able Performed By: #### 0 0121 #### [facility] [address] [facility] [place] [place] [address], [facility] PLAT CNT 411 10*3/uL High 150-400 [facility] Comment on above: Order Comment: Yes: Add to Previous draw if able Performed By: #### 0 0121 #### [facility] [address] [place] [address], [place] RBC (Bld) [#/Vol] 4.52 10*6/uL Normal 4.20-5.70 [facility] Comment on above: Order Comment: Yes: Add to Previous draw if able Performed By: #### 0 0121 #### [facility] [address] [place] [address], [facility] WBC (Bld) [#/Vol] 7.62 10*3/uL Normal 4.00-10.60 [facility] Comment on above: Order Comment: Yes: Add to Previous draw if able Performed By: #### 0 0121 #### [facility] [address] [place] [address], [facility] HEMOGLOBIN A1Con 01-07-2019 HbA1c (Bld) [Mass fraction] 338 mg/dL High 70-126 [facility] Comment on above: Order Comment: Yes: Add to Previous draw if able Performed By: #### 8 5499 #### [facility] [address] [place] [address], [facility] HbA1c (Bld) [Mass fraction] 13.4 % High 4.0-6.0 [facility] Comment on above: Order Comment: Yes: Add to Previous draw if able Performed By: #### 8 5499 #### [facility] [address] [place] [address], [facility] POC GLUCOSE LABon 01-07-2019 Glucose [Mass/Vol] 317 mg/dL High 70-100 [facility] Comment on above: Performed By: #### 0 0121 #### [facility] [address] [place] [address], [place] Glucose [Mass/Vol] 142 mg/dL High 70-100 [facility] Comment on above: Performed By: #### 0 0121 #### [facility] [address] [place] [address], [facility] Glucose [Mass/Vol] 190 mg/dL High 70-100 [facility] Comment on above: Performed By: #### 0 0121 #### [facility] [address] [place] [address], [facility] VANCOMYCIN TROUGHon 01-08-20 19 VANCOMYCIN TROU 11.5 mcg/mL Normal 5.0-20.0 [facility] Comment on above: Performed By: #### 0 0121 #### [facility] [address] [facility] [place] [address], [facility] BASIC METABOLIC PANELon 12-22 Calcium [Mass/Vol] 9.1 mg/dL Normal 8.6-10.3 [facility] Comment on above: Order Comment: No: D o not add to previous draw Performed By: #### 1 0070, 87397, 52208 #### [facility] [address] [facility] [place] [address], [facility] Chloride [Moles/Vol] 100 mmol/L Normal 98-107 [facility] Comment on above: Order Comment: No: D o not add to previous draw Performed By: #### 1 0070, 87118, 80188 #### [facility] [address] [facility] [place] [address], [facility] CO2 [Moles/Vol] 29 mmol/L Normal 21-31 [facility] Comment on above: Order Comment: No: D o not add to previous draw Performed By: #### 1 0070, 55772, 99139 #### [facility] [address] [place] [id number], [place] Creatinine [Mass/Vol] 0.57 mg/dL Low 0.70-1.30 [facility] Comment on above: Order Comment: No: D o not add to previous draw Performed By: #### 1 0, 49280, 69706 #### [facility] [address] [place] [address], [place] GFR/1.73 sq M predicted among blacks MDRD (S/P/Bld) [Vol rate/Area] mL/min/{1.73_m2} Normal >60 [facility] Comment on above: Order Comment: No: D o not add to previous draw Performed By: #### 1 0, 37634, 76560 #### [facility] [address] [place] [address], [place] GFR/1.73 sq M predicted among non-blacks MDRD (S/P/Bld) [Vol rate/Area] mL/min/{1.73_m2} Normal >60 [facility] Comment on above: Order Comment: No: D o not add to previous draw Performed By: #### 1 69, 30878, 97217 #### [facility] [address] [place] [address], [place] Glucose [Mass/Vol] 157 mg/dL High 70-100 [facility] Comment on above: Order Comment: No: D o not add to previous draw Performed By: #### 1 0, 67898, 55540 #### [facility] [address] [place] [address], [place] Potassium [Moles/Vol] 3.5 mmol/L Normal 3.5-5.1 [facility] Comment on above: Order Comment: No: D o not add to previous draw Performed By: #### 1 0, 58725, 18605 #### [facility] [address] [place] [address], [place] Sodium [Moles/Vol] 135 mmol/L Low 136-145 [facility] Comment on above: Order Comment: No: D o not add to previous draw Performed By: #### 1 0, 21057, 32751 #### [facility] [address] Urea nitrogen [Mass/Vol] 7 mg/dL Normal 7-25 [facility] Comment on above: Order Comment: No: D o not add to previous draw Performed By: #### 1 0070, 38845, 14856 #### [facility] [address] [place] [address], [facility] CBC W/DIFFon 01-06-2019 ABS BASOPHILS 0.1 10*3/uL Normal 0.0-0.2 [facility] Comment on above: Order Comment: No: D o not add to previous draw Performed By: #### 5 0103 #### [facility] [address] [place] [address], [facility] ABS IMM GRANS 0.1 10*3/uL Normal 0.0-0.2 [facility] Comment on above: Order Comment: No: D o not add to previous draw Performed By: #### 5 0103 #### [facility] [address] [place] [address], [facility] ABS NEUTROPHILS 4.5 10*3/uL Normal 1.6-7.6 [facility] Comment on above: Order Comment: No: D o not add to previous draw Performed By: #### 5 0103 #### [facility] [address] [place] [address], [facility] Basophils/100 WBC (Bld) 0.7 % Normal 0.0-1.0 [facility] Comment on above: Order Comment: No: D o not add to previous draw Performed By: #### 5 0103 #### [facility] [address] [place] [address], [facility] Eosinophils (Bld) [#/Vol] 0.3 10*3/uL Normal 0.0-0.5 [facility] Comment on above: Order Comment: No: D o not add to previous draw Performed By: #### 5 0103 #### [facility] [address] Eosinophils/100 WBC (Bld) 3.4 % Normal 0.0-6.0 [facility] Comment on above: Order Comment: No: D o not add to previous draw Performed By: #### 5 0103 #### [facility] [address] [place] [id number], [facility] Erythrocyte distribution width (RBC) [Ratio] 12.7 % Normal 11.5-15.0 [facility] Comment on above: Order Comment: No: D o not add to previous draw Performed By: #### 5 0103 #### [facility] [address] [facility] [address] Hematocrit (Bld) [Volume fraction] 35.1 % Low 39.0-50.0 [facility] Comment on above: Order Comment: No: D o not add to previous draw Performed By: #### 5 0103 #### [facility] [address] [place] [address], [facility] Hemoglobin (Bld) [Mass/Vol] 11.9 g/dL Low 13.0-17.0 [facility] Comment on above: Order Comment: No: D o not add to previous draw Performed By: #### 5 0103 #### [facility] [address] [facility] [place] [address], [facility] IMMATURE GRANS 0.6 % Normal 0.0-1.0 [facility] Comment on above: Order Comment: No: D o not add to previous draw Performed By: #### 5 0103 #### [facility] [address] [place] [address], [facility] Lymphocytes (Bld) [#/Vol] 3.0 10*3/uL Normal 1.2-4.0 [facility] Comment on above: Order Comment: No: D o not add to previous draw Performed By: #### 5 0103 #### [facility] [address] Lymphocytes/100 WBC (Bld) 34.7 % Normal 20.0-45.0 [facility] Comment on above: Order Comment: No: D o not add to previous draw Performed By: #### 5 0103 #### [facility] [address] [place] [address], [facility] MCH (RBC) [Entitic mass] 26.6 pg Low 27.0-33.0 [facility] Comment on above: Order Comment: No: D o not add to previous draw Performed By: #### 5 0103 #### [facility] [address] [place] [address], [facility] MCHC (RBC) [Mass/Vol] 33.9 g/dL Normal 32.0-35.0 [facility] Comment on above: Order Comment: No: D o not add to previous draw Performed By: #### 5 0103 #### [facility] [address] [place] [address], [facility] MCV (RBC) [Entitic vol] 78.5 fL Low 82.0-98.0 [facility] Comment on above: Order Comment: No: D o not add to previous draw Performed By: #### 5 0103 #### [facility] [address] [place] [address], [facility] Monocytes (Bld) [#/Vol] 0.7 10*3/uL Normal 0.1-1.0 [facility] Comment on above: Order Comment: No: D o not add to previous draw Performed By: #### 5 0103 #### [facility] [address] [place] [address], [facility] MONOS 8.1 % Normal 5.0-12.0 [facility] Comment on above: Order Comment: No: D o not add to previous draw Performed By: #### 5 3 #### [facility] [address] [place] [address], [place] Neutrophils/100 WBC (Bld) 52.5 % Normal 40.0-72.0 [facility] Comment on above: Order Comment: No: D o not add to previous draw Performed By: #### 5 0103 #### [facility] [address] [place] [address], [place] Nucleated RBC/100 WBC (Bld) [Ratio] 0 % Normal 0-0 [facility] Comment on above: Order Comment: No: D o not add to previous draw Performed By: #### 5 0103 #### [facility] [address] [place] [address], [place] PLAT CNT 445 10*3/uL High 150-400 [facility] Comment on above: Order Comment: No: D o not add to previous draw Performed By: #### 5 0103 #### [facility] [address] [place] [address], [facility] RBC (Bld) [#/Vol] 4.47 10*6/uL Normal 4.20-5.70 [facility] Comment on above: Order Comment: No: D o not add to previous draw Performed By: #### 5 0103 #### [facility] [address] [facility] [place] [address], [place] WBC (Bld) [#/Vol] 8.51 10*3/uL Normal 4.00-10.60 [facility] Comment on above: Order Comment: No: D o not add to previous draw Performed By: #### 5 0103 #### [facility] [address] [place] [address], [place] MAGNESIUM BLOODon 01-06-2019 Magnesium [Mass/Vol] 1.5 mg/dL Low 1.9-2.7 [facility] Comment on above: Order Comment: No: D o not add to previous draw Performed By: #### 1 0070, 02703, 56708 #### [facility] [address] [place] [address], [place] PHOSPHORUS BLOODon 9 Phosphate [Mass/Vol] 3.0 mg/dL Normal 2.5-5.0 [facility] Comment on above: Order Comment: No: D o not add to previous draw Performed By: #### 1 0070, 06907, 07299 #### [facility] [address] [place] [address], [place] POC GLUCOSE LABon 01-06-2019 Glucose [Mass/Vol] 293 mg/dL High 70-100 [facility] Comment on above: Performed By: #### 0 0121 #### [facility] [address] [place] [address], [place] Glucose [Mass/Vol] 317 mg/dL High 70-100 [facility] Comment on above: Performed By: #### 0 0121 #### [facility] [address] [place] [address], [place] Glucose [Mass/Vol] 264 mg/dL High 70-100 [facility] Comment on above: Performed By: #### 0 0121 #### [facility] [address] [place] [address], [place] Glucose [Mass/Vol] 104 mg/dL High 70-100 [facility] Comment on above: Performed By: #### 8 5499 #### [facility] [address] [place] [address], [place] Glucose [Mass/Vol] 236 mg/dL High 70-100 [facility] Comment on above: Performed By: #### 8 5499 #### [facility] [address] [place] [address], [place] Glucose [Mass/Vol] 247 mg/dL High 70-100 [facility] Comment on above: Performed By: #### 8 5499 #### [facility] [address] [place] [address], [place] CBC W/DIFFon 01-05-2019 ABS BASOPHILS 0.1 10*3/uL Normal 0.0-0.2 [facility] Comment on above: Performed By: #### 5 0103 #### [facility] [address] ABS IMM GRANS 0.1 10*3/uL Normal 0.0-0.2 [facility] Comment on above: Performed By: #### 5 0103 #### [facility] [address] [place] [address], [facility] ABS NEUTROPHILS 5.9 10*3/uL Normal 1.6-7.6 [facility] Comment on above: Performed By: #### 5 0103 #### [facility] [address] Basophils/100 WBC (Bld) 0.5 % Normal 0.0-1.0 [facility] Comment on above: Performed By: #### 5 0103 #### [facility] [address] Eosinophils (Bld) [#/Vol] 0.4 10*3/uL Normal 0.0-0.5 [facility] Comment on above: Performed By: #### 5 0103 #### [facility] [address] [place] [address], [facility] Eosinophils/100 WBC (Bld) 3.8 % Normal 0.0-6.0 [facility] Comment on above: Performed By: #### 5 0103 #### [facility] [address] Erythrocyte distribution width (RBC) [Ratio] 12.8 % Normal 11.5-15.0 [facility] Comment on above: Performed By: #### 5 3 #### [facility] [address] [place] [address], [facility] Hematocrit (Bld) [Volume fraction] 42.5 % Normal 39.0-50.0 [facility] Comment on above: Performed By: #### 5 0103 #### [facility] [address] [place] [address], [facility] Hemoglobin (Bld) [Mass/Vol] 14.2 g/dL Normal 13.0-17.0 [facility] Comment on above: Performed By: #### 5 0103 #### [facility] [address] [place] [address], [facility] IMMATURE GRANS 0.7 % Normal 0.0-1.0 [facility] Comment on above: Performed By: #### 5 3 #### [facility] [address] Lymphocytes (Bld) [#/Vol] 2.9 10*3/uL Normal 1.2-4.0 [facility] Comment on above: Performed By: #### 5 0103 #### [facility] [address] Lymphocytes/100 WBC (Bld) 28.8 % Normal 20.0-45.0 [facility] Comment on above: Performed By: #### 5 0103 #### [facility] [address] MCH (RBC) [Entitic mass] 25.8 pg Low 27.0-33.0 [facility] Comment on above: Performed By: #### 5 3 #### [facility] [address] MCHC (RBC) [Mass/Vol] 33.4 g/dL Normal 32.0-35.0 [facility] Comment on above: Performed By: #### 5 3 #### [facility] [address] [facility] [place] [address], [facility] MCV (RBC) [Entitic vol] 77.3 fL Low 82.0-98.0 [facility] Comment on above: Performed By: #### 5 0103 #### [facility] [address] [place] [address], [facility] Monocytes (Bld) [#/Vol] 0.8 10*3/uL Normal 0.1-1.0 [facility] Comment on above: Performed By: #### 102 #### [facility] [address] [place] [address], [facility] MONOS 8.1 % Normal 5.0-12.0 [facility] Comment on above: Performed By: #### 5 102 #### [facility] [address] [place] [address], [facility] Neutrophils/100 WBC (Bld) 58.1 % Normal 40.0-72.0 [facility] Comment on above: Performed By: #### 102 #### [facility] [address] Nucleated RBC/100 WBC (Bld) [Ratio] 0 % Normal 0-0 [facility] Comment on above: Performed By: #### 102 #### [facility] [address] [place] [address], [facility] PLAT CNT 524 10*3/uL High 150-400 [facility] Comment on above: Performed By: #### 5 102 #### [facility] [address] [place] [address], [facility] RBC (Bld) [#/Vol] 5.50 10*6/uL Normal 4.20-5.70 [facility] Comment on above: Performed By: #### 102 #### [facility] [address] [place] [address], [facility] WBC (Bld) [#/Vol] 10.19 10*3/uL Normal 4.00-10.60 [facility] Comment on above: Performed By: #### 102 #### [facility] [address] [place] [address], [facility] COMP METABOLIC PANELon 01-05 Albumin [Mass/Vol] 4.3 g/dL Normal 3.5-5.7 [facility] Comment on above: Performed By: #### 0 0121 #### [facility] [address] [place] [address], [facility] ALKALINE PHOSPH 115 IU/L High 34-104 [facility] Comment on above: Performed By: #### 0 0121 #### [facility] [address] [place] [address], [facility] ALT [Catalytic activity/Vol] 14 U/L Normal 7-52 [facility] Comment on above: Performed By: #### 0 0121 #### [facility] [address] [place] [address], [facility] AST [Catalytic activity/Vol] 16 U/L Normal 13-39 [facility] Comment on above: Performed By: #### 0 0121 #### [facility] [address] [place] [address], [facility] Bilirubin [Mass/Vol] 0.4 mg/dL Normal 0.3-1.0 [facility] Comment on above: Performed By: #### 0 0121 #### [facility] [address] [place] [address], [place] Calcium [Mass/Vol] 10.2 mg/dL Normal 8.6-10.3 [facility] Comment on above: Performed By: #### 0 0121 #### [facility] [address] [place] [address], [place] Chloride [Moles/Vol] 92 mmol/L Low 98-107 [facility] Comment on above: Performed By: #### 0 0121 #### [facility] [address] [place] [address], [place] CO2 [Moles/Vol] 32 mmol/L High 21-31 [facility] Comment on above: Performed By: #### 0 0121 #### [facility] [address] [place] [address], [facility] Creatinine [Mass/Vol] 0.74 mg/dL Normal 0.70-1.30 [facility] Comment on above: Performed By: #### 0 0121 #### [facility] [address] [place] [address], [facility] GFR/1.73 sq M predicted among blacks MDRD (S/P/Bld) [Vol rate/Area] mL/min/{1.73_m2} Normal >60 [facility] Comment on above: Performed By: #### 0 0121 #### [facility] [address] [place] [address], [facility] GFR/1.73 sq M predicted among non-blacks MDRD (S/P/Bld) [Vol rate/Area] mL/min/{1.73_m2} Normal >60 [facility] Comment on above: Performed By: #### 0 0121 #### [facility] [address] [facility] [place] [address], [facility] Glucose [Mass/Vol] 320 mg/dL High 70-100 [facility] Comment on above: Performed By: #### 0 0121 #### [facility] [address] [place] [address], [place] Potassium [Moles/Vol] 4.2 mmol/L Normal 3.5-5.1 [facility] Comment on above: Performed By: #### 0 0121 #### [facility] [address] [place] [address], [place] Protein [Mass/Vol] 8.6 g/dL High 6.0-8.3 [facility] Comment on above: Performed By: #### 0 0121 #### [facility] [address] Sodium [Moles/Vol] 133 mmol/L Low 136-145 [facility] Comment on above: Performed By: #### 0 0121 #### [address] Urea nitrogen [Mass/Vol] 9 mg/dL Normal 7-25 [facility] Comment on above: Performed By: #### 0 0121 #### [facility] [address] SOFT TISSUE NECK W CONTRA STon 01-05-2019 CT SOFT TISSUE NECK W CONTRAST [facility] Department of Radiology [address] [place] [address] Patient Name: NONI SOTO : 1975 Sex: M Age: Race: White Pt. Location: [facility] Patient Status: I Ordered Date: 01/05/2019 6:40:00 PM Completed Date: 01/05/2019 08:06 PM Requesting Provider: ARIES OLMSTEAD Attending Provider: KENTON FINCH Report Copy To: Signs & Symptoms: Mass/Tumor History: See Comments Comments: Exam: CT SOFT TISSUE NECK W CONTRAST CT SOFT TISSUE NECK W CONTRAST 01/05/2019 8:06 PM EDT SIGNS AND SYMPTOMS: Mass/Tumor TECHNOLOGIST COMMENTS: pt states he had a tooth removed aug 27 at dentist was on antibiotics and found [...] concur with these findings. Electronically signed by:Mamta Garcia. Transcribed by: [email or web address], User Resident: ANTONELLA WHITFIELD Electronically Signed by: MAMTA GARCIA @ 01/06/2019 09:55 AM I personally read this/these film(s) with this resident Normal [facility] Vital Signs Date Time Vital Sign Value Performing Clinician Alphonsosheron dev 03-13-2022 13:08-0500 Blood Pressure Location Naye CAMI [facility] 03-13-2022 13:08-0500 Diastolic blood pressure 97 mm[Hg] aNye FLEMINGL [facility] 03-13-2022 13:08-0500 Heart rate 89 /min Naye NILL [facility] 03-13-2022 13:08-0500 Respiratory rate 16 /min Naye FLEMINGL [facility] 03-13-2022 13:08-0500 Systolic blood pressure 160 mm[Hg] Naye FLEMINGL [facility] Encounters Encounter Date Encounter Type Care Provider Facility Start: 09-08-2024 End: 09-08-2024 Emergency department patient visit [facility] Start: 08-09-2024 End: 08-09-2024 Emergency department patient visit STEPH[facility] Start: 08-03-2024 ambulatory [facility] Start: 07-28-2024 End: 07-28-2024 ambulatory Hawk Ryan MD Facility:[facility] Start: 08-10-2022 End: 08-11-2022 ambulatory LUCIO NEVAREZ Facility:[facility] Start: 06-12-2022 End: 06-13-[address] JADYN WILHELM . Facility:[facility] Start: 05-02-2022 End: 05-03-2022 ambulatory Naye STILL Facility:[facility] Start: 04-26-2022 ambulatory Naye STILL Facility:[facility] Start: 04-21-2022 Encounter for preprocedural laboratory examination DR NAYE STILL . [facility] Start: 04-19-2022 End: 04-20-[address] NAYE STILL . Facility:[facility] Start: 04-17-2022 End: [address] NAYE STILL . Facility:[facility] Start: 04-17-2022 End: 2022 Encounter for preprocedural laboratory examination DR NAYE STILL . Facility: Start: 03-13-2022 End: 03-14-2022 ambulatory Naye STILL Facility: [facility] Start: 03-13-2022 End: 03-13-2022 Patient encounter procedure Naye STILL [facility] [place] Start: 03-09-2022 End: 03-09-2022 ambulatory CAROLINE LALA Facility:[facility] Start: 02-27-2022 End: 02-27-2022 ambulatory SONA ISBELL . Facility:[facility] Start: 02-15-2022 ambulatory Naye STILL Facility:[facility] Start: 02-15-2022 End: 02-16-[address] [...] and management of inpatient MUBBASHER A TREVON Facility:[facility] Procedures Date Procedure Procedure Detail Performing Clinician Appendectomy Naye STILL Cholecystectomy Naye STILL Reconstruction of mandible Sade STILL Renal artery stent ( physical object) Naye STILL Payers Date Payer Category Payer Unknown 1975 Unknown [id number] 2.16.8 40.1.716250.3.579.2.647 1975 Unknown [id number] 2.16.84 0.1.110660.3.579.2.593 1975 Unknown [id number] 2.16.84 0.1.980089.3.579.2.593 1975 Unknown [id number] 2.16.84 0.1.332824.3.579.2.593 1975 Unknown [id number] 2.16.84 0.1.640779.3.579.2.593 1975 Unknown [id number] 2.16.84 0.1.606965.3.579.2.593 1975 Unknown [id number] 2.16.84 0.1.933456.3.579.2.593 1975 Unknown [id number] 2.16.84 0.1.026118.3.579.2.593 1975 Unknown [id number] 2.16.84 0.1.406304.3.579.2.593 1975 Unknown [id number] 2.16.84 0.1.811549.3.579.2.593 1975 Unknown [id number] 2.16.84 0.1.690279.3.579.2.593 1975 Unknown [id number] 2.16.84 0.1.100654.3.579.2.593 1975 Unknown [id number] 2.16.84 0.1.308290.3.579.2.593 1975 Unknown [id number] 2.16.84 0.1.472061.3.579.2.593 1975 Unknown [id number] 2.16.84 0.1.606886.3.579.2.593 1975 Unknown [id number] 2.16.84 0.1.630298.3.579.2.593 1975 Unknown [id number] 2.16.8 40.1.254433.3.579.2.727 1975 Unknown [id number] 2.16.8 40.1.673612.3.579.2.727 1975 Unknown [id number] 2.16.8 40.1.319439.3.579.2.727 1975 Unknown [id number] 2.16.8 40.1.918196.3.579.2.727 1975 Unknown [id number] 2.16. 840.1.801975.3.579.2.196 1975 Unknown [id number] 2.16. 840.1.588424.3.579.2.1286 1975 Unknown [id number] 2.16. 840.1.212245.3.579.2.1286 1975 Unknown [id number] 2.16. 840.1.840974.3.579.2.1286 1975 Unknown [id number] 2.16. 840.1.765245.3.579.2.1286 1959 Unknown [id number] Social History Date Type Detail Facility Start: 03-13-2022 Tobacco smoking status Never s moked tobacco (finding) [facility] Tobacco smoking status Smokeless tobacco user within last 30 days [facility] Sex Assigned At Male [facility] Functional Status Date Assessment Result Facility 03-13-2022 Functional Status N/A [facility] [place] Clinical Note 04-19-2022 Note Date & Type [...] good condition. CC: Jadyn Wilhelm M.D. [facility] Clinical Note 03-13-2022 Note Date & [...] injectable solution huang (more content not included)... [facility] Comment on above: Result Comment: Elec tronically Signed By: CAMI HUNT, Naye Bell\Date and Time Signed: 03/13/22 13:38 EST Evaluation + Plan note Note Date & Type Note Facility Evaluation + Plan note No data available for this section [facility] [place] [facility] Discharge instructions Note Date & Type Note Facility Hospital Discharge instructions No data available for this section [facility] [place] Progress note Note Date & Type Note Facility Progress note No data available for this section [facility] [place] Summary Purpose Family History No Family History Records FoundNo Family History Records FoundNo Family History Records FoundNo Family History Records FoundNo Family History Records FoundNo Family History Records Found Advance Directives No Advanced Directives Records FoundNo Advanced Directives Records FoundNo Advanced Directives Records FoundNo Advanced Directives Records FoundNo Advanced Directives Records FoundNo Advanced Directives Records Found Hospital Course Note MR#: [id number] [facility] Pt. Name: Noni Soto Admitted: 01/06/2019 [...] section and content) DATE CREATED AUTHOR 01/27/2019 [facility] DATE CREATED AUTHOR AUTHOR'S ORGANIZ ATION 08/14/2022 [facility] DATE CREATED AUTHOR AUTHOR'S ORGANIZ ATION 12/08/2022 [facility] DATE CREATED AUTHOR AUTHOR'S ORGANIZ ATION 08/01/2024 [facility] DATE CREATED AUTHOR AUTHOR'S ORGANIZ ATION 08/04/2024 [facility] DATE CREATED AUTHOR AUTHOR'S ORGANIZ ATION 09/08/2024 [facility] Patient Care team informatio n (unrecognized section and content) Personnel Name: Jadyn Wilhelm MD Address: Address: [address] [place] [address] FOR RECORDS PERTAINING TO PATIENTS WHO ARE [...] BE BASED ON THE PRIMARY CLINICAL RECORDS. [facility]. provides no warranty or guarantee of the accuracy or completeness of information in this document.
[2024-09-20 09:16] LABS: Estimated Average Glucose 258 mg/dL; Glycohemoglobin A1C 10.6 % (4.5-6.2)
== END 2024-09-20 08:36 | disposition home or self-care (01) ==
LOC: LAB 08:35
PROVIDERS: PCP Family Medicine; Visit Provider Family Medicine
DX: E11.9 Type 2 diabetes mellitus without complications (principal)
CPT/HCPCS: 36415; 83036

== ENCOUNTER 2024-10-30 15:23 | Emergency (ER) | payer OTHER, SELFPAY ==
[2024-10-30 15:27] VITALS: BP 152/99; PULSE 98; TEMP 36.9; O2SAT 98; BMI 35.5
--- NOTE | 2024-10-30 15:32 | XR_ITS ---
[place] [id number] Patient Name: NONI SOTO MRN: [id number] date: 1975 Sex: M Assigned Patient Location: ER Current Patient Location: ER Accession/Order Number: [id number] Exam Date: 10/30/2024 16:37 Report Date: 10/30/2024 16:39 At the request of: CAROLINE LALA MD Procedure: XR lumbar spine 2-3V X-rays lumbar spine the views INDICATION: Atraumatic pain COMPARISON: Lumbar spine MRI 07/25/2024 FINDINGS: Mild dextrocurvature. Gzcp-[id number] intervertebral space narrowing L3-S1 with associated facet arthropathy. Otherwise no fracture malalignment. XR/XR lumbar spine 2-3V IMPRESSION: Degenerative changes lower lumbar spine. Negative acute osseous abnormality. Impression dictated by: Lionel Perry M.D. 10/30/2024 4:39 PM Dictation Location: [place] [address] Electronically authenticated by: [id number] Date: 10/30/2024 16:39
--- NOTE | 2024-10-30 15:33 | ED.GENADUL1 ---
HPI HPI - General Adult General Chief complaint: Back Pain/Injury Stated complaint: INJURED BACK Time Seen by Provider: 10/30/24 15:27 Source: patient Mode of arrival: walk-in Limitations: no limitations History of Present Illness HPI narrative: 49-year-old male presents for left lower back pain that goes into his leg. Yesterday he bent over to pick something up and he felt pain. He did not fall and nothing struck him in his back. He has a history of back problems and injured his back about 4 years ago. No history of any surgeries. No dysuria or hematuria and the pain is moderate to severe and worse in certain positions. Related Data Home Medications ?Medication ?Instructions ?Recorded ?Confirmed aripiprazole 2 mg tablet 2 mg PO BEDTIME 06/28/24 10/30/24 atorvastatin 40 mg tablet 40 mg PO BEDTIME 06/28/24 10/30/24 citalopram 20 mg tablet 20 mg PO BEDTIME 06/28/24 10/30/24 clonidine HCl 0.2 mg tablet 0.2 mg PO Q8H 06/28/24 10/30/24 insulin glargine 100 unit/mL (3 60 unit subcut BID 06/28/24 10/30/24 mL) subcutaneous pen (Lantus Solostar U-100 Insulin) insulin glulisine U-100 100 15 unit subcut QID 06/28/24 10/30/24 unit/mL subcutaneous pen (Apidra SoloStar U-100 Insulin) lisinopril 40 mg tablet 40 mg PO DAILY 06/28/24 10/30/24 pantoprazole 40 mg tablet,delayed 40 mg PO DAILY 06/28/24 10/30/24 release pregabalin 300 mg capsule 300 mg PO TID 06/28/24 10/30/24 trazodone 100 mg tablet 100 mg PO DAILY 06/28/24 10/30/24 Previous Rx's ?Medication ?Instructions ?Recorded acetaminophen 300 mg-codeine 30 mg 1 tab PO Q6H PRN pain 5 days #20 10/30/24 tablet tabs ibuprofen 800 mg tablet 800 mg PO Q8H PRN pain #20 tabs 10/30/24 methocarbamol 750 mg tablet 750 mg PO Q8H #20 tabs 10/30/24 prednisone 10 mg tablet See Rx Instructions .Route 10/30/24 .COMPLEX #30 tabs Allergies Allergy/AdvReac Type Severity Reaction Status Date / Time prochlorperazine (From AdvReac Severe panic Verified 08/25/24 10:08 Compazine) attack Opioid HPI Opioid Management Most Recent Opioid Data: Last Pain Scale 8 Today, 15:40 Last MAR Pain Assessment Today, 15:40 Review of Systems ROS Narrative A ten point review of systems is negative except as noted above. [facility] Medical History (Updated 10/30/24 @ 16:45 by Trace Sandra MD) TMJ (dislocation of temporomandibular joint) ?S03.00XA - Dislocation of jaw, unspecified side, initial encounter (ICD-10) Low back pain ?M54.50 - Low back pain, unspecified (ICD-10) Osteoarthritis ?M19.90 - Unspecified osteoarthritis, unspecified site (ICD-10) Anxiety ?F41.9 - Anxiety disorder, unspecified (ICD-10) Heartburn ?R12 - Heartburn (ICD-10) Obesity ?E66.9 - Obesity, unspecified (ICD-10) Diabetes ?E11.9 - Type 2 diabetes mellitus without complications (ICD-10) High cholesterol ?E78.00 - Pure hypercholesterolemia, unspecified (ICD-10) Surgical History History of appendectomy ?Z90.49 - Acquired absence of other specified parts of digestive tract (ICD-10) Hx of cholecystectomy ?Z90.49 - Acquired absence of other specified parts of digestive tract (ICD-10) Social History Little interest or pleasure in doing things: not at all Feeling down, depressed, or hopeless: not at all Exam Narrative Exam Narrative: Nurses note and vital signs reviewed and patient is not hypoxic. General: The patient appears in no apparent distress. Skin: Warm, dry, no pallor noted. There is no rash noted. Head: Normocephalic, atraumatic Eye: Normal conjunctiva, no drainage Ears, Nose, Mouth, and Throat: oral mucosa is moist. Nares patent. Cardiovascular: Regular Rate and Rhythm Respiratory: Patient is in no distress, no accessory muscle use, lungs are clear to auscultation, no wheezing, rales or rhonchi Back: No bruise or rash. He has no palpable tenderness. Motor strength intact in his lower extremities GI: Soft and nontender Musculoskeletal: The patient has no evidence of calf tenderness, no pitting edema, symmetrical pulses noted bilaterally Neurological: A&O, normal speech Psychiatric: Cooperative Constitutional Vital Signs, click to edit/add: Last Vital Signs Temp 98.5 F 10/30/24 15:27 Pulse 98 H 10/30/24 15:27 Resp 22 H 10/30/24 15:27 BP 128/77 10/30/24 16:17 Pulse Ox 98 10/30/24 15:27 O2 Del Method Room Air 10/30/24 15:27 Course Vital Signs Vital signs: Vital Signs Temperature 98.5 F 10/30/24 15:27 Pulse Rate 98 H 10/30/24 15:27 Respiratory Rate 22 H 10/30/24 15:27 Blood Pressure 152/99 H 10/30/24 15:27 Pulse Oximetry 98 10/30/24 15:27 Oxygen Delivery Method Room Air 10/30/24 15:27 Temperature 98.5 F 10/30/24 15:27 Pulse Rate 98 H 10/30/24 15:27 Respiratory Rate 22 H 10/30/24 15:27 Blood Pressure 128/77 10/30/24 16:17 Pulse Oximetry 98 10/30/24 15:27 Oxygen Delivery Method Room Air 10/30/24 15:27 Medical Decision Making MDM Narrative Medical decision making narrative: X-rays are showing degenerative changes per radiologist. He was given IM Toradol and Norflex and discharged home on Tylenol 3, ibuprofen, prednisone, and Robaxin. Treatment diagnosis and follow-up were discussed with the patient. Imaging Data Lumbar x-rays: Radiologist's impression: ITS Impressions Lumbar Spine X-Ray 10/30/24 15:32 IMPRESSION: Degenerative changes lower lumbar spine. Negative acute osseous abnormality. Impression dictated by: Lionel Perry M.D. 10/30/2024 4:39 PM Dictation Location: [place] [address] Electronically authenticated by: [id number] Y Date: 10/30/2024 16:39 Discharge Plan Discharge Chief Complaint: Back Pain/Injury Clinical Impression: Lumbar strain Patient Disposition: Home, Self-Care Time of Disposition Decision: 16:45 Condition: Good Mode of Transportation: Private Vehicle Prescriptions / Home Meds: New acetaminophen-codeine 300-30 mg tablet 1 tab PO Q6H PRN (Reason: pain) 5 Days Qty: 20 0RF prednisone 10 mg tablet See Rx Instructions .ROUTE .COMPLEX Qty: 30 0RF Rx Instructions: 4 by mouth daily for three days then 3 by mouth daily for three days then 2 by mouth daily for three days then 1 by mouth daily for three days ibuprofen 800 mg tablet 800 mg PO Q8H PRN (Reason: pain) Qty: 20 0RF methocarbamol 750 mg tablet 750 mg PO Q8H Qty: 20 0RF No Action atorvastatin 40 mg tablet 40 mg PO BEDTIME clonidine HCl 0.2 mg tablet 0.2 mg PO Q8H citalopram 20 mg tablet 20 mg PO BEDTIME trazodone 100 mg tablet 100 mg PO DAILY pantoprazole 40 mg tablet,delayed release (DR/EC) 40 mg PO DAILY lisinopril 40 mg tablet 40 mg PO DAILY pregabalin 300 mg capsule 300 mg PO TID aripiprazole 2 mg tablet 2 mg PO BEDTIME insulin glargine [Lantus Solostar U-100 Insulin] 100 unit/mL (3 mL) insulin pen 60 unit SUBCUT BID Apidra SoloStar U-100 Insulin 100 unit/mL insulin pen 15 unit SUBCUT QID Print Language: Lao Instructions: Low Back Strain (ED) Referrals: Cesar Wilhelm MD [Primary Care Provider, Family Practice] - 1 week
[2024-10-30] MEDS: KETOROLAC TROMETHAMINE 60 MG/2 ML VIAL IM (15:40)
[2024-10-30] MEDS: ORPHENADRINE 60 MG/2 ML VIAL IM (15:40)
[2024-10-30 16:17] VITALS: BP 128/77
== END 2024-10-30 16:52 | disposition home or self-care (01) ==
PROVIDERS: Emergency Provider Emergency Medicine; PCP Family Medicine
DX: S39.012A Strain of muscle, fascia and tendon of lower back, initial encounter (principal); M54.16 Radiculopathy, lumbar region; E11.8 Type 2 diabetes mellitus with unspecified complications; Z79.85 Long-term (current) use of injectable non-insulin antidiabetic drugs; M51.369 Other intervertebral disc degeneration, lumbar region without mention of lumbar back pain or lower extremity pain
CPT/HCPCS: 72100; 96372; 99284; J1885; J2360

== ENCOUNTER 2024-11-03 19:50 | Emergency (ER) | payer OTHER, SELFPAY ==
--- OUTSIDE RECORDS SUMMARY | 2024-10-07 04:55 | XMS_ITS ---
Author Organization [facility] [place] Address [address] [place] [address] Care Team Providers Care Rig Mechanic Name Role Phone Lui Wilhelm Primary Care Provider [phone] REASON FOR VISIT Lyrica Medications Medication SIG (Take, Route, Fr equency, Duration) Notes Start Date End Date Status Pregabalin 300 mg 1 tabs oral tid for 30 days 09/21 Active Encounters Encounter Location Date Provider Diagnosis [address] [address] 10/07/2024 Lui Wilhelm Lumbar radiculopathy M54.16 Assessments Encounter Date Diagnosis (ICD Code) Assessment Notes Treatment Notes Treatment Clinical Notes Section Notes 10/07/2024 Lumbar radiculopathy (ICD-10 - M54.16) Plan Of Treatment Medication Medication Name Sig Start Date Stop Date Notes Pregabalin 300 mg 1 tabs oral tid for 30 days 10/07/2024 Progress Notes * Jeffery SOTO MDOB:[birth year] (49 yo M)Acc No.[id number]:10/07/2024 Patient: Kvng MEZAJeffery :1975 A ge:49 Y S ex:Male Address:[address] [place] [address] [address] [place], [address] * Refills Refill Pregabalin Capsule, 300 mg, oral, 90 Tablet, 1 tabs, tid, 30 days, Refills=2 * true * Date: Generated for Printi jose miguel/Lior/Josefa on: 0 11/03/2024 08:08 PM EDT
--- OUTSIDE RECORDS SUMMARY | 2024-10-30 09:15 | XMS_ITS ---
Author Organization The [facility] [place] Address [address] [place] [address] Care Team Providers Care Marker Machine Attendant Name Role Phone Lui Wilhelm Primary Care Provider REASON FOR VISIT Clearance-Dr. Eugene Encounters Encounter Location Date Provider Diagnosis [facility] [address] [place] [address] 10/30/2024 Lui Wilhelm Plan Of Treatment No Information Progress Notes * Jeffery SOTO MDOB:[birth year] (49 yo M)Acc No.[id number]:10/30/2024 UNLOCKED PROGRESS NOTE Progress Note Patient: Jeffery YOUNG Provider: Ralph Wilhelm MD (TTC) :1975 A ge:49 Y S ex:Male Date:10/30/2024 Address:[address] [place] [address] [address], [place], [id number] Subjective: * Chief Complaints: * 1 . Clearance-Dr. Eugene. * Medical History: Objective: * Vitals: Assessment: Plan: * Treatment: * * Electronic signature of Lui Wilhelm MD, [id number] on 11/03/2024 at 08:08 PM EDT Sign off status: Pending Visit Status: C ANC (Cancelled) * Provider: Ralph Wilhelm MD (TTC) Date: 10/30/2024 Generated for Printi ng/Faxing/eTransmitting on: 11/03/2024 08:08 PM EDT
--- OUTSIDE RECORDS SUMMARY | 2024-10-30 14:34 | XMS_ITS ---
Author Organization [facility] [place] Address [address] [place] [address] Care Team Providers Care Costume Seamstress Name Role Phone Lui Wilhelm Primary Care Provider REASON FOR VISIT ER f/u Encounters Encounter Location Date Provider Diagnosis [address] [address] 10/30/2024 Lui Wilhelm Plan Of Treatment No Information Progress Notes * Jeffery SOTO MDOB:[birth year] (49 yo M)Acc No.[id number]:10/30/2024 Patient: Kvng MARTINEZJeffery SIBLYE :1975 A ge:49 Y S ex:Male Address:[address] [place] [address] [address], [place], [address] * true * Date: Generated for Russel gillespie/Lior/eTransmitting on: 0 11/03/2024 08:08 PM EDT
--- OUTSIDE RECORDS SUMMARY | 2024-10-31 07:20 | XMS_ITS ---
Author Organization [facility] Address [address] [place] [address] Care Team Providers Care Media Technician Name Role Phone Royal Eugene Unavailable [phone] Cesar Wilhelm Unavailable Unavailable REASON FOR VISIT L4-S1 DECOMPRESSION AND FUSION E, L4-S1 TLIF, BVH, 11/11 Encounters Encounter Location Date Provider Diagnosis [facility] [address] [place] [address] 10/31/2024 Royal Eugene Plan Of Treatment No Information Progress Notes * NONI SOTO MDOB:[birth year] (49 yo M)Acc No.[id number]:10/31/2024 Patient: Kvng MEZA NONI Sade Provider: Oly Wilde MD, PhD :1975 A ge:49 Y S ex:Male Date:10/31/2024 Address:[address] [place] [address] [address], [id number] Subjective: * Chief Complaints: * 1 . L4-S1 DECOMPRESSION AND FUSION E, L4-S1 TLIF, BV[facility], 11/11. * Medical History: Objective: * Vitals: Assessment: Plan: * Treatment: Forms: * Images: * Electronic signature of Nicolasa Eugene MD, PHD on 11/03/2024 at 08:08 PM EDT Sign off status: Pending * Provider: Oly Wilde MD, PhD Date: 10/31/2024 Generated for Kellyi ng/Lior/eTransmitting on: 11/03/2024 08:08 PM EDT
[2024-11-03 19:55] VITALS: BP 151/105; PULSE 72; TEMP 36.8; O2SAT 96; BMI 35.5
--- NOTE | 2024-11-03 20:06 | ED_ITS ---
HPI HPI - General Adult General Chief complaint: Upper Respiratory Infection Stated complaint: FLU LIKE SYMPTOMS Time Seen by Provider: 11/03/24 19:57 Source: patient Mode of arrival: walk-in Limitations: no limitations History of Present Illness HPI narrative: Patient is a 49-year-old male who presents to the emergency department today for evaluation concerns for generally not feeling well. He endorses for the past 3 days he has had fever with chills and bodyaches. He does endorse some cough/cold symptoms in addition to diarrhea. No chest pain. He denies any shortness of breath. He reports his significant other did test positive for influenza recently. He mentions he has been taking Advil with some improvement in symptoms. Related Data Home Medications ?Medication ?Instructions ?Recorded ?Confirmed aripiprazole 2 mg tablet 2 mg PO BEDTIME 06/28/2402/14 atorvastatin 40 mg tablet 40 mg PO BEDTIME 06/28/24 citalopram 20 mg tablet 20 mg PO BEDTIME 06/28/24 clonidine HCl 0.2 mg tablet 0.2 mg PO Q8H 06/28/2402/14 insulin glargine 100 unit/mL (3 60 unit subcut BID 12/1510/30/24 mL) subcutaneous pen (Lantus Solostar U-100 Insulin) insulin glulisine U-100 100 15 unit subcut QID 5 10/30/24 unit/mL subcutaneous pen (Apidra SoloStar U-100 Insulin) lisinopril 40 mg tablet 40 mg PO DAILY 06/28/2410/21 pantoprazole 40 mg tablet,delayed 40 mg PO DAILY 06/2810/30/24 release pregabalin 300 mg capsule 300 mg PO TID 06/28/2410/30 trazodone 100 mg tablet 100 mg PO DAILY 06/28/2402/14 Previous Rx's ?Medication ?Instructions ?Recorded acetaminophen 300 mg-codeine 30 mg 1 tab PO Q6H PRN pa in 5 days #20 10/30/24 tablet tabs ibuprofen 800 mg tablet 800 mg PO Q8H PRN pain #20 t abs 10/30/24 methocarbamol 750 mg tablet 750 mg PO Q8H #20 tabs 02/14 prednisone 10 mg tablet See Rx Instructions .Route 0 10/30/24 .COMPLEX #30 tabs ondansetron 4 mg disintegrating 4 mg PO Q8H PRN nausea and 11/03/24 tablet vomiting 4 days #10 tabs Allergies Allergy/AdvReac Type Severity Reaction Status Date / Time prochlorperazine (From AdvReac Severe panic Verified 11/03/24 19:58 Compazine) attack Opioid HPI Opioid Management Most Recent Opioid Data: Last Pain Scale 8 10/30/24, 15:40 Last MAR Pain Assessment 10/30/24, 15:40 Review of Systems ROS Status of ROS 10 or more systems reviewed and unremark able except as noted in history and below [facility] Medical History (Updated 11/03/24 @ 20:36 by Josh Sifuentes NP) TMJ (dislocation of temporomandibular joint) ?S03.00XA - Dislocation of jaw, unspecified side, initial encounter (ICD-10) Low back pain ?M54.50 - Low back pain, unspecified (ICD-10) Osteoarthritis ?M19.90 - Unspecified osteoarthritis, unspecified site (ICD-10) Anxiety ?F41.9 - Anxiety disorder, unspecified (ICD-10) Heartburn ?R12 - Heartburn (ICD-10) Obesity ?E66.9 - Obesity, unspecified (ICD-10) Diabetes ?E11.9 - Type 2 diabetes mellitus without complications (ICD-10) High cholesterol ?E78.00 - Pure hypercholesterolemia, unspecified (ICD-10) Surgical History History of appendectomy ?Z90.49 - Acquired absence of other specified parts of digestive tract (ICD- 10) Hx of cholecystectomy ?Z90.49 - Acquired absence of other specified parts of digestive tract (ICD- 10) Social History Little interest or pleasure in doing things: not at all Feeling down, depressed, or hopeless: not at all Exam Narrative Exam Narrative: Constituational: Awake/ alert, no apparent distress, mildly ill-appearing but does appear hydrated HENMT: normocephalic, external ears normal, moist oral mucous membranes and oropharynx normal Eyes: EOMI and conjunctivae normal Neck: ROM intact Chest: inspection of chest normal Respiratory: + Occasional expiratory wheeze that does clear with coughing, normal respiratory effort, clear to auscultation bilaterally Cardio: regular rate and regular rhythm GI: soft to palpation and non-tender Back: nontender MSK: ROM intact, +NVI Skin: no rashes or petechiae Neuro: no focal deficits Psych: mental status grossly normal Constitutional Vital Signs, click to edit/add: Last Vital Signs Temp 98.2 F 11/03/24 19:55 Pulse 72 11/03/24 19:55 Resp 11/03/24 20:01 BP 151/105 H 11/03/24 19:55 Pulse Ox 96 11/03/24 19:55 O2 Del Method Room Air 11/03/24 19:55 Course Vital Signs Vital signs: Vital Signs Temperature 98.2 F 11/03/24 19:55 Pulse Rate 72 11/03/24 19:55 Respiratory Rate 20 11/03/24 19:55 Blood Pressure 151/105 H 11/03/24 19:55 Pulse Oximetry 96 11/03/24 19:55 Oxygen Delivery Method Room Air 11/03/24 19:55 Temperature 98.2 F 11/03/24 19:55 Pulse Rate 72 11/03/24 19:55 Respiratory Rate 11/03/24 20:01 Blood Pressure 151/105 H 11/03/24 19:55 Pulse Oximetry 96 11/03/24 19:55 Oxygen Delivery Method Room Air 11/03/24 19:55 Medical Decision Making MDM Narrative Medical decision making narrative: The patient is a nontoxic-appearing 49-year-old male who presented to the emergency department today for evaluation concerns for generally not feeling well with exposure to influenza A. Initial examination vital signs overall stable. Patient noted to have clinical evidence consistent with URI as evidenced by cough with some mild expiratory wheezing that did improve with coughing. He is not in any respiratory distress. Appear euvolemic and to not be exhibiting any ischemic symptoms. Overall constellation of symptoms seem related to viral etiology with chills/body aches reported fevers, cough/cold symptoms, GI symptoms of nausea and diarrhea. Discussed consideration for viral testing for influenza and COVID. Patient still would like to treat supportively. Discussed additional consideration for chest x-ray due to wheezing cough/cold symptoms. Patient additionally would like to hold off on this for now and continue with supportive measures. He was given 2 puffs of an albuterol inhaler in addition to Tylenol while in the ER and on reevaluation he reported improvement in condition. Discussed these findings with the patient to include recommendations for supportive care viral illness. Will discharge home with albuterol inhaler in addition to Zofran as needed. Advised on follow-up with patient's primary care provider for reevaluation. Discussed signs and symptoms of any worsening condition and [facility] Patient verbalized an understanding of this and is agreeable with the plan to be discharged home. Medical Records Medical records reviewed: Yes I reviewed the patient's medical records Discharge Plan Discharge Chief Complaint: Upper Respiratory Infection Clinical Impression: Viral illness Patient Disposition: Home, Self-Care Prescriptions / Home Meds: New ondansetron 4 mg tablet,disintegrating 4 mg PO Q8H PRN (Reason: nausea and vomiting) 4 Days Qty: 10 0RF No Action atorvastatin 40 mg tablet 40 mg PO BEDTIME clonidine HCl 0.2 mg tablet 0.2 mg PO Q8H citalopram 20 mg tablet 20 mg PO BEDTIME trazodone 100 mg tablet 100 mg PO DAILY pantoprazole 40 mg tablet,delayed release (DR/EC) 40 mg PO DAILY lisinopril 40 mg tablet 40 mg PO DAILY pregabalin 300 mg capsule 300 mg PO TID aripiprazole 2 mg tablet 2 mg PO BEDTIME insulin glargine [Lantus Solostar U-100 Insulin] 100 unit/mL (3 mL) insulin pen 60 unit SUBCUT BID Apidra SoloStar U-100 Insulin 100 unit/mL insulin pen 15 unit SUBCUT QID acetaminophen-codeine 300-30 mg tablet 1 tab PO Q6H PRN (Reason: pain) 5 Days Qty: 20 0RF prednisone 10 mg tablet See Rx Instructions .ROUTE .COMPLEX Qty: 30 0RF Rx Instructions: 4 by mouth daily for three days then 3 by mouth daily for three days then 2 by mouth daily for three days then 1 by mouth daily for three days ibuprofen 800 mg tablet 800 mg PO Q8H PRN (Reason: pain) Qty: 20 0RF methocarbamol 750 mg tablet 750 mg PO Q8H Qty: 20 0RF Print Language: Georgian Instructions: Viral Syndrome (ED) Additional Instructions: Recommend alternating Tylenol and ibuprofen for any fevers or pain. Stay hydrated and drink plenty of fluids. May take Zofran as needed for any nausea or vomiting. May use [id number] cough/cold medications. May take 2 puffs of the albuterol inhaler every 6 hours as needed for any shortness of breath, wheezing, or coughing. Please follow-up with your primary care provider for reevaluation as discussed. Referrals: Cesar Wilhelm MD [Primary Care Provider, Family Practice] - 1 week
--- OUTSIDE RECORDS SUMMARY | 2024-11-03 20:08 | XMS_ITS | Encounter Summary ---
Author Organization [facility] Address [address] [place] [address] Care Team Providers Care Rn Oncology Clinical Name Role Phone Cesar Wilhelm MD Primary Care Provider [phone] Reason for Referral * MRI/CAT Scan (Routine) - Closed Specialty Diagnoses / Procedures Referred By Fuentes holland Referred To Contact Diagnoses Disease of jaw Procedures CT FACIAL WITHOUT CONTRAST IA CT SCAN,MAXILLOFACIAL AREA,W/O CONTRAST Darwin Mojiac DDS Referral ID Status Reason Start Date Expiration Date Visits Re quested Visits Authorized [id number] Closed 06/30/2019 07/24/2020 1 1 Encounter Details Date Type Department Care Team (Late st Contact Info) Description 06/30/2019 Orders Only [facility] [address] [place] [address] Rigoberto Tripp DDS Disease of jaw Social [...] 05/10/2019 3:35 AM Marcie Nunez RN * Because of a physical, [...] jaws documented in this encounter Care Teams Rn Oncology Clinical Relationship Specialty Start Date End Date Cesar Wilhelm MD PCP - General Family Medicine 05/19/19 documented as of this encounter
--- OUTSIDE RECORDS SUMMARY | 2024-11-03 20:08 | XMS_ITS | Patient Health Record ---
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 Ordering Physician: Jadyn Kowalski M.D. Date of Service: 07/25/24 Procedure(s): XR foreign body eye KEENA Accession Number(s): [id number] cc: Jadyn Kowalski M.D. [place] [id number] Patient Name: NONI SOTO MRN: [facility]:[id number] date: 1975 Sex: M Assigned Patient Location: PT Current Patient Location: PT Accession/Order Number: [id number] Exam Date: 07/25/2024 09:04 Report Date: 07/25/2024 [...] Samara Waddell M.D.07/25/2024 9:07 AM Dictation Location: [place] [address] Electronically authenticated by: [id number] Y Date: 07/25/2024 09:07 Dictated By: Samara Waddell M.D. Signed By: 07/25/24908 DD/ 6 TD/TT: Child Care Leader: [place] [address] XRay Report Signed Patient: YASIR SOTO MR#: [id number] : 1975 Acct:[id number] Age/Sex: 49 / M ADM Date: 07/25/24 Loc: RAD Attending Dr: Kenji Kowalski M.D. Ordering Physician: Jadyn Kowalski M.D. Date of Service: 07/25/24 Procedure(s): XR for eign body eye KEENA Accession Number(s): [id number] cc: Jadyn Kowalski M.D. [place] [id number] Patient Name: NONI SOTO MRN: [facility]:[id number] date: 1975 Sex: M Assigned Patient Location: PT Current Patient Location: PT Accession/Order Numb er: [id number] Exam Date: 07/25/2024 09:04 Report Date: 07/25/2024 [...] Samara Waddell M.D.07/25/2024 9:07 AM Dictation Location: [place] [address] Electronically authenticated by: [id number] Y Date: 07/25/2024 09:07 Dictated By: Samara Waddell M.D. Signed By: 07/25/24908 DD/ 6 TD/TT: Child Care Leader: MR lumbar spine wo con Reviewed date:07/27/2024 03:29:53 PM Interpretation: Performing Lab: Notes/Report: Source Facility: [place] [address] Magnetic Resonance Report Signed Patient: NONI SOTO MR#: [id number] : 1975 Acct:[id number] Age/Sex: 49 / M ADM Date: 07/25/24 Loc: RAD Attending Dr: Jadyn Kowalski M.D. Ordering Physician: Jadyn Kowalski M.D. Date of Service: 07/25/24 Procedure(s): MR lumbar spine wo con Accession Number(s): [id number] cc: Jadyn Kowalski M.D. [place] [address] Patient Name: NOIN SOTO MRN: [facility]:[id number] date: 1975 Sex: M Assigned Patient Location: PT Current Patient Location: PT Accession/Order Number: [id number] Exam Date: 07/25/2024 10:46 Report Date: 07/25/2024 [...] Samara Waddell M.D.07/25/2024 11:08 AM Dictation Location: [place] [address] Electronically authenticated by: [id number] Y Date: 07/25/2024 11:08 Dictated By: Samara Waddell M.D. Signed By: 07/25/24 1111 DD/ 1108 TD/TT: Child Care Leader: [place] [address] Magnetic Resonance Report Signed Patient: YASIR SOTO MR#: [id number] : 1975 Acct:[id number] Age/Sex: 49 / M ADM Date: 07/25/24 Loc: RAD Attending Dr: Kenji Kowalski M.D. Ordering Physician: Jadyn Kowalski M.D. Date of Service: 07/25/24 Procedure(s): MR lum bar spine wo con Accession Number(s): [id number] cc: Jadyn Kowalski M.D. [place] [phone] Patient Name: NONI SOTO MRN: [facility]:[id number] date: 1975 Sex: M Assigned Patient Location: PT Current Patient Location: PT Accession/Order Numb er: [id number] Exam Date: 07/25/2024 10:46 Report Date: 07/25/2024 [...] Samara Waddell M.D.07/25/2024 11:08 AM Dictation Location: [place] [address] Electronically authenticated by: [id number] Y Date: 07/25/2024 11:08 Dictated By: Samara Waddell M.D. Signed By: 07/25/24 1111 DD/ 1108 TD/TT: Child Care Leader: GLYCOHEMOGLOBIN A1C Reviewed date:09/21/2024 04:21:13 PM Interpretation: Performing Lab: Notes/Report: [facility] , Glycohemoglobin A1C 10.6 4.5-6.2 % ADA RECOMMENDED LIMIT 4.0 - 6.0 ADA THERAPEUTIC TARGET < 7.0 ACTION SUGGESTED > 7.0 Estimated Average Glucose 258 Performing Lab: see note ML - [facility] LB XR lumbar spine 2-3V Reviewed date:10/30/2024 06:35:20 PM Interpretation: Performing Lab: Notes/Report: Source Facility: [facility]-[address] [place] [address] [place] [address] XRay Report Signed Patient: NONI SOTO MR#: [id number] : 1975 Acct:[id number] Age/Sex: 49 / M ADM Date: 10/30/24 Loc: ER Attending Dr: Ordering Physician: Caroline Lala M.D. Date of Service: 10/30/24 Procedure(s): XR lumbar spine 2-3V Accession Number(s): [id number] cc: Jadyn Kowalski M.D.; Caroline Lala M.D. [place] [address] Patient Name: NONI SOTO MRN: [facility]:[id number] date: 1975 Sex: M Assigned Patient Location: ER Current Patient Location: ER Accession/Order Number: [id number] Exam Date: 10/30/2024 16:37 Report Date: 10/30/2024 16:39 At the request of: CAROLINE LALA MD Procedure: XR lumbar spine 2-3V X-rays lumbar spine the views INDICATION: Atraumatic pain COMPARISON: Lumbar spine MRI 07/25/2024 FINDINGS: Mild dextrocurvature. Qmjv-cd-fvnfzoxw intervertebral space narrowing L3-S1 with associated facet arthropathy. Otherwise no fracture malalignment. XR/XR lumbar spine 2-3V IMPRESSION: Degenerative changes lower lumbar spine. Negative acute osseous abnormality. Impression dictated by: Lionel Perry M.D. 10/30/2024 4:39 PM Dictation Location: [place] [address] Electronically authenticated by: [id number] Y Date: 10/30/2024 16:39 Dictated By: Lionel Perry M.D. Signed By: 10/30/24 1641 DD/ 1639 TD/TT: Child Care Leader: [place] [address] XRay Report Signed Patient: YASIR SOTO MR#: [id number] : 1975 Acct:[id number] Age/Sex: 49 / M ADM Date: 10/30/24 Loc: ER Attending Dr: Ordering Physician: Caroline Lala M.D. Date of Service: 10/30/24 Procedure(s): XR lum bar spine 2-3V Accession Number(s): [id number] cc: Jadyn Kowalski M.D. ; Caroline Lala M.D. [address] [phone] Patient Name: NONI SOTO MRN: [facility]:[id number] date: 1975 Sex: M Assigned Patient Location: ER Current Patient Location: ER Accession/Order Numb er: [id number] Exam Date: 10/30/2024 16:37 Report Date: 10/30/2024 16:39 At the request of: CAROLINE LALA MD Procedure: XR lumbar spine 2-3V X-rays lumbar spine the views INDICATION: Atraumat ic pain COMPARISON: Lumbar s pine MRI 07/25/2024 FINDINGS: Mild dextrocurvature. Hzca-hk-uzpuymiq intervertebral space narrowing L3-S1 with associated facet arthropathy. Otherwise no fracture malalignment. X R/XR lumbar spine 2-3V IMPRESSION: Degenera tive changes lower lumbar spine. Negative acute osseous abnormality. Impression dictated by: Lionel Perry M.D. 10/30/2024 4:39 PM Dictation Location: [place] [address] Electronically authenticated by: [id number] Y Date: 10/30/2024 16:39 Dictated By: Gayla Perry M.D. Signed By: 10/30/24 1641 DD/ 1639 TD/TT: Child Care Leader: Reason For Referral Diagnosis 1 Lumbar radiculopathy (M54.16) Referral Organization [facility] Referring Provider First Name Lui Referring Provider Last Name [facility] Referring Provider [facility] Referred Provider [facility], Physical Therap y Referred Provider Specialty Physical The rapist Referral Priority Routine Diagnosis 1 Lumbar radiculopathy (M54.16) Referral Organization [facility] Referring Provider First Name Lui Referring Provider Last Name [facility] Referring Provider [facility] Referred Provider Pain Management, TB Referred Provider Specialty Pain Medicin e Referral Priority Routine Reason Needs sen madan Diagnosis 1 Lumbar stenosis with neurogenic claudication (M48.062) Referral Organization [facility] Referring Provider First Name Lui Referring Provider Last Name [facility] Referring Provider [facility] Referred Provider [facility] Referred Provider Specialty Orthopedic S urgery Referral Priority Routine Medications Medication SIG (Take, Route, Frequency, Duration) Notes Start Date End Date Status Blood Glucose Meter -- Use as directed t o test blood sugar once a day DX: E11.9 09/18/2024 Unknown Ozempic (0.25 or 0.5 MG/DOSE) 2 MG/3ML Inject 0.25mg Subcutaneous once weekly for 28 days Unknown Atorvastatin Calcium 40 MG 1 tablet Orally Once a day for 30 days Unknown Lisinopril 40 mg TAKE 1 TABLET BY CHLOE TH DAILY for 90 Unknown Citalopram Hydrobromide 20 mg TAKE 1 TABLET BY MOUTH ONCE DAILY for 30 Unknown Protonix 40 MG 1 tablet Orally Ever y Evening for 30 day(s) 12/18/2022 Unknown Blood Glucose Monitor System w/Device as directed Unknown DULoxetine HCl 60 MG 1 capsule Orally On ce a day for 30 day(s) 08/13/2024 Unknown tiZANidine HCl 4 MG 1 tablet Orally qid for 30 days 07/04/2024 Unknown cloNIDine HCl 0.2 mg TAKE 1 TABLET BY [place] [facility] THREE TIMES DAILY for 90 Unknown Test Strips - Use in meter to tet blood sugar once a day DX: E11.9 09/18/2024 Unkno wn Lancets 33G - Use as directed to t est blood sugar once a day DX: E11.9 for 90 days 09/18/2024 Unknown Insulin Pen Needle 31G X 5 MM Use 1 need twice daily to inject insulin DX E11.9 for 90 days Unknown traZODone HCl 100 MG 1 tablet at bedtime as needed Orally Once a day for 30 days Unknown Lantus SoloStar 100 UNIT/ML Inject 70 units Subcutaneous twice daily for 30 days Active Lancets Thin - as directed Unk nown Levothyroxine Sodium 100 MCG 1 capsule in the morning on an empty stomach Orally Once a day for 30 days Unknown Abilify 2 MG 1 tablet Orally Once a day for 30 days Unknown Pregabalin 300 mg 1 tabs oral tid for 30 days 10/07/2024 Active Apidra SoloStar 100 unit/mL INJECT TEN UNITS SUBCUTANEOUSLY THREE TIMES DAILY WITH MEALS for 90 Active Social History Tobacco Use: Social History [...] W/U Status Risk Notes Problem Testicular hypofunction (920363244) Testicular hypofunction (E29.1) Active confirmed Problem [id number] Other interverte bral disc displacement, lumbar region (M51.26) Active confirmed Problem Pain in right hand (461664210133034) Pain in right hand (M79.641) Active confirmed Problem Abdominal pain (96735904) Abdominal pain (R10.9) Active confirmed Problem Migraine variant wit h headache (disorder) (012797330) Migraine headache (G43.909) Active confirmed Problem Seizure (59125235) Seizure (R56.9) Active confi rmed Problem Hypertension (43428775) Hypertension (I10) Active confirmed Problem Anxiety (86672613) Anxiety (F41.9) Active confi rmed Problem Edema (15739922) Edema (R60.9) Active confirmed Problem Anemia (169630768) Anemia (D64.9) Active confir med Problem Peripheral neuropath y (371573470) Peripheral neuropathy (G62.9) Active confirmed Problem Dyspnea (346819133) Dyspnea (R06.00) Active con firmed Problem Insomnia (427136382) Insomnia (G47.00) Active c onfirmed Problem Lumbar radiculopathy (879172654) Lumbar radiculopathy (M54.16) Active confirmed Problem Hypertriglyceridemia (552087993) Hypertriglyceridemia (E78.1) Active confirmed Problem Allergic rhinitis (03001024) Allergic rhinitis (J30.9) Active confirmed Problem Disorder of lumbar disc (190721939) Lumbar disc disease (M51.9) Active confirmed Problem Prolapsed lumbar intervertebral disc (435875196) Lumbar disc herniation (M51.26) Active confirmed Problem Acute bronchitis (16551087) Acute bronchitis (J20.9) Active confirmed Problem Sleep disorder (49277691) Sleep disorder (G47.9) Active confirmed Problem Left lower quadrant pain (899435683) Abdominal pain, LLQ (R10.32) Active confirmed Problem Ascencion's thyroiditis (78868198) Ascencion's thyroiditis (E06.3) Active confirmed Problem Opioid abuse (3348193) Narcotic abuse (F11.10) Active confirmed Problem Otitis externa (4666044) Otitis external (H60.90) Active confirmed Problem Impingement syndrome of shoulder region (764542985) Shoulder impingement syndrome, right (M75.41) Active confirmed Problem Acute osteomyelitis of mandible (047131740) Acute osteomyelitis of mandible (M27.2) Active confirmed Problem Closed fracture of mandible, angle of jaw (068156261) Fracture of angle of right mandible, initial encounter for closed fracture (S02.651A) Active confirmed Problem Neurogenic claudication (862596521) Lumbar stenosis with neurogenic claudication (M48.062) Active confirmed Problem Type II diabetes mellitus without complication (735347529) Diabetes (E11.9) Active confirmed Problem Diabetes mellitus (83407311) Diabetes mellitus (E11.9) Active confirmed Problem Disease caused by Severe acute respiratory syndrome coronavirus 2 (disorder) (842896933) COVID-19 virus infection (U07.1) Active confirmed Vital Signs Blood pressure diastolic 90 mm Hg 09/04/2024 Height 66 in 09/04/2024 Blood pressure systolic 124 mm Hg 09/04/2024 Weight 223.0 lbs 09/04/2024 BMI 35.99 kg/m2 09/04/2024 Encounters Encounter Location Date Provider Diagnosis [facility] [address] [place] [address] 09/21/2024 Lui Kowalski [facility] [address] [place] [address] 10/02/2024 L[facility] [address] [place] [address] 10/07/2024 Lui Sony Lumbar radiculopathy M54.16 [facility] [address] [place] [address] 10/30/2024 Lui Kowalski [facility] [address] [place] [address] 07/21/2024 Lui Hoy Lumbar radiculopathy M54.16 ; Other intervertebral disc displacement, lumbar region M51.26 ; Lumbar disc disease M51.9 and Lumbar disc herniation M51.26 [facility] [address] [place] [address] 07/25/2024 uLi Kowalski Shoulder impingement syndrome, right M75.41 [facility] [address] [place] [address] 07/27/2024 Lui Kowalski [facility] [address] [place] [address] 09/10/2024 Lui Hoy Diabetes mellitus E1 1.9 [facility] [address] [place] [address] 09/18/2024 Lui Hoy [facility] [address] [facility] [place] [address] 09/18/2024 Lui Hoy [facility] [address] [place] [address] 12/03/2023 Lui Hoy Insomnia G47.00 [facility] [address] [facility] [place] [address] 04/14/2024 Lui Hoy Shoulder impingement syndrome, right M75.41 [facility] [address] [facility] [place] [address] 05/07/2024 Lui Hoy Wellness examination Z01.89 [facility] [address] [facility] [place] [address] 05/19/2024 Lui Hoy [facility] [address] [facility] [address] 05/20/2024 Lui Hoy [facility] [address] [facility] [place] [address] 07/04/2024 Lui Hoy Lumbar radiculopathy M54.16 [facility] [address] [facility] [place] [address] 01/11/2024 Lui Hoy Shoulder impingement syndrome, right M75.41 [facility] [address] [facility] [place] [address] 06/25/2024 Lui Hoy Lumbar radiculopathy M54.16 [facility] [address] [facility] [place] [address] 07/04/2024 Lui Hoy Lumbar radiculopathy M54.16 [facility] [address] [facility] [place] [address] 08/13/2024 Lui Hoy Lumbar stenosis with neurogenic claudication M48.062 [facility] [address] [place] [address] 09/04/2024 Lui Choco Hypertension I10 ; L umbar radiculopathy M54.16 and Diabetes E11.9 Assessments Encounter Date Diagnosis (ICD Code) [...] control and weight loss - recommending ozempic 12/03/2023 Insomnia (ICD-10 - G47.00) 04/14/2024 Shoulder impingement syndrome, right (ICD-10 - M75.41) 05/07/2024 Wellness examination (ICD-10 - Z01.89) 07/04/2024 Lumbar radiculopathy (ICD-10 - M54.16) 07/21/2024 Lumbar radiculopathy (ICD-10 - M54.16) 07/21/2024 Other intervertebral disc displacement, lumbar region (ICD-10 - M51.26) 07/25/2024 Shoulder impingement syndrome, right (ICD-10 - M75.41) 09/10/2024 Diabetes mellitus (ICD-10 - E11.9) 10/07/2024 Lumbar radiculopathy (ICD-10 - M54.16) 07/21/2024 Lumbar disc disease (ICD-10 - M51.9) [...] End Date [employer] [place] [employer] [address] [place] [address] [id number] Noni Soto Self - patient is the insured [...] Allergic rhinitis J30.9 Surgical History Surgery Date(Month/Year) Lithotripsy- kidney stone Appendix Gallbladder Jaw reconstruction
--- OUTSIDE RECORDS SUMMARY | 2024-11-03 20:08 | XMS_ITS | Clinical Summary ---
Author Organization [employer] Address [id number] [address] 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 Name Role Phone Cesar Wilhelm MD Primary Care Provider [phone] Allergies Active Allergy Reactions Criticality Noted Date [...] EDT - 09/08/2024 7:16 AM EDT Emergency [facility] - Emergency [address] [place] [address] Guido Dotson MD Panic attack (Primary Dx); Epigastric pain Discharge Disposition: Left Against Medical Advice or Discontinued Care 09/08/2024 Travel 08/09/2024 9:36 AM EDT - 08/09/2024 10:08 AM EDT Emergency [facility] - Emergency [address] [place] [address] Erik Mcdonald DO Viral sinusitis (Primary Dx) Discharge Disposition: Home 08/09/2024 Travel from Last 3 Months Social History Tobacco [...] (1 - Tdap) 1994 COVID-19 Vaccine (4 - 2023-2 5 season) 2023 03/24/2022, 05/25/2021, 01/13/2021 [...] AUTO DIFFERENTIAL STAT 09/08/2024 6:37 AM EDT from Last 3 Months Results * ECG 12 lead (09/08/2024 6:41 AM EDT) 09/08/2024 6:41 AM EDT Narrative [facility] - 09/09/2024 4:46 AM EDT us Guido Dotson MD ECG ORDERABLES Final Result [facility] * Troponin I, High Sensitivity 0 Hour (09/08/2024 6:37 AM EDT) TROPONIN I, HIGH SENSITIVITY 2 <21 ng/L 09/08/2024 7:10 AM EDT [facility] Blood Venous blood / Unknown Venipuncture / Unknown 09/08/2024 6:37 AM EDT 09/08/2024 6:42 AM EDT us Guido Dotson MD LAB BLOOD ORDERABLES Final R esult Performing Organization Address City/[facility]/ZIP Co de Phone Number [address] [place] [address], [place] * Light Blue Top (09/08/2024 6:37 AM EDT) Extra Tube Auto Resulted 09/08/2024 8:02 AM EDT [facility] Blood Venous blood / Unknown 09/08/2024 6:37 AM EDT 09/08/2024 6:43 AM EDT us Guido Dotson MD LAB BLOOD ORDERABLES Final R esult Performing Organization Address City/[facility]/ZIP Co de Phone Number [address] [place] [address], [place] * (ABNORMAL) CBC auto differential (09/08/2024 6:37 AM EDT) WBC 17.1(H) 4 - 11 x10E9/L 09/08/2024 6:48 AM EDT [facility] RBC Count 5.66 4.1 - 5.7 X10E12/L 09/08/2024 6:48 AM EDT [facility] Hemoglobin 15.6 13 - 17 g/dL 09/08/2024 6:48 AM EDT [facility] Hematocrit 46.2 39 - 50 % 09/08/2024 6:48 AM EDT [facility] MCV 82 80 - 100 fL 09/08/2024 6:48 AM EDT [facility] MCH 27.6 27 - 34 pg 09/08/2024 6:48 AM EDT [facility] MCHC 33.8 32 - 36 g/dL 09/08/2024 6:48 AM EDT [facility] RDW 15.5(H) 11.5 - 15 % 09/08/2024 6:48 AM EDT [facility] Platelet Count 295 150 - 450 X10E9/L 09/08/2024 6:48 AM EDT [facility] MPV 7.3 7 - 12 fL 09/08/2024 6:48 AM EDT [facility] Neutrophils % 82.2 % 09/08/2024 6:48 AM EDT [facility] Lymphocytes % 11.2 % 09/08/2024 6:48 AM EDT [facility] Monocytes % 5.3 % 09/08/2024 6:48 AM EDT [facility] Eosinophils % 1.0 % 09/08/2024 6:48 AM EDT [facility] Basophils % 0.3 % 09/08/2024 6:48 AM EDT [facility] Neutrophils Absolute (A) 14.0(H) 1.5 - 6.6 10*3/uL 09/08/2024 6:48 AM EDT [facility] Lymphocytes Absolute 1.9 1.0 - 3.5 10*3/uL 09/08/2024 6:48 AM EDT [facility] Monocytes Absolute 0.9 0.0 - 0.9 10*3/uL 09/08/2024 6:48 AM EDT [facility] Eosinophils Absolute 0.2 0.0 - 0.4 10*3/uL 09/08/2024 6:48 AM EDT [facility] Basophils Absolute 0.1 0.0 - 0.2 10*3/uL 09/08/2024 6:48 AM EDT [facility] Differential Type AUTOMATED DIFFERENTIAL 09/08/2024 6:48 AM EDT [facility] Blood Venous blood / Unknown Venipuncture / Unknown 09/08/2024 6:37 AM EDT 09/08/2024 6:42 AM EDT Guido Dotson MD LAB BLOOD ORDERABLES Final R esult Performing Organization Address City/[facility]/ZIP Co de Phone Number [address] [place] [address], [place] * (ABNORMAL) Lipase (09/08/2024 6:37 AM EDT) LIPASE 72(H) 17 - 40 U/L 09/08/2024 7:31 AM EDT [facility] Blood Venous blood / Unknown Venipuncture / Unknown 09/08/2024 6:37 AM EDT 09/08/2024 6:42 AM EDT Guido Dotson MD LAB BLOOD ORDERABLES Final R esult Performing Organization Address City/[facility]/ZIP Co de Phone Number [address] [place] [address], [place] * (ABNORMAL) Comprehensive metabolic panel (09/08/2024 6:37 AM EDT) SODIUM 134 134 - 146 mmol/L 09/08/2024 7:01 AM EDT [facility] POTASSIUM 3.4(L) 3.5 - 5.0 mmol/L 09/08/2024 7:01 AM EDT [facility] CHLORIDE 100 98 - 109 mmol/L 09/08/2024 7:01 AM EDT [facility] CARBON DIOXIDE 22 22 - 32 mmol/L 09/08/2024 7:01 AM EDT [facility] ANION GAP 12 5 - 15 mmol/L 09/08/2024 7:01 AM EDT [facility] BLOOD UREA NITROGEN 23 5 - 23 mg/dL 09/08/2024 7:01 AM EDT [facility] CREATININE 0.76 0.70 - 1.20 mg/dL 09/08/2024 7:01 AM EDT [facility] Comment:METHOD TRACEABLE TO IDVT STANDARD GLUCOSE 202(H) 65 - 99 mg/dL 09/08/2024 7:01 AM EDT [facility] CALCIUM 9.0 8.5 - 10.5 mg/dL 09/08/2024 7:01 AM EDT [facility] TOTAL PROTEIN 7.8 6.0 - 8.0 g/dL 09/08/2024 7:01 AM EDT [facility] ALBUMIN 3.9 3.2 - 5.3 g/dL 09/08/2024 7:01 AM EDT [facility] ALKALINE PHOSPHATASE 99 39 - 130 U/L 09/08/2024 7:01 AM EDT [facility] AST 40 <=41 U/L 09/08/2024 7:01 AM EDT [facility] ALT 65(H) <=40 U/L 09/08/2024 7:01 AM EDT [facility] BILIRUBIN,TOTAL 0.8 0.3 - 1.2 mg/dL 09/08/2024 7:01 AM EDT [facility] EGFR Non-Race Dependent >90 >=60 ml/min/1.7 3sq.m 09/08/2024 7:01 AM EDT [facility] Comment: eGFR not reported due to non-numeric value for Creatinine. Reported eGFR is based on the CKD-EPI 2020 equation that does not use a race coefficient. Blood Venous blood / Unknown Venipuncture / Unknown 09/08/2024 6:37 AM EDT 09/08/2024 6:42 AM EDT us Guido Dotson MD LAB BLOOD ORDERABLES Final R esult [facility] [address] [place] [address], from Last 3 Months Insurance [employer] [place] Care Teams Tube Knitter Relationship Specialty Start Date End Date Cesar Wilhelm MD PCP - General 10/19/16
--- OUTSIDE RECORDS SUMMARY | 2024-11-03 20:09 | XMS_ITS | Patient Health Record ---
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 Name Role Phone [facility] Forrester Royal Unavailable [phone] Cesar Wilhelm Unavailable Unavailable Simon Bello Unavailable [phone] Allergies Allergen (clinical drug ingredient) Drug/Non Drug Allergy documented on EMR Reaction Allergy Type Onset Date Status compazine (uncoded) severe muscle cramps Allergy Active Results Component Value Reference Range Notes Surgery Scheduling (Not yet reviewed by provider) Interpretation: Performing Lab: Notes/Report: Primary Insurance Company: MEDICAID [place] Surgeon/Assist: ST FORRESTER/IGNACIO OR SIMON Surgery Location: [facility] Surgery Date & Time: 11/11/24 @ 1:30PM Hosp arrival time day of: 11:30AM Surgery End Time: 3:30PM Procedure: L4-S1 DECOMPRESSION AND FUSION, L4-S1 TLIF Special Equipment: SSEP, PRONE, DARRION TABLE, SURGALIGN Diagnosis: M51.360 DDD LUMBAR Admission Type: INPATIENT Anesthesia Type/CPNB: GENERAL Post-op Appointment Date: 01/02/25 @ 10:50AM JAGDISH Lab Location: [place] Lab Date/Time: [facility] Test Borer: PATRICIA Leach Physician: MEGHANA Leach Appt Date/T 10/30/24 @ 1:15PM History & Physical Appointme nt Date/: 10/31/24 @ 11:20AM Reason For Referral Reason PENDING OUTPATIENT..............................11/11/24............................NELSY FINNEY L4-S1 DECOMPRESSION AND FUSION, L4-S1 TLIF 14339, 23022, 85318, 91521, 48531, 81456 x2, 27228 Diagnos is 1 Degeneration of intervertebral disc of l umbar region with discogenic back pain (M51.360) Referra l [facility] Referri ng Provide r First Name Royal Referri ng Provide r Last Name St Forrester Referri jose miguel Provide r Special ity Orthopedic [facility] Address [address] [place], [place],[address] [facility] [place], Procedu re 1 Arthrodesis, PLIF w/ PSF including zak ectomy and/or discectomy, sufficient to prepare interspace (other than for decompression), single interspace and segment; lumbar (46305) Procedu re 2 Each additional interspace and segment ( 32183) Procedu re 3 CATALAN FACETC/FRMT ARTHRD LUM 1 (21468) Procedu re 4 CATALAN FACTC/FRMT ARTHRD LUM EA (63535) Procedu re 5 Posterior segmental instrumentation, 3 t o 6 segments (95241) Procedu re 6 INSJ BIOMECHANICAL DEVICE (70409) Procedu re 7 Autograft for spine surgery only; local obtained from same incision (61314) General Notes Patricia Burnett 10/07/2024 02:34:00 PM >, Sasha Christian 10/14/2024 11:17:44 AM > AUTHORIZATION REQUEST SUBMITTED OUTPATIENT VIA [facility], TRACKING # [id number], Patricia Burnett 10/14/2024 02:51:28 PM >PATIENT CANCELLED SURGERY DUE TO HGA1C OF 10, Sasha Christian 10/15/2024 08:18:37 AM > NOTED, THANK YOU. Referra l Priorit y Stat Medications Medication SIG (Take, Route, Frequency, Duration) Notes Start Date End Date Status Abilify Active CeleXA Active Lyrica Active Lodine Active Protonix Active traZODone Active cloNIDine Active lisinopril Active Social History Tobacco Use: Social History Observation Description Date Details (start date - stop date) Never Smoker NA - NA Tobacco Control (Standard) Question Answer Notes Tobacco use: Nonsmoker Problems Problem Type SNOMED Code ICD Code Onset Dates Problem Status W/U Status Risk Notes Problem 49007902 Lumbar stenosis with neurogenic claudication (M48.062) Active confirmed Problem 045247133 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 [address] [facility] [place] [address] 08/22/2024 Simon Bello Degeneration of intervertebral disc of lumbar region with discogenic back pain M51.360 [facility] [address] [place] [address] 10/14/2024 Royal Eugene Degeneration of intervertebral disc of lumbar region with discogenic back pain M51.360 ; Lumbar stenosis with neurogenic claudication M48.062 and Neuroforaminal stenosis of lumbar spine M48.061 Assessments Encounter Date Diagnosis (ICD Code) Assessment Notes Treatment Notes Treatment Clinical Notes Section Notes 08/22/2024 Degeneration of intervertebral disc of lumbar region with discogenic back pain (ICD-10 - M51.360) 1. L4-S1 degenerative disc disease and disc herniation with neuroforaminal stenosis and radiculopathy 10/14/2024 Lumbar stenosis with neurogenic claudication (ICD-10 - M48.062) 10/14/2024 Degeneration of intervertebral disc of lumbar region with discogenic back pain (ICD-10 - M51.360) 10/14/2024 Neuroforaminal stenosis of lumbar spine (ICD-10 - M48.061) 08/22/2024 Other Plan established by Dr. Wilde. [...] tear, nerve root injury, paralysis, nonunion, DVT/PE, LA, stroke etc. Patient has tried and failed [...] Treatment Pending Test Test Name Order Date Chest 2 views - 71405 10/14/2024 Lumbar spine, 4v flex ext - 66606 2024 CBC 10/14/2024 HGB A1C 10/14/2024 PT/PTT 10/14/2024 BMP 10/14/2024 Surgery Scheduling 10/07/2024 MRSA (Bilateral Nares) PCR 10/14/2024 EKG 10/14/2024 Insurance Providers Payer Name Payer Address Payer Phone Subscriber Number Group Number Insured Name Patient Relationship to Insured Coverage Start Date Coverage End Date Medicaid [employer] [place] [address] [place] [address] [phone] [id number] NONI SOTO Self - patient is the insured Medical (General) History Medical History History ICD Code High Blood Pressure Kidney stones Diabetes Anxiety Depression Drug Allergies
--- OUTSIDE RECORDS SUMMARY | 2024-11-03 20:09 | XMS_ITS | Clinical Summary ---
Author Organization [facility] Address [address] [place] [address] [place] [address] Care Team Providers Care Echo Tech Name Role Phone Cesar Wilhelm MD Primary Care Provider [phone] Allergies Active Allergy Reactions Criticality Noted Date [...] (05/10/2019): Added automatically from request for surgery [id number] Family History Medical History Relation Name Comments [...] VACCINE (2023-2 5 season) 2023 INFLUENZA VACCINE (#1) 2024 TSH Discontinued 05/10/2019 HIV SCREENING DISCUSSION Completed 05/15/2019 PNEUMOCOCCAL VACCINE SERIES Aged Out No longer eligible based on patient's age to complete this topic Medical Devices Implanted Type Area Area Counselor Device Identifier Shelf Expiration Date Model / Serial / Lot Xfix Pin, 2.7 X 80 Mm, 9 Mm Implanted:Qty: 1 on 05/15/2019 by Darwin Mojica DDS at [facility] Right: Mandible [employer] 51-673- / / Xfix Pin, 2.7 X 80 Mm, 13 Mm Implanted:Qty: 3 on 05/15/2019 by Darwin Mojica DDS at [facility] Bilateral: Mandible [employer] 51-673- / / Bar Connection Clamp Implanted:Qty: 4 on 05/15/2019 by Darwin Mojica DDS at [facility] Bilateral: Mandible [employer] 51-670- / / Fadi, 3/4 Mandible Implanted:Qty: 1 on 05/15/2019 by Darwin Mojica DDS at [facility] Bilateral: Mandible [employer] 51-672- / [...] Reactive Non Reactive 05/15/2019 9:22 AM EST [facility] Blood Venipuncture / Unknown 05/15/2019 3:21 AM EST 05/15/2019 4:04 AM EST us Bettie Apodaca MD IMMUNOLOGY ORDERABLES Final Res ult Performing Organization Address [facility]/ZIP Co de Phone Number [facility] [address] [address] * (ABNORMAL) TSH W/FT4 REFLEX (05/10/2019 3:50 AM EST) TSH 5.090(H) 0.550 - 4.780 uIU/mL 05/10/2019 5:33 AM EST [facility] Blood Venipuncture / Unknown 05/10/2019 3:50 AM EST 05/10/2019 4:26 AM EST us Oscar Marc MD ENDOCRINOLOGY Final Result Performing Organization Address [facility]/ZIP Co de Phone Number [facility] [address] [address] * (ABNORMAL) HEMOGLOBIN A1C (05/09/2019 10:32 PM EST) Hemoglobin A1C HPLC 11.2(H) 4.7 - 5.6 % 05/10/2019 7:48 AM EST [facility] Estimated Average Glucose 275 mg/dL 05/10/2019 7:48 AM EST [facility] Blood Venipuncture / Unknown 05/09/2019 10:32 PM EST 05/09/2019 10:41 PM EST us Oscar Marc MD HEMATOLOGY ORDERABLES Final Resu lt Performing Organization Address [facility]/ZIP Co de Phone Number [facility] [address] [address] * (ABNORMAL) LIPID PANEL W CALCULATED LDL (05/09/2019 10:32 PM EST) Cholesterol 221(H) <200 mg/dL 05/10/2019 3:05 AM EST [facility] Comment: [<200 mg/dL: Desirable] [200-239 mg/dL: Borderline High] [>239 mg/dL: High] Triglycerides 311(H) <150 mg/dL 05/10/2019 3:05 AM [facility] Comment: [<150 mg/dL: Desirable] [150-199 mg/dL: Borderline] [200-499 mg/dL: High] [>500 mg/dL: Very High] HDL Cholesterol 49 >=40 mg/dL 05/10/2019 3:05 AM [facility] Comment: [<40 mg/dL: Low (High Risk)] [>59 mg/dL: High (Low Risk)] Calculated LDL Cholesterol 110(H) 0 - 99 mg/dL 05/10/2019 3:05 AM [facility] Comment: [<100 mg/dL: Optimal] [100-129 mg/dL: Near Optimal] [130-159 mg/dL: Borderline High] [160-189 mg/dL: High] [>189 mg/dL: Very High] Total Cholesterol/HDL Ratio 4.5(H) <4.5 05/10/2019 3:05 AM [facility] Non HDL Cholesterol 172(H) <130 mg/dL 05/10/2019 3:05 AM [facility] Blood Venipuncture / Unknown 05/09/2019 10:32 PM EST 05/09/2019 10:40 PM EST us Oscar Marc MD CHEMISTRY ORDERABLES Final Resul t [facility] [address] [address] from Last 3 Months or Most Recently Relevant to Health Maintenance Insurance [facility] PL[facility] Advance Directives For more information, please contact: [phone] (7:30 AM - 6PM [facility], Sunday-Sunday) * Full Code (Latest Code Status on File) Date Activated Date Inactivated Comments 05/10/2019 3:08 AM Care Teams Echo Tech Relationship Specialty Start Date End Date Cesar Wilhelm MD PCP - General Family Medicine 05/19/19
--- OUTSIDE RECORDS SUMMARY | 2024-11-03 20:23 | XMS_ITS | CCD ---
Author Organization [facility] Care Team Providers Care Oral Therapist Name Role Phone VIVIAN LESTER Admitting Unavailable RAI DUPREE Attending Unavailable KENTON FINCH Referring Unavailable KENTON FINCH Primary Care Unavailable Jadyn Wilhelm Primary Care Physician [phone] CAROLINE LALA Attending Unavailable CAROLINE LALA Admitting Unavailable MEGHANA Carbjaal, DR SALAMANCA Primary Care Unavailable CAROLINE LALA Consulting Unavailable DR JIMBO MCCOLLUM Consulting Unavailable LUCIO NEVARZE Attending Unavailable DR JADYN SALEH Primary Care Unavailable LUCIO NEVAREZ Admitting Unavailable LUCIO NEVAREZ Consulting Unavailable SONA ELLSWORTH Consulting Unavailable SONA ELLSWORTH Attending Unavailable MEGHANA Carbajal, DR SALAMANCA Primary Care Unavailable SONA ELLSWORTH Admitting Unavailable ALBARO NORIEGA Attending Unavailable ALBARO NORIEGA Admitting Unavailable MEGHANA Carbajal, DR SALAMANCA Primary Care Unavailable AKILAH ., SONA Admitting Unavailable AKILAH ., SONA Consulting Unavailable SONA ELLSWORTH Attending Unavailable DR JADYN SALEH Primary Care Unavailable MEGHANA ., DR SALAMANCA Primary Care Unavailable MEGHANA ., DR SALAMANCA Consulting Unavailable MEGHANA ., DR SALAMANCA Attending Unavailable HOY ., DR SALAMANCA Admitting Unavailable JOSIAS, DR IGNACIO Ruiz Consulting Unavailable AKILAH ., SONA Admitting Unavailable AKILAH ., SONA Consulting Unavailable SONA ELLSWORTH Attending Unavailable MEGHANA .DR SALAMANCA Primary Care Unavailable MEGHANA ., DR SALAMANCA Primary Care Unavailable EVARISTOY ., DR SALAMANCA Admitting Unavailable HONigel ., [...] DR YANCEY Admitting Unavailable MCCASTERROBERTA Consulting Unavailable GEMBUSRENETTA Consulting Unavailable NILL ., DR YANCEY Admitting Unavailable NILL ., DR YANCEY Consulting Unavailable NILL ., DR YANCEY Attending Unavailable HOY ., DR SALAMANCA Primary Care Unavailable HAY ., DR CHOI Admitting Unavailable HAY ., DR CHOI Consulting Unavailable HAY ., DR CHOI Attending Unavailable HOY ., DR SALAMANCA Primary Care Unavailable GERI, LUCIO Consulting Unavailable LUCIO NEVAREZ Attending Unavailable HOY ., DR SALAMANCA Primary Care Unavailable LUCIO NEVAREZ Admitting Unavailable NILL, Naye R Attending Unavailable NILL, Naye R Attending Unavailable NILL, Naye R Attending Unavailable HOY, JADYN M Referring Unavailable HOY, JADYN M Primary Care Unavailable HOY, JADYN M Referring Unavailable HOY, JADYN M Primary Care Unavailable HOY, JADYN M Primary Care Unavailable STEPHANY NORIEGA Attending Unavailable HOY, JADYN M Primary Care Unavailable LISSET SANTAMARIA Attending Unavailable St Alize HUNT, Royal Franco Attending Unavailchristiano Ryan MD, Hawk Cuellar Attending Unavailable Shelby HUNT, Hawk Cuellar Attending Unavailable Allergies Allergy Classification Reported Allergen(s) Allergy Type Date of Onset Reaction(s) Facility (3 sources) Prochlorperazine ; Translations: [Compazine] Drug Allergy 3 [facility] Repository (3 sources) Prochlorperazine ; Translations: [prochlorperazin e] Drug Allergy 7 Cratoshia (finding) [facility] [place] Medications Current Medications Medication Drug Class(es) Dates [...] 08-14-2022 Episodic Other aftercare (1 source) Other superintendent terminal (current) drug therapy; Translations: [OTH LONG-TERM CURRENT DRUG THERAPY] Onset: 08-14-2022 Episodic Other aftercare (1 source) shelter (current) use of insulin; Translations: [LONG-TERM CURRENT USE OF INSULIN] Onset: 08-14-2022 Episodic [...] BY AUTOMATED COUNT 0.1 10*3/uL Normal 0.0-0.2 [facility] Comment on above: Performed By: #### C BCA #### [address] [address] VIR BASOPHILS RELATIVE PERCENT BY AUTOMATED COUNT 0.3 % Normal [facility] Comment on above: Performed By: #### C BCA #### [address] [address] VIR CELLAVISION DIFFERENTIAL TYPE AUTOMATED DIFFERENTIAL Normal [facility] Comment on above: Performed By: #### C BCA #### [facility] ([address] [address] VIR Eosinophils (Bld) [#/Vol] 0.2 10*3/uL Normal 0.0-0.4 [facility] Comment on above: Performed By: #### C BCA #### [facility] ([address] [address] VIR EOSINOPHILS RELATIVE PERCENT BY AUTOMATED COUNT 1.0 % Normal [facility] Comment on above: Performed By: #### C BCA #### [facility] ([address] [place] [address] VIR Erythrocyte distribution width (RBC) [Ratio] 15.5 % High 11.5-15 [facility] Comment on above: Performed By: #### C BCA #### [facility] ([address] [address] VIR Hematocrit (Bld) [Volume fraction] 46.2 % Normal 39-50 [facility] Comment on above: Performed By: #### C BCA #### [facility] ([address] [address] VIR Hemoglobin (Bld) [Mass/Vol] 15.6 g/dL Normal 13-17 [facility] Comment on above: Performed By: #### C BCA #### [facility] ([address] [address] VIR LYMPHOCYTES ABSOLUTE COUNT (10*3/UL) BY AUTOMATED COUNT 1.9 10*3/uL Normal 1.0-3.5 [facility] Comment on above: Performed By: #### C BCA #### [facility] ([address] [address] VIR LYMPHOCYTES RELATIVE PERCENT BY AUTOMATED COUNT 11.2 % Normal [facility] Comment on above: Performed By: #### C BCA #### [facility] ([address] [address] VIR MCH (RBC) [Entitic mass] 27.6 pg Normal 27-34 [facility] Comment on above: Performed By: #### C BCA #### [facility] ([address] [address] VIR MCHC (RBC) [Mass/Vol] 33.8 g/dL Normal 32-36 [facility] Comment on above: Performed By: #### C BCA #### [facility] ([address] [address] VIR MCV (RBC) [Entitic vol] 82 fL Normal 80-100 [facility] Comment on above: Performed By: #### C BCA #### [facility] ([address] [address] VIR MONOCYTES ABSOLUTE COUNT (10*3/UL) BY AUTOMATED COUNT 0.9 10*3/uL Normal 0.0-0.9 [facility] Comment on above: Performed By: #### C BCA #### [facility] ([address] [address] VIR MONOCYTES RELATIVE PERCENT BY AUTOMATED COUNT 5.3 % Normal [facility] Comment on above: Performed By: #### C BCA #### [facility] ([address] [address] VIR NEUTROPHILS ABSOLUTE COUNT BY AUTOMATED COUNT 14.0 10*3/uL High 1.5-6.6 [facility] Comment on above: Performed By: #### C BCA #### [facility] ([address] [address] VIR NEUTROPHILS RELATIVE PERCENT BY AUTOMATED COUNT 82.2 % Normal [facility] Comment on above: Performed By: #### C BCA #### [facility] ([address] [address] VIR Platelet mean volume (Bld) [Entitic vol] 7.3 fL Normal 7-12 [facility] Comment on above: Performed By: #### C BCA #### [facility] ([address] [address] VIR Platelets (Bld) [#/Vol] 295 10*3/uL Normal 150-450 [facility] Comment on above: Performed By: #### C BCA #### [facility] ([facility]) [facility] [place] [address] VIR RBC COUNT 5.66 X10E12/L Normal 4.1-5.7 [facility] Comment on above: Performed By: #### C BCA #### [facility] ([address] [place] [address] VIR WBC (Bld) [#/Vol] 17.1 10*3/uL High 4-11 [facility] Comment on above: Performed By: #### C BCA #### [facility] ([address] [place] [address] VIR COMPREHENSIVE METABOLIC PANE Ruddy 09-08-2024 Albumin [Mass/Vol] 3.9 g/dL Normal 3.2-5.3 [facility] Comment on above: Performed By: #### C MP #### [facility] ([address] [place] [address] VIR ALP [Catalytic activity/Vol] 99 U/L Normal 39-130 [facility] Comment on above: Performed By: #### C MP #### [facility] ([address] [place] [address] VIR ALT [Catalytic activity/Vol] 65 U/L High <=40 [facility] Comment on above: Performed By: #### C MP #### [facility] ([address] [place] [address] VIR Anion gap [Moles/Vol] 12 mmol/L Normal 5-15 [facility] Comment on above: Performed By: #### C MP #### [facility] ([place] [address] [place] [address] VIR AST [Catalytic activity/Vol] 40 U/L Normal <=41 [facility] Comment on above: Performed By: #### C MP #### [facility] ([place] [address] [place] [address] VIR Bilirubin [Mass/Vol] 0.8 mg/dL Normal 0.3-1.2 [facility] Comment on above: Performed By: #### C MP #### [facility] ([address] [place] [address] VIR Calcium [Mass/Vol] 9.0 mg/dL Normal 8.5-10.5 [facility] Comment on above: Performed By: #### C MP #### [facility] ([address] [place] [address] VIR Chloride [Moles/Vol] 100 mmol/L Normal 98-109 [facility] Comment on above: Performed By: #### C MP #### [facility] ([address] [place] [address] VIR CO2 [Moles/Vol] 22 mmol/L Normal 22-32 [facility] Comment on above: Performed By: #### C MP #### [facility] ([address] [place] [address] VIR Creatinine [Mass/Vol] 0.76 mg/dL Normal 0.70-1.20 [facility] Comment on above: Result Comment: METH OD TRACEABLE TO IDMS STANDARD Performed By: #### C MP #### [facility] ([address] [place] [address] VIR EGFR (CKD-EPI) NON-RACE DEPENDENT >^90 Normal >=60 [facility] Comment on above: Result Comment: eGFR not reported due to non-numeric value for Creatinine. Reported eGFR is based on the CKD-EPI 2021 equation that does not use a race coefficient. Performed By: #### C MP #### [facility] ([address] [place] [address] VIR Glucose [Mass/Vol] 202 mg/dL High 65-99 [facility] Comment on above: Performed By: #### C MP #### [facility] ([address] [place] [address] VIR Potassium [Moles/Vol] 3.4 mmol/L Low 3.5-5.0 [facility] Comment on above: Performed By: #### C MP #### [facility] ([address] [place] [address] VIR Protein [Mass/Vol] 7.8 g/dL Normal 6.0-8.0 [facility] Comment on above: Performed By: #### C MP #### [facility] ([address] [place] [address] VIR Sodium [Moles/Vol] 134 mmol/L Normal 134-146 [facility] Comment on above: Performed By: #### C MP #### [facility] ([address] [place] [address] VIR Urea nitrogen [Mass/Vol] 23 mg/dL Normal 5-23 [facility] Comment on above: Performed By: #### C MP #### [facility] ([address] [place] [address] VIR LIPASEon 09-08-2024 Lipase [Catalytic activity/Vol] 72 U/L High 17-40 [facility] Comment on above: Performed By: #### L IPA #### [facility] ([address] [place] [address] VIR TROPONIN I, HIGH SENSITIVITY 0 HOURon 09-08-2024 TROPONIN I, HIGH SENSITIVITY 2 ng/L Normal <21 [facility] Comment on above: Performed By: #### T NIHS0 #### [facility] ([address] [address] VIR Auth for Release of Medical Recordson 12-07-2022 Auth for Release of Medical Records [id number] Normal [facility] CARDIAC ROSLYN 3-6on 3 CK [Catalytic activity/Vol] 288 U/L Normal 39-308 [facility] Comment on above: Performed By: #### C MREP #### [facility] [address] [address] [address] Kiran Ivey CK.MB [Mass/Vol] 4.71 ng/mL Critically high <=3.60 [facility] Comment on above: Performed By: #### C MREP #### [facility] [address] [address] [address] Kiran Ivey HSTROP 5.8 pg/mL Normal 4.0-76.1 [facility] Comment on above: Result Comment: CUT- OFF POINTS HAVE BEEN ESTABLISHED BASED ON THE FOURTH UNIVERSAL DEFINITIONS OF MYOCARDIAL INFARCTION. THE UPPER REFERENCE LIMIT (URL) OF TROPONIN, DEFINED THE 99TH PERCENTILE OF cTnI DISTRIBUTION IN A REFERENCE POPULATION, HAS BEEN CONFIRMED THE DECISION THRESHOLD FOR MS DIAGNOSIS. Performed By: #### C MREP #### [facility] [address] [address] [address] Kiran Ivey CARDIAC ROSLYN ADMITon 023 CK [Catalytic activity/Vol] 297 U/L Normal 39-308 [facility] Comment on above: Performed By: #### C MADM, BMP #### [facility] [address] [address] [address] Kiran Ivey CK.MB [Mass/Vol] 5.29 ng/mL Critically high <=3.60 [facility] Comment on above: Performed By: #### C MADM, BMP #### [facility] [address] [address] [address] Kiran Ivey HSTROP 6.1 pg/mL Normal 4.0-76.1 [facility] Comment on above: Result Comment: CUT- OFF POINTS HAVE BEEN ESTABLISHED BASED ON THE FOURTH UNIVERSAL DEFINITIONS OF MYOCARDIAL INFARCTION. THE UPPER REFERENCE LIMIT (URL) OF TROPONIN, DEFINED THE 99TH PERCENTILE OF cTnI DISTRIBUTION IN A REFERENCE POPULATION, HAS BEEN CONFIRMED THE DECISION THRESHOLD FOR MS DIAGNOSIS. Performed By: #### C MADM, BMP #### [facility] [address] [address] [address] Kiran Ivey MALIHA 50 ng/mL Normal 16-96 [facility] Comment on above: Performed By: #### C MADM, BMP #### [facility] [address] [address] [address] Kiran Ivey CBC AUTO DIFFon 08-10-2022 BASO # 0.1 103/ul Normal 0.0-0.1 [facility] Comment on above: Performed By: #### C BC #### [facility] [address] [address] [address] Kiran Ivey Basophils/100 WBC (Bld) 0.8 % Normal 0.2-2.0 [facility] Comment on above: Performed By: #### C BC #### [facility] [address] [place] [address] Dr. Kiran Ivey EO # 0.3 103/ul Normal 0.0-0.7 [facility] Comment on above: Performed By: #### C BC #### [facility] [address] [place] [address] Dr. Kiran Ivey Eosinophils/100 WBC (Bld) 3.6 % Normal 0.9-7.0 [facility] Comment on above: Performed By: #### C BC #### [facility] [address] [place] [address] Dr. Kiran Ivey Erythrocyte distribution width (RBC) [Ratio] 14.9 % Normal 11.0-15.0 [facility] Comment on above: Performed By: #### C BC #### [facility] [address] [place] [address] Dr. Kiran Ivey Hematocrit (Bld) [Volume fraction] 38.9 % Critically low 42.0-54.0 [facility] Comment on above: Performed By: #### C BC #### [facility] [address] [place] [address] Dr. Kiran Ivey Hemoglobin (Bld) [Mass/Vol] 12.6 g/dL Critically low 14.0-18.0 [facility] Comment on above: Performed By: #### C BC #### [facility] [address] [place] [address] Dr. Kiran Ivey IG # 0.02 10e3/ul Normal 0.00-0.03 [facility] Comment on above: Performed By: #### C BC #### [facility] [address] [place] [address] Dr. Kiran Ivey IG % 0.3 % Normal 0.0-0.5 [facility] Comment on above: Performed By: #### C BC #### [facility] [address] [place] [address] Dr. Kiran Ivey LYMPH # 2.4 103/ul Normal 1.2-3.8 [facility] Comment on above: Performed By: #### C BC #### [facility] [address] [place] [address] Dr. Kiran Ivey Lymphocytes/100 WBC (Bld) 33.1 % Normal 20.5-60.0 [facility] Comment on above: Performed By: #### C BC #### [facility] [address] [place] [address] Dr. Kiran Ivey MANUAL DIFF REQ NO Normal [facility] Comment on above: Performed By: #### C BC #### [facility] [address] [place] [address] Dr. Kiran Ivey MCH (RBC) [Entitic mass] 24.4 pg Critically low 25.9-34.0 [facility] Comment on above: Performed By: #### C BC #### [facility] [address] [place] [address] Dr. Kiran Ivey MCHC (RBC) [Mass/Vol] 32.4 g/dL Normal 29.9-35.2 [facility] Comment on above: Performed By: #### C BC #### [facility] [address] [place] [address] Dr. Kiran Ivey MCV (RBC) [Entitic vol] 75.4 fL Critically low 80.0-94.0 [facility] Comment on above: Performed By: #### C BC #### [facility] [address] [address] [address] Kiran Ivey MONO # 0.5 103/ul Normal 0.3-0.8 [facility] Comment on above: Performed By: #### C BC #### [facility] [address] [address] [address] Kiran Ivey Monocytes/100 WBC (Bld) 7.0 % Normal 1.7-12.0 [facility] Comment on above: Performed By: #### C BC #### [facility] [address] [place] [address] Dr. Kiran Ivey NEUT # 4.0 103/ul Normal 1.4-6.5 [facility] Comment on above: Performed By: #### C BC #### [facility] [address] [place] [address] Dr. Kiran Ivey Neutrophils/100 WBC (Bld) 55.2 % Normal 43.0-75.0 [facility] Comment on above: Performed By: #### C BC #### [facility] [address] [place] [address] Dr. Kiran Ivey Platelet mean volume (Bld) [Entitic vol] 9.1 fL Critically low 9.5-13.5 [facility] Comment on above: Performed By: #### C BC #### [facility] [address] [place] [address] Dr. Kiran Ivey PLT 310 103/ul Normal 150-450 [facility] Comment on above: Performed By: #### C BC #### [facility] [address] [place] [address] Dr. Kiran Ivey RBC 5.16 106/ul Normal 4.70-6.10 [facility] Comment on above: Performed By: #### C BC #### [facility] [address] [place] [address] Dr. Kiran Ivey WBC 7.2 103/ul Normal 4.0-11.0 [facility] Comment on above: Performed By: #### C BC #### [facility] [address] [address] [address] Kiran Ivey PROF CHEM 8 (BAS METB)on Anion gap [Moles/Vol] 11.1 mmol/L Normal [facility] Comment on above: Performed By: #### C MADM, BMP #### [facility] [address] [place] [address] Dr. iKran Ivey Calcium [Mass/Vol] 9.3 mg/dL Normal 8.5-10.1 [facility] Comment on above: Performed By: #### C MADM, BMP #### [facility] [address] [place] [address] Dr. Kiran Ivey Chloride [Moles/Vol] 100 mmol/L Normal 98-107 [facility] Comment on above: Performed By: #### C MADM, BMP #### [facility] [address] [place] [address] Dr. Kiran Ivey CO2 [Moles/Vol] 30.1 mmol/L Normal 21.0-32.0 [facility] Comment on above: Performed By: #### C MADM, BMP #### [facility] [address] [place] [address] Dr. Kiran Ivey Creatinine [Mass/Vol] 1.03 mg/dL Normal 0.70-1.30 [facility] Comment on above: Performed By: #### C MADM, BMP #### [facility] [address] [place] [address] Dr. Kiran Ivey EGFR-AF PUERTO RICAN >60 Normal >=60 [facility] Comment on above: Performed By: #### C MADM, BMP #### [facility] [address] [place] [address] Dr. Kiran Ivey EGFR-NON AF PUERTO RICAN >60 Normal >=60 [facility] Comment on above: Performed By: #### C MADM, BMP #### [facility] [address] [place] [address] Dr. Kiran Ivey Glucose [Mass/Vol] 226 mg/dL Critically high 74-106 [facility] Comment on above: Performed By: #### C MADM, BMP #### [facility] [address] [address] [address] Kiran Ivey Potassium [Moles/Vol] 4.2 mmol/L Normal 3.5-5.1 [facility] Comment on above: Performed By: #### C MADM, BMP #### [facility] [address] [place] [address] Dr. Kiran Ivey Sodium [Moles/Vol] 137 mmol/L Normal 136-145 [facility] Comment on above: Performed By: #### C MADM, BMP #### [facility] [address] [place] [address] Dr. Kiarn Ivey Urea nitrogen [Mass/Vol] 19.0 mg/dL Critically high 7.0-18.0 [facility] Comment on above: Performed By: #### C MADM, BMP #### [facility] [address] [place] [address] Dr. Kiran Ivey Urea nitrogen/Creatinin e [Mass ratio] 18.4 mg/mg Normal [facility] Comment on above: Performed By: #### C IBETHM, BMP #### [facility] [address] [place] [address] Dr. Kiran Ivey GLYCOHEMOGLOBIN A1Con 2022 ADA RECOMMENDATION SEE BELOW Normal [facility] Comment on above: Result Comment: ADA RECOMMENDED LIMIT 4.0 - 6.0 ADA THERAPEUTIC TARGET < 7.0 ACTION SUGGESTED > 7.0 Performed By: #### C BC #### [facility] [address] [place] [address] Dr. Kiran Ivey Glucose [Mass/Vol] 269 mg/dL Normal [facility] Comment on above: Performed By: #### C BC #### [facility] [address] [place] [address] Dr. Kiran Ivey HbA1c (Bld) [Mass fraction] 11.0 % Critically high 4.5-6.2 [facility] Comment on above: Performed By: #### C BC #### [facility] [address] [place] [address] Dr. Kiran Ivey LIPID PROFILEon 06-12-2022 CHOL-HDL RATIO NORM SEE BELOW Normal [facility] Comment on above: Result Comment: 3.3 - 4.4 LOW RISK 4.4 - 7.1 AVERAGE RISK 7.1 - 11.0 MODERATE RISK >11.0 HIGH RISK Performed By: #### L IPID #### [facility] [address] [address] [address] Kiran Ivey Cholesterol [Mass/Vol] 193 mg/dL Normal <=200 [facility] Comment on above: Performed By: #### L IPID #### [facility] [address] [address] [address] Kiran Ivey Cholesterol in HDL [Mass/Vol] 47 mg/dL Normal 40-60 [facility] Comment on above: Performed By: #### L IPID #### [facility] [address] [address] [address] Kiran Ivey Cholesterol in LDL [Mass/Vol] 109.4 mg/dL Normal [facility] Comment on above: Performed By: #### L IPID #### [facility] [address] [address] [address] Kiran Ivey Cholesterol.total/ Cholesterol in HDL [Mass ratio] 4.1 {ratio} Normal [facility] Comment on above: Performed By: #### L IPID #### [facility] [address] [address] [address] Kiran Ivey HDL NORMAL > or = 60 mg/dl - LO W CARDIOVASCULAR RISK <40 mg/dl - HIGH CARDIOVASCULAR RISK Normal [facility] Comment on above: Performed By: #### L IPID #### [facility] [address] [address] [address] Kiran Ivey LDL CALC NORMAL SEE BELOW Normal [facility] Comment on above: Result Comment: <100 mg/dl OPTIMAL 100 - 129 mg/dl NEAR OR ABOVE OPTIMAL 130 - 159 mg/dl BORDERLINE HIGH 160 - 189 mg/dl HIGH >190 mg/dl VERY HIGH Performed By: #### L IPID #### [facility] [address] [address] [address] Kiran Ivey Triglyceride [Mass/Vol] 183 mg/dL Critically high <=150 [facility] Comment on above: Performed By: #### L IPID #### [facility] [address] [place], [place] [address] Dr. Kiran Ivey VLDL CALC 36.6 mg/dL Normal [facility] Comment on above: Performed By: #### L IPID #### [facility] [address] [place], [place] [address] Dr. Kiran Ivey General Surgery Office/Clini c [...] Sister. COPD: Father. Heart disease: Father. Normal [facility] Comment on above: Result Comment: Elec tronically Signed By: CAMI HUNT, Naye Bell\Date and Time Signed: 05/02/22 15:50 EST Reminderson 05-02-2022 Reminders - From: Suad Fitzpatrick LPN To: [facility] - Clinical; Sent: 05/02/2022 15:51:15 EST Show up: 03/20/2027 07:00:00 EST Subject: colonoscopy recall Due Date/Time: 04/19/2027 07:00:00 EST Reminder/Recall Patient is due for colonoscopy 04/19/2027 due to history of colonic polyp. Normal [facility] Pathology Noteon 04-21-2022 Pathology Note [id number]#1.00CD:127 Normal [facility] Outside Colonoscopyon 2021 Outside Colonoscopy [id number]#1.00CD:127 Normal [facility] POINT OF CARE GLUCOSEon 03-24 Glucose [Mass/Vol] 114 mg/dL Critically high 74-[address] [facility] Comment on above: Performed By: #### P OCGLUC #### [facility] [address] [address] [address] Kiran Ivey Lab Reportson 2022 Lab Reports [id number]#1.00CD:127 Normal [facility] Covid-19 PCR (CVDTBH)on 03-24 SARS-CoV-2 (COVID-19) RNA JOANNA+probe Ql (Unsp spec) Not detected Normal NOT DETECTED [facility] Comment on above: Result Comment: This test is not yet approved or cleared by the [place] FDA. When there are no FDA-approved or cleared tests available, and other criteria are met, FDA can make tests available under an emergency access mechanism called an Emergency Use Authorization (EUA). The EUA for this test is supported by the [place] of Health and Human Service's (HHS's) declaration [...] consistent with SARS-CoV-2. Performed By: #### C [facility] #### [facility] [address] [place] [address] Dr. Kiran Ivey Pre-Certification Formon Pre-Certification Form [id number]#[id number]:127 Normal [facility] Consent for Procedure/Surger yon 03-20-2022 Consent for Procedure/Surgery [id number]#1.00CD:127 Normal [facility] Ambulatory Visit Summaryon 1 05-13-2021 Ambulatory Visit Summary CHARLES NONI Stuart :1975 Visit Date:03/13/2022 Ambulatory Visit Instructions [...] Testicular hypofunction Vapes nicotine containing substance Normal [facility] CBC AUTO DIFFon 03-09-2022 BASO # 0.0 103/ul Normal 0.0-0.1 [facility] Comment on above: Performed By: #### C BC #### [facility] [address] [address] [address] Kiran Ivey Basophils/100 WBC (Bld) 0.6 % Normal 0.2-2.0 [facility] Comment on above: Performed By: #### C BC #### [facility] [address] [address] [address] Kiran Ivey EO # 0.0 103/ul Normal 0.0-0.7 [facility] Comment on above: Performed By: #### C BC #### [facility] [address] [address] [address] Kiran Ivey Eosinophils/100 WBC (Bld) 1.2 % Normal 0.9-7.0 [facility] Comment on above: Performed By: #### C BC #### [facility] [address] [place] [address] Dr. Kiran Ivey Erythrocyte distribution width (RBC) [Ratio] 16.7 % Critically high 11.0-15.0 [facility] Comment on above: Performed By: #### C BC #### [facility] [address] [place] [address] Dr. Kiran Ivey Hematocrit (Bld) [Volume fraction] 38.5 % Critically low 42.0-54.0 [facility] Comment on above: Performed By: #### C BC #### [facility] [address] [place] [address] Dr. Kiran Ivey Hemoglobin (Bld) [Mass/Vol] 11.6 g/dL Critically low 14.0-18.0 [facility] Comment on above: Performed By: #### C BC #### [facility] [address] [place] [address] Dr. Kiran Ivey IG # 0.01 10e3/ul Normal 0.00-0.03 [facility] Comment on above: Performed By: #### C BC #### [facility] [address] [place] [address] Dr. Kiran Ivey IG % 0.3 % Normal 0.0-0.5 [facility] Comment on above: Performed By: #### C BC #### [facility] [address] [place] [address] Dr. Kiran Ivey LYMPH # 1.2 103/ul Normal 1.2-3.8 [facility] Comment on above: Performed By: #### C BC #### [facility] [address] [place] [address] Dr. Kiran Ivey Lymphocytes/100 WBC (Bld) 36.0 % Normal 20.5-60.0 [facility] Comment on above: Performed By: #### C BC #### [facility] [address] [place] [address] Dr. Kiran Ivey MANUAL DIFF REQ NO Normal [facility] Comment on above: Performed By: #### C BC #### [facility] [address] [address] [address] Kiran Ivey MCH (RBC) [Entitic mass] 22.2 pg Critically low 25.9-34.0 [facility] Comment on above: Performed By: #### C BC #### [facility] [address] [place] [address] Dr. Kiran Ivey MCHC (RBC) [Mass/Vol] 30.1 g/dL Normal 29.9-35.2 [facility] Comment on above: Performed By: #### C BC #### [facility] [address] [place] [address] Dr. Kiran Ivey MCV (RBC) [Entitic vol] 73.8 fL Critically low 80.0-94.0 [facility] Comment on above: Performed By: #### C BC #### [facility] [address] [place] [address] Dr. Kiran Ivey MONO # 0.5 103/ul Normal 0.3-0.8 [facility] Comment on above: Performed By: #### C BC #### [facility] [address] [place] [address] Dr. Kiran Ivey Monocytes/100 WBC (Bld) 15.1 % Critically high 1.7-12.0 [facility] Comment on above: Performed By: #### C BC #### [facility] [address] [place] [address] Dr. Kiran Ivey NEUT # 1.5 103/ul Normal 1.4-6.5 [facility] Comment on above: Performed By: #### C BC #### [facility] [address] [place] [address] Dr. Kiran Ivey Neutrophils/100 WBC (Bld) 46.8 % Normal 43.0-75.0 [facility] Comment on above: Performed By: #### C BC #### [facility] [address] [place] [address] Dr. Kiran Ivey Platelet mean volume (Bld) [Entitic vol] 10.2 fL Normal 9.5-13.5 [facility] Comment on above: Performed By: #### C BC #### [facility] [address] [address] [address] Kiran Ivey PLT 168 103/ul Normal 150-450 [facility] Comment on above: Performed By: #### C BC #### [facility] [address] [address] [address] Kiran Ivey RBC 5.22 106/ul Normal 4.70-6.10 [facility] Comment on above: Performed By: #### C BC #### [facility] [address] [address] [address] Kiran Ivey WBC 3.3 103/ul Critically low 4.0-11.0 [facility] Comment on above: Performed By: #### C BC #### [facility] [address] [address] [address] Kiran Ivey PROF CHEM 8 (BAS METB)on Anion gap [Moles/Vol] 10.3 mmol/L Normal [facility] Comment on above: Performed By: #### B MP #### [facility] [address] [address] [address] Kiran Ivey Calcium [Mass/Vol] 8.5 mg/dL Normal 8.5-10.1 [facility] Comment on above: Performed By: #### B MP #### [facility] [address] [address] [address] Kiran Ivey Chloride [Moles/Vol] 99 mmol/L Normal 98-107 [facility] Comment on above: Performed By: #### B MP #### [facility] [address] [address] [address] Kiran Ivey CO2 [Moles/Vol] 28.3 mmol/L Normal 21.0-32.0 [facility] Comment on above: Performed By: #### B MP #### [facility] [address] [address] [address] Kiran Ivey Creatinine [Mass/Vol] 0.81 mg/dL Normal 0.70-1.30 [facility] Comment on above: Performed By: #### B MP #### [facility] [address] [address] [address] Kiran Ivey EGFR-AF PUERTO RICAN >60 Normal >=60 [facility] Comment on above: Performed By: #### B MP #### [facility] [address] [id number] Kiran Ivey EGFR-NON AF PUERTO RICAN >60 Normal >=60 [facility] Comment on above: Performed By: #### B MP #### [facility] [address] [address] [address] Kiran Ivey Glucose [Mass/Vol] 152 mg/dL Critically high 74-[address] [facility] Comment on above: Performed By: #### B MP #### [facility] [address] [place] [address] Dr. Kiran Ivey Potassium [Moles/Vol] 4.6 mmol/L Normal 3.5-5.1 [facility] Comment on above: Performed By: #### B MP #### [facility] [address] [place] [address] Dr. Kiran Ivey Sodium [Moles/Vol] 133 mmol/L Critically low 136-145 [facility] Comment on above: Performed By: #### B MP #### [facility] [address] [place] [address] Dr. Kiran Ivey Urea nitrogen [Mass/Vol] 13.0 mg/dL Normal 7.0-18.0 [facility] Comment on above: Performed By: #### B MP #### [facility] [address] [place] [address] Dr. Kiran Ivey Urea nitrogen/Creatinin e [Mass ratio] 16.0 mg/mg Normal [facility] Comment on above: Performed By: #### B MP #### [facility] [address] [place] [address] Dr. Kiran Ivey Physician Referralon 022 Physician Referral [id number]#[id number]:127 Normal [facility] TESTOSTERONE, TOTALon 2021 Testosterone [Mass/Vol] 56 ng/dL Critically low 264-916 [facility] Comment on above: Result Comment: Adul t male reference interval is based on a population of healthy nonobese males (BMI <30) between 19 and 39 years old. tatiana Gonzalez.al. JCEM 2017,102;0621-1974. PMID: [id number]. Performed By: #### C BC #### [facility] [address] [place] [address] Dr. Kiran Ivey AMYLASEon 02-15-2022 Amylase [Catalytic activity/Vol] 35 U/L Normal 25-115 [facility] Comment on above: Performed By: #### C BC #### [facility] [address] [place] [address] Dr. Kiran Ivye BNPon 02-15-2022 Natriuretic peptide B (Bld) [Mass/Vol] 7.0 pg/mL Normal <=450.0 [facility] Comment on above: Performed By: #### C BC #### [facility] [address] [place] [address] Dr. Kiran Ivey CBC AUTO DIFFon 02-15-2022 BASO # 0.1 103/ul Normal 0.0-0.1 [facility] Comment on above: Performed By: #### C BC #### [facility] [address] [place] [address] Dr. Kiran Ivey Basophils/100 WBC (Bld) 0.7 % Normal 0.2-2.0 [facility] Comment on above: Performed By: #### C BC #### [facility] [address] [place] [address] Dr. Kiran Ivey EO # 0.2 103/ul Normal 0.0-0.7 [facility] Comment on above: Performed By: #### C BC #### [facility] [address] [place] [address] Dr. Kiran Ivey Eosinophils/100 WBC (Bld) 2.3 % Normal 0.9-7.0 [facility] Comment on above: Performed By: #### C BC #### [facility] [address] [place] [address] Dr. Kiran Ivey Erythrocyte distribution width (RBC) [Ratio] 15.2 % Critically high 11.0-15.0 [facility] Comment on above: Performed By: #### C BC #### [facility] [address] [place] [address] Dr. Kiran Ivey Hematocrit (Bld) [Volume fraction] 38.3 % Critically low 42.0-54.0 [facility] Comment on above: Performed By: #### C BC #### [facility] [address] [place] [address] Dr. Kiran Ivey Hemoglobin (Bld) [Mass/Vol] 12.1 g/dL Critically low 14.0-18.0 [facility] Comment on above: Performed By: #### C BC #### [facility] [address] [place] [address] Dr. Kiran Ivey IG # 0.06 10e3/ul Critically high 0.00-0.03 [facility] Comment on above: Performed By: #### C BC #### [facility] [address] [place] [address] Dr. Kiran Ivey IG % 0.6 % Critically high 0.0-0.5 [facility] Comment on above: Performed By: #### C BC #### [facility] [address] [place] [address] Dr. Kiran Ivey LYMPH # 2.6 103/ul Normal 1.2-3.8 [facility] Comment on above: Performed By: #### C BC #### [facility] [address] [place] [address] Dr. Kiran Ivey Lymphocytes/100 WBC (Bld) 25.0 % Normal 20.5-60.0 [facility] Comment on above: Performed By: #### C BC #### [facility] [address] [place] [address] Dr. Kiran Ivey MANUAL DIFF REQ NO Normal [facility] Comment on above: Performed By: #### C BC #### [facility] [address] [place] [address] Dr. Kiran Ivey MCH (RBC) [Entitic mass] 22.5 pg Critically low 25.9-34.0 [facility] Comment on above: Performed By: #### C BC #### [facility] [address] [address] [address] Kiran Ivey MCHC (RBC) [Mass/Vol] 31.6 g/dL Normal 29.9-35.2 [facility] Comment on above: Performed By: #### C BC #### [facility] [address] [address] [address] Kiran Ivey MCV (RBC) [Entitic vol] 71.2 fL Critically low 80.0-94.0 [facility] Comment on above: Performed By: #### C BC #### [facility] [address] [place] [address] Dr. Kiran Ivey MONO # 0.7 103/ul Normal 0.3-0.8 [facility] Comment on above: Performed By: #### C BC #### [facility] [address] [place] [address] Dr. Kiran Ivey Monocytes/100 WBC (Bld) 6.6 % Normal 1.7-12.0 [facility] Comment on above: Performed By: #### C BC #### [facility] [address] [place] [address] Dr. Kiran Ivey NEUT # 6.7 103/ul Critically high 1.4-6.5 [facility] [place] [facility] Comment on above: Performed By: #### C BC #### [facility] [address] [place] [address] Dr. Kiran Ivey Neutrophils/100 WBC (Bld) 64.8 % Normal 43.0-75.0 [facility] Comment on above: Performed By: #### C BC #### [facility] [address] [place] [address] Dr. Kiran Ivey Platelet mean volume (Bld) [Entitic vol] 9.0 fL Critically low 9.5-13.5 [facility] Comment on above: Performed By: #### C BC #### [facility] [address] [place] [address] Dr. Kiran Ivey PLT 338 103/ul Normal 150-450 [facility] Comment on above: Performed By: #### C BC #### [facility] [address] [place] [address] Dr. Kiran Ivey RBC 5.38 106/ul Normal 4.70-6.10 [facility] Comment on above: Performed By: #### C BC #### [facility] [address] [place] [address] Dr. Kiran Ivey WBC 10.3 103/ul Normal 4.0-11.0 [facility] Comment on above: Performed By: #### C BC #### [facility] [address] [place] [address] Dr. Kiran Ivey FREE THYROXINE INDEX T7on FTI 3.04 Normal 1.30-4.50 [facility] Comment on above: Performed By: #### C BC #### [facility] [address] [place] [address] Dr. Kiran Ivey T3U 33.0 % Normal 33.0-40.0 [facility] Comment on above: Performed By: #### C BC #### [facility] [address] [place] [address] Dr. Kiran Ivey T4 [Mass/Vol] 9.20 ug/dL Normal 4.50-12.10 [facility] Comment on above: Performed By: #### C BC #### [facility] [address] [place] [address] Dr. Kiran Ivey IRONon 02-15-2022 Iron [Mass/Vol] 25.0 ug/dL Critically low 65.0-175.0 [facility] Comment on above: Performed By: #### C BC #### [facility] [address] [place] [address] Dr. Kiran Ivey LIPASEon 02-15-2022 Lipase [Catalytic activity/Vol] 90.0 U/L Normal 73.0-393.0 [facility] Comment on above: Performed By: #### C BC #### [facility] [address] [place] [address] Dr. Kiran Ivey PROF 14(COMP METB)on 022 Albumin [Mass/Vol] 3.4 g/dL Normal 3.4-5.0 [facility] Comment on above: Performed By: #### C BC #### [facility] [address] [place] [address] Dr. Kiran Ivey Albumin/Globulin [Mass ratio] 0.8 {ratio} Normal [facility] Comment on above: Performed By: #### C BC #### [facility] [address] [place] [address] Dr. Kiran Ivey ALP [Catalytic activity/Vol] 118 U/L Critically high 46-116 [facility] Comment on above: Performed By: #### C BC #### [facility] [address] [place] [address] Dr. Kiran Ivey ALT [Catalytic activity/Vol] 30 U/L Normal 16-63 [facility] Comment on above: Performed By: #### C BC #### [facility] [address] [place] [address] Dr. Kiran Ivey Anion gap [Moles/Vol] 9.8 mmol/L Normal [facility] Comment on above: Performed By: #### C BC #### [facility] [address] [place] [address] Dr. Kiran Ivey AST [Catalytic activity/Vol] 20 U/L Normal 15-37 [facility] Comment on above: Performed By: #### C BC #### [facility] [address] [place] [address] Dr. Kiran Ivey Bilirubin [Mass/Vol] 0.2 mg/dL Normal 0.2-1.0 [facility] Comment on above: Performed By: #### C BC #### [facility] [address] [place] [address] Dr. Kiran Ivey Calcium [Mass/Vol] 9.5 mg/dL Normal 8.5-10.1 [facility] Comment on above: Performed By: #### C BC #### [facility] [address] [place], [place] [id number] Dr. Kiran Ivey Chloride [Moles/Vol] 99 mmol/L Normal 98-107 [facility] Comment on above: Performed By: #### C BC #### [facility] [address] [place] [address] Dr. Kiran Ivey CO2 [Moles/Vol] 29.1 mmol/L Normal 21.0-32.0 [facility] Comment on above: Performed By: #### C BC #### [facility] [address] [place] [address] Dr. Kiran Ivey Creatinine [Mass/Vol] 0.83 mg/dL Normal 0.70-1.30 [facility] Comment on above: Performed By: #### C BC #### [facility] [address] [place] [address] Dr. Kiran Ivey EGFR-AF PUERTO RICAN >60 Normal >=60 [facility] Comment on above: Performed By: #### C BC #### [facility] [address] [place] [address] Dr. Kiran Ivey EGFR-NON AF PUERTO RICAN >60 Normal >=60 [facility] Comment on above: Performed By: #### C BC #### [facility] [address] [place] [address] Dr. Kiran Ivey Globulin (S) [Mass/Vol] 4.1 g/dL Normal [facility] Comment on above: Performed By: #### C BC #### [facility] [address] [place] [address] Dr. Kiran Ivey Glucose [Mass/Vol] 157 mg/dL Critically high 74-106 [facility] Comment on above: Performed By: #### C BC #### [facility] [address] [place] [address] Dr. Kiran Ivey Potassium [Moles/Vol] 3.9 mmol/L Normal 3.5-5.1 [facility] Comment on above: Performed By: #### C BC #### [facility] [address] [place] [address] Dr. Kiran Ivey Protein [Mass/Vol] 7.5 g/dL Normal 6.4-8.2 [facility] Comment on above: Performed By: #### C BC #### [facility] [address] [place] [address] Dr. Kiran Ivey Sodium [Moles/Vol] 134 mmol/L Critically low 136-145 [facility] Comment on above: Performed By: #### C BC #### [facility] [address] [place] [address] Dr. Kiran Ivey Urea nitrogen [Mass/Vol] 13.0 mg/dL Normal 7.0-18.0 [facility] Comment on above: Performed By: #### C BC #### [facility] [address] [place] [address] Dr. Kiran Ivey Urea nitrogen/Creatinin e [Mass ratio] 15.7 mg/mg Normal [facility] Comment on above: Performed By: #### C BC #### [facility] [address] [place] [address] Dr. Kiran Ivey TSHon 02-15-2022 TSH 1.756 uIU/mL Normal 0.358-3.740 [facility] Comment on above: Performed By: #### C BC #### [facility] [address] [place] [address] Dr. Kiran Ivey Covid-19 PCR ([facility])on 12-23 SARS-CoV-2 (COVID-19) RNA JOANNA+probe Ql (Unsp spec) Not detected Normal NOT DETECTED [facility] Comment on above: Result Comment: When [...] for this test is supported by the [place] of Health and Human Service's declaration that [...] be used). Performed By: #### C #### [facility] [address] [address] [address] Kiran Ivey ECHOCARDIO M/2D COMPLETEon 0 09-14-2021 ECHOCARDIO M/2D COMPLETE Patient: NONI SOTO. Exam Date: 09/14/2021 : 1975 Gender:M Ordering : DR JADYN WILHELM . Admission #: [id number] Family : Order #: [id number] CLICK HERE TO VIEW EXAM ECHOCARDIOGRAM REPORT [...] Perez M.D. on 09/15/2021 at 13:[address] [facility] CREATININEon 09-09-2021 Creatinine [Mass/Vol] 0.95 mg/dL Normal 0.70-1.30 [facility] Comment on above: Performed By: #### C BC #### [facility] [address] [place] [address] Dr. Kiran Ivey EGFR-AF PUERTO RICAN >60 Normal >=60 [facility] Comment on above: Performed By: #### C BC #### [facility] [address] [place] [address] Dr. Kiran Ivey EGFR-NON AF PUERTO RICAN >60 Normal >=60 [facility] Comment on above: Performed By: #### C BC #### [facility] [address] [place] [address] Dr. Kiran Ivey CTA CHEST WO W [...] by: IGNACIO FERRARA Date: 2021-09-09 10:[address] [facility] US WOODROW DOP LEG BILon 022 [...] by: IGNACIO FERRARA Date: 2021-09-05 16:[address] [facility] POC GLUCOSE LABon 01-09-2019 Glucose [Mass/Vol] 233 mg/dL High 70-100 [facility] Comment on above: Performed By: #### [id number] #### [facility] [address] [facility] [place] [address], [facility] Glucose [Mass/Vol] 199 mg/dL High 70-100 [facility] Comment on above: Performed By: #### [id number] #### [facility] [address] [facility] [place] [address], [facility] POC GLUCOSE LABon 01-08-2019 Glucose [Mass/Vol] 251 mg/dL High 70-100 [facility] Comment on above: Performed By: #### [id number] #### [facility] [address] [facility] [place] [address], [facility] Glucose [Mass/Vol] 212 mg/dL High 70-100 [facility] Comment on above: Performed By: #### [id number] #### [facility] [address] [facility] [place] [address], [facility] Glucose [Mass/Vol] 238 mg/dL High 70-100 [facility] Comment on above: Performed By: #### 8 [id number] #### [facility] [address] [place] [address], [facility] Glucose [Mass/Vol] 160 mg/dL High 70-100 [facility] Comment on above: Performed By: #### 0 0121 #### [facility] [address] [place] [address], [facility] BASIC METABOLIC PANELon - Calcium [Mass/Vol] 9.3 mg/dL Normal 8.6-10.3 [facility] Comment on above: Order Comment: Yes: Add to Previous draw if able Performed By: #### 0 0121 #### [facility] [address] [facility] [place] [address], [facility] Chloride [Moles/Vol] 100 mmol/L Normal 98-107 [facility] Comment on above: Order Comment: Yes: Add to Previous draw if able Performed By: #### 0 0121 #### [facility] [address] [place] [address], [facility] CO2 [Moles/Vol] 30 mmol/L Normal 21-31 [facility] Comment on above: Order Comment: Yes: Add to Previous draw if able Performed By: #### 0 0121 #### [facility] [address] [place] [address], [facility] Creatinine [Mass/Vol] 0.74 mg/dL Normal 0.70-1.30 [facility] Comment on above: Order Comment: Yes: Add to Previous draw if able Performed By: #### 0 0121 #### [facility] [address] [place] [address], [facility] GFR/1.73 sq M predicted among blacks MDRD (S/P/Bld) [Vol rate/Area] mL/min/{1.73_m2} Normal >60 [facility] Comment on above: Order Comment: Yes: Add to Previous draw if able Performed By: #### 0 0121 #### [facility] [address] [place] [address], [facility] GFR/1.73 sq M predicted among non-blacks MDRD (S/P/Bld) [Vol rate/Area] mL/min/{1.73_m2} Normal >60 [facility] Comment on above: Order Comment: Yes: Add to Previous draw if able Performed By: #### 0 0121 #### [facility] [address] [place] [address], [place] Glucose [Mass/Vol] 176 mg/dL High 70-100 [facility] Comment on above: Order Comment: Yes: Add to Previous draw if able Performed By: #### 0 0121 #### [facility] [address] [place] [address], [facility] Potassium [Moles/Vol] 3.6 mmol/L Normal 3.5-5.1 [facility] Comment on above: Order Comment: Yes: Add to Previous draw if able Performed By: #### 0 0121 #### [facility] [address] [place] [address], [facility] Sodium [Moles/Vol] 137 mmol/L Normal 136-145 [facility] Comment on above: Order Comment: Yes: Add to Previous draw if able Performed By: #### 0 0121 #### [facility] [address] [place] [address], [facility] Urea nitrogen [Mass/Vol] 15 mg/dL Normal 7-25 [facility] Comment on above: Order Comment: Yes: Add to Previous draw if able Performed By: #### 0 0121 #### [facility] [address] [place] [address], [facility] CBC COMPLETE BLOOD COUNTon 0 - Erythrocyte distribution width (RBC) [Ratio] 12.7 % Normal 11.5-15.0 [facility] Comment on above: Order Comment: Yes: Add to Previous draw if able Performed By: #### 0 0121 #### [facility] [address] [place] [address], [facility] Hematocrit (Bld) [Volume fraction] 35.4 % Low 39.0-50.0 [facility] Comment on above: Order Comment: Yes: Add to Previous draw if able Performed By: #### 0 0121 #### [facility] [address] [place] [id number], [facility] Hemoglobin (Bld) [Mass/Vol] 11.8 g/dL Low 13.0-17.0 [facility] Comment on above: Order Comment: Yes: Add to Previous draw if able Performed By: #### 0 0121 #### [facility] [address] [place] [address], [facility] MCH (RBC) [Entitic mass] 26.1 pg Low 27.0-33.0 [facility] Comment on above: Order Comment: Yes: Add to Previous draw if able Performed By: #### 0 0121 #### [facility] [address] [place] [address], [facility] MCHC (RBC) [Mass/Vol] 33.3 g/dL Normal 32.0-35.0 [facility] Comment on above: Order Comment: Yes: Add to Previous draw if able Performed By: #### 0 0121 #### [facility] [address] [place] [id number], [facility] MCV (RBC) [Entitic vol] 78.3 fL Low 82.0-98.0 [facility] Comment on above: Order Comment: Yes: Add to Previous draw if able Performed By: #### 0 0121 #### [facility] [address] [place] [address], [facility] Nucleated RBC/100 WBC (Bld) [Ratio] 0 % Normal 0-0 [facility] Comment on above: Order Comment: Yes: Add to Previous draw if able Performed By: #### 0 0121 #### [facility] [address] [place] [address], [facility] PLAT CNT 411 10*3/uL High 150-400 [facility] Comment on above: Order Comment: Yes: Add to Previous draw if able Performed By: #### 0 0121 #### [facility] [address] [place] [id number], [facility] RBC (Bld) [#/Vol] 4.52 10*6/uL Normal 4.20-5.70 [facility] Comment on above: Order Comment: Yes: Add to Previous draw if able Performed By: #### 0 0121 #### [facility] [address] [place] [address], [facility] WBC (Bld) [#/Vol] 7.62 10*3/uL Normal 4.00-10.60 [facility] Comment on above: Order Comment: Yes: Add to Previous draw if able Performed By: #### 0 0121 #### [facility] [address] [place] [address], [facility] HEMOGLOBIN A1Con 01-07-2019 HbA1c (Bld) [Mass fraction] 338 mg/dL High 70-126 [facility] Comment on above: Order Comment: Yes: Add to Previous draw if able Performed By: #### 8 [id number] #### [facility] [address] [place] [address], [facility] HbA1c (Bld) [Mass fraction] 13.4 % High 4.0-6.0 [facility] Comment on above: Order Comment: Yes: Add to Previous draw if able Performed By: #### 8 [id number] #### [facility] [address] [place] [id number], [facility] POC GLUCOSE LABon 01-07-2019 Glucose [Mass/Vol] 317 mg/dL High 70-100 [facility] Comment on above: Performed By: #### 0 0121 #### [facility] [address] [place] [address], [place] Glucose [Mass/Vol] 142 mg/dL High 70-100 [facility] Comment on above: Performed By: #### 0 0121 #### [facility] [address] [place] [address], [place] Glucose [Mass/Vol] 190 mg/dL High 70-100 [facility] Comment on above: Performed By: #### 0 0121 #### [facility] [address] [place] [address], [place] VANCOMYCIN TROUGHon 01-08-20 19 VANCOMYCIN TROU 11.5 mcg/mL Normal 5.0-20.0 [facility] Comment on above: Performed By: #### 0 0121 #### [facility] [address] [place] [address], [place] BASIC METABOLIC PANELon 12-22 Calcium [Mass/Vol] 9.1 mg/dL Normal 8.6-10.3 [facility] Comment on above: Order Comment: No: D o not add to previous draw Performed By: #### 1 69, [id number], 84842 #### [facility] [address] [place] [address], [place] Chloride [Moles/Vol] 100 mmol/L Normal 98-107 [facility] Comment on above: Order Comment: No: D o not add to previous draw Performed By: #### 1 69, 29684, 53818 #### [facility] [address] [place] [address], [place] CO2 [Moles/Vol] 29 mmol/L Normal 21-31 [facility] Comment on above: Order Comment: No: D o not add to previous draw Performed By: #### 1 0, 09389, 09004 #### [facility] [address] [place] [address], [place] Creatinine [Mass/Vol] 0.57 mg/dL Low 0.70-1.30 [facility] Comment on above: Order Comment: No: D o not add to previous draw Performed By: #### 1 0070, 33461, 98258 #### [facility] [address] [place] [address], [place] GFR/1.73 sq M predicted among blacks MDRD (S/P/Bld) [Vol rate/Area] mL/min/{1.73_m2} Normal >60 [facility] Comment on above: Order Comment: No: D o not add to previous draw Performed By: #### 1 0, 19562, 14146 #### [facility] [address] [place] [address], [place] GFR/1.73 sq M predicted among non-blacks MDRD (S/P/Bld) [Vol rate/Area] mL/min/{1.73_m2} Normal >60 [facility] Comment on above: Order Comment: No: D o not add to previous draw Performed By: #### 1 0, 77255, 99192 #### [facility] [address] [place] [address], [place] Glucose [Mass/Vol] 157 mg/dL High 70-100 [facility] Comment on above: Order Comment: No: D o not add to previous draw Performed By: #### 1 0, 69785, 25479 #### [facility] [address] [place] [address], [place] Potassium [Moles/Vol] 3.5 mmol/L Normal 3.5-5.1 [facility] Comment on above: Order Comment: No: D o not add to previous draw Performed By: #### 1 0, 21090, 95421 #### [facility] [address] [place] [address], [place] Sodium [Moles/Vol] 135 mmol/L Low 136-145 [facility] Comment on above: Order Comment: No: D o not add to previous draw Performed By: #### 1 0, 07189, 91770 #### [facility] [address] [facility]. [address] Urea nitrogen [Mass/Vol] 7 mg/dL Normal 7-25 [facility] Comment on above: Order Comment: No: D o not add to previous draw Performed By: #### 1 0070, 85604, 44571 #### [facility] [address] [facility] [place] [address], [facility] CBC W/DIFFon 01-06-2019 ABS BASOPHILS 0.1 10*3/uL Normal 0.0-0.2 [facility] Comment on above: Order Comment: No: D o not add to previous draw Performed By: #### 5 0103 #### [facility] [address] ABS IMM GRANS 0.1 10*3/uL Normal 0.0-0.2 [facility] Comment on above: Order Comment: No: D o not add to previous draw Performed By: #### 5 0103 #### [facility] [address] [facility]. [address] ABS NEUTROPHILS 4.5 10*3/uL Normal 1.6-7.6 [facility] Comment on above: Order Comment: No: D o not add to previous draw Performed By: #### 5 0103 #### [facility] [address] [facility]. [address] Basophils/100 WBC (Bld) 0.7 % Normal 0.0-1.0 [facility] Comment on above: Order Comment: No: D o not add to previous draw Performed By: #### 5 0103 #### [facility] [address] [facility] [place] [address], [facility] Eosinophils (Bld) [#/Vol] 0.3 10*3/uL Normal 0.0-0.5 [facility] Comment on above: Order Comment: No: D o not add to previous draw Performed By: #### 5 0103 #### [facility] [address] [place] [address], [facility] Eosinophils/100 WBC (Bld) 3.4 % Normal 0.0-6.0 [facility] Comment on above: Order Comment: No: D o not add to previous draw Performed By: #### 5 0103 #### [facility] [address] [place] [address], [facility] Erythrocyte distribution width (RBC) [Ratio] 12.7 % Normal 11.5-15.0 [facility] Comment on above: Order Comment: No: D o not add to previous draw Performed By: #### 5 0103 #### [facility] [address] [place] [address], [facility] Hematocrit (Bld) [Volume fraction] 35.1 % Low 39.0-50.0 [facility] Comment on above: Order Comment: No: D o not add to previous draw Performed By: #### 5 0103 #### [facility] [address] [place] [address], [facility] Hemoglobin (Bld) [Mass/Vol] 11.9 g/dL Low 13.0-17.0 [facility] Comment on above: Order Comment: No: D o not add to previous draw Performed By: #### 5 0103 #### [facility] [address] [place] [address], [facility] IMMATURE GRANS 0.6 % Normal 0.0-1.0 [facility] Comment on above: Order Comment: No: D o not add to previous draw Performed By: #### 5 0103 #### [facility] [address] [place] [address], [facility] Lymphocytes (Bld) [#/Vol] 3.0 10*3/uL Normal 1.2-4.0 [facility] Comment on above: Order Comment: No: D o not add to previous draw Performed By: #### 5 0103 #### [facility] [address] [place] [address], [facility] Lymphocytes/100 WBC (Bld) 34.7 % Normal 20.0-45.0 [facility] Comment on above: Order Comment: No: D o not add to previous draw Performed By: #### 5 0103 #### [facility] [address] [facility] [place] [address], [facility] MCH (RBC) [Entitic mass] 26.6 pg Low 27.0-33.0 [facility] Comment on above: Order Comment: No: D o not add to previous draw Performed By: #### 5 0103 #### [facility] [address] MCHC (RBC) [Mass/Vol] 33.9 g/dL Normal 32.0-35.0 [facility] Comment on above: Order Comment: No: D o not add to previous draw Performed By: #### 5 0103 #### [facility] [address] [place] [address], [facility] MCV (RBC) [Entitic vol] 78.5 fL Low 82.0-98.0 [facility] Comment on above: Order Comment: No: D o not add to previous draw Performed By: #### 5 102 #### [facility] [address] [place] [address], [facility] Monocytes (Bld) [#/Vol] 0.7 10*3/uL Normal 0.1-1.0 [facility] Comment on above: Order Comment: No: D o not add to previous draw Performed By: #### 5 3 #### [facility] [address] [place] [address], [facility] MONOS 8.1 % Normal 5.0-12.0 [facility] Comment on above: Order Comment: No: D o not add to previous draw Performed By: #### 5 3 #### [facility] [address] [place] [address], [facility] Neutrophils/100 WBC (Bld) 52.5 % Normal 40.0-72.0 [facility] Comment on above: Order Comment: No: D o not add to previous draw Performed By: #### 5 0103 #### [facility] [address] [place] [address], [facility] Nucleated RBC/100 WBC (Bld) [Ratio] 0 % Normal 0-0 [facility] Comment on above: Order Comment: No: D o not add to previous draw Performed By: #### 5 0103 #### [facility] [address] [place] [id number], [facility] PLAT CNT 445 10*3/uL High 150-400 [facility] Comment on above: Order Comment: No: D o not add to previous draw Performed By: #### 5 0103 #### [facility] [address] [place] [id number], [facility] RBC (Bld) [#/Vol] 4.47 10*6/uL Normal 4.20-5.70 [facility] Comment on above: Order Comment: No: D o not add to previous draw Performed By: #### 5 0103 #### [facility] [address] [place] [address], [place] WBC (Bld) [#/Vol] 8.51 10*3/uL Normal 4.00-10.60 [facility] Comment on above: Order Comment: No: D o not add to previous draw Performed By: #### 5 0103 #### [facility] [address] [place] [address], [facility] MAGNESIUM BLOODon 01-06-2019 Magnesium [Mass/Vol] 1.5 mg/dL Low 1.9-2.7 [facility] Comment on above: Order Comment: No: D o not add to previous draw Performed By: #### 1 0070, 07465, 35291 #### [facility] [address] [place] [address], [place] PHOSPHORUS BLOODon 9 Phosphate [Mass/Vol] 3.0 mg/dL Normal 2.5-5.0 [facility] Comment on above: Order Comment: No: D o not add to previous draw Performed By: #### 1 0070, 56437, 50328 #### [facility] [address] [place] [address], [place] POC GLUCOSE LABon 01-06-2019 Glucose [Mass/Vol] 293 mg/dL High 70-100 [facility] Comment on above: Performed By: #### 0 0121 #### [facility] [address] [place] [address], [place] Glucose [Mass/Vol] 317 mg/dL High 70-100 [facility] Comment on above: Performed By: #### 0 0121 #### [facility] [address] [place] [address], [place] Glucose [Mass/Vol] 264 mg/dL High 70-100 [facility] Comment on above: Performed By: #### 0 0121 #### [facility] [address] [place] [address], [place] Glucose [Mass/Vol] 104 mg/dL High 70-100 [facility] Comment on above: Performed By: #### 8 5499 #### [facility] [address] [place] [address], [place] Glucose [Mass/Vol] 236 mg/dL High 70-100 [facility] Comment on above: Performed By: #### 8 5499 #### [facility] [address] [place] [address], [place] Glucose [Mass/Vol] 247 mg/dL High 70-100 [facility] Comment on above: Performed By: #### 8 5499 #### [facility] [address] CBC W/DIFFon 01-05-2019 ABS BASOPHILS 0.1 10*3/uL Normal 0.0-0.2 [facility] Comment on above: Performed By: #### 5 0103 #### [facility] [address] [facility]. [address] ABS IMM GRANS 0.1 10*3/uL Normal 0.0-0.2 [facility] Comment on above: Performed By: #### 5 0103 #### [facility] [address] ABS NEUTROPHILS 5.9 10*3/uL Normal 1.6-7.6 [facility] Comment on above: Performed By: #### 5 0103 #### [facility] [address] Basophils/100 WBC (Bld) 0.5 % Normal 0.0-1.0 [facility] Comment on above: Performed By: #### 5 0103 #### [facility] [address] Eosinophils (Bld) [#/Vol] 0.4 10*3/uL Normal 0.0-0.5 [facility] Comment on above: Performed By: #### 5 0103 #### [facility] [address] [facility] [place] [address], [facility] Eosinophils/100 WBC (Bld) 3.8 % Normal 0.0-6.0 [facility] Comment on above: Performed By: #### 5 0103 #### [facility] [address] Erythrocyte distribution width (RBC) [Ratio] 12.8 % Normal 11.5-15.0 [facility] Comment on above: Performed By: #### 5 0103 #### [facility] [address] [place] [address], [facility] Hematocrit (Bld) [Volume fraction] 42.5 % Normal 39.0-50.0 [facility] Comment on above: Performed By: #### 5 0103 #### [facility] [address] [facility] [place] [address], [facility] Hemoglobin (Bld) [Mass/Vol] 14.2 g/dL Normal 13.0-17.0 [facility] Comment on above: Performed By: #### 5 0103 #### [facility] [address] [facility] [place] [address], [facility] IMMATURE GRANS 0.7 % Normal 0.0-1.0 [facility] Comment on above: Performed By: #### 5 0103 #### [facility] [address] [facility]. [address] Lymphocytes (Bld) [#/Vol] 2.9 10*3/uL Normal 1.2-4.0 [facility] Comment on above: Performed By: #### 5 0103 #### [facility] [address] [facility] [place] [address], [facility] Lymphocytes/100 WBC (Bld) 28.8 % Normal 20.0-45.0 [facility] Comment on above: Performed By: #### 5 3 #### [facility] [address] [facility] [address] MCH (RBC) [Entitic mass] 25.8 pg Low 27.0-33.0 [facility] Comment on above: Performed By: #### 5 0103 #### [facility] [address] [place] [address], [facility] MCHC (RBC) [Mass/Vol] 33.4 g/dL Normal 32.0-35.0 [facility] Comment on above: Performed By: #### 5 3 #### [facility] [address] [facility] [place] [place] [address] MCV (RBC) [Entitic vol] 77.3 fL Low 82.0-98.0 [facility] Comment on above: Performed By: #### 5 0103 #### [facility] [address] [facility] [place] [address], [facility] Monocytes (Bld) [#/Vol] 0.8 10*3/uL Normal 0.1-1.0 [facility] Comment on above: Performed By: #### 5 0103 #### [facility] [address] [facility] [place] [address], [facility] MONOS 8.1 % Normal 5.0-12.0 [facility] Comment on above: Performed By: #### 5 3 #### [facility] [address] [facility] [place] [address], [facility] Neutrophils/100 WBC (Bld) 58.1 % Normal 40.0-72.0 [facility] Comment on above: Performed By: #### 3 #### [facility] [address] [facility] [place] [address], [facility] Nucleated RBC/100 WBC (Bld) [Ratio] 0 % Normal 0-0 [facility] Comment on above: Performed By: #### 5 3 #### [facility] [address] [facility] [place] [address], [facility] PLAT CNT 524 10*3/uL High 150-400 [facility] Comment on above: Performed By: #### 5 3 #### [facility] [address] [facility] [place] [address], [facility] RBC (Bld) [#/Vol] 5.50 10*6/uL Normal 4.20-5.70 [facility] Comment on above: Performed By: #### 102 #### [facility] [address] [place] [id number], [facility] WBC (Bld) [#/Vol] 10.19 10*3/uL Normal 4.00-10.60 [facility] Comment on above: Performed By: #### 5 0103 #### [facility] [address] COMP METABOLIC PANELon 01-05 Albumin [Mass/Vol] 4.3 g/dL Normal 3.5-5.7 [facility] Comment on above: Performed By: #### 0 0121 #### [facility] [address] [facility]. [address] ALKALINE PHOSPH 115 IU/L High 34-104 [facility] Comment on above: Performed By: #### 0 0121 #### [facility] [address] [facility]. [address] ALT [Catalytic activity/Vol] 14 U/L Normal 7-52 [facility] Comment on above: Performed By: #### 0 0121 #### [facility] [address] AST [Catalytic activity/Vol] 16 U/L Normal 13-39 [facility] Comment on above: Performed By: #### 0 0121 #### [facility] [address] Bilirubin [Mass/Vol] 0.4 mg/dL Normal 0.3-1.0 [facility] Comment on above: Performed By: #### 0 0121 #### [facility] [address] Calcium [Mass/Vol] 10.2 mg/dL Normal 8.6-10.3 [facility] Comment on above: Performed By: #### 0 0121 #### [facility] [address] [facility] [place] [address], [facility] Chloride [Moles/Vol] 92 mmol/L Low 98-107 [facility] Comment on above: Performed By: #### 0 0121 #### [facility] [address] [place] [address], [place] CO2 [Moles/Vol] 32 mmol/L High 21-31 [facility] Comment on above: Performed By: #### 0 0121 #### [facility] [address] [place] [address], [place] Creatinine [Mass/Vol] 0.74 mg/dL Normal 0.70-1.30 [facility] Comment on above: Performed By: #### 0 0121 #### [facility] [address] [place] [address], [place] GFR/1.73 sq M predicted among blacks MDRD (S/P/Bld) [Vol rate/Area] mL/min/{1.73_m2} Normal >60 [facility] Comment on above: Performed By: #### 0 0121 #### [facility] [address] [place] [address], [place] GFR/1.73 sq M predicted among non-blacks MDRD (S/P/Bld) [Vol rate/Area] mL/min/{1.73_m2} Normal >60 [facility] Comment on above: Performed By: #### 0 0121 #### [facility] [address] [place] [address], [place] Glucose [Mass/Vol] 320 mg/dL High 70-100 [facility] Comment on above: Performed By: #### 0 0121 #### [facility] [address] [place] [address], [place] Potassium [Moles/Vol] 4.2 mmol/L Normal 3.5-5.1 [facility] Comment on above: Performed By: #### 0 0121 #### [facility] [address] [place] [address], [place] Protein [Mass/Vol] 8.6 g/dL High 6.0-8.3 [facility] Comment on above: Performed By: #### 0 0121 #### [facility] [address] [facility] [place] [address], [facility] Sodium [Moles/Vol] 133 mmol/L Low 136-145 [facility] Comment on above: Performed By: #### 0 0121 #### [facility] [address] [facility] [place] [address], [facility] Urea nitrogen [Mass/Vol] 9 mg/dL Normal 7-25 [facility] Comment on above: Performed By: #### 0 0121 #### [facility] [address] [facility] [place] [address], [facility] CT SOFT TISSUE NECK W CONTRA STon 01-05-2019 CT SOFT TISSUE NECK W CONTRAST [facility] Department of Radiology [address] [place] [address] [id number] Patient Name: NONI SOTO : 1975 Sex: M Age: Race: White Pt. Location: [facility] Patient Status: I Ordered Date: 01/05/2019 6:40:00 [...] findings. Electronically signed by:Mamta Garcia. Transcribed by: [email or web address], User Resident: ANTONELLA WHITFIELD Electronically Signed by: MAMTA GARCIA @ 01/06/2019 09:55 AM I personally read this/these film(s) with this resident Normal [facility] Vital Signs Date Time Vital Sign Value Performing Clinician Ynes méndez 03-13-2022 13:08-0500 Blood Pressure Location [facility] 03-13-2022 13:08-0500 Diastolic blood pressure 97 mm[Hg] Naye NILL [facility] 03-13-2022 13:08-0500 Heart rate 89 /min Naye NILL [facility] 03-13-2022 13:08-0500 Respiratory rate 16 /min [facility] 03-13-2022 13:08-0500 Systolic blood pressure 160 mm[Hg] Naye NILL [facility] Encounters Encounter Date Encounter Type Care Provider Facility Start: 10-07-2024 ambulatory Royal Eugene MD Fa cility:[facility] Start: 09-08-2024 End: 09-08-2024 Emergency department patient visit [facility] Start: 08-25-2024 End: 08-25-2024 ambulatory Hawk Ryan MD Facility:[facility] Start: 08-09-2024 End: 08-09-2024 Emergency department patient visit [facility] Start: 08-03-2024 ambulatory [facility] Start: 07-28-2024 End: 07-28-2024 ambulatory Hawk Ryan MD Facility:[facility] Start: 08-10-2022 End: 08-11-2022 ambulatory LUCIO NEVAREZ Facility:[facility] Start: 06-12-2022 End: 06-13-[address] JADYN WILHELM . Facility:[facility] Start: 05-02-2022 End: 05-03-2022 ambulatory Naye STILL Facility:[facility] Start: 04-26-2022 ambulatory Naye STILL Facility:[facility] Start: 04-21-2022 Encounter for preprocedural laboratory examination DR NAYE STILL . [facility] Start: 04-19-2022 End: 04-20-[address] NAYE STILL . Facility:[facility] Start: 04-17-2022 End: [address] NAYE STILL . Facility:[facility] Start: 04-17-2022 End: 2022 Encounter for preprocedural laboratory examination DR NAYE STILL . Facility:[facility] Start: 03-13-2022 End: 03-14-2022 ambulatory Naye STILL Facility:[facility] Start: 03-13-2022 End: 03-13-2022 Patient encounter procedure Naye STILL [facility] Start: 03-09-2022 End: 03-09-2022 ambulatory CAROLINE LALA Facility:[facility] Start: 02-27-2022 End: 02-27-2022 ambulatory SONA ISBELL . Facility:[facility] Start: 02-15-2022 ambulatory Naye STILL Facility:[facility] Start: 02-15-2022 End: 02-16-[address] JADYN [...] End: 09-06-[address] JADYN WILHELM . Facility: Start: 01-05-2019 End: 01-09-2019 Evaluation and management of inpatient VIVIAN LESTER Facility:[facility] Procedures Date Procedure Procedure Detail Performing Clinician Appendectomy Naye CAMI Cholecystectomy Naye CAMI Reconstruction of mandible Sade FLEMINGKelly Renal artery stent ( physical object) Naye FLEMINGKelly Payers Date Payer Category Payer Unknown 1975 Unknown [id number] 2.16.8 40.1.089538.3.579.2.647 1975 Unknown [id number] 2.16.84 0.1.195808.3.579.2.593 1975 Unknown [id number] 2.16.84 0.1.141075.3.579.2.593 1975 Unknown [id number] 2.16.84 0.1.408227.3.579.2.593 1975 Unknown [id number] 2.16.84 0.1.845500.3.579.2.593 1975 Unknown [id number] 2.16.84 0.1.841592.3.579.2.593 1975 Unknown [id number] 2.16.84 0.1.910395.3.579.2.593 1975 Unknown [id number] 2.16.84 0.1.674901.3.579.2.593 1975 Unknown [id number] 2.16.84 0.1.013547.3.579.2.593 1975 Unknown [id number] 2.16.84 0.1.345074.3.579.2.593 1975 Unknown [id number] 2.16.84 0.1.157989.3.579.2.593 1975 Unknown [id number] 2.16.84 0.1.692032.3.579.2.593 1975 Unknown [id number] 2.16.84 0.1.423398.3.579.2.593 1975 Unknown [id number] 2.16.84 0.1.454823.3.579.2.593 1975 Unknown [id number] 2.16.84 0.1.806754.3.579.2.593 1975 Unknown [id number] 2.16.84 0.1.739397.3.579.2.593 1975 Unknown [id number] 2.16.8 40.1.303094.3.579.2.727 1975 Unknown [id number] 2.16.8 40.1.940443.3.579.2.727 1975 Unknown [id number] 2.16.8 40.1.327643.3.579.2.727 1975 Unknown [id number] 2.16.8 40.1.769866.3.579.2.727 1975 Unknown [id number] 2.16. 840.1.839188.3.579.2.1286 1975 Unknown [id number] 2.16. 840.1.136489.3.579.2.1286 1975 Unknown [id number] 2.16. 840.1.881300.3.579.2.1286 1975 Unknown [id number] 2.16. 840.1.658398.3.579.2.1286 1975 Unknown [id number] 2.16. 840.1.307597.3.579.2.196 1975 Unknown [id number] 2.16. 840.1.249295.3.579.2.196 1975 Unknown [id number] 2.16. 840.1.447671.3.579.2.196 1959 Unknown [id number] Social History Date Type Detail Facility Start: 03-13-2022 Tobacco smoking status Never s moked tobacco (finding) [facility] [place] Tobacco smoking status Smokeless tobacco user within last 30 days [facility] Sex Assigned At Male [facility] Functional Status Date Assessment Result Facility 03-13-2022 Functional Status N/A [facility] [place] Clinical Note 04-19-2022 Note Date & Type [...] good condition. CC: Jadyn Wilhelm M.D. [facility] Clinical Note 03-13-2022 Note Date & [...] injectable solution huang (more content not included)... [facility] Comment on above: Result Comment: Elec tronically Signed By: CAMI HUNT, Naye Bell\Date and Time Signed: 03/13/22 13:38 EST Evaluation + Plan note Note Date & Type Note Facility Evaluation + Plan note No data available for this section [facility] [place] [facility] Discharge instructions Note Date & Type Note Facility Hospital Discharge instructions No data available for this section [facility] Progress note Note Date & Type Note Facility Progress note No data available for this section [facility] Summary Purpose Family History No Family History Records FoundNo Family History Records FoundNo Family History Records FoundNo Family History Records FoundNo Family History Records FoundNo Family History Records Found Advance Directives No Advanced Directives Records FoundNo Advanced Directives Records FoundNo Advanced Directives Records FoundNo Advanced Directives Records FoundNo Advanced Directives Records FoundNo Advanced Directives Records Found Hospital Course Note MR#: [id number] I [facility] Pt. Name: Noni Soto Admitted: 01/06/2019 [...] section and content) DATE CREATED AUTHOR 01/27/2019 [facility] DATE CREATED AUTHOR AUTHOR'S ORGANIZ ATION 08/14/2022 [facility] DATE CREATED AUTHOR AUTHOR'S ORGANIZ ATION 12/08/2022 [facility] DATE CREATED AUTHOR AUTHOR'S ORGANIZ ATION 08/04/2024 [facility] DATE CREATED AUTHOR AUTHOR'S ORGANIZ ATION 09/21/2024 [facility] DATE CREATED AUTHOR AUTHOR'S ORGANIZ ATION 10/15/2024 [facility] Patient Care team informatio n (unrecognized section and content) Personnel Name: Jadyn Wilhelm MD Address: Address: [address] [place] [address] FOR RECORDS PERTAINING TO PATIENTS WHO ARE [...] BE BASED ON THE PRIMARY CLINICAL RECORDS. [facility]. provides no warranty or guarantee of the accuracy or completeness of information in this document.
[2024-11-03] MEDS: ACETAMINOPHEN 500 MG TABLET 1000 MG PO (20:29)
[2024-11-03] MEDS: ALBUTEROL SULFATE 200 PUFF/6.7 GM INHALER IH (20:29)
== END 2024-11-03 20:41 | disposition home or self-care (01) ==
PROVIDERS: Emergency Provider Emergency Medicine; PCP Family Medicine
DX: B34.9 Viral infection, unspecified (principal); Z90.49 Acquired absence of other specified parts of digestive tract; Z20.828 Contact with and (suspected) exposure to other viral communicable diseases
CPT/HCPCS: 99283

== ENCOUNTER 2024-11-28 15:38 | Outpatient (OUT) | payer OTHER, SELFPAY ==
--- OUTSIDE RECORDS SUMMARY | 2024-10-30 14:34 | XMS_ITS ---
Author Organization The [facility] [place] Address [address] [place] [address] Care Team Providers Care Pallet Repairer Name Role Phone Lui Wilhelm Primary Care Provider [phone] REASON FOR VISIT ER f/u Encounters Encounter Location Date Provider Diagnosis [address] [address] 10/30/2024 Lui Wilhelm Plan Of Treatment No Information Progress Notes * Jeffery SOTO MDOB:[birth year] (49 yo M)Acc No.[id number]:10/30/2024 Patient: Kvng MARTINEZJeffery SIBLEY :1975 A ge:49 Y S ex:Male Address:[address] [place] [address] [address], [place], [address] * true * Date: Generated for Russel gillespie/Lior/eTransmitting on: 0 11/28/2024 03:40 PM EDT
--- OUTSIDE RECORDS SUMMARY | 2024-11-04 17:34 | XMS_ITS ---
Author Organization [facility] [place] Address [address] [place] [address] Care Team Providers Care Search Analyst Name Role Phone Lui Wilhelm Primary Care Provider REASON FOR VISIT ER update Encounters Encounter Location Date Provider Diagnosis [facility] [address] [place] [address] 11/04/2024 Lui Wilhelm Plan Of Treatment No Information Progress Notes * Jeffery SOTO MDOB:[birth year] (49 yo M)Acc No.[id number]:11/04/2024 Patient: Kvng MARTINEZJeffery SIBLEY :1975 A ge:49 Y S ex:Male Address:[address] [place] [address] [address], [place], [address] * true * Date: Generated for Russel gillespie/Lior/eTransmitting on: 11/28/2024 03:41 PM EDT
--- OUTSIDE RECORDS SUMMARY | 2024-11-28 10:30 | XMS_ITS ---
Author Organization [facility] [place] Address [address] [place] [address] Care Team Providers Care Sales And Marketing Executive Name Role Phone Lui Wilhelm Primary Care Provider [phone] Allergies Allergen (clinical drug ingredient) Drug/Non Drug Allergy documented on EMR Reaction Allergy Type Onset Date Status Compazine muscle spasms Drug Allergy Act aylin REASON FOR VISIT Presents to office with girlfriend c/o abnormal bruising that started a few days ago, Needs rf on Levothyroxine Medications Medication SIG (Take, Route, Frequency, Duration) Notes Start Date End Date Status tiZANidine HCl 4 MG 1 tablet Orally qid for 30 days 07/04/2024 Not-Taking traZODone HCl 100 MG 1 tablet at bedtime as needed Orally Once a day for 30 days Active Lisinopril 40 mg TAKE 1 TABLET BY CHLOE TH DAILY for 90 Active Levothyroxine Sodium 100 MCG 1 capsule in the morning on an empty stomach Orally Once a day for 30 days Active Test Strips - Use in meter to tet blood sugar once a day DX: E11.9 09/18/2024 Active Pregabalin 300 mg 1 tabs oral tid for 30 days 10/07/2024 Active Protonix 40 MG 1 tablet Orally Ever y Evening for 30 day(s) 12/18/2022 Active Lantus SoloStar 100 UNIT/ML Inject 60 units Subcutaneous twice daily for 30 days Active Insulin Pen Needle 31G X 5 MM Use 1 need twice daily to inject insulin DX E11.9 for 90 days Active Lancets Thin - as directed Act aylin Citalopram Hydrobromide 20 mg TAKE 1 TABLET BY MOUTH ONCE DAILY for 30 Active cloNIDine HCl 0.2 mg TAKE 1 TABLET BY [facility] THREE TIMES DAILY for 90 Active Abilify 2 MG 1 tablet Orally Once a day for 30 days Active Apidra SoloStar 100 unit/mL INJECT TEN UNITS SUBCUTANEOUSLY THREE TIMES DAILY WITH MEALS for 90 Active Blood Glucose Meter -- Use as directed t o test blood sugar once a day DX: E11.9 09/18/2024 Active Blood Glucose Monitor System w/Device as directed Active Atorvastatin Calcium 40 MG 1 tablet Orally Once a day for 30 days Active Social History Tobacco Use: Social History Observation Description Date Details (start date - stop date) Never Smoker NA - NA Tobacco Use/Smoking Question Answer Notes Patient is a nonsmoker AUDIT-C (Standard) Question Answer Notes Did you have a drink containing alcohol in the p ast year? No Points 0 Interpretation Negative Problems Problem Type SNOMED Code ICD Code Onset Dates Problem Status W/U Status Risk Notes Problem Easy bruising ([id number]) Easy bruising (R23.8) Active confirmed Vital Signs Weight 230.6 lbs 11/28/2024 Height 66 in 11/28/2024 Blood pressure systolic 160 mm Hg 11/29/19 25 Blood pressure diastolic 92 mm Hg 025 BMI 37.22 kg/m2 11/28/2024 Encounters Encounter Location Date Provider Diagnosis [facility] [address] [place] [address] 11/28/2024 Lui Wilhelm Hypertension I10 and Easy bruising R23.8 Assessments Encounter Date Diagnosis (ICD Code) Assessment Notes Treatment Notes Treatment Clinical Notes Section Notes 11/28/2024 Hypertension (ICD-10 - I10) 11/28/2024 Easy bruising (ICD-10 - R23.8) Plan Of Treatment Pending Test Test Name Order Date AMMONIA 11/28/2024 CBC AUTO DIFF 11/28/2024 PROF 14(COMP METB) 11/28/2024 PROTIME 11/28/2024 PTT 11/28/2024 Progress Notes * Jeffery SOTO MDOB:[birth year] (49 yo M)Acc No.[id number]:11/28/2024 UNLOCKED PROGRESS NOTE Progress Note Patient: Kvng LÓPEZJeffery ANDRES Sade Provider: Ralph Wilhelm ([facility])MD :1975 A ge:49 Y S ex:Male Date:11/28/2024 Address:[address] [place] [address] [address], [address], [place], [id number] Check In:02:20 PM ESTCheck O ut:03:21 PM EST Subjective: * Chief Complaints: * 1 . Presents to office with girlfriend c/o abnormal bruising that started a few days ago. 2. Needs rf on Levothyroxine. * HPI: G eneral: just scratchig on arms - is gettong blisters then bruising need refills thyroid tried Kratom - now I am concerned for liver isses. * ROS: E ENT: hearing changes d enies. v isual changes d enies.?non-healing mouth sores d enies. s wollen glands or neck lumps d enies. h oarseness d enies. s ore throat d enies. d ifficulty swallowing d enies. n ose bleeds d enies. n traci congestion d enies. e ar ache d enies. e ar discharge?denies. r inging in ears d enies. l ight sensitivity d enies. e ye pain d enies. b lurring d enies. e ye irritation d enies. d ouble vision d enies.?vision loss d enies. G eneral/Constitutional: Sweats: D enies. F atigue d enies. S leep problems d enies. A norexia d enies. M alaise d enies. W eight loss d enies.?Fatigue or Weakness d enies. F ever or Chills d enies. C ardiovascular: Shortness of Breath w/lying flat d enies. L ightheadedness/dizziness d enies. C hest tightness/ heavy pressure d enies. S welling of legs, ankles, or feet d enies. W aking up with shortness of breath d enies. C hest pain denies. P alpitations d enies. W eight gain d enies. R espiratory: Chronic or frequent cough d enies. C oughing up blood?denies. D ifficulty breathing d enies. P roductive cough d enies. S noring?denies. S hortness of breath that awakens from sleep (PND) d enies. C hest pain d enies. S putum production d enies. W heezing d enies. M usculoskeletal: Joint pain d enies. J oint Fluid d enies. B ack pain d enies. K nee pain d enies. N williams pain d enies. J oint Stiffness d enies. M uscle cramps d enies. W eakness of muscles d enies. A rthritis d enies. M uscle aches d enies. P ain in shoulder(s) d enies. S wollen joints d enies. * Medical History: H ypertriglyceridemia, Dyspnea, Lumbar radiculopathy, Lumbar disc disease, Abdominal pain, LLQ, COVID-19 virus infection, Acute bronchitis, Abdominal pain, Ascencion's thyroiditis, Anemia, Acute osteomyelitis of mandible, Fracture of angle of right mandible, initial encounter for closed fracture, Otitis external, Testicular hypofunction, Diabetes mellitus, Edema, Insomnia, Narcotic abuse, Hypertension, Migraine headache, Lumbar disc herniation, Seizure, Anxiety, Sleep disorder, Pain in right hand, Allergic rhinitis. * Surgical History: L ithotripsy- kidney stone , Appendix , Gallbladder , Jaw reconstruction . * Family History: F ather: . M other: alive. P aternal Grandfather: , diagnosed with Unspecified essential hypertension. 1 brother(s) , 2 sister(s) . 1 son(s) . . * Social History: T obacco Use: T obacco Use/Smoking P atient is a n onsmoker D rug/Alcohol: A DAJA-C (Standard) D id you have a drink containing alcohol in the past year? N o P oints 0 I nterpretation N egative * Medications: T aking Abilify(ARIPiprazole) 2 MG Tablet 1 tablet Orally Once a day , Taking Apidra SoloStar(Insulin Glulisine) 100 unit/mL Solution Pen-injector INJECT TEN UNITS SUBCUTANEOUSLY THREE TIMES DAILY WITH MEALS , Taking Atorvastatin Calcium 40 MG Tablet 1 tablet Orally Once a day , Taking Blood Glucose Meter -- -- Use as directed to test blood sugar once a day DX: E11.9 , Taking Blood Glucose Monitor System w/Device Kit as directed , Taking Citalopram Hydrobromide 20 mg Tablet TAKE 1 TABLET BY MOUTH ONCE DAILY , Taking cloNIDine HCl 0.2 mg Tablet TAKE 1 TABLET BY MOUTH THREE TIMES DAILY , Taking Insulin Pen Needle 31G X 5 MM Miscellaneous Use 1 need twice daily to inject insulin DX E11.9 , Taking Lancets Thin - Miscellaneous as directed , Taking Lantus SoloStar(Insulin Glargine) 100 UNIT/ML Solution Pen-injector Inject 60 units Subcutaneous twice daily , Taking Levothyroxine Sodium 100 MCG Capsule 1 capsule in the morning on an empty stomach Orally Once a day , Taking Lisinopril 40 mg Tablet TAKE 1 TABLET BY MOUTH DAILY , Taking Pregabalin 300 mg Capsule 1 tabs oral tid , Taking Protonix(Pantoprazole Sodium) 40 MG Tablet Delayed Release 1 tablet Orally Every Evening , Taking Test Strips - - Use in meter to tet blood sugar once a day DX: E11.9 , Taking traZODone HCl 100 MG Tablet 1 tablet at bedtime as needed Orally Once a day , Not-Taking/PRN tiZANidine HCl 4 MG Tablet 1 tablet Orally qid , Discontinued DULoxetine HCl 60 MG Capsule Delayed Release Particles 1 capsule Orally Once a day , Discontinued Lancets 33G(Lancets) - Miscellaneous Use as directed to test blood sugar once a day DX: E11.9 , Discontinued Ozempic (0.25 or 0.5 MG/DOSE)(Semaglutide(0.25 or 0.5MG/DOS)) 2 MG/3ML Solution Pen-injector Inject 0.25mg Subcutaneous once weekly , Medication List reviewed and reconciled with the patient * Allergies: C ompazine: muscle spasms. Objective: * Vitals: W t:230.6lbs, Ht: 66 in, BP:160/92mm Hg, BMI:37.22Index, Ht-cm: 167.64 cm, Wt-k.6 kg. * Examination: P hysical Exam: GENERAL: w ell developed, well nourished, in no acute distress. HEAD: n ormocephalic/atraumatic. EYES: p upils equal, round and reactive to light, conjunctivae and sclerae normal. EARS: n o deformity or lesion of external ear, canals and TM appear normal bilaterally, TM's intact, not inflamed with normal light reflex, hearing grossly normal to conversational speech. NOSE: n o deformity, discharge, inflammation, or lesions.? MOUTH: m ucous membranes moist, normal oropharynx and posterior pharynx without lesions or exudates, tongue normal, dentition normal. NECK: n williams supple, no masses or palpable cervical nodes, trachea midline, thyroid without nodules, masses, tenderness, or enlargement. CHEST: n o chest wall deformity, no chest wall tenderness.? LUNGS: n ormal respiratory effort and clear to auscultation, no wheezes, rales, or rhonchi, good air exchange. CARDIO: r egular rate and rhythm, normal S1 and S2, nor murmur, rub, or gallop. PULSES: n ormal capillary refill. ABDOMEN: s oft, non-distended, non-tender, no masses. MUSCULOSKELETAL: n o deformity or scoliosis noted, normal range of motion, joints normal, no erythema, edema, effusion, or ecchymosis. EXTREMITY: b ruises under skin. NEUROLOGIC: g rossly normal. SKIN: n o rashes, ulcerations, or suspicious lesions. LYMPH NODES: n o cervical adenopathy, nodes normal. MENTAL STATUS: a lert and oriented x3, normal mood and affect. Assessment: * Assessment: 1. H ypertension - I10 (Primary) 2 . E asy bruising - R23.8 ? Plan: * Treatment: * Preventive Medicine: Screenings/Counseling: B NC ACTION PLAN Above Normal BMI Follow-up D ietary management education, guidance, and counseling See treatment section of progress note for complete details of management plan. * * Electronic signature of Lui Wilhelm MD, [id number] on 11/28/2024 at 03:41 PM EDT Sign off status: Pending Visit Status: C HK (Check Out) * Provider: Ralph Wilhelm ([facility])MD Date: 11/28/2024 Generated for Russel gillespie/Lior/eTransmitting on: 11/28/2024 03:41 PM EDT History and Physical Notes * HPI (History of Present Illness) Category Sub-Category Detail Notes Category Not es General just scratchig on arms - is gettong blisters then bruising need refills thyroid tried Kratom - now I am concerned for liver isses Examination Category Sub-Category Detail Notes Category Not es Physical Exam GENERAL: well developed, well nourished, in no acute distress HEAD: normocephalic/atraum atic EYES: pupils equal, round and reactive to light, conjunctivae and sclerae normal EARS: no deformity or lesi on of external ear, canals and TM appear normal bilaterally, TM's intact, not inflamed with normal light reflex, hearing grossly normal to conversational speech NOSE: no deformity, discha rge, inflammation, or lesions MOUTH: mucous membranes new st, normal oropharynx and posterior pharynx without lesions or exudates, tongue normal, dentition normal NECK: neck supple, no mass es or palpable cervical nodes, trachea midline, thyroid without nodules, masses, tenderness, or enlargement CHEST: no chest wall deform ity, no chest wall tenderness LUNGS: normal respiratory e ffort and clear to auscultation, no wheezes, rales, or rhonchi, good air exchange CARDIO: regular rate and rhy thm, normal S1 and S2, nor murmur, rub, or gallop PULSES: normal capillary ref ill ABDOMEN: soft, non-distended, non-tender, no masses RECTAL: MUSCULOSKELETAL: no deformity or scol iosis noted, normal range of motion, joints normal, no erythema, edema, effusion, or ecchymosis EXTREMITY: bruises under skin NEUROLOGIC: grossly normal SKIN: no rashes, ulceratio ns, or suspicious lesions LYMPH NODES: no cervical adenopat hy, nodes normal MENTAL STATUS: alert and oriented x 3, normal mood and affect
--- OUTSIDE RECORDS SUMMARY | 2024-11-28 15:41 | XMS_ITS | Clinical Summary ---
Author Organization [employer] s tem Address [id number] [address] [place] [address] Care Team Providers Care Tune Up Mechanic Name Role Phone Cesar Wilhelm MD Primary Care Provider [phone] Allergies Active Allergy Reactions Criticality Noted Date [...] EDT - 09/08/2024 7:16 AM EDT Emergency [facility] [address] [place] [address] Guido Dotson MD Panic attack (Primary Dx); Epigastric pain Discharge Disposition: Left Against Medical Advice or Discontinued Care 09/08/2024 Travel from Last 3 Months Social History [...] 2 <21 ng/L 09/08/2024 7:10 AM EDT [facility] Blood Venous blood / Unknown Venipuncture / Unknown 09/08/2024 6:37 AM EDT 09/08/2024 6:42 AM EDT Guido Dotson MD LAB BLOOD ORDERABLES Final R esult Performing Organization Address City/[facility]/ZIP Co de Phone Number [address] [place] [address], [place] * Light Blue Top (09/08/2024 6:37 AM EDT) Extra Tube Auto Resulted 09/08/2024 8:02 AM EDT [facility] Blood Venous blood / Unknown 09/08/2024 6:37 AM EDT 09/08/2024 6:43 AM EDT Guido Dotson MD LAB BLOOD ORDERABLES Final R esult [address] [place] [address], [place] * (ABNORMAL) CBC auto differential (09/08/2024 6:37 AM EDT) WBC 17.1(H) 4 - 11 x10E9/L 09/08/2024 6:48 AM EDT [facility] RBC Count 5.66 4.1 - 5.7 X10E12/L 09/08/2024 6:48 AM EDT [facility] Hemoglobin 15.6 13 - 17 g/dL 09/08/2024 6:48 AM EDT [facility] Hematocrit 46.2 39 - 50 % 09/08/2024 6:48 AM EDT [facility] MCV 82 80 - 100 fL 09/08/2024 6:48 AM EDT [facility] MCH 27.6 27 - 34 pg 09/08/2024 6:48 AM EDT [facility] MCHC 33.8 32 - 36 g/dL 09/08/2024 6:48 AM EDT [facility] RDW 15.5(H) 11.5 - 15 % 09/08/2024 6:48 AM EDT [facility] Platelet Count 295 150 - 450 X10E9/L 09/08/2024 6:48 AM EDT [facility] MPV 7.3 7 - 12 fL 09/08/2024 6:48 AM EDT [facility] Neutrophils % 82.2 % 09/08/2024 6:48 AM EDT [facility] Lymphocytes % 11.2 % 09/08/2024 6:48 AM EDT [facility] Monocytes % 5.3 % 09/08/2024 6:48 AM EDT [facility] Eosinophils % 1.0 % 09/08/2024 6:48 AM EDT [facility] Basophils % 0.3 % 09/08/2024 6:48 AM EDT [facility] Neutrophils Absolute (A) 14.0(H) 1.5 - 6.6 10*3/uL 09/08/2024 6:48 AM EDT [facility] Lymphocytes Absolute 1.9 1.0 - 3.5 10*3/uL 09/08/2024 6:48 AM EDT [facility] Monocytes Absolute 0.9 0.0 - 0.9 10*3/uL 09/08/2024 6:48 AM EDT [facility] Eosinophils Absolute 0.2 0.0 - 0.4 10*3/uL 09/08/2024 6:48 AM EDT [facility] Basophils Absolute 0.1 0.0 - 0.2 10*3/uL 09/08/2024 6:48 AM EDT [facility] Differential Type AUTOMATED DIFFERENTIAL 09/08/2024 6:48 AM EDT [facility] Blood Venous blood / Unknown Venipuncture / Unknown 09/08/2024 6:37 AM EDT 09/08/2024 6:42 AM EDT us Guido Dotson MD LAB BLOOD ORDERABLES Final R esult Performing Organization Address City/[facility]/ZIP Co de Phone Number [address] [place] [address], [place] * (ABNORMAL) Lipase (09/08/2024 6:37 AM EDT) LIPASE 72(H) 17 - 40 U/L 09/08/2024 7:31 AM EDT [facility] Blood Venous blood / Unknown Venipuncture / Unknown 09/08/2024 6:37 AM EDT 09/08/2024 6:42 AM EDT Guido Dotson MD LAB BLOOD ORDERABLES Final R esult Performing Organization Address City/[facility] Co de Phone Number [address] [place] [address], [place] * (ABNORMAL) Comprehensive metabolic panel (09/08/2024 6:37 AM EDT) SODIUM 134 134 - 146 mmol/L 09/08/2024 7:01 AM EDT [facility] POTASSIUM 3.4(L) 3.5 - 5.0 mmol/L 09/08/2024 7:01 AM EDT [facility] CHLORIDE 100 98 - 109 mmol/L 09/08/2024 7:01 AM EDT [facility] CARBON DIOXIDE 22 22 - 32 mmol/L 09/08/2024 7:01 AM EDT [facility] ANION GAP 12 5 - 15 mmol/L 09/08/2024 7:01 AM EDT [facility] BLOOD UREA NITROGEN 23 5 - 23 mg/dL 09/08/2024 7:01 AM EDT [facility] CREATININE 0.76 0.70 - 1.20 mg/dL 09/08/2024 7:01 AM EDT [facility] Comment:METHOD TRACEABLE TO IDMS STANDARD GLUCOSE 202(H) 65 - 99 mg/dL 09/08/2024 7:01 AM EDT [facility] CALCIUM 9.0 8.5 - 10.5 mg/dL 09/08/2024 7:01 AM EDT [facility] TOTAL PROTEIN 7.8 6.0 - 8.0 g/dL 09/08/2024 7:01 AM EDT [facility] ALBUMIN 3.9 3.2 - 5.3 g/dL 09/08/2024 7:01 AM EDT [facility] ALKALINE PHOSPHATASE 99 39 - 130 U/L 09/08/2024 7:01 AM EDT [facility] AST 40 <=41 U/L 09/08/2024 7:01 AM EDT [facility] ALT 65(H) <=40 U/L 09/08/2024 7:01 AM EDT [facility] BILIRUBIN,TOTAL 0.8 0.3 - 1.2 mg/dL 09/08/2024 7:01 AM EDT [facility] EGFR Non-Race Dependent >90 >=60 ml/min/1.7 3sq.m 09/08/2024 7:01 AM EDT [facility] Comment: eGFR not reported due to non-numeric value for Creatinine. Reported eGFR is based on the CKD-EPI 2020 equation that does not use a race coefficient. Blood Venous blood / Unknown Venipuncture / Unknown 09/08/2024 6:37 AM EDT 09/08/2024 6:42 AM EDT us Guido Dotson MD LAB BLOOD ORDERABLES Final R esult [facility] [address] [place] [address], from Last 3 Months Insurance [place] [employer] Care Teams Tune Up Mechanic Relationship Specialty Start Date End Date Cesar Wilhelm MD PCP - General 10/19/16
--- OUTSIDE RECORDS SUMMARY | 2024-11-28 15:41 | XMS_ITS | Patient Health Record ---
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 Ordering Physician: Jadyn Kowalski M.D. Date of Service: 07/25/24 Procedure(s): XR foreign body eye KEENA Accession Number(s): [id number] cc: Jadyn Kowalski M.D. [place] [id number] Patient Name: NONI SOTO MRN: [facility]H:[id number] date: 1975 Sex: M Assigned Patient Location: PT Current Patient Location: PT Accession/Order Number: [id number] Exam Date: 07/25/2024 09:04 Report Date: 07/25/2024 [...] Samara Waddell M.D.07/25/2024 9:07 AM Dictation Location: [place] [address] Electronically authenticated by: [id number] Y Date: 07/25/2024 09:07 Dictated By: Samara Waddell M.D. Signed By: 07/25/24908 DD/ 6 TD/TT: Costing Analyst: [place] [address] XRay Report Signed Patient: YASIR SOTO MR#: [id number] : 1975 Acct:[id number] Age/Sex: 49 / M ADM Date: 07/25/24 Loc: RAD Attending Dr: Kenji Kowalski M.D. Ordering Physician: Jadyn Kowalski M.D. Date of Service: 07/25/24 Procedure(s): XR for eign body eye KEENA Accession Number(s): [id number] cc: Jadyn Kowalski M.D. [place] [address] Patient Name: NONI SOTO MRN: [id number] date: 1975 Sex: M Assigned Patient Location: PT Current Patient Location: PT Accession/Order Numb er: [id number] Exam Date: 07/25/2024 09:04 Report Date: 07/25/2024 [...] Samara Waddell M.D.07/25/2024 9:07 AM Dictation Location: [place] [address] Electronically authenticated by: [id number] Y Date: 07/25/2024 09:07 Dictated By: Samara Waddell M.D. Signed By: 07/25/24908 DD/ 6 TD/TT: Costing Analyst: MR lumbar spine wo con Reviewed date:07/27/2024 03:29:53 PM Interpretation: Performing Lab: Notes/Report: Source Facility: [place] [address] Magnetic Resonance Report Signed Patient: NONI SOTO MR#: [id number] : 1975 Acct:[id number] Age/Sex: 49 / M ADM Date: 07/25/24 Loc: RAD Attending Dr: Jadyn Kowalski M.D. Ordering Physician: Jadyn Kowalski M.D. Date of Service: 07/25/24 Procedure(s): MR lumbar spine wo con Accession Number(s): [id number] cc: Jadyn Kowalski M.D. [place] [address] Patient Name: NONI SOTO MRN: [facility]:[id number] date: 1975 Sex: M Assigned Patient Location: PT Current Patient Location: PT Accession/Order Number: [id number] Exam Date: 07/25/2024 10:46 Report Date: 07/25/2024 [...] Samara Waddell M.D.07/25/2024 11:08 AM Dictation Location: [place] [address] Electronically authenticated by: [id number] Y Date: 07/25/2024 11:08 Dictated By: Samara Waddell M.D. Signed By: 07/25/24 1111 DD/ 1108 TD/TT: Costing Analyst: The [place] [id number] Magnetic Resonance Report Signed Patient: YASIR SOTO MR#: [id number] : 1975 Acct:[id number] Age/Sex: 49 / M ADM Date: 07/25/24 Loc: RAD Attending Dr: Kenji Kowalski M.D. Ordering Physician: Jadyn Kowalski M.D. Date of Service: 07/25/24 Procedure(s): MR lum bar spine wo con Accession Number(s): [id number] cc: Jadyn Kowalski M.D. [place] [address] Patient Name: NONI SOTO MRN: [facility]:[id number] date: 1975 Sex: M Assigned Patient Location: PT Current Patient Location: PT Accession/Order Numb er: [id number] Exam Date: 07/25/2024 10:46 Report Date: 07/25/2024 [...] Samara Waddell M.D.07/25/2024 11:08 AM Dictation Location: [place] [address] Electronically authenticated by: [id number] Y Date: 07/25/2024 11:08 Dictated By: Samara Waddell M.D. Signed By: 07/25/24 1111 DD/ 1108 TD/TT: Costing Analyst: XR lumbar spine 2-3V Reviewed date:10/30/2024 06:35:20 PM Interpretation: Performing Lab: Notes/Report: Source Facility: [place] [address] XRay Report Signed Patient: NONI SOTO MR#: [id number] : 1975 Acct:[id number] Age/Sex: 49 / M ADM Date: 10/30/24 Loc: ER Attending Dr: Ordering Physician: Caroline Lala M.D. Date of Service: 10/30/24 Procedure(s): XR lumbar spine 2-3V Accession Number(s): [id number] cc: Jadyn Kowalski M.D.; Caroline Lala M.D. [facility] [place] [address] Patient Name: NONI SOTO MRN: [id number] date: 1975 Sex: M Assigned Patient Location: ER Current Patient Location: ER Accession/Order Number: [id number] Exam Date: 10/30/2024 16:37 Report Date: 10/30/2024 16:39 At the request of: CAROLINE LALA MD Procedure: XR lumbar spine 2-3V X-rays lumbar spine the views INDICATION: Atraumatic pain COMPARISON: Lumbar spine MRI 07/25/2024 FINDINGS: Mild dextrocurvature. Bags-vg-hjvntvff intervertebral space narrowing L3-S1 with associated facet arthropathy. Otherwise no fracture malalignment. XR/XR lumbar spine 2-3V IMPRESSION: Degenerative changes lower lumbar spine. Negative acute osseous abnormality. Impression dictated by: Lionel Perry M.D. 10/30/2024 4:39 PM Dictation Location: [place] [address] Electronically authenticated by: [id number] Y Date: 10/30/2024 16:39 Dictated By: Lionel Perry M.D. Signed By: 10/30/241640 DD/ 38 TD/TT: Costing Analyst: [place] [address] XRay Report Signed Patient: YASIR SOTO MR#: [id number] : 1975 Acct:[id number] Age/Sex: 49 / M ADM Date: 10/30/24 Loc: ER Attending Dr: Ordering Physician: Caroline Lala M.D. Date of Service: 10/30/24 Procedure(s): XR lum bar spine 2-3V Accession Number(s): [id number] cc: Jadyn Kowalski M.D. ; Caroline Lala M.D. [address] [address] Patient Name: NONI SOTO MRN: [id number] date: 1975 Sex: M Assigned Patient Location: ER Current Patient Location: ER Accession/Order Numb er: [id number] Exam Date: 10/30/2024 16:37 Report Date: 10/30/2024 16:39 At the request of: CAROLINE LALA MD Procedure: XR lumbar spine 2-3V X-rays lumbar spine the views INDICATION: Atraumat ic pain COMPARISON: Lumbar s pine MRI 07/25/2024 FINDINGS: Mild dextrocurvature. Sfbo-mr-ltfotudq intervertebral space narrowing L3-S1 with associated facet arthropathy. Otherwise no fracture malalignment. X R/XR lumbar spine 2-3V IMPRESSION: Degenera tive changes lower lumbar spine. Negative acute osseous abnormality. Impression dictated by: Lionel Perry M.D. 10/30/2024 4:39 PM Dictation Location: [place] [address] Electronically authenticated by: [id number] Y Date: 10/30/2024 16:39 Dictated By: Gayla Perry M.D. Signed By: 10/30/24 1641 DD/ 1639 TD/TT: Costing Analyst: GLYCOHEMOGLOBIN A1C Reviewed date:09/21/2024 04:21:13 PM Interpretation: Performing Lab: Notes/Report: [facility] , Glycohemoglobin A1C 10.6 4.5-6.2 % ADA RECOMMENDED LIMIT 4.0 - 6.0 ADA THERAPEUTIC TARGET < 7.0 ACTION SUGGESTED > 7.0 Estimated Average Glucose 258 Performing Lab: see note ML - [facility] LB Reason For Referral Diagnosis 1 Lumbar radiculopathy (M54.16) Referral Organization [facility] Referring Provider First Name Lui Referring Provider Last Name [facility], Physical Therap y Referred Provider Specialty Physical The rapist Referral Priority Routine Diagnosis 1 Lumbar radiculopathy (M54.16) Referral Organization [facility] Referring Provider First Name Lui Referring Provider Last Name Choco [facility]erred Provider [facility], [facility] Referred Provider Specialty Pain Medicin e Referral Priority Routine Reason Needs sen madan Diagnosis 1 Lumbar stenosis with neurogenic claudication (M48.062) Referral Organization [facility] Referring Provider First Name Lui Referring Provider Last Name [facility] Referring Provider [facility] Referred Provider [place] Referred Provider Specialty Orthopedic S urgery Referral Priority Routine Medications Medication SIG (Take, Route, Frequency, Duration) Notes Start Date End Date Status Abilify 2 MG 1 tablet Orally Once a day for 30 days Active Lisinopril 40 mg TAKE 1 TABLET BY DAILY for 90 Active Apidra SoloStar 100 unit/mL INJECT TEN UNITS SUBCUTANEOUSLY THREE TIMES DAILY WITH MEALS for 90 Active Lantus SoloStar 100 UNIT/ML Inject 60 units Subcutaneous twice daily for 30 days Active Levothyroxine Sodium 100 MCG 1 capsule in the morning on an empty stomach Orally Once a day for 30 days Active Insulin Pen Needle 31G X 5 MM Use 1 need twice daily to inject insulin DX E11.9 for 90 days Active Lancets Thin - as directed Act aylin Citalopram Hydrobromide 20 mg TAKE 1 TABLET BY MOUTH ONCE DAILY for 30 Active tiZANidine HCl 4 MG 1 tablet Orally qid for 30 days 07/04/2024 Not-Taking cloNIDine HCl 0.2 mg TAKE 1 TABLET BY [facility] THREE TIMES DAILY for 90 Active Blood Glucose Meter -- Use as directed t o test blood sugar once a day DX: E1109/18/2024 Active Test Strips - Use in meter to tet blood sugar once a day DX: E1109/18/2024 Active Blood Glucose Monitor System w/Device as directed Active traZODone HCl 100 MG 1 tablet at bedtime as needed Orally Once a day for 30 days Active Pregabalin 300 mg 1 tabs oral tid for 30 days 10/07/2024 Active Atorvastatin Calcium 40 MG 1 tablet Orally Once a day for 30 days Active Protonix 40 MG 1 tablet Orally Ever y Evening for 30 day(s) 12/18/2022 Active Social History Tobacco Use: Social History [...] W/U Status Risk Notes Problem Testicular hypofunction (494078544) Testicular hypofunction (E29.1) Active confirmed Problem 446775071762188 Other interverte bral disc displacement, lumbar region (M51.26) Active confirmed Problem Pain in right hand (392444729197564) Pain in right hand (M79.641) Active confirmed Problem Abdominal pain (87285674) Abdominal pain (R10.9) Active confirmed Problem Migraine variant wit h headache (disorder) (971295912) Migraine headache (G43.909) Active confirmed Problem Seizure (52439645) Seizure (R56.9) Active confi rmed Problem Hypertension (68177750) Hypertension (I10) Active confirmed Problem Anxiety (16116867) Anxiety (F41.9) Active confi rmed Problem Edema (50572540) Edema (R60.9) Active confirmed Problem Anemia (462442856) Anemia (D64.9) Active confir med Problem Peripheral neuropath y (393905359) Peripheral neuropathy (G62.9) Active confirmed Problem Dyspnea (681538328) Dyspnea (R06.00) Active con firmed Problem Insomnia (149273952) Insomnia (G47.00) Active c onfirmed Problem Lumbar radiculopathy (169832641) Lumbar radiculopathy (M54.16) Active confirmed Problem Hypertriglyceridemia (711441814) Hypertriglyceridemia (E78.1) Active confirmed Problem Allergic rhinitis (51857795) Allergic rhinitis (J30.9) Active confirmed Problem Disorder of lumbar disc (702183575) Lumbar disc disease (M51.9) Active confirmed Problem Prolapsed lumbar intervertebral disc (681147822) Lumbar disc herniation (M51.26) Active confirmed Problem Acute bronchitis (60169654) Acute bronchitis (J20.9) Active confirmed Problem Sleep disorder (79938537) Sleep disorder (G47.9) Active confirmed Problem Left lower quadrant pain (724171417) Abdominal pain, LLQ (R10.32) Active confirmed Problem Ascencion's thyroiditis (12257111) Ascencion's thyroiditis (E06.3) Active confirmed Problem Opioid abuse (8929978) Narcotic abuse (F11.10) Active confirmed Problem Otitis externa (8557051) Otitis external (H60.90) Active confirmed Problem Easy bruising (205405590) Easy bruising (R23.8) Active confirmed Problem Impingement syndrome of shoulder region (578606215) Shoulder impingement syndrome, right (M75.41) Active confirmed Problem Acute osteomyelitis of mandible (058765094) Acute osteomyelitis of mandible (M27.2) Active confirmed Problem Closed fracture of mandible, angle of jaw (378934227) Fracture of angle of right mandible, initial encounter for closed fracture (S02.651A) Active confirmed Problem Neurogenic claudication (019304005) Lumbar stenosis with neurogenic claudication (M48.062) Active confirmed Problem Type II diabetes mellitus without complication (212782253) Diabetes (E11.9) Active confirmed Problem Diabetes mellitus (27984731) Diabetes mellitus (E11.9) Active confirmed Problem Disease caused by Severe acute respiratory syndrome coronavirus 2 (disorder) (137096187) COVID-19 virus infection (U07.1) Active confirmed Vital Signs Blood pressure diastolic 92 mm Hg 11/28/2024 Height 66 in 11/28/2024 Blood pressure systolic 160 mm Hg 11/28/2024 Weight 230.6 lbs 11/28/2024 BMI 37.22 kg/m2 11/28/2024 Encounters Encounter Location Date Provider Diagnosis [facility] [address] [place] [address] 09/21/2024 Lui Kowalski [facility] [address] [place] [address] 10/02/2024 Lui Kowalski [facility] [address] [place] [address] 10/07/2024 Lui Kowalski Lumbar radiculopathy M54.16 [facility] [address] [place] [address] 10/30/2024 Lui Kowalski [facility] [address] [place] [address] 11/04/2024 Lui Kowalski [facility] [address] [place] [address] 07/21/2024 Lui Kowalski Lumbar radiculopathy M54.16 ; Other intervertebral disc displacement, lumbar region M51.26 ; Lumbar disc disease M51.9 and Lumbar disc herniation M51.26 [facility] [address] [place] [address] 07/25/2024 Lui Kowalski Shoulder impingement syndrome, right M75.41 [facility] [address] [place] [address] 07/27/2024 Lui Kowalski [facility] [address] [place] [address] 09/10/2024 Lui Hoy Diabetes mellitus E1 1.9 [facility] [address] [place] [address] 09/18/2024 Lui Hoy [facility] [address] [place] [address] 09/18/2024 Lui Hoy [facility] [address] [place] [address] 12/03/2023 Lui Hoy Insomnia G47.00 [facility] [address] [place] [address] 04/14/2024 Lui Hoy Shoulder impingement syndrome, right M75.41 [facility] [address] [place] [address] 05/07/2024 Lui Sony Wellness examination Z01.89 [facility] [address] [facility] [place] [address] 05/19/2024 Lui Hoy [facility] [address] [facility] [place] [address] 05/20/2024 Lui Hoy [facility] [address] [place] [address] 07/04/2024 Lui Hoy Lumbar radiculopathy M54.16 [facility] [address] [place] [address] 06/25/2024 Lui Hoy Lumbar radiculopathy M54.16 [facility] [address] [facility] [place] [address] 07/04/2024 Lui Hoy Lumbar radiculopathy M54.16 [facility] [address] [facility] [place] [address] 08/13/2024 Lui Hoy Lumbar stenosis with neurogenic claudication M48.062 [facility] [address] [facility] [place] [address] 09/04/2024 Lui Hoy Hypertension I10 ; L umbar radiculopathy M54.16 and Diabetes E11.[address] [facility] [address] [place] [address] 01/11/2024 Lui Hoy Shoulder impingement syndrome, right M75.41 [facility] [address] [place] [address] 11/28/2024 Lui Hoy Hypertension I10 and Easy bruising R23.8 Assessments Encounter Date Diagnosis (ICD Code) Assessment Notes Treatment Notes Treatment Clinical Notes Section Notes 11/28/2024 Hypertension (ICD-10 - I10) 11/28/2024 Easy bruising (ICD-10 - R23.8) 12/03/2023 Insomnia (ICD-10 - G47.00) 04/14/2024 Shoulder impingement syndrome, right (ICD-10 - M75.41) 05/07/2024 Wellness examination (ICD-10 - Z01.89) 07/04/2024 Lumbar radiculopathy (ICD-10 - M54.16) 07/21/2024 Lumbar radiculopathy (ICD-10 - M54.16) 07/21/2024 Other intervertebral disc displacement, lumbar region (ICD-10 - M51.26) 01/11/2024 Shoulder impingement syndrome, right (ICD-10 - M75.41) 06/25/2024 Lumbar radiculopathy (ICD-10 - M54.16) 07/04/2024 Lumbar radiculopathy (ICD-10 - M54.16) 08/13/2024 Lumbar stenosis with neurogenic claudication (ICD-10 - M48.062) 09/04/2024 Hypertension (ICD-10 - I10) 09/04/2024 Lumbar radiculopathy (ICD-10 - M54.16) needs diabetes control and weight loss - recommending ozempic 07/25/2024 Shoulder impingement syndrome, right (ICD-10 - M75.41) 09/10/2024 Diabetes mellitus (ICD-10 - E11.9) 10/07/2024 Lumbar radiculopathy (ICD-10 - M54.16) 09/04/2024 Diabetes (ICD-10 - E11.9) 07/21/2024 Lumbar disc disease (ICD-10 - M51.9) 07/21/2024 Lumbar disc herniation (ICD-10 - M51.26) [...] W/AUTO DIFF 05/07/2024 STOOL OCCULT BLOOD 05/07/2024 AMMONIA 11/28/2024 CBC AUTO DIFF 11/28/2024 GLYCOHEMOGLOBIN A1C 05/07/2024 GLYCOHEMOGLOBIN A1C 09/10/2024 PROF 14(COMP METB) 11/28/2024 PROTIME 11/28/2024 PTT 11/28/2024 MRI LSPINE WO CON 07/04/2024 XR SHOULDER RT 2V or > 01/11/2024 THYROID PANEL (T4/TSH/FREE T3) PSA, SCREENING 05/07/2024 Insurance Providers Payer Name Payer Address Payer Phone Subscriber Number Group Number Insured Name Patient Relationship to Insured Coverage Start Date Coverage End Date [employer] [place] [employer] [address] [place] [address] [id number] Noni Soto Self - patient is the [...] Allergic rhinitis J30.9 Surgical History Surgery Date(Month/Year) Gallbladder Appendix Lithotripsy- kidney stone Jaw reconstruction
--- OUTSIDE RECORDS SUMMARY | 2024-11-28 15:41 | XMS_ITS | Clinical Summary ---
Author Organization [facility] Address [address] [place] [address] [place] [address] Care Team Providers Care Commercial Roofing Estimator Name Role Phone Cesar Wilhelm MD Primary Care Provider [phone] Allergies Active Allergy Reactions Criticality Noted Date [...] (05/10/2019): Added automatically from request for surgery [id number] Family History Medical History Relation Name Comments [...] this topic Medical Devices Implanted Type Area Pediatrician/Medical Doctor Device Identifier Shelf Expiration Date Model / Serial / Lot Xfix Pin, 2.7 X 80 Mm, 9 Mm Implanted:Qty: 1 on 05/15/2019 by Darwin Mojica DDS at [facility] Right: Mandible [employer] 51-673- / / Xfix Pin, 2.7 X 80 Mm, 13 Mm Implanted:Qty: 3 on 05/15/2019 by Darwin Mojica DDS at [facility] Bilateral: Mandible [employer] 51-673- / / Bar Connection Clamp Implanted:Qty: 4 on 05/15/2019 by Darwin Mojica DDS at [facility] Bilateral: Mandible [employer] 51-670- / / Fadi, 3/4 Mandible Implanted:Qty: 1 on 05/15/2019 by Darwin Mojica DDS at [facility] Bilateral: Mandible [employer] 51-672- [...] Reactive Non Reactive 05/15/2019 9:[address] [facility] Blood Venipuncture / Unknown 05/15/2019 3:21 AM EST 05/15/2019 4:04 AM EST us Bettie Apodaca MD IMMUNOLOGY ORDERABLES Final Res ult Performing Organization Address [facility]/ZIP Co de Phone Number [facility] [address] [address] * (ABNORMAL) TSH W/FT4 REFLEX (05/10/2019 3:50 AM EST) TSH 5.090(H) 0.550 - 4.780 uIU/mL 05/10/2019 5:33 AM EST [facility] Blood Venipuncture / Unknown 05/10/2019 3:50 AM EST 05/10/2019 4:26 AM EST us Oscar Marc MD ENDOCRINOLOGY Final Result Performing Organization Address [facility]/ZIP Co de Phone Number [facility] [address] [address] * (ABNORMAL) HEMOGLOBIN A1C (05/09/2019 10:32 PM EST) Hemoglobin A1C HPLC 11.2(H) 4.7 - 5.6 % 05/10/2019 7:[address] [facility] Estimated Average Glucose 275 mg/dL 05/10/2019 7:[address] EST [facility] Blood Venipuncture / Unknown 05/09/2019 10:32 PM EST 05/09/2019 10:41 PM EST us Oscar Marc MD HEMATOLOGY ORDERABLES Final Resu lt Performing Organization Address [facility]/ZIP Co de Phone Number [facility] [address] [address] * (ABNORMAL) LIPID PANEL W CALCULATED LDL (05/09/2019 10:32 PM EST) Cholesterol 221(H) <200 mg/dL 05/10/2019 3:[address] [facility] Comment: [<200 mg/dL: Desirable] [200-239 mg/dL: Borderline High] [>239 mg/dL: High] Triglycerides 311(H) <150 mg/dL 05/10/2019 3:[address] [facility] Comment: [<150 mg/dL: Desirable] [150-199 mg/dL: Borderline] [200-499 mg/dL: High] [>500 mg/dL: Very High] HDL Cholesterol 49 >=40 mg/dL 05/10/2019 3:[address] [facility] Comment: [<40 mg/dL: Low (High Risk)] [>59 mg/dL: High (Low Risk)] Calculated LDL Cholesterol 110(H) 0 - 99 mg/dL 05/10/2019 3:[address] [facility] Comment: [<100 mg/dL: Optimal] [100-129 mg/dL: Near Optimal] [130-159 mg/dL: Borderline High] [160-189 mg/dL: High] [>189 mg/dL: Very High] Total Cholesterol/HDL Ratio 4.5(H) <4.5 05/10/2019 3:[address] [facility] Non HDL Cholesterol 172(H) <130 mg/dL 05/10/2019 3:[address] [facility] Blood Venipuncture / Unknown 05/09/2019 10:32 PM EST 05/09/2019 10:40 PM EST us Oscar Marc MD CHEMISTRY ORDERABLES Final Resul t [facility] [address] [address] from Last 3 Months or Most Recently Relevant to Health Maintenance Insurance [facility] Advance Directives For more information, please contact: [phone] (7:30 AM - 6PM [facility], Sunday-Sunday) * Full Code (Latest Code Status on File) Date Activated Date Inactivated Comments 05/10/2019 3:08 AM Care Teams Commercial Roofing Estimator Relationship Specialty Start Date End Date Cesar Wilhelm MD PCP - General Family Medicine 05/19/19
--- OUTSIDE RECORDS SUMMARY | 2024-11-28 15:41 | XMS_ITS | Clinical Summary ---
Author Organization [facility] Address [address] [place] [address] Care Team Providers Care High [employer] Chemistry Teacher Name Role Phone Unavailable Primary Care Provider [...] at Not on file Legal Sex Male 10:13 PM EDT Gender Identity Not on file Sexual Orientation Not on file Plan of Treatment Not on file
[2024-11-28 15:53] LABS: Hematocrit 43.7 % (42.0-54.0); Hemoglobin 14.5 g/dL (14.0-18.0); Immature Granulocytes Abs Auto 0.06 10^3/uL (0.00-0.03); Immature Granulocytes Pct Auto 0.5 % (0.0-0.5); Lymphocytes Absolute Auto 2.5 10^3/uL (1.2-3.8); Mean Corpuscular HGB Conc 33.2 g/dL (29.9-35.2); Mean Corpuscular Hemoglobin 27.0 pg (25.9-34.0); Mean Corpuscular Volume 81.2 fL (80.0-94.0); Platelet Count 378 10^3/uL (150-450); Red Blood Count 5.38 10^6/uL (4.70-6.10); White Blood Count 12.5 10^3/uL (4.0-11.0)
[2024-11-28 16:06] LABS: INR 0.98; Partial Thromboplastin Time 27.9 sec (22.3-36.2); Prothrombin Time 10.4 sec (9.0-11.6)
[2024-11-28 16:10] LABS: Ammonia 21 umol/L (11-32)
[2024-11-28 16:12] LABS: Alanine Aminotransferase 31 U/L (16-63); Albumin Globulin Ratio 1.0; Albumin Level 4.0 g/dL (3.4-5.0); Alkaline Phosphatase 109 U/L (46-116); Anion Gap 12.2; Aspartate Amino Transferase 21 U/L (15-37); Blood Urea Nitrogen 15.0 mg/dL (7.0-18.0); Calcium 9.9 mg/dL (8.5-10.1); Carbon Dioxide 28.7 mmol/L (21.0-32.0); Chloride 102 mmol/L (98-107); Estimated GFR (African America >60 (>=60 mL/min/1.73m^2); Estimated GFR (Non-African Ame >60 (>=60 mL/min/1.73m^2); Globulin 4.2 g/dL; Glucose 224 mg/dL (74-106); Potassium 3.9 mmol/L (3.5-5.1); Sodium 139 mmol/L (136-145); Total Protein 8.2 g/dL (6.4-8.2)
== END 2024-11-28 15:39 | disposition home or self-care (01) ==
PROVIDERS: PCP Family Medicine; Visit Provider Family Medicine
DX: R23.8 Other skin changes (principal)
CPT/HCPCS: 36415; 80053; 82140; 85025; 85610; 85730

== ENCOUNTER 2024-12-09 09:12 | Outpatient (OUT) | payer OTHER, SELFPAY ==
--- OUTSIDE RECORDS SUMMARY | 2024-12-09 09:16 | XMS_ITS | Clinical Summary ---
Author Organization [facility] Address [address] [place] [address] Care Team Providers Care Marketing Producer Name Role Phone Unavailable Primary Care Provider [...]
--- OUTSIDE RECORDS SUMMARY | 2024-12-09 09:16 | XMS_ITS | Encounter Summary ---
Author Organization [facility] [employer] Address [address] [place] [address] Care Team Providers Care Sustainment Logistics Analyst Name Role Phone Cesar Wilhelm MD Primary Care Provider [phone] Reason for Referral * MRI/CAT Scan (Routine) - Closed Specialty Diagnoses / Procedures Referred By Fuentes holland Referred To Contact Diagnoses Disease of jaw Procedures CT FACIAL WITHOUT CONTRAST IN CT SCAN,MAXILLOFACIAL AREA,W/O CONTRAST Darwin Mojica DDS Referral ID Status Reason Start Date Expiration Date Visits Re quested Visits Authorized [id number] Closed 06/30/2019 07/24/2020 1 1 Encounter Details Date Type Department Care Team (Late st Contact Info) Description 06/30/2019 Orders Only [facility] [address] [place] [address] Rigoberto Tripp DDS Disease of jaw Social [...] jaws documented in this encounter Care Teams Sustainment Logistics Analyst Relationship Specialty Start Date End Date Cesar Wilhelm MD PCP - General Family Medicine 05/19/19 documented as of this encounter
--- OUTSIDE RECORDS SUMMARY | 2024-12-09 09:16 | XMS_ITS | Clinical Summary ---
Author Organization [facility] Address [address] [place] [address] [place] [address] Care Team Providers Care Applications Programmer Name Role Phone Cesar Wilhelm MD Primary Care Provider [phone] Allergies Active Allergy Reactions Criticality Noted Date [...] (05/10/2019): Added automatically from request for surgery [id number] Family History Medical History Relation Name Comments [...] this topic Medical Devices Implanted Type Area Tax Map Technician Device Identifier Shelf Expiration Date Model / Serial / Lot Xfix Pin, 2.7 X 80 Mm, 9 Mm Implanted:Qty: 1 on 05/15/2019 by Darwin Mojica DDS at [facility] Right: Mandible [employer] 51-673- / / Xfix Pin, 2.7 X 80 Mm, 13 Mm Implanted:Qty: 3 on 05/15/2019 by Darwin Mojica DDS at [facility] Bilateral: Mandible [employer] 51-673- / / Bar Connection Clamp Implanted:Qty: 4 on 05/15/2019 by Darwin Mojica DDS at [facility] Bilateral: Mandible [employer] 51-670- / / Fadi, 3/4 Mandible Implanted:Qty: 1 on 05/15/2019 by Darwin Mojica DDS at [facility] Bilateral: Mandible [employer] 51-672- [...] Reactive Non Reactive 05/15/2019 9:22 AM EST [facility] Blood Venipuncture / Unknown 05/15/2019 3:21 AM EST 05/15/2019 4:04 AM EST us Bettie Apodaca MD IMMUNOLOGY ORDERABLES Final Res ult Performing Organization Address [facility]/ZIP Co de Phone Number [facility] [address] [address] * (ABNORMAL) TSH W/FT4 REFLEX (05/10/2019 3:50 AM EST) TSH 5.090(H) 0.550 - 4.780 uIU/mL 05/10/2019 5:33 AM EST [facility] Blood Venipuncture / Unknown 05/10/2019 3:50 AM EST 05/10/2019 4:26 AM EST us Oscar Marc MD ENDOCRINOLOGY Final Result Performing Organization Address [facility]/ZIP Co de Phone Number [facility] [address] [address] * (ABNORMAL) HEMOGLOBIN A1C (05/09/2019 10:32 PM EST) Hemoglobin A1C HPLC 11.2(H) 4.7 - 5.6 % 05/10/2019 7:48 AM EST [facility] Estimated Average Glucose 275 mg/dL 05/10/2019 7:48 AM EST [facility] Blood Venipuncture / Unknown 05/09/2019 10:32 PM EST 05/09/2019 10:41 PM EST us Oscar Marc MD HEMATOLOGY ORDERABLES Final Resu lt Performing Organization Address [facility]/ZIP Co de Phone Number [facility] [address] [address] * (ABNORMAL) LIPID PANEL W CALCULATED LDL (05/09/2019 10:32 PM EST) Cholesterol 221(H) <200 mg/dL 05/10/2019 3:05 AM EST [facility] Comment: [<200 mg/dL: Desirable] [200-239 mg/dL: Borderline High] [>239 mg/dL: High] Triglycerides 311(H) <150 mg/dL 05/10/2019 3:05 AM [facility] Comment: [<150 mg/dL: Desirable] [150-199 mg/dL: Borderline] [200-499 mg/dL: High] [>500 mg/dL: Very High] HDL Cholesterol 49 >=40 mg/dL 05/10/2019 3:05 AM [facility] Comment: [<40 mg/dL: Low (High Risk)] [>59 mg/dL: High (Low Risk)] Calculated LDL Cholesterol 110(H) 0 - 99 mg/dL 05/10/2019 3:05 AM [facility] Comment: [<100 mg/dL: Optimal] [100-129 mg/dL: Near Optimal] [130-159 mg/dL: Borderline High] [160-189 mg/dL: High] [>189 mg/dL: Very High] Total Cholesterol/HDL Ratio 4.5(H) <4.5 05/10/2019 3:05 AM [facility] Non HDL Cholesterol 172(H) <130 mg/dL 05/10/2019 3:05 AM [facility] Blood Venipuncture / Unknown 05/09/2019 10:32 PM EST 05/09/2019 10:40 PM EST us Oscar Marc MD CHEMISTRY ORDERABLES Final Resul t [facility] [address] [address] from Last 3 Months or Most Recently Relevant to Health Maintenance Insurance [facility] Plan Advance Directives For more information, please contact: [phone] (7:30 AM - 6PM [facility], Sunday-Sunday) * Full Code (Latest Code Status on File) Date Activated Date Inactivated Comments 05/10/2019 3:08 AM Care Teams Applications Programmer Relationship Specialty Start Date End Date Cesar Wilhelm MD PCP - General Family Medicine 05/19/19
--- OUTSIDE RECORDS SUMMARY | 2024-12-09 09:16 | XMS_ITS | Clinical Summary ---
Author Organization [employer] Address [id number] [address] [place] [address] Care Team Providers Care Mud Analysis Well Logging Operator Name Role Phone Cesar Wilhelm MD Primary Care Provider [phone] Allergies Active Allergy Reactions Criticality Noted Date [...] EDT - 09/08/2024 7:16 AM EDT Emergency [facility] - Emergency [address] [place] [address] Guido Dotson MD Panic attack [...] 2 <21 ng/L 09/08/2024 7:10 AM EDT [facility] Blood Venous blood / Unknown Venipuncture / Unknown 09/08/2024 6:37 AM EDT 09/08/2024 6:42 AM EDT Guido Dotson MD LAB BLOOD ORDERABLES Final R esult Performing Organization Address City/[facility]/ZIP Co de Phone Number [address] [place] [address], [place] * Light Blue Top (09/08/2024 6:37 AM EDT) Extra Tube Auto Resulted 09/08/2024 8:02 AM EDT [facility] Blood Venous blood / Unknown 09/08/2024 6:37 AM EDT 09/08/2024 6:43 AM EDT Guido Dotson MD LAB BLOOD ORDERABLES Final R esult [address] [place] [address], [place] * (ABNORMAL) CBC auto differential (09/08/2024 6:37 AM EDT) WBC 17.1(H) 4 - 11 x10E9/L 09/08/2024 6:48 AM EDT [facility] RBC Count 5.66 4.1 - 5.7 X10E12/L 09/08/2024 6:48 AM EDT [facility] Hemoglobin 15.6 13 - 17 g/dL 09/08/2024 6:48 AM EDT [facility] Hematocrit 46.2 39 - 50 % 09/08/2024 6:48 AM EDT [facility] MCV 82 80 - 100 fL 09/08/2024 6:48 AM EDT [facility] MCH 27.6 27 - 34 pg 09/08/2024 6:48 AM EDT [facility] MCHC 33.8 32 - 36 g/dL 09/08/2024 6:48 AM EDT [facility] RDW 15.5(H) 11.5 - 15 % 09/08/2024 6:48 AM EDT [facility] Platelet Count 295 150 - 450 X10E9/L 09/08/2024 6:48 AM EDT [facility] MPV 7.3 7 - 12 fL 09/08/2024 6:48 AM EDT [facility] Neutrophils % 82.2 % 09/08/2024 6:48 AM EDT [facility] Lymphocytes % 11.2 % 09/08/2024 6:48 AM EDT [facility] Monocytes % 5.3 % 09/08/2024 6:48 AM EDT [facility] Eosinophils % 1.0 % 09/08/2024 6:48 AM EDT [facility] Basophils % 0.3 % 09/08/2024 6:48 AM EDT [facility] Neutrophils Absolute (A) 14.0(H) 1.5 - 6.6 10*3/uL 09/08/2024 6:48 AM EDT [facility] Lymphocytes Absolute 1.9 1.0 - 3.5 10*3/uL 09/08/2024 6:48 AM EDT [facility] Monocytes Absolute 0.9 0.0 - 0.9 10*3/uL 09/08/2024 6:48 AM EDT [facility] Eosinophils Absolute 0.2 0.0 - 0.4 10*3/uL 09/08/2024 6:48 AM EDT [facility] Basophils Absolute 0.1 0.0 - 0.2 10*3/uL 09/08/2024 6:48 AM EDT [facility] Differential Type AUTOMATED DIFFERENTIAL 09/08/2024 6:48 AM EDT [facility] Blood Venous blood / Unknown Venipuncture / Unknown 09/08/2024 6:37 AM EDT 09/08/2024 6:42 AM EDT us Guido Dotson MD LAB BLOOD ORDERABLES Final R esult Performing Organization Address City/[facility]/ZIP Co de Phone Number [address] [place] [address], [place] * (ABNORMAL) Lipase (09/08/2024 6:37 AM EDT) LIPASE 72(H) 17 - 40 U/L 09/08/2024 7:31 AM EDT [facility] Blood Venous blood / Unknown Venipuncture / Unknown 09/08/2024 6:37 AM EDT 09/08/2024 6:42 AM EDT Guido Dotson MD LAB BLOOD ORDERABLES Final R esult Performing Organization Address City/[facility] Co de Phone Number [address] [place] [address], [place] * (ABNORMAL) Comprehensive metabolic panel (09/08/2024 6:37 AM EDT) SODIUM 134 134 - 146 mmol/L 09/08/2024 7:01 AM EDT [facility] POTASSIUM 3.4(L) 3.5 - 5.0 mmol/L 09/08/2024 7:01 AM EDT [facility] CHLORIDE 100 98 - 109 mmol/L 09/08/2024 7:01 AM EDT [facility] CARBON DIOXIDE 22 22 - 32 mmol/L 09/08/2024 7:01 AM EDT [facility] ANION GAP 12 5 - 15 mmol/L 09/08/2024 7:01 AM EDT [facility] BLOOD UREA NITROGEN 23 5 - 23 mg/dL 09/08/2024 7:01 AM EDT [facility] CREATININE 0.76 0.70 - 1.20 mg/dL 09/08/2024 7:01 AM EDT [facility] Comment:METHOD TRACEABLE TO IDMS STANDARD GLUCOSE 202(H) 65 - 99 mg/dL 09/08/2024 7:01 AM EDT [facility] CALCIUM 9.0 8.5 - 10.5 mg/dL 09/08/2024 7:01 AM EDT [facility] TOTAL PROTEIN 7.8 6.0 - 8.0 g/dL 09/08/2024 7:01 AM EDT [facility] ALBUMIN 3.9 3.2 - 5.3 g/dL 09/08/2024 7:01 AM EDT [facility] ALKALINE PHOSPHATASE 99 39 - 130 U/L 09/08/2024 7:01 AM EDT [facility] AST 40 <=41 U/L 09/08/2024 7:01 AM EDT [facility] ALT 65(H) <=40 U/L 09/08/2024 7:01 AM EDT [facility] BILIRUBIN,TOTAL 0.8 0.3 - 1.2 mg/dL 09/08/2024 7:01 AM EDT [facility] EGFR Non-Race Dependent >90 >=60 ml/min/1.7 3sq.m 09/08/2024 7:01 AM EDT [facility] Comment: eGFR not reported due to non-numeric value for Creatinine. Reported eGFR is based on the CKD-EPI 2020 equation that does not use a race coefficient. Blood Venous blood / Unknown Venipuncture / Unknown 09/08/2024 6:37 AM EDT 09/08/2024 6:42 AM EDT us Guido Dotson MD LAB BLOOD ORDERABLES Final R esult [facility] [address] [place] [address], from Last 3 Months Insurance [place] [employer] Care Teams Mud Analysis Well Logging Operator Relationship Specialty Start Date End Date Cesar Wilhelm MD PCP - General 10/19/16
--- OUTSIDE RECORDS SUMMARY | 2024-12-09 09:30 | XMS_ITS | CCD ---
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; Translations: [OTH [place]TER CURRENT DRUG THERAPY] Onset: 08-14-2022 Episodic Other aftercare (1 source) 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; Translations: [BOUNTY HUNTER CURRENT USE OF INSULIN] Onset: 08-14-2022 Episodic [...] BY AUTOMATED COUNT 0.1 10*3/uL Normal 0.0-0.2 [facility] Comment on above: Performed By: #### C BCA #### [address] [address] VIR BASOPHILS RELATIVE PERCENT BY AUTOMATED COUNT 0.3 % Normal [facility] Comment on above: Performed By: #### C BCA #### [address] [address] VIR CELLAVISION DIFFERENTIAL TYPE AUTOMATED DIFFERENTIAL Normal [facility] Comment on above: Performed By: #### C BCA #### [facility] ([address] [address] VIR Eosinophils (Bld) [#/Vol] 0.2 10*3/uL Normal 0.0-0.4 [facility] Comment on above: Performed By: #### C BCA #### [facility] ([address] [address] VIR EOSINOPHILS RELATIVE PERCENT BY AUTOMATED COUNT 1.0 % Normal [facility] Comment on above: Performed By: #### C BCA #### [facility] ([address] [place] [address] VIR Erythrocyte distribution width (RBC) [Ratio] 15.5 % High 11.5-15 [facility] Comment on above: Performed By: #### C BCA #### [facility] ([address] [address] VIR Hematocrit (Bld) [Volume fraction] 46.2 % Normal 39-50 [facility] Comment on above: Performed By: #### C BCA #### [facility] ([address] [address] VIR Hemoglobin (Bld) [Mass/Vol] 15.6 g/dL Normal 13-17 [facility] Comment on above: Performed By: #### C BCA #### [facility] ([address] [address] VIR LYMPHOCYTES ABSOLUTE COUNT (10*3/UL) BY AUTOMATED COUNT 1.9 10*3/uL Normal 1.0-3.5 [facility] Comment on above: Performed By: #### C BCA #### [facility] ([address] [address] VIR LYMPHOCYTES RELATIVE PERCENT BY AUTOMATED COUNT 11.2 % Normal [facility] Comment on above: Performed By: #### C BCA #### [facility] ([address] [address] VIR MCH (RBC) [Entitic mass] 27.6 pg Normal 27-34 [facility] Comment on above: Performed By: #### C BCA #### [facility] ([address] [address] VIR MCHC (RBC) [Mass/Vol] 33.8 g/dL Normal 32-36 [facility] Comment on above: Performed By: #### C BCA #### [facility] ([address] [address] VIR MCV (RBC) [Entitic vol] 82 fL Normal 80-100 [facility] Comment on above: Performed By: #### C BCA #### [facility] ([address] [address] VIR MONOCYTES ABSOLUTE COUNT (10*3/UL) BY AUTOMATED COUNT 0.9 10*3/uL Normal 0.0-0.9 [facility] Comment on above: Performed By: #### C BCA #### [facility] ([address] [address] VIR MONOCYTES RELATIVE PERCENT BY AUTOMATED COUNT 5.3 % Normal [facility] Comment on above: Performed By: #### C BCA #### [facility] ([address] [address] VIR NEUTROPHILS ABSOLUTE COUNT BY AUTOMATED COUNT 14.0 10*3/uL High 1.5-6.6 [facility] Comment on above: Performed By: #### C BCA #### [facility] ([address] [address] VIR NEUTROPHILS RELATIVE PERCENT BY AUTOMATED COUNT 82.2 % Normal [facility] Comment on above: Performed By: #### C BCA #### [facility] ([address] [address] VIR Platelet mean volume (Bld) [Entitic vol] 7.3 fL Normal 7-12 [facility] Comment on above: Performed By: #### C BCA #### [facility] ([address] [address] VIR Platelets (Bld) [#/Vol] 295 10*3/uL Normal 150-450 [facility] Comment on above: Performed By: #### C BCA #### [facility] ([facility]) [facility] [place] [address] VIR RBC COUNT 5.66 X10E12/L Normal 4.1-5.7 [facility] Comment on above: Performed By: #### C BCA #### [facility] ([address] [place] [address] VIR WBC (Bld) [#/Vol] 17.1 10*3/uL High 4-11 [facility] Comment on above: Performed By: #### C BCA #### [facility] ([address] [place] [address] VIR COMPREHENSIVE METABOLIC PANE Ruddy 09-08-2024 Albumin [Mass/Vol] 3.9 g/dL Normal 3.2-5.3 [facility] Comment on above: Performed By: #### C MP #### [facility] ([address] [place] [address] VIR ALP [Catalytic activity/Vol] 99 U/L Normal 39-130 [facility] Comment on above: Performed By: #### C MP #### [facility] ([address] [place] [address] VIR ALT [Catalytic activity/Vol] 65 U/L High <=40 [facility] Comment on above: Performed By: #### C MP #### [facility] ([address] [place] [address] VIR Anion gap [Moles/Vol] 12 mmol/L Normal 5-15 [facility] Comment on above: Performed By: #### C MP #### [facility] ([place] [address] [place] [address] VIR AST [Catalytic activity/Vol] 40 U/L Normal <=41 [facility] Comment on above: Performed By: #### C MP #### [facility] ([place] [address] [place] [address] VIR Bilirubin [Mass/Vol] 0.8 mg/dL Normal 0.3-1.2 [facility] Comment on above: Performed By: #### C MP #### [facility] ([address] [place] [address] VIR Calcium [Mass/Vol] 9.0 mg/dL Normal 8.5-10.5 [facility] Comment on above: Performed By: #### C MP #### [facility] ([address] [place] [address] VIR Chloride [Moles/Vol] 100 mmol/L Normal 98-109 [facility] Comment on above: Performed By: #### C MP #### [facility] ([address] [place] [address] VIR CO2 [Moles/Vol] 22 mmol/L Normal 22-32 [facility] Comment on above: Performed By: #### C MP #### [facility] ([address] [place] [address] VIR Creatinine [Mass/Vol] 0.76 mg/dL Normal 0.70-1.20 [facility] Comment on above: Result Comment: METH OD TRACEABLE TO IDMS STANDARD Performed By: #### C MP #### [facility] ([address] [place] [address] VIR EGFR (CKD-EPI) NON-RACE DEPENDENT >^90 Normal >=60 [facility] Comment on above: Result Comment: eGFR not reported due to non-numeric value for Creatinine. Reported eGFR is based on the CKD-EPI 2021 equation that does not use a race coefficient. Performed By: #### C MP #### [facility] ([address] [place] [address] VIR Glucose [Mass/Vol] 202 mg/dL High 65-99 [facility] Comment on above: Performed By: #### C MP #### [facility] ([address] [place] [address] VIR Potassium [Moles/Vol] 3.4 mmol/L Low 3.5-5.0 [facility] Comment on above: Performed By: #### C MP #### [facility] ([address] [place] [address] VIR Protein [Mass/Vol] 7.8 g/dL Normal 6.0-8.0 [facility] Comment on above: Performed By: #### C MP #### [facility] ([address] [place] [address] VIR Sodium [Moles/Vol] 134 mmol/L Normal 134-146 [facility] Comment on above: Performed By: #### C MP #### [facility] ([address] [place] [address] VIR Urea nitrogen [Mass/Vol] 23 mg/dL Normal 5-23 [facility] Comment on above: Performed By: #### C MP #### [facility] ([address] [place] [address] VIR LIPASEon 09-08-2024 Lipase [Catalytic activity/Vol] 72 U/L High 17-40 [facility] Comment on above: Performed By: #### L IPA #### [facility] ([address] [place] [address] VIR TROPONIN I, HIGH SENSITIVITY 0 HOURon 09-08-2024 TROPONIN I, HIGH SENSITIVITY 2 ng/L Normal <21 [facility] Comment on above: Performed By: #### T NIHS0 #### [facility] ([address] [address] VIR Auth for Release of Medical Recordson 12-07-2022 Auth for Release of Medical Records [id number]#[id number]:127 Normal [facility] CARDIAC ROSLYN 3-6on 3 CK [Catalytic activity/Vol] 288 U/L Normal 39-308 [facility] Comment on above: Performed By: #### C MREP #### [facility] [address] [address] [address] Kiran Ivey CK.MB [Mass/Vol] 4.71 ng/mL Critically high <=3.60 [facility] Comment on above: Performed By: #### C MREP #### [facility] [address] [address] [address] Kiran Ivey HSTROP 5.8 pg/mL Normal 4.0-76.1 [facility] Comment on above: Result Comment: CUT- OFF POINTS HAVE BEEN ESTABLISHED BASED ON THE FOURTH UNIVERSAL DEFINITIONS OF MYOCARDIAL INFARCTION. THE UPPER REFERENCE LIMIT (URL) OF TROPONIN, DEFINED THE 99TH PERCENTILE OF cTnI DISTRIBUTION IN A REFERENCE POPULATION, HAS BEEN CONFIRMED THE DECISION THRESHOLD FOR [place] DIAGNOSIS. Performed By: #### C MREP #### [facility] [address] [address] [address] Kiran Ivey CARDIAC ROSLYN ADMITon 023 CK [Catalytic activity/Vol] 297 U/L Normal 39-308 [facility] Comment on above: Performed By: #### C MADM, BMP #### [facility] [address] [address] [address] Kiran Ivey CK.MB [Mass/Vol] 5.29 ng/mL Critically high <=3.60 [facility] Comment on above: Performed By: #### C MADM, BMP #### [facility] [address] [address] [address] Kiran Ivey HSTROP 6.1 pg/mL Normal 4.0-76.1 [facility] Comment on above: Result Comment: CUT- OFF POINTS HAVE BEEN ESTABLISHED BASED ON THE FOURTH UNIVERSAL DEFINITIONS OF MYOCARDIAL INFARCTION. THE UPPER REFERENCE LIMIT (URL) OF TROPONIN, DEFINED THE 99TH PERCENTILE OF cTnI DISTRIBUTION IN A REFERENCE POPULATION, HAS BEEN CONFIRMED THE DECISION THRESHOLD FOR TN DIAGNOSIS. Performed By: #### C MADM, BMP #### [facility] [address] [address] [address] Kiran Ivey MALIHA 50 ng/mL Normal 16-96 [facility] Comment on above: Performed By: #### C MADM, BMP #### [facility] [address] [address] [address] Kiran Ivey CBC AUTO DIFFon 08-10-2022 BASO # 0.1 103/ul Normal 0.0-0.1 [facility] Comment on above: Performed By: #### C BC #### [facility] [address] [address] [address] Kiran Ivey Basophils/100 WBC (Bld) 0.8 % Normal 0.2-2.0 [facility] Comment on above: Performed By: #### C BC #### [facility] [address] [place] [address] Dr. Kiran Ivey EO # 0.3 103/ul Normal 0.0-0.7 [facility] Comment on above: Performed By: #### C BC #### [facility] [address] [place] [address] Dr. Kiran Ivey Eosinophils/100 WBC (Bld) 3.6 % Normal 0.9-7.0 [facility] Comment on above: Performed By: #### C BC #### [facility] [address] [place] [address] Dr. Kiran Ivey Erythrocyte distribution width (RBC) [Ratio] 14.9 % Normal 11.0-15.0 [facility] Comment on above: Performed By: #### C BC #### [facility] [address] [place] [address] Dr. Kiran Ivey Hematocrit (Bld) [Volume fraction] 38.9 % Critically low 42.0-54.0 [facility] Comment on above: Performed By: #### C BC #### [facility] [address] [place] [address] Dr. Kiran Ivey Hemoglobin (Bld) [Mass/Vol] 12.6 g/dL Critically low 14.0-18.0 [facility] Comment on above: Performed By: #### C BC #### [facility] [address] [place] [address] Dr. Kiran Ivey IG # 0.02 10e3/ul Normal 0.00-0.03 [facility] Comment on above: Performed By: #### C BC #### [facility] [address] [place] [address] Dr. Kiran Ivey IG % 0.3 % Normal 0.0-0.5 [facility] Comment on above: Performed By: #### C BC #### [facility] [address] [place] [address] Dr. Kiran Ivey LYMPH # 2.4 103/ul Normal 1.2-3.8 [facility] Comment on above: Performed By: #### C BC #### [facility] [address] [place] [address] Dr. Kiran Ivey Lymphocytes/100 WBC (Bld) 33.1 % Normal 20.5-60.0 [facility] Comment on above: Performed By: #### C BC #### [facility] [address] [place] [address] Dr. Kiran Ivey MANUAL DIFF REQ NO Normal [facility] Comment on above: Performed By: #### C BC #### [facility] [address] [place] [address] Dr. Kiran Ivey MCH (RBC) [Entitic mass] 24.4 pg Critically low 25.9-34.0 [facility] Comment on above: Performed By: #### C BC #### [facility] [address] [place] [address] Dr. Kiran Ivey MCHC (RBC) [Mass/Vol] 32.4 g/dL Normal 29.9-35.2 [facility] Comment on above: Performed By: #### C BC #### [facility] [address] [place] [address] Dr. Kiran Ivey MCV (RBC) [Entitic vol] 75.4 fL Critically low 80.0-94.0 [facility] Comment on above: Performed By: #### C BC #### [facility] [address] [address] [address] Kiran Ivey MONO # 0.5 103/ul Normal 0.3-0.8 [facility] Comment on above: Performed By: #### C BC #### [facility] [address] [address] [address] Kiran Ivey Monocytes/100 WBC (Bld) 7.0 % Normal 1.7-12.0 [facility] Comment on above: Performed By: #### C BC #### [facility] [address] [place] [address] Dr. Kiran Ivey NEUT # 4.0 103/ul Normal 1.4-6.5 [facility] Comment on above: Performed By: #### C BC #### [facility] [address] [place] [address] Dr. Kiran Ivey Neutrophils/100 WBC (Bld) 55.2 % Normal 43.0-75.0 [facility] Comment on above: Performed By: #### C BC #### [facility] [address] [place] [address] Dr. Kiran Ivey Platelet mean volume (Bld) [Entitic vol] 9.1 fL Critically low 9.5-13.5 [facility] Comment on above: Performed By: #### C BC #### [facility] [address] [place] [address] Dr. Kiran Ivey PLT 310 103/ul Normal 150-450 [facility] Comment on above: Performed By: #### C BC #### [facility] [address] [place] [address] Dr. Kiran Ivey RBC 5.16 106/ul Normal 4.70-6.10 [facility] Comment on above: Performed By: #### C BC #### [facility] [address] [place] [address] Dr. Kiran Ivey WBC 7.2 103/ul Normal 4.0-11.0 [facility] Comment on above: Performed By: #### C BC #### [facility] [address] [address] [address] Kiran Ivey PROF CHEM 8 (BAS METB)on Anion gap [Moles/Vol] 11.1 mmol/L Normal [facility] Comment on above: Performed By: #### C MADM, BMP #### [facility] [address] [place] [address] Dr. Kiran Ivey Calcium [Mass/Vol] 9.3 mg/dL Normal 8.5-10.1 [facility] Comment on above: Performed By: #### C MADM, BMP #### [facility] [address] [place] [address] Dr. Kiran Ivey Chloride [Moles/Vol] 100 mmol/L Normal 98-107 [facility] Comment on above: Performed By: #### C MADM, BMP #### [facility] [address] [place] [address] Dr. Kiran Ivey CO2 [Moles/Vol] 30.1 mmol/L Normal 21.0-32.0 [facility] Comment on above: Performed By: #### C MADM, BMP #### [facility] [address] [place] [address] Dr. Kiran Ivey Creatinine [Mass/Vol] 1.03 mg/dL Normal 0.70-1.30 [facility] Comment on above: Performed By: #### C MADM, BMP #### [facility] [address] [place] [address] Dr. Kiran Ivey EGFR-AF KAZAKH >60 Normal >=60 [facility] Comment on above: Performed By: #### C MADM, BMP #### [facility] [address] [place] [address] Dr. Kiran Ivey EGFR-NON AF KAZAKH >60 Normal >=60 [facility] Comment on above: Performed By: #### C MADM, BMP #### [facility] [address] [place] [address] Dr. Kiran Ivey Glucose [Mass/Vol] 226 mg/dL Critically high 74-106 [facility] Comment on above: Performed By: #### C MADM, BMP #### [facility] [address] [address] [address] Kiran Ivey Potassium [Moles/Vol] 4.2 mmol/L Normal 3.5-5.1 [facility] Comment on above: Performed By: #### C MADM, BMP #### [facility] [address] [place] [address] Dr. Kiran Ivey Sodium [Moles/Vol] 137 mmol/L Normal 136-145 [facility] Comment on above: Performed By: #### C MADM, BMP #### [facility] [address] [place] [address] Dr. Kiran Ivey Urea nitrogen [Mass/Vol] 19.0 mg/dL Critically high 7.0-18.0 [facility] Comment on above: Performed By: #### C MADM, BMP #### [facility] [address] [place] [address] Dr. Kiran Ivey Urea nitrogen/Creatinin e [Mass ratio] 18.4 mg/mg Normal [facility] Comment on above: Performed By: #### C IBETHM, BMP #### [facility] [address] [place] [address] Dr. Kiran Ivey GLYCOHEMOGLOBIN A1Con 2022 ADA RECOMMENDATION SEE BELOW Normal [facility] Comment on above: Result Comment: ADA RECOMMENDED LIMIT 4.0 - 6.0 ADA THERAPEUTIC TARGET < 7.0 ACTION SUGGESTED > 7.0 Performed By: #### C BC #### [facility] [address] [place] [address] Dr. Kiran Ivey Glucose [Mass/Vol] 269 mg/dL Normal [facility] Comment on above: Performed By: #### C BC #### [facility] [address] [place] [address] Dr. Krian Ivey HbA1c (Bld) [Mass fraction] 11.0 % Critically high 4.5-6.2 [facility] Comment on above: Performed By: #### C BC #### [facility] [address] [place] [address] Dr. Kiran Ivey LIPID PROFILEon 06-12-2022 CHOL-HDL RATIO NORM SEE BELOW Normal [facility] Comment on above: Result Comment: 3.3 - 4.4 LOW RISK 4.4 - 7.1 AVERAGE RISK 7.1 - 11.0 MODERATE RISK >11.0 HIGH RISK Performed By: #### L IPID #### [facility] [address] [address] [address] Kiran Ivey Cholesterol [Mass/Vol] 193 mg/dL Normal <=200 [facility] Comment on above: Performed By: #### L IPID #### [facility] [address] [address] [address] Kiran Ivey Cholesterol in HDL [Mass/Vol] 47 mg/dL Normal 40-60 [facility] Comment on above: Performed By: #### L IPID #### [facility] [address] [address] [address] Kiran Ivey Cholesterol in LDL [Mass/Vol] 109.4 mg/dL Normal [facility] Comment on above: Performed By: #### L IPID #### [facility] [address] [address] [address] Kiran Ivey Cholesterol.total/ Cholesterol in HDL [Mass ratio] 4.1 {ratio} Normal [facility] Comment on above: Performed By: #### L IPID #### [facility] [address] [address] [address] Kiran Ivey HDL NORMAL > or = 60 mg/dl - LO W CARDIOVASCULAR RISK <40 mg/dl - HIGH CARDIOVASCULAR RISK Normal [facility] Comment on above: Performed By: #### L IPID #### [facility] [address] [address] [address] Kiran Ivey LDL CALC NORMAL SEE BELOW Normal [facility] Comment on above: Result Comment: <100 mg/dl OPTIMAL 100 - 129 mg/dl NEAR OR ABOVE OPTIMAL 130 - 159 mg/dl BORDERLINE HIGH 160 - 189 mg/dl HIGH >190 mg/dl VERY HIGH Performed By: #### L IPID #### [facility] [address] [address] [address] Kiran Ivey Triglyceride [Mass/Vol] 183 mg/dL Critically high <=150 [facility] Comment on above: Performed By: #### L IPID #### [facility] [address] [place], [place] [address] Dr. Kiran Ivey VLDL CALC 36.6 mg/dL Normal [facility] Comment on above: Performed By: #### L IPID #### [facility] [address] [place], [place] [address] Dr. Kiran Ivey General Surgery Office/Clini c [...] Sister. COPD: Father. Heart disease: Father. Normal [facility] Comment on above: Result Comment: Elec tronically Signed By: CAMI HUNT, Naye Bell\Date and Time Signed: 05/02/22 15:50 EST Reminderson 05-02-2022 Reminders - From: Suad Fitzpatrick LPN To: [facility] - Clinical; Sent: 05/02/2022 15:51:15 EST Show up: 03/20/2027 07:00:00 EST Subject: colonoscopy recall Due Date/Time: 04/19/2027 07:00:00 EST Reminder/Recall Patient is due for colonoscopy 04/19/2027 due to history of colonic polyp. Normal [facility] Pathology Noteon 04-21-2022 Pathology Note [id number]#[id number]:127 Normal [facility] Outside Colonoscopyon 2021 Outside Colonoscopy [id number]#1.00CD:127 Normal [facility] POINT OF CARE GLUCOSEon 03-24 Glucose [Mass/Vol] 114 mg/dL Critically high 74-106 [facility] Comment on above: Performed By: #### P OCGLUC #### [facility] [address] [address] [address] Kiran Ivey Lab Reportson 2022 Lab Reports [id number]#1.00CD:127 Normal [facility] Covid-19 PCR (CVDTBH)on 03-24 SARS-CoV-2 (COVID-19) RNA JOANNA+probe Ql (Unsp spec) Not detected Normal NOT DETECTED [facility] Comment on above: Result Comment: This test is not yet approved or cleared by the [place] FDA. When there are no FDA-approved or cleared tests available, and other criteria are met, FDA can make tests available under an emergency access mechanism called an Emergency Use Authorization (EUA). The EUA for this test is supported by the Carpet [employer] Finished of Health and Human Service's (HHS's) declaration [...] consistent with SARS-CoV-2. Performed By: #### C [facility] #### [facility] [address] [place] [address] Dr. Kiran Ivey Pre-Certification Formon Pre-Certification Form [id number]#[id number]:127 Normal [facility] Consent for Procedure/Surger yon 03-20-2022 Consent for Procedure/Surgery [id number]#[id number]:127 Normal [facility] Ambulatory Visit Summaryon 1 05-13-2021 Ambulatory [...] Testicular hypofunction Vapes nicotine containing substance Normal [facility] CBC AUTO DIFFon 03-09-2022 BASO # 0.0 103/ul Normal 0.0-0.1 [facility] Comment on above: Performed By: #### C BC #### [facility] Laboratory [address] [address] [address] Kiran Ivey Basophils/100 WBC (Bld) 0.6 % Normal 0.2-2.0 [facility] Comment on above: Performed By: #### C BC #### [facility] [address] [address] [address] Kiran Ivey EO # 0.0 103/ul Normal 0.0-0.7 [facility] Comment on above: Performed By: #### C BC #### [facility] [address] [address] [address] Kiran Ivey Eosinophils/100 WBC (Bld) 1.2 % Normal 0.9-7.0 [facility] Comment on above: Performed By: #### C BC #### [facility] Laboratory [address] [place] [address] Dr. Kiran Ivey Erythrocyte distribution width (RBC) [Ratio] 16.7 % Critically high 11.0-15.0 [facility] Comment on above: Performed By: #### C BC #### [facility] Laboratory [address] [place] [address] Dr. Kiran Ivey Hematocrit (Bld) [Volume fraction] 38.5 % Critically low 42.0-54.0 [facility] Comment on above: Performed By: #### C BC #### [facility] [address] [place] [address] Dr. Kiran Ivey Hemoglobin (Bld) [Mass/Vol] 11.6 g/dL Critically low 14.0-18.0 [facility] Comment on above: Performed By: #### C BC #### [facility] [address] [place] [address] Dr. Kiran Ivey IG # 0.01 10e3/ul Normal 0.00-0.03 [facility] Comment on above: Performed By: #### C BC #### [facility] [address] [place] [address] Dr. Kiran Ivey IG % 0.3 % Normal 0.0-0.5 [facility] Comment on above: Performed By: #### C BC #### [facility] [address] [place] [address] Dr. Kiran Ivey LYMPH # 1.2 103/ul Normal 1.2-3.8 [facility] Comment on above: Performed By: #### C BC #### [facility] [address] [place] [address] Dr. Kiran Ivey Lymphocytes/100 WBC (Bld) 36.0 % Normal 20.5-60.0 [facility] Comment on above: Performed By: #### C BC #### [facility] [address] [place] [address] Dr. Kiran Ivey MANUAL DIFF REQ NO Normal [facility] Comment on above: Performed By: #### C BC #### [facility] [address] [address] [address] Kiran Ivey MCH (RBC) [Entitic mass] 22.2 pg Critically low 25.9-34.0 [facility] Comment on above: Performed By: #### C BC #### [facility] [address] [place] [address] Dr. Kiran Ivey MCHC (RBC) [Mass/Vol] 30.1 g/dL Normal 29.9-35.2 [facility] Comment on above: Performed By: #### C BC #### [facility] [address] [place] [address] Dr. Kiran Ivey MCV (RBC) [Entitic vol] 73.8 fL Critically low 80.0-94.0 [facility] Comment on above: Performed By: #### C BC #### [facility] [address] [place] [address] Dr. Kiran Ivey MONO # 0.5 103/ul Normal 0.3-0.8 [facility] Comment on above: Performed By: #### C BC #### [facility] [address] [place] [address] Dr. Kiran Ivey Monocytes/100 WBC (Bld) 15.1 % Critically high 1.7-12.0 [facility] Comment on above: Performed By: #### C BC #### [facility] [address] [place] [address] Dr. Kiran Ivey NEUT # 1.5 103/ul Normal 1.4-6.5 [facility] Comment on above: Performed By: #### C BC #### [facility] [address] [place] [address] Dr. Kiran Ivey Neutrophils/100 WBC (Bld) 46.8 % Normal 43.0-75.0 [facility] Comment on above: Performed By: #### C BC #### [facility] [address] [place] [address] Dr. Kiran Ivey Platelet mean volume (Bld) [Entitic vol] 10.2 fL Normal 9.5-13.5 [facility] Comment on above: Performed By: #### C BC #### [facility] [address] [address] [address] Kiran Ivey PLT 168 103/ul Normal 150-450 [facility] Comment on above: Performed By: #### C BC #### [facility] [address] [address] [address] Kiran Ivey RBC 5.22 106/ul Normal 4.70-6.10 [facility] Comment on above: Performed By: #### C BC #### [facility] [address] [address] [address] Kiran Ivey WBC 3.3 103/ul Critically low 4.0-11.0 [facility] Comment on above: Performed By: #### C BC #### [facility] [address] [address] [address] Kiran Ivey PROF CHEM 8 (BAS METB)on Anion gap [Moles/Vol] 10.3 mmol/L Normal [facility] Comment on above: Performed By: #### B MP #### [facility] [address] [address] [address] Kiran Ivey Calcium [Mass/Vol] 8.5 mg/dL Normal 8.5-10.1 [facility] Comment on above: Performed By: #### B MP #### [facility] [address] [address] [address] Kiran Ivey Chloride [Moles/Vol] 99 mmol/L Normal 98-107 [facility] Comment on above: Performed By: #### B MP #### [facility] [address] [address] [address] Kiran Ivey CO2 [Moles/Vol] 28.3 mmol/L Normal 21.0-32.0 [facility] Comment on above: Performed By: #### B MP #### [facility] [address] [address] [address] Kiran Ivey Creatinine [Mass/Vol] 0.81 mg/dL Normal 0.70-1.30 [facility] Comment on above: Performed By: #### B MP #### [facility] [address] [address] [address] Kiran Ivey EGFR-AF KAZAKH >60 Normal >=60 [facility] Comment on above: Performed By: #### B MP #### [facility] [id number] Kiran Ivey EGFR-NON AF KAZAKH >60 Normal >=60 [facility] Comment on above: Performed By: #### B MP #### [facility] [address] [address] [address] Kiran Ivey Glucose [Mass/Vol] 152 mg/dL Critically high 74-106 T [facility] Comment on above: Performed By: #### B MP #### [facility] [address] [place] [address] Dr. Kiran Ivey Potassium [Moles/Vol] 4.6 mmol/L Normal 3.5-5.1 [facility] Comment on above: Performed By: #### B MP #### [facility] [address] [place] [address] Dr. Kiran Ivey Sodium [Moles/Vol] 133 mmol/L Critically low 136-145 [facility] Comment on above: Performed By: #### B MP #### [facility] [address] [place] [address] Dr. Kiran Ivey Urea nitrogen [Mass/Vol] 13.0 mg/dL Normal 7.0-18.0 [facility] Comment on above: Performed By: #### B MP #### [facility] [address] [place] [address] Dr. Kiran Ivey Urea nitrogen/Creatinin e [Mass ratio] 16.0 mg/mg Normal [facility] Comment on above: Performed By: #### B MP #### [facility] [address] [place] [address] Dr. Kiran Ivey Physician Referralon 022 Physician Referral [id number] Normal [facility] TESTOSTERONE, TOTALon 2021 Testosterone [Mass/Vol] 56 ng/dL Critically low 264-916 [facility] Comment on above: Result Comment: Adul t male reference interval is based on a population of healthy nonobese males (BMI <30) between 19 and 39 years old. tatiana Gonzalez.al. JCEM 2017,102;7468-2788. PMID: [id number]. Performed By: #### C BC #### [facility] [address] [place] [address] Dr. Kiran Ivey AMYLASEon 02-15-2022 Amylase [Catalytic activity/Vol] 35 U/L Normal 25-115 [facility] Comment on above: Performed By: #### C BC #### [facility] [address] [place] [address] Dr. Kiran Ivey BNPon 02-15-2022 Natriuretic peptide B (Bld) [Mass/Vol] 7.0 pg/mL Normal <=450.0 [facility] Comment on above: Performed By: #### C BC #### [facility] [address] [place] [address] Dr. Kiran Ivey CBC AUTO DIFFon 02-15-2022 BASO # 0.1 103/ul Normal 0.0-0.1 [facility] Comment on above: Performed By: #### C BC #### [facility] [address] [place] [address] Dr. Kiran Ivey Basophils/100 WBC (Bld) 0.7 % Normal 0.2-2.0 [facility] Comment on above: Performed By: #### C BC #### [facility] [address] [place] [address] Dr. Kiran Ivey EO # 0.2 103/ul Normal 0.0-0.7 [facility] Comment on above: Performed By: #### C BC #### [facility] [address] [place] [address] Dr. Kiran Ivey Eosinophils/100 WBC (Bld) 2.3 % Normal 0.9-7.0 [facility] Comment on above: Performed By: #### C BC #### [facility] [address] [place] [address] Dr. Kiran Ivey Erythrocyte distribution width (RBC) [Ratio] 15.2 % Critically high 11.0-15.0 [facility] Comment on above: Performed By: #### C BC #### [facility] [address] [place] [address] Dr. Kiran Ivey Hematocrit (Bld) [Volume fraction] 38.3 % Critically low 42.0-54.0 [facility] Comment on above: Performed By: #### C BC #### [facility] [address] [place] [address] Dr. Kiran Ivey Hemoglobin (Bld) [Mass/Vol] 12.1 g/dL Critically low 14.0-18.0 [facility] Comment on above: Performed By: #### C BC #### [facility] [address] [place] [address] Dr. Kiran Ivey IG # 0.06 10e3/ul Critically high 0.00-0.[address] [facility] Comment on above: Performed By: #### C BC #### [facility] [address] [place] [address] Dr. Kiran Ivey IG % 0.6 % Critically high 0.0-0.5 [facility] Comment on above: Performed By: #### C BC #### [facility] [address] [place] [address] Dr. Kiran Ivey LYMPH # 2.6 103/ul Normal 1.2-3.8 [facility] Comment on above: Performed By: #### C BC #### [facility] [address] [place] [address] Dr. Kiran Ivey Lymphocytes/100 WBC (Bld) 25.0 % Normal 20.5-60.0 [facility] Comment on above: Performed By: #### C BC #### [facility] [address] [place] [address] Dr. Kiran Ivey MANUAL DIFF REQ NO Normal [facility] Comment on above: Performed By: #### C BC #### [facility] [address] [place] [address] Dr. Kiran Ivey MCH (RBC) [Entitic mass] 22.5 pg Critically low 25.9-34.0 [facility] Comment on above: Performed By: #### C BC #### [facility] [address] [address] [address] Kiran Ivey MCHC (RBC) [Mass/Vol] 31.6 g/dL Normal 29.9-35.2 [facility] Comment on above: Performed By: #### C BC #### [facility] [address] [address] [address] Kiran Ivey MCV (RBC) [Entitic vol] 71.2 fL Critically low 80.0-94.0 [facility] Comment on above: Performed By: #### C BC #### [facility] [address] [place] [address] Dr. Kiran Ivey MONO # 0.7 103/ul Normal 0.3-0.8 [facility] Comment on above: Performed By: #### C BC #### [facility] [address] [place] [address] Dr. Kiran Ivey Monocytes/100 WBC (Bld) 6.6 % Normal 1.7-12.0 [facility] Comment on above: Performed By: #### C BC #### [facility] [address] [place] [address] Dr. Kiran Ivey NEUT # 6.7 103/ul Critically high 1.4-6.5 [facility] Comment on above: Performed By: #### C BC #### [facility] [address] [place] [address] Dr. Kiran Ivey Neutrophils/100 WBC (Bld) 64.8 % Normal 43.0-75.0 [facility] Comment on above: Performed By: #### C BC #### [facility] [address] [place] [address] Dr. Kiran Ivey Platelet mean volume (Bld) [Entitic vol] 9.0 fL Critically low 9.5-13.5 [facility] Comment on above: Performed By: #### C BC #### [facility] [address] [place] [address] Dr. Kiran Ivey PLT 338 103/ul Normal 150-450 [facility] Comment on above: Performed By: #### C BC #### [facility] [address] [place] [address] Dr. Kiran Ivey RBC 5.38 106/ul Normal 4.70-6.10 [facility] Comment on above: Performed By: #### C BC #### [facility] [address] [place] [address] Dr. Kiran Ivey WBC 10.3 103/ul Normal 4.0-11.0 [facility] Comment on above: Performed By: #### C BC #### [facility] [address] [place] [address] Dr. Kiran Ivey FREE THYROXINE INDEX T7on FTI 3.04 Normal 1.30-4.50 [facility] Comment on above: Performed By: #### C BC #### [facility] [address] [place] [address] Dr. Kiran Ivey T3U 33.0 % Normal 33.0-40.0 [facility] Comment on above: Performed By: #### C BC #### [facility] [address] [place] [address] Dr. Kiran Ivey T4 [Mass/Vol] 9.20 ug/dL Normal 4.50-12.10 [facility] Comment on above: Performed By: #### C BC #### [facility] [address] [place] [address] Dr. Kiran Ivey IRONon 02-15-2022 Iron [Mass/Vol] 25.0 ug/dL Critically low 65.0-175.0 [facility] Comment on above: Performed By: #### C BC #### [facility] [address] [place] [address] Dr. Kiran Ivey LIPASEon 02-15-2022 Lipase [Catalytic activity/Vol] 90.0 U/L Normal 73.0-393.0 [facility] Comment on above: Performed By: #### C BC #### [facility] [address] [place] [address] Dr. Kiran Ivey PROF 14(COMP METB)on 022 Albumin [Mass/Vol] 3.4 g/dL Normal 3.4-5.0 [facility] Comment on above: Performed By: #### C BC #### [facility] [address] [place] [address] Dr. Kiran Ivey Albumin/Globulin [Mass ratio] 0.8 {ratio} Normal [facility] Comment on above: Performed By: #### C BC #### [facility] [address] [place] [address] Dr. Kiran Ivey ALP [Catalytic activity/Vol] 118 U/L Critically high 46-116 [facility] Comment on above: Performed By: #### C BC #### [facility] [address] [place] [address] Dr. Kiran Ivey ALT [Catalytic activity/Vol] 30 U/L Normal 16-63 [facility] Comment on above: Performed By: #### C BC #### [facility] [address] [place] [address] Dr. Kiran Ivey Anion gap [Moles/Vol] 9.8 mmol/L Normal [facility] Comment on above: Performed By: #### C BC #### [facility] [address] [place] [address] Dr. Kiran Ivey AST [Catalytic activity/Vol] 20 U/L Normal 15-37 [facility] Comment on above: Performed By: #### C BC #### [facility] [address] [place] [address] Dr. Kiran Ivey Bilirubin [Mass/Vol] 0.2 mg/dL Normal 0.2-1.0 [facility] Comment on above: Performed By: #### C BC #### [facility] [address] [place] [address] Dr. Kiran Ivey Calcium [Mass/Vol] 9.5 mg/dL Normal 8.5-10.1 [facility] Comment on above: Performed By: #### C BC #### [facility] [address] [place], [place] [address] Dr. Kiran Ivey Chloride [Moles/Vol] 99 mmol/L Normal 98-107 [facility] Comment on above: Performed By: #### C BC #### [facility] [address] [place] [address] Dr. Kiran Ivey CO2 [Moles/Vol] 29.1 mmol/L Normal 21.0-32.0 [facility] Comment on above: Performed By: #### C BC #### [facility] [address] [place] [address] Dr. Kiran Ivey Creatinine [Mass/Vol] 0.83 mg/dL Normal 0.70-1.30 [facility] Comment on above: Performed By: #### C BC #### [facility] [address] [place] [address] Dr. Kiran Ivey EGFR-AF KAZAKH >60 Normal >=60 [facility] Comment on above: Performed By: #### C BC #### [facility] [address] [place] [address] Dr. Kiran Ivey EGFR-NON AF KAZAKH >60 Normal >=60 [facility] Comment on above: Performed By: #### C BC #### [facility] [address] [place] [address] Dr. Kiran Ivey Globulin (S) [Mass/Vol] 4.1 g/dL Normal [facility] Comment on above: Performed By: #### C BC #### [facility] [address] [place] [address] Dr. Kiran Ivey Glucose [Mass/Vol] 157 mg/dL Critically high 74-106 [facility] Comment on above: Performed By: #### C BC #### [facility] [address] [place] [address] Dr. Kiran Ivey Potassium [Moles/Vol] 3.9 mmol/L Normal 3.5-5.1 [facility] Comment on above: Performed By: #### C BC #### [facility] [address] [place] [address] Dr. Kiran Ivey Protein [Mass/Vol] 7.5 g/dL Normal 6.4-8.2 [facility] Comment on above: Performed By: #### C BC #### [facility] [address] [place] [address] Dr. Kiran Ivey Sodium [Moles/Vol] 134 mmol/L Critically low 136-145 [facility] Comment on above: Performed By: #### C BC #### [facility] [address] [place] [address] Dr. Kiran Ivey Urea nitrogen [Mass/Vol] 13.0 mg/dL Normal 7.0-18.0 [facility] Comment on above: Performed By: #### C BC #### [facility] [address] [place] [address] Dr. Kiran Ivey Urea nitrogen/Creatinin e [Mass ratio] 15.7 mg/mg Normal [facility] Comment on above: Performed By: #### C BC #### [facility] [address] [place] [address] Dr. Kiran Ivey TSHon 02-15-2022 TSH 1.756 uIU/mL Normal 0.358-3.740 [facility] Comment on above: Performed By: #### C BC #### [facility] [address] [place] [address] Dr. Kiran Ivey Covid-19 PCR ([facility])on 12-23 SARS-CoV-2 (COVID-19) RNA JOANNA+probe Ql (Unsp spec) Not detected Normal NOT DETECTED [facility] Comment on above: Result Comment: When [...] for this test is supported by the Carpet [employer] Finished of Health and Human Service's declaration that [...] be used). Performed By: #### C #### [facility] [address] [address] [address] Kiran Ivey ECHOCARDIO M/2D COMPLETEon 0 09-14-2021 ECHOCARDIO M/2D COMPLETE Patient: NONI SOTO. Exam Date: 09/14/2021 : 1975 Gender:M Ordering : DR JADYN WILHELM . Admission #: [id number] Family : Order #: [id number] CLICK HERE TO VIEW EXAM ECHOCARDIOGRAM REPORT [...] on 09/15/2021 at 13:10 Approved by: Topher Perze M.D. on 09/15/2021 at 13:12 Normal [facility] CREATININEon 09-09-2021 Creatinine [Mass/Vol] 0.95 mg/dL Normal 0.70-1.30 [facility] Comment on above: Performed By: #### C BC #### [facility] [address] [place] [address] Dr. Kiran Ivey EGFR-AF KAZAKH >60 Normal >=60 [facility] Comment on above: Performed By: #### C BC #### [facility] [address] [place] [address] Dr. Kiran Ivey EGFR-NON AF KAZAKH >60 Normal >=60 [facility] Comment on above: Performed By: #### C BC #### [facility] [address] [place] [address] Dr. Kiran Ivey CTA CHEST WO W [...] by: IGNACIO FERRARA Date: 2021-09-09 10:05 Normal [facility] US WOODROW DOP LEG BILon 022 US WOODROW DOP LEG KEENA EXAMINATION: US WOODROW DOP LEG KEEAN HISTORY: Dyspnea COMPARISON: No relevant comparison available. FINDINGS: REGION: Bilateral lower extremities THROMBI: None. COMPRESSIBILITY: Normal compressibility. FLOW: Normal waveform and antegrade flow between 5 and 20 cm/s. OTHER: None. IMPRESSION: 1. No deep vein thrombus within the right or left lower extremity. Electronically authenticated by: IGNACIO FERRARA Date: 2021-09-05 16:26 Normal [facility] POC GLUCOSE LABon 01-09-2019 Glucose [Mass/Vol] 233 mg/dL High 70-100 [facility] Comment on above: Performed By: #### [id number] #### [facility] [address] [facility] [place] [address], [facility] Glucose [Mass/Vol] 199 mg/dL High 70-100 [facility] Comment on above: Performed By: #### [id number] #### [facility] [address] [facility] [address], [facility] POC GLUCOSE LABon 01-08-2019 Glucose [Mass/Vol] 251 mg/dL High 70-100 [facility] Comment on above: Performed By: #### [id number] #### [facility] [address] [place] [address], [facility] Glucose [Mass/Vol] 212 mg/dL High 70-100 [facility] Comment on above: Performed By: #### [id number] #### [facility] [address] [place] [address], [facility] Glucose [Mass/Vol] 238 mg/dL High 70-100 [facility] Comment on above: Performed By: #### [id number] #### [facility] [address] [place] [address], [facility] Glucose [Mass/Vol] 160 mg/dL High 70-100 [facility] Comment on above: Performed By: #### 0 [id number] #### [facility] [address] [place] [address], [facility] BASIC METABOLIC PANELon - Calcium [Mass/Vol] 9.3 mg/dL Normal 8.6-10.3 [facility] Comment on above: Order Comment: Yes: Add to Previous draw if able Performed By: #### 0 0121 #### [facility] [address] [place] [address], [facility] Chloride [Moles/Vol] 100 mmol/L Normal 98-107 [facility] Comment on above: Order Comment: Yes: Add to Previous draw if able Performed By: #### 0 [id number] #### [facility] [address] [place] [address], [facility] CO2 [Moles/Vol] 30 mmol/L Normal 21-31 [facility] Comment on above: Order Comment: Yes: Add to Previous draw if able Performed By: #### 0 0121 #### [facility] [address] [place] [address], [facility] Creatinine [Mass/Vol] 0.74 mg/dL Normal 0.70-1.30 [facility] Comment on above: Order Comment: Yes: Add to Previous draw if able Performed By: #### 0 0121 #### [facility] [address] [place] [address], [facility] GFR/1.73 sq M predicted among blacks MDRD (S/P/Bld) [Vol rate/Area] mL/min/{1.73_m2} Normal >60 [facility] Comment on above: Order Comment: Yes: Add to Previous draw if able Performed By: #### 0 0121 #### [facility] [address] [place] [address], [facility] GFR/1.73 sq M predicted among non-blacks MDRD (S/P/Bld) [Vol rate/Area] mL/min/{1.73_m2} Normal >60 [facility] Comment on above: Order Comment: Yes: Add to Previous draw if able Performed By: #### 0 0121 #### [facility] [address] [place] [address], [place] Glucose [Mass/Vol] 176 mg/dL High 70-100 [facility] Comment on above: Order Comment: Yes: Add to Previous draw if able Performed By: #### 0 0121 #### [facility] [address] [place] [address], [facility] Potassium [Moles/Vol] 3.6 mmol/L Normal 3.5-5.1 [facility] Comment on above: Order Comment: Yes: Add to Previous draw if able Performed By: #### 0 0121 #### [facility] [address] [place] [address], [facility] Sodium [Moles/Vol] 137 mmol/L Normal 136-145 [facility] Comment on above: Order Comment: Yes: Add to Previous draw if able Performed By: #### 0 0121 #### [facility] [address] [place] [address], [facility] Urea nitrogen [Mass/Vol] 15 mg/dL Normal 7-25 [facility] Comment on above: Order Comment: Yes: Add to Previous draw if able Performed By: #### 0 0121 #### [facility] [address] [place] [address], [facility] CBC COMPLETE BLOOD COUNTon 0 - Erythrocyte distribution width (RBC) [Ratio] 12.7 % Normal 11.5-15.0 [facility] Comment on above: Order Comment: Yes: Add to Previous draw if able Performed By: #### 0 0121 #### [facility] [address] [place] [address], [facility] Hematocrit (Bld) [Volume fraction] 35.4 % Low 39.0-50.0 [facility] Comment on above: Order Comment: Yes: Add to Previous draw if able Performed By: #### 0 0121 #### [facility] [address] [place] [id number], [facility] Hemoglobin (Bld) [Mass/Vol] 11.8 g/dL Low 13.0-17.0 [facility] Comment on above: Order Comment: Yes: Add to Previous draw if able Performed By: #### 0 0121 #### [facility] [address] [place] [address], [facility] MCH (RBC) [Entitic mass] 26.1 pg Low 27.0-33.0 [facility] Comment on above: Order Comment: Yes: Add to Previous draw if able Performed By: #### 0 0121 #### [facility] [address] [place] [address], [facility] MCHC (RBC) [Mass/Vol] 33.3 g/dL Normal 32.0-35.0 [facility] Comment on above: Order Comment: Yes: Add to Previous draw if able Performed By: #### 0 0121 #### [facility] [address] [place] [id number], [facility] MCV (RBC) [Entitic vol] 78.3 fL Low 82.0-98.0 [facility] Comment on above: Order Comment: Yes: Add to Previous draw if able Performed By: #### 0 0121 #### [facility] [address] [place] [address], [facility] Nucleated RBC/100 WBC (Bld) [Ratio] 0 % Normal 0-0 [facility] Comment on above: Order Comment: Yes: Add to Previous draw if able Performed By: #### 0 0121 #### [facility] [address] [place] [address], [facility] PLAT CNT 411 10*3/uL High 150-400 [facility] Comment on above: Order Comment: Yes: Add to Previous draw if able Performed By: #### 0 0121 #### [facility] [address] [place] [id number], [facility] RBC (Bld) [#/Vol] 4.52 10*6/uL Normal 4.20-5.70 [facility] Comment on above: Order Comment: Yes: Add to Previous draw if able Performed By: #### 0 0121 #### [facility] [address] [place] [address], [facility] WBC (Bld) [#/Vol] 7.62 10*3/uL Normal 4.00-10.60 [facility] Comment on above: Order Comment: Yes: Add to Previous draw if able Performed By: #### 0 0121 #### [facility] [address] [place] [address], [facility] HEMOGLOBIN A1Con 01-07-2019 HbA1c (Bld) [Mass fraction] 338 mg/dL High 70-126 [facility] Comment on above: Order Comment: Yes: Add to Previous draw if able Performed By: #### 8 [id number] #### [facility] [address] [place] [address], [facility] HbA1c (Bld) [Mass fraction] 13.4 % High 4.0-6.0 [facility] Comment on above: Order Comment: Yes: Add to Previous draw if able Performed By: #### 8 5499 #### [facility] [address] [place] [id number], [facility] POC GLUCOSE LABon 01-07-2019 Glucose [Mass/Vol] 317 mg/dL High 70-100 [facility] Comment on above: Performed By: #### 0 0121 #### [facility] [address] [place] [address], [place] Glucose [Mass/Vol] 142 mg/dL High 70-100 [facility] Comment on above: Performed By: #### 0 0121 #### [facility] [address] [place] [address], [place] Glucose [Mass/Vol] 190 mg/dL High 70-100 [facility] Comment on above: Performed By: #### 0 0121 #### [facility] [address] [place] [address], [place] VANCOMYCIN TROUGHon 01-08-20 19 VANCOMYCIN TROU 11.5 mcg/mL Normal 5.0-20.0 [facility] Comment on above: Performed By: #### 0 0121 #### [facility] [address] [place] [address], [place] BASIC METABOLIC PANELon 12-22 Calcium [Mass/Vol] 9.1 mg/dL Normal 8.6-10.3 [facility] Comment on above: Order Comment: No: D o not add to previous draw Performed By: #### 1 69, 87140, 95886 #### [facility] [address] [place] [address], [place] Chloride [Moles/Vol] 100 mmol/L Normal 98-107 [facility] Comment on above: Order Comment: No: D o not add to previous draw Performed By: #### 1 69, 73135, 26515 #### [facility] [address] [place] [address], [place] CO2 [Moles/Vol] 29 mmol/L Normal 21-31 [facility] Comment on above: Order Comment: No: D o not add to previous draw Performed By: #### 1 0, 08868, 31315 #### [facility] [address] [place] [address], [place] Creatinine [Mass/Vol] 0.57 mg/dL Low 0.70-1.30 [facility] Comment on above: Order Comment: No: D o not add to previous draw Performed By: #### 1 0070, 81549, 13776 #### [facility] [address] [place] [address], [place] GFR/1.73 sq M predicted among blacks MDRD (S/P/Bld) [Vol rate/Area] mL/min/{1.73_m2} Normal >60 [facility] Comment on above: Order Comment: No: D o not add to previous draw Performed By: #### 1 0, 63114, 12241 #### [facility] [address] [place] [address], [place] GFR/1.73 sq M predicted among non-blacks MDRD (S/P/Bld) [Vol rate/Area] mL/min/{1.73_m2} Normal >60 [facility] Comment on above: Order Comment: No: D o not add to previous draw Performed By: #### 1 0, 33086, 08091 #### [facility] [address] [place] [address], [place] Glucose [Mass/Vol] 157 mg/dL High 70-100 [facility] Comment on above: Order Comment: No: D o not add to previous draw Performed By: #### 1 0, 63612, 18455 #### [facility] [address] [place] [address], [place] Potassium [Moles/Vol] 3.5 mmol/L Normal 3.5-5.1 [facility] Comment on above: Order Comment: No: D o not add to previous draw Performed By: #### 1 0, 46286, 53479 #### [facility] [address] [place] [address], [place] Sodium [Moles/Vol] 135 mmol/L Low 136-145 [facility] Comment on above: Order Comment: No: D o not add to previous draw Performed By: #### 1 0, 45004, 06447 #### [facility] [address] [facility]. [address] Urea nitrogen [Mass/Vol] 7 mg/dL Normal 7-25 [facility] Comment on above: Order Comment: No: D o not add to previous draw Performed By: #### 1 0070, 30344, 19616 #### [facility] [address] [facility] [place] [address], [facility] CBC W/DIFFon 01-06-2019 ABS BASOPHILS 0.1 10*3/uL Normal 0.0-0.2 [facility] Comment on above: Order Comment: No: D o not add to previous draw Performed By: #### 5 0103 #### [facility] [address] ABS IMM GRANS 0.1 10*3/uL Normal 0.0-0.2 [facility] Comment on above: Order Comment: No: D o not add to previous draw Performed By: #### 5 0103 #### [facility] [address] [facility]. [address] ABS NEUTROPHILS 4.5 10*3/uL Normal 1.6-7.6 [facility] Comment on above: Order Comment: No: D o not add to previous draw Performed By: #### 5 0103 #### [facility] [address] [facility]. [address] Basophils/100 WBC (Bld) 0.7 % Normal 0.0-1.0 [facility] Comment on above: Order Comment: No: D o not add to previous draw Performed By: #### 5 0103 #### [facility] [address] [facility] [place] [address], [facility] Eosinophils (Bld) [#/Vol] 0.3 10*3/uL Normal 0.0-0.5 [facility] Comment on above: Order Comment: No: D o not add to previous draw Performed By: #### 5 0103 #### [facility] [address] [place] [address], [facility] Eosinophils/100 WBC (Bld) 3.4 % Normal 0.0-6.0 [facility] Comment on above: Order Comment: No: D o not add to previous draw Performed By: #### 5 0103 #### [facility] [address] [place] [address], [facility] Erythrocyte distribution width (RBC) [Ratio] 12.7 % Normal 11.5-15.0 [facility] Comment on above: Order Comment: No: D o not add to previous draw Performed By: #### 5 0103 #### [facility] [address] [place] [address], [facility] Hematocrit (Bld) [Volume fraction] 35.1 % Low 39.0-50.0 [facility] Comment on above: Order Comment: No: D o not add to previous draw Performed By: #### 5 0103 #### [facility] [address] [place] [address], [facility] Hemoglobin (Bld) [Mass/Vol] 11.9 g/dL Low 13.0-17.0 [facility] Comment on above: Order Comment: No: D o not add to previous draw Performed By: #### 5 0103 #### [facility] [address] [place] [address], [facility] IMMATURE GRANS 0.6 % Normal 0.0-1.0 [facility] Comment on above: Order Comment: No: D o not add to previous draw Performed By: #### 5 0103 #### [facility] [address] [place] [address], [facility] Lymphocytes (Bld) [#/Vol] 3.0 10*3/uL Normal 1.2-4.0 [facility] Comment on above: Order Comment: No: D o not add to previous draw Performed By: #### 5 0103 #### [facility] [address] [place] [address], [facility] Lymphocytes/100 WBC (Bld) 34.7 % Normal 20.0-45.0 [facility] Comment on above: Order Comment: No: D o not add to previous draw Performed By: #### 5 0103 #### [facility] [address] [facility] [place] [address], [facility] MCH (RBC) [Entitic mass] 26.6 pg Low 27.0-33.0 [facility] Comment on above: Order Comment: No: D o not add to previous draw Performed By: #### 5 0103 #### [facility] [address] MCHC (RBC) [Mass/Vol] 33.9 g/dL Normal 32.0-35.0 [facility] Comment on above: Order Comment: No: D o not add to previous draw Performed By: #### 5 0103 #### [facility] [address] [place] [address], [facility] MCV (RBC) [Entitic vol] 78.5 fL Low 82.0-98.0 [facility] Comment on above: Order Comment: No: D o not add to previous draw Performed By: #### 5 102 #### [facility] [address] [place] [address], [facility] Monocytes (Bld) [#/Vol] 0.7 10*3/uL Normal 0.1-1.0 [facility] Comment on above: Order Comment: No: D o not add to previous draw Performed By: #### 5 3 #### [facility] [address] [place] [address], [facility] MONOS 8.1 % Normal 5.0-12.0 [facility] Comment on above: Order Comment: No: D o not add to previous draw Performed By: #### 5 3 #### [facility] [address] [place] [address], [facility] Neutrophils/100 WBC (Bld) 52.5 % Normal 40.0-72.0 [facility] Comment on above: Order Comment: No: D o not add to previous draw Performed By: #### 5 0103 #### [facility] [address] [place] [address], [facility] Nucleated RBC/100 WBC (Bld) [Ratio] 0 % Normal 0-0 [facility] Comment on above: Order Comment: No: D o not add to previous draw Performed By: #### 5 0103 #### [facility] [address] [place] [id number], [facility] PLAT CNT 445 10*3/uL High 150-400 [facility] Comment on above: Order Comment: No: D o not add to previous draw Performed By: #### 5 0103 #### [facility] [address] [place] [id number], [facility] RBC (Bld) [#/Vol] 4.47 10*6/uL Normal 4.20-5.70 [facility] Comment on above: Order Comment: No: D o not add to previous draw Performed By: #### 5 0103 #### [facility] [address] [place] [address], [place] WBC (Bld) [#/Vol] 8.51 10*3/uL Normal 4.00-10.60 [facility] Comment on above: Order Comment: No: D o not add to previous draw Performed By: #### 5 0103 #### [facility] [address] [place] [address], [facility] MAGNESIUM BLOODon 01-06-2019 Magnesium [Mass/Vol] 1.5 mg/dL Low 1.9-2.7 [facility] Comment on above: Order Comment: No: D o not add to previous draw Performed By: #### 1 0070, 86793, 05431 #### [facility] [address] [place] [address], [place] PHOSPHORUS BLOODon 9 Phosphate [Mass/Vol] 3.0 mg/dL Normal 2.5-5.0 [facility] Comment on above: Order Comment: No: D o not add to previous draw Performed By: #### 1 0070, 23330, 38621 #### [facility] [address] [place] [address], [place] POC GLUCOSE LABon 01-06-2019 Glucose [Mass/Vol] 293 mg/dL High 70-100 [facility] Comment on above: Performed By: #### 0 0121 #### [facility] [address] [place] [address], [place] Glucose [Mass/Vol] 317 mg/dL High 70-100 [facility] Comment on above: Performed By: #### 0 0121 #### [facility] [address] [place] [address], [place] Glucose [Mass/Vol] 264 mg/dL High 70-100 [facility] Comment on above: Performed By: #### 0 0121 #### [facility] [address] [place] [address], [place] Glucose [Mass/Vol] 104 mg/dL High 70-100 [facility] Comment on above: Performed By: #### 8 5499 #### [facility] [address] [place] [address], [place] Glucose [Mass/Vol] 236 mg/dL High 70-100 [facility] Comment on above: Performed By: #### 8 5499 #### [facility] [address] [place] [address], [place] Glucose [Mass/Vol] 247 mg/dL High 70-100 [facility] Comment on above: Performed By: #### 8 5499 #### [facility] [address] CBC W/DIFFon 01-05-2019 ABS BASOPHILS 0.1 10*3/uL Normal 0.0-0.2 [facility] Comment on above: Performed By: #### 5 0103 #### [facility] [address] [facility]. [address] ABS IMM GRANS 0.1 10*3/uL Normal 0.0-0.2 [facility] Comment on above: Performed By: #### 5 0103 #### [facility] [address] ABS NEUTROPHILS 5.9 10*3/uL Normal 1.6-7.6 [facility] Comment on above: Performed By: #### 5 0103 #### [facility] [address] Basophils/100 WBC (Bld) 0.5 % Normal 0.0-1.0 [facility] Comment on above: Performed By: #### 5 0103 #### [facility] [address] Eosinophils (Bld) [#/Vol] 0.4 10*3/uL Normal 0.0-0.5 [facility] Comment on above: Performed By: #### 5 0103 #### [facility] [address] [facility] [place] [address], [facility] Eosinophils/100 WBC (Bld) 3.8 % Normal 0.0-6.0 [facility] Comment on above: Performed By: #### 5 0103 #### [facility] [address] Erythrocyte distribution width (RBC) [Ratio] 12.8 % Normal 11.5-15.0 [facility] Comment on above: Performed By: #### 5 0103 #### [facility] [address] [place] [address], [facility] Hematocrit (Bld) [Volume fraction] 42.5 % Normal 39.0-50.0 [facility] Comment on above: Performed By: #### 5 0103 #### [facility] [address] [facility] [place] [address], [facility] Hemoglobin (Bld) [Mass/Vol] 14.2 g/dL Normal 13.0-17.0 [facility] Comment on above: Performed By: #### 5 0103 #### [facility] [address] [facility] [place] [address], [facility] IMMATURE GRANS 0.7 % Normal 0.0-1.0 [facility] Comment on above: Performed By: #### 5 0103 #### [facility] [address] [facility]. [address] Lymphocytes (Bld) [#/Vol] 2.9 10*3/uL Normal 1.2-4.0 [facility] Comment on above: Performed By: #### 5 0103 #### [facility] [address] [facility] [place] [address], [facility] Lymphocytes/100 WBC (Bld) 28.8 % Normal 20.0-45.0 [facility] Comment on above: Performed By: #### 5 3 #### [facility] [address] [facility] MCH (RBC) [Entitic mass] 25.8 pg Low 27.0-33.0 [facility] Comment on above: Performed By: #### 5 0103 #### [facility] [address] [place] [address], [facility] MCHC (RBC) [Mass/Vol] 33.4 g/dL Normal 32.0-35.0 [facility] Comment on above: Performed By: #### 5 3 #### [facility] [address] [facility] [place], [place] [address] MCV (RBC) [Entitic vol] 77.3 fL Low 82.0-98.0 [facility] Comment on above: Performed By: #### 5 0103 #### [facility] [address] [facility] [place] [address], [facility] Monocytes (Bld) [#/Vol] 0.8 10*3/uL Normal 0.1-1.0 [facility] Comment on above: Performed By: #### 5 0103 #### [facility] [address] [facility] [place] [address], [facility] MONOS 8.1 % Normal 5.0-12.0 [facility] Comment on above: Performed By: #### 5 3 #### [facility] [address] [facility] [place] [address], [facility] Neutrophils/100 WBC (Bld) 58.1 % Normal 40.0-72.0 [facility] Comment on above: Performed By: #### 3 #### [facility] [address] [facility] [place] [address], [facility] Nucleated RBC/100 WBC (Bld) [Ratio] 0 % Normal 0-0 [facility] Comment on above: Performed By: #### 5 3 #### [facility] [address] [facility] [place] [address], [facility] PLAT CNT 524 10*3/uL High 150-400 [facility] Comment on above: Performed By: #### 5 3 #### [facility] [address] [facility] [place] [address], [facility] RBC (Bld) [#/Vol] 5.50 10*6/uL Normal 4.20-5.70 [facility] Comment on above: Performed By: #### 102 #### [facility] [address] [place] [id number], [facility] WBC (Bld) [#/Vol] 10.19 10*3/uL Normal 4.00-10.60 [facility] Comment on above: Performed By: #### 5 0103 #### [facility] [address] COMP METABOLIC PANELon 01-05 Albumin [Mass/Vol] 4.3 g/dL Normal 3.5-5.7 [facility] Comment on above: Performed By: #### 0 0121 #### [facility] [address] [facility]. [address] ALKALINE PHOSPH 115 IU/L High 34-104 [facility] Comment on above: Performed By: #### 0 0121 #### [facility] [address] [facility]. [address] ALT [Catalytic activity/Vol] 14 U/L Normal 7-52 [facility] Comment on above: Performed By: #### 0 0121 #### [facility] [address] AST [Catalytic activity/Vol] 16 U/L Normal 13-39 [facility] Comment on above: Performed By: #### 0 0121 #### [facility] [address] Bilirubin [Mass/Vol] 0.4 mg/dL Normal 0.3-1.0 [facility] Comment on above: Performed By: #### 0 0121 #### [facility] [address] Calcium [Mass/Vol] 10.2 mg/dL Normal 8.6-10.3 [facility] Comment on above: Performed By: #### 0 0121 #### [facility] [address] [facility] [place] [address], [facility] Chloride [Moles/Vol] 92 mmol/L Low 98-107 [facility] Comment on above: Performed By: #### 0 0121 #### [facility] [address] [place] [address], [place] CO2 [Moles/Vol] 32 mmol/L High 21-31 [facility] Comment on above: Performed By: #### 0 0121 #### [facility] [address] [place] [address], [place] Creatinine [Mass/Vol] 0.74 mg/dL Normal 0.70-1.30 [facility] Comment on above: Performed By: #### 0 0121 #### [facility] [address] [place] [address], [place] GFR/1.73 sq M predicted among blacks MDRD (S/P/Bld) [Vol rate/Area] mL/min/{1.73_m2} Normal >60 [facility] Comment on above: Performed By: #### 0 0121 #### [facility] [address] [place] [address], [place] GFR/1.73 sq M predicted among non-blacks MDRD (S/P/Bld) [Vol rate/Area] mL/min/{1.73_m2} Normal >60 [facility] Comment on above: Performed By: #### 0 0121 #### [facility] [address] [place] [address], [place] Glucose [Mass/Vol] 320 mg/dL High 70-100 [facility] Comment on above: Performed By: #### 0 0121 #### [facility] [address] [place] [address], [place] Potassium [Moles/Vol] 4.2 mmol/L Normal 3.5-5.1 [facility] Comment on above: Performed By: #### 0 0121 #### [facility] [address] [place] [address], [place] Protein [Mass/Vol] 8.6 g/dL High 6.0-8.3 [facility] Comment on above: Performed By: #### 0 0121 #### [facility] [address] [facility] [address], [facility] Sodium [Moles/Vol] 133 mmol/L Low 136-145 [facility] Comment on above: Performed By: #### 0 0121 #### [facility] [address] [facility] [place] [address], [facility] Urea nitrogen [Mass/Vol] 9 mg/dL Normal 7-25 [facility] Comment on above: Performed By: #### 0 0121 #### [facility] [address] [facility] [address], [facility] CT SOFT TISSUE NECK W CONTRA STon 01-05-2019 CT SOFT TISSUE NECK W CONTRAST [facility] Department of Radiology [address] [place] [address] [id number] Patient Name: NONI SOTO : 1975 Sex: M Age: Race: White Pt. Location: [facility] Patient Status: I Ordered Date: 01/05/2019 [...] right lower teeth periodontal disease. Approved by:Antonella Whitfeild on 01/05/2019 8:39 PM EDT. I, Mamta Garcia, have reviewed the images and report and concur with these findings. Electronically signed by:Mamta Garcia. Transcribed by: [email or web address], User Resident: ANTONELLA WHITFIELD Electronically Signed by: MAMTA GARCIA @ 01/06/2019 09:55 AM I personally read this/these film(s) with this resident Normal [facility] Vital Signs Date Time Vital Sign Value Performing Clinician Ynes méndez 03-13-2022 13:08-0500 Blood Pressure Location Tiendeo [facility] 03-13-2022 13:08-0500 Diastolic blood pressure 97 mm[Hg] Naye NILL [facility] 03-13-2022 13:08-0500 Heart rate 89 /min Naye NILL [facility] 03-13-2022 13:08-0500 Respiratory rate 16 /min Tiendeo [facility] 03-13-2022 13:08-0500 Systolic blood pressure 160 mm[Hg] Naye NILL [facility] Encounters Encounter Date Encounter Type Care Provider Facility Start: 10-07-2024 ambulatory Royal Eugene MD Fa cility:[facility] Start: 09-08-2024 End: 09-08-2024 Emergency department patient visit [facility] Start: 08-25-2024 End: 08-25-2024 ambulatory Hawk Ryan MD Facility:[facility] Start: 08-09-2024 End: 08-09-2024 Emergency department patient visit [facility] Start: 08-03-2024 ambulatory [facility] Start: 07-28-2024 End: 07-28-2024 ambulatory Hawk Ryan MD Facility:[facility] Start: 08-10-2022 End: 08-11-2022 ambulatory LUCIO NEVAREZ Facility:[facility] Start: 06-12-2022 End: 06-13-[address] JADYN WILHELM . Facility:[facility] Start: 05-02-2022 End: 05-03-2022 ambulatory Naye STILL Facility:[facility] Start: 04-26-2022 ambulatory Naye STILL Facility:[facility] Start: 04-21-2022 Encounter for preprocedural laboratory examination DR NAYE STILL . [facility] Start: 04-19-2022 End: 04-20-[address] NAYE STILL . Facility:[facility] Start: 04-17-2022 End: [address] NAYE STILL . Facility:[facility] Start: 04-17-2022 End: 2022 Encounter for preprocedural laboratory examination DR NAYE STILL . Facility:[facility] Start: 03-13-2022 End: 03-14-2022 ambulatory Naye STILL Facility:[facility] Start: 03-13-2022 End: 03-13-2022 Patient encounter procedure Naye STILL [facility] [place] Start: 03-09-2022 End: 03-09-2022 ambulatory CAROLINE LALA Facility:[facility] Start: 02-27-2022 End: 02-27-2022 ambulatory SONA ISBELL . Facility:[facility] Start: 02-15-2022 ambulatory Naye STILL [facility] Start: 02-15-2022 End: 02-16-[address] JADYN [...] Evaluation and management of inpatient VIVIAN LESTER Facility:[facility] Procedures Date Procedure Procedure Detail Performing Clinician Appendectomy Naye CAMI Cholecystectomy Naye CAMI Reconstruction of mandible Sade FLEMINGKelly Renal artery stent ( physical object) Naye FLEMINGKelly Payers Date Payer Category Payer Unknown 1975 Unknown [id number] 2.16.8 [id number] 1975 Unknown [id number] 2.16.84 0.1.138619.3.579.2.593 1975 Unknown [id number] 2.16.84 0.1.902131.3.579.2.593 1975 Unknown [id number] 2.16.84 0.1.588712.3.579.2.593 1975 Unknown [id number] 2.16.84 0.1.681010.3.579.2.593 1975 Unknown [id number] 2.16.84 0.1.652910.3.579.2.593 1975 Unknown [id number] 2.16.84 0.1.513697.3.579.2.593 1975 Unknown [id number] 2.16.84 0.1.482354.3.579.2.593 1975 Unknown [id number] 2.16.84 0.1.719991.3.579.2.593 1975 Unknown [id number] 2.16.84 0.1.670832.3.579.2.593 1975 Unknown [id number] 2.16.84 0.1.765849.3.579.2.593 1975 Unknown [id number] 2.16.84 0.1.711686.3.579.2.593 1975 Unknown [id number] 2.16.84 0.1.604343.3.579.2.593 1975 Unknown [id number] 2.16.84 0.1.368783.3.579.2.593 1975 Unknown [id number] 2.16.84 0.1.596649.3.579.2.593 1975 Unknown [id number] 2.16.84 0.1.659565.3.579.2.593 1975 Unknown [id number] 2.16.8 40.1.926610.3.579.2.727 1975 Unknown [id number] 2.16.8 40.1.444675.3.579.2.727 1975 Unknown [id number] 2.16.8 40.1.529546.3.579.2.727 1975 Unknown [id number] 2.16.8 40.1.071334.3.579.2.727 1975 Unknown [id number] 2.16. 840.1.156493.3.579.2.1286 1975 Unknown [id number] 2.16. 840.1.189722.3.579.2.1286 1975 Unknown [id number] 2.16. 840.1.026974.3.579.2.1286 1975 Unknown [id number] 2.16. 840.1.093838.3.579.2.1286 1975 Unknown [id number] 2.16. 840.1.264236.3.579.2.196 1975 Unknown [id number] 2.16. 840.1.395654.3.579.2.196 1975 Unknown [id number] 2.16. 840.1.984424.3.579.2.196 1959 Unknown [id number] Social History Date Type Detail Facility Start: 03-13-2022 Tobacco smoking status Never s moked tobacco (finding) [facility] [place] Tobacco smoking status Smokeless tobacco user within last 30 days [facility] Sex Assigned At Male [facility] Functional Status Date Assessment Result Facility 03-13-2022 Functional Status N/A [facility] [place] Clinical Note 04-19-2022 Note Date & Type [...] good condition. CC: Jadyn Wilhelm M.D. [facility] Clinical Note 03-13-2022 Note Date & [...] injectable solution huang (more content not included)... [facility] Comment on above: Result Comment: Elec tronically Signed By: CAMI HUNT, Naye Bell\Date and Time Signed: 03/13/22 13:38 EST Evaluation + Plan note Note Date & Type Note Facility Evaluation + Plan note No data available for this section [facility] [place] Discharge instructions Note Date & Type Note Facility Hospital Discharge instructions No data available for this section [facility] [place] Progress note Note Date & Type Note Facility Progress note No data available for this section [facility] [place] Summary Purpose Family History No Family History Records FoundNo Family History Records FoundNo Family History Records FoundNo Family History Records FoundNo Family History Records FoundNo Family History Records Found Advance Directives No Advanced Directives Records FoundNo Advanced Directives Records FoundNo Advanced Directives Records FoundNo Advanced Directives Records FoundNo Advanced Directives Records FoundNo Advanced Directives Records Found Hospital Course Note MR#: [id number] I [facility] Pt. Name: Noni Soto Admitted: 01/06/2019 Discharged: [...] section and content) DATE CREATED AUTHOR 01/27/2019 [facility] DATE CREATED AUTHOR AUTHOR'S ORGANIZ ATION 08/14/2022 [facility] DATE CREATED AUTHOR AUTHOR'S ORGANIZ ATION 12/08/2022 [facility] DATE CREATED AUTHOR AUTHOR'S ORGANIZ ATION 08/04/2024 [facility] DATE CREATED AUTHOR AUTHOR'S ORGANIZ ATION 09/21/[address] [facility] DATE CREATED AUTHOR AUTHOR'S ORGANIZ ATION 10/15/2024 [facility] Patient Care team informatio n (unrecognized section and content) Personnel Name: Jadyn Wilhelm MD Address: Address: [address] [place] [address] FOR RECORDS PERTAINING TO PATIENTS WHO ARE [...] BE BASED ON THE PRIMARY CLINICAL RECORDS. [facility]. provides no warranty or guarantee of the accuracy or completeness of information in this document.
[2024-12-09 09:41] LABS: Hematocrit 42.1 % (42.0-54.0); Hemoglobin 14.0 g/dL (14.0-18.0); Immature Granulocytes Abs Auto 0.05 10^3/uL (0.00-0.03); Immature Granulocytes Pct Auto 0.5 % (0.0-0.5); Lymphocytes Absolute Auto 2.7 10^3/uL (1.2-3.8); Mean Corpuscular HGB Conc 33.3 g/dL (29.9-35.2); Mean Corpuscular Hemoglobin 26.9 pg (25.9-34.0); Mean Corpuscular Volume 81.0 fL (80.0-94.0); Platelet Count 306 10^3/uL (150-450); Red Blood Count 5.20 10^6/uL (4.70-6.10); White Blood Count 9.5 10^3/uL (4.0-11.0)
[2024-12-09 11:19] LABS: Alanine Aminotransferase 29 U/L (16-63); Albumin Globulin Ratio 0.9; Albumin Level 3.5 g/dL (3.4-5.0); Alkaline Phosphatase 93 U/L (46-116); Anion Gap 8.7; Aspartate Amino Transferase 25 U/L (15-37); Blood Urea Nitrogen 14.0 mg/dL (7.0-18.0); Calcium 9.1 mg/dL (8.5-10.1); Carbon Dioxide 29.9 mmol/L (21.0-32.0); Chloride 107 mmol/L (98-107); Estimated GFR (African America >60 (>=60 mL/min/1.73m^2); Estimated GFR (Non-African Ame >60 (>=60 mL/min/1.73m^2); Free T3 2.54 pg/mL (2.18-3.98); Globulin 4.1 g/dL; Glucose 58 mg/dL (74-106); Potassium 3.6 mmol/L (3.5-5.1); Sodium 142 mmol/L (136-145); Thyroid Stimulating Hormone 2.946 uIU/mL (0.358-3.740); Total Protein 7.6 g/dL (6.4-8.2)
== END 2024-12-09 09:13 | disposition home or self-care (01) ==
LOC: LAB 09:13
PROVIDERS: PCP Family Medicine; Visit Provider Family Medicine
DX: Z00.00 Encounter for general adult medical examination without abnormal findings (principal); Z12.5 Encounter for screening for malignant neoplasm of prostate
CPT/HCPCS: 36415; 80053; 83036; 84436; 84443; 84481; 85025; G0103

== ENCOUNTER 2025-01-06 07:54 | Emergency (ER) | payer OTHER, SELFPAY ==
--- OUTSIDE RECORDS SUMMARY | 2024-10-30 09:15 | XMS_ITS ---
Author Organization [facility] [place] Address [address] [place] [address] Care Team Providers Care Town Justice Name Role Phone Lui Wilhelm Primary Care Provider REASON FOR VISIT Clearance-Dr. Eugene Encounters Encounter Location Date Provider Diagnosis [facility] [address] [place] [address] 10/30/2024 Lui Wilhelm Plan Of Treatment No Information Progress Notes * Jeffery SOTO MDOB:[birth year] (49 yo M)Acc No.[id number]:10/30/2024 UNLOCKED PROGRESS NOTE Progress Note Patient: Jeffery YOUNG Provider: Ralph Wilhelm MD (TTC) :1975 A ge:49 Y S ex:Male Date:10/30/2024 Address:[address] [place] [address] [address], [place], [id number] Subjective: * Chief Complaints: * 1 . Clearance-Dr. Eugene. * Medical History: Objective: * Vitals: Assessment: Plan: * Treatment: * * Electronic signature of Lui Wilhelm MD, [id number] on 01/06/2025 at 08:03 AM EDT Sign off status: Pending Visit Status: C ANC (Cancelled) * Provider: Ralph Wilhelm MD (TTC) Date: 0 10/30/2024 Generated for Printi ng/Faxing/eTransmitting on: 0 01/06/2025 08:03 AM EDT
--- OUTSIDE RECORDS SUMMARY | 2024-10-31 07:20 | XMS_ITS ---
Author Organization [facility] Address [address] [place] [address] Care Team Providers Care Weave Defect Charting Clerk Name Role Phone Royal Eugene Unavailable [phone] Cesar Wilhelm Unavailable Unavailable REASON FOR VISIT L4-S1 DECOMPRESSION AND FUSION E, L4-S1 TLIF, BVH, 11/11 Encounters Encounter Location Date Provider Diagnosis [facility] [address] [place] [address] 10/31/2024 Royal Eugene Plan Of Treatment No Information Progress Notes * NONI SOTO MDOB:[birth year] (49 yo M)Acc No.[id number]:10/31/2024 Patient: Kvng MEZA NONI Sade Provider: Oly Wilde MD, PhD :1975 A ge:49 Y S ex:Male Date:10/31/2024 Address:[address] [place] [address] [address], [id number] Subjective: * Chief Complaints: * 1 . L4-S1 DECOMPRESSION AND FUSION E, L4-S1 TLIF, BVH, 11/11. * Medical History: Objective: * Vitals: Assessment: Plan: * Treatment: Forms: * Images: * Electronic signature of Nicolasa Eugene MD, PHD on 01/06/2025 at 08:03 AM EDT Sign off status: Pending * Provider: Oly Wilde MD, PhD Date: 0 10/31/2024 Generated for Kellyi ng/Lior/eTransmitting on: 0 01/06/2025 08:03 AM EDT
--- OUTSIDE RECORDS SUMMARY | 2024-11-11 09:30 | XMS_ITS ---
Author Organization [facility] Address [address] [place] [address] Care Team Providers Care Machine Sprayer Name Role Phone Royal Eugene Unavailable [phone] Cesar Wilhelm Unavailable Unavailable REASON FOR VISIT L4-S1 DECOMRPESSION AND FUSION, L4-S1 TLIF, [facility] Encounters Encounter Location Date Provider Diagnosis [address] [id number] 11/11/2024 Royal Eugene Plan Of Treatment No Information Progress Notes * NONI SOTO MDOB:[birth year] (49 yo M)Acc No.[id number]:11/11/2024 Patient: Kvng MEZANONI Provider: Oly Wilde MD, PhD :1975 A ge:49 Y S ex:Male Date:11/11/2024 Address:[address] [place] [address] [address], [id number] * Images: * Electronic signature of Seldianna Eugene MD, PHD on 01/06/2025 at 08:02 AM EDT Sign off status: Pending * Provider: Oly Wilde MD, PhD Date: 11/11/2024 Generated for Russel gillespie/Lior/eTransmitting on: 01/06/2025 08:02 AM EDT
--- OUTSIDE RECORDS SUMMARY | 2024-12-18 12:15 | XMS_ITS ---
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 Wants a referral. * Medical History: Objective: * Vitals: Assessment: Plan: * Treatment: * * Electronic signature of Lui Wilhelm MD, [id number] on 01/06/2025 at 08:02 AM EDT Sign off status: Pending Visit Status: N /S N/C (No Show/No Charge) * Provider: Ralph Wilhelm MD (TTC) Date: 12/18/2024 Generated for Printi ng/Faxing/eTransmitting on: 01/06/2025 08:02 AM EDT
--- OUTSIDE RECORDS SUMMARY | 2024-12-25 04:45 | XMS_ITS ---
Author Organization [facility] [place] Address [address] [place] [address] Care Team Providers Care Rug Inspector Helper Name Role Phone Choco Lui Primary Care Provider Allergies Allergen (clinical drug ingredient) Drug/Non Drug Allergy documented on EMR Reaction Allergy Type Onset Date Status Compazine muscle spasms Drug Allergy Act aylin Reason For Referral Reason Or partner Diagnosis 1 Lumbar radiculopathy (M54.16) Referral Organization [facility] Medicine Referring Provider First Name Lui Referring Provider Last Name Choco Referring Provider Speciality Family Med sterling Referred Provider Wally Solano Referred Provider Specialty Neurosurgery Referral Priority Routine REASON FOR VISIT Discuss going back and seeing Dr Eugene to go ahead with surgery for back now that blood sugars are under control, has not been taking thyroid pill for about a year- keeps forgetting to discuss with you about restarting Medications Medication SIG (Take, Route, Frequency, Duration) Notes Start Date End Date Status traZODone HCl 100 mg TAKE 1 TABLET BY MO UTH AT BEDTIME NEEDED; Duration: 30 Active Test Strips - Use in meter to tet blood sugar once a day DX: E11.9 09/18/2024 Active Pregabalin 300 mg 1 tabs oral tid; Duration: 30 days 10/07/2024 Active Pantoprazole Sodium 40 mg TAKE 1 TABLET BY MOUTH IN THE EVENING; Duration: 30 Active Lisinopril 40 mg TAKE 1 TABLET BY CHLOE TH DAILY; Duration: 90 Active Levothyroxine Sodium 100 MCG 1 capsule in the morning on an empty stomach Orally Once a day; Duration: 30 days Not-Taking Lantus SoloStar 100 UNIT/ML Inject 60 units Subcutaneous twice daily; Duration: 30 days Active Lancets Thin - as directed Act aylin Insulin Pen Needle 31G X 5 MM Use 1 need twice daily to inject insulin DX E11.9; Duration: 90 days Active Citalopram Hydrobromide 20 mg TAKE 1 TABLET BY MOUTH ONCE DAILY; Duration: 30 Active Blood Glucose Monitor System w/Device as directed Active Blood Glucose Meter -- Use as directed t o test blood sugar once a day DX: E11.9 09/18/2024 Active Atorvastatin Calcium 40 mg TAKE 1 TABLET BY MOUTH DAILY; Duration: 30 Active cloNIDine HCl 0.2 mg TAKE 1 TABLET BY [facility] THREE TIMES DAILY; Duration: 90 Active Apidra SoloStar 100 unit/mL INJECT TEN UNITS SUBCUTANEOUSLY THREE TIMES DAILY WITH MEALS; Duration: 90 Active Abilify 2 MG 1 tablet Orally Once a day; Duration: 30 days Active Social History Tobacco Use: Social History Observation Description Date Details (start date - stop date) Never Smoker NA - NA Tobacco Use/Smoking Question Answer Notes Patient is a nonsmoker Vital Signs Weight 241.0 lbs 12/25/2024 Height 66 in 12/25/2024 Blood pressure systolic 144 mm Hg 12/26/19 25 Blood pressure diastolic 82 mm Hg 025 BMI 38.89 kg/m2 12/25/2024 Encounters Encounter Location Date Provider Diagnosis [id number] [place] [address] 12/25/2024 Lui Wilhelm Lumbar radiculopathy M54.16 Assessments Encounter Date Diagnosis (ICD Code) Assessment Notes Treatment Notes Treatment Clinical Notes Section Notes 12/25/2024 Lumbar radiculopathy (ICD-10 - M54.16) 12/25/2024 Other Recommended to rest and use a heating pad on the area. Take NSAIDs for pain as needed Plan Of Treatment Treatment Notes Assessment Notes Other Recommended to rest and use a heating pad on the area. Take NSAIDs for pain as needed Referrals Referral Date Details 12/25/2024 12/25/2024, Or Wally dillon Progress Notes * Jeffery SOTO MDOB:[birth year] (49 yo M)Acc No.[id number]:12/25/2024 Progress Note Patient: Kvng LÓPEZJeffery ANDRES Provider: Ralph Wilhelm ([facility])MD :1975 A ge:49 Y S ex:Male Date:12/25/2024 Address:[facility] [address], [place], [id number] Check In:08:35 AM ESTCheck O ut:09:10 AM EST Subjective: * Chief Complaints: * D iscuss going back and seeing Dr Eugene to go ahead with surgery for back now that blood sugars are under controlHas not been taking thyroid pill for about a year- keeps forgetting to discuss with you about restarting * HPI: G eneral: Zohreh with sig pain - into left leg - pertisitng - discussedoption - Dr Eugene no longer around - referral to Dr Solano DM - glyco 7.2 - DIsussed thyroi med - for got to fill - not taking it and thyroid levels are good. B ack Pain: The patient complains of -. The symptoms have been present for 1-2 days. The patient believes symptoms are injury related No. The symptoms are mild. Symptomatic treatment has included heating pad, stretching. Associated symptoms include None. * ROS: G eneral/Constitutional: Lightheadedness d enies. C hange in appetite d enies. W eight Change d enies. C ardiovascular: Irregular heartbeat d enies. S welling in hands/feet?denies. R espiratory: Shortness of breath d enies. S hortness of breath with exertion d enies. W heezing d enies. M usculoskeletal: Comments S [facility] for details. N eurologic: Dizziness d enies. F ainting d enies. H eadache?denies. * Active Problem List M79.641 Pain in right hand Modified On:09/06/2022/U Status:confirmed R10.9 Abdominal pain Modified On:09/06/2022/U Status:confirmed G43.909 Migraine headache Modified On:09/06/2022U Status:confirmed R56.9 Seizure Modified On:09/06/2022/U Status:confirmed I10 Hypertension Modified On:09/06/2022U Status:confirmed F41.9 Anxiety Modified On:09/06/2022 Status:confirmed R60.9 Edema Modified On:09/06/2022 Status:confirmed D64.9 Anemia Modified On:09/06/2022 Status:confirmed R06.00 Dyspnea Modified On:09/06/2022 Status:confirmed G47.00 Insomnia Modified On:05/11/2023 Status:confirmed M54.16 Lumbar radiculopathy Modified On:05/11/2023 Status:confirmed E78.1 Hypertriglyceridemia Modified On:09/06/2022 Status:confirmed J30.9 Allergic rhinitis Modified On:09/06/2022 Status:confirmed M51.9 Lumbar disc disease Modified On:09/06/2022 Status:confirmed M51.26 Lumbar disc herniati on Modified On:09/06/2022 Status:confirmed J20.9 Acute bronchitis Modified On:09/06/2022 Status:confirmed G47.9 Sleep disorder Modified On:09/06/2022 Status:confirmed R10.32 Abdominal pain, LLQ Modified On:09/06/2022 Status:confirmed E06.3 Ascencion's thyroidi tis Modified On:09/06/2022 Status:confirmed F11.10 Narcotic abuse Modified On:09/06/2022 Status:confirmed H60.90 Otitis external Modified On:09/06/2022 Status:confirmed M27.2 Acute osteomyelitis of mandible Modified On:09/06/2022 Status:confirmed S02.651A Fracture of angle of right mandible, initial encounter for closed fracture Modified On:09/06/2022 Status:confirmed E11.9 Diabetes mellitus Modified On:09/21/2022 Status:confirmed U07.1 COVID-19 virus infec tion Modified On:09/06/2022 Status:confirmed E29.1 Testicular hypofunct ion Modified On:09/22/2022 Status:confirmed M51.26 Other intervertebral disc displacement, lumbar region Modified On:05/03/2023W/U Status:confirmed G62.9 Peripheral neuropath y Modified On:09/21/2022/U Status:confirmed M75.41 Shoulder impingement syndrome, right Modified On:01/11/2024/U Status:confirmed M48.062 Lumbar stenosis with neurogenic claudication Modified On:07/29/2024/U Status:confirmed E11.9 Diabetes Modified On:09/04/2024/U Status:confirmed R23.8 Easy bruising Modified On:11/28/2024/U Status:confirmed * Medical History: * Surgical History: L ithotripsy- kidney stone Appendix Gallbladder Jaw reconstruction * Hospitalization/Major Diagno stic Procedure: N o Hospitalization History. * Family History: F ather: . M other: alive. P aternal Grandfather: , diagnosed with Unspecified essential hypertension. 1 brother(s) , 2 sister(s) . 1 son(s) . . * Social History: T obacco Use: T obacco Use/Smoking P atient is a n onsmoker * Medications: T akingAbilify(ARIPiprazole) 2 MG Tablet 1 tablet Orally Once a day Apidra SoloStar(Insulin Glulisine) 100 unit/mL Solution Pen-injector INJECT TEN UNITS SUBCUTANEOUSLY THREE TIMES DAILY WITH MEALS Atorvastatin Calcium 40 mg Tablet TAKE 1 TABLET BY MOUTH DAILY Blood Glucose Meter -- -- Use as directed to test blood sugar once a day DX: E11.9 Blood Glucose Monitor System w/Device Kit as directed Citalopram Hydrobromide 20 mg Tablet TAKE 1 TABLET BY MOUTH ONCE DAILY cloNIDine HCl 0.2 mg Tablet TAKE 1 TABLET BY MOUTH THREE TIMES DAILY Insulin Pen Needle 31G X 5 MM Miscellaneous Use 1 need twice daily to inject insulin DX E11.9 Lancets Thin - Miscellaneous as directed Lantus SoloStar(Insulin Glargine) 100 UNIT/ML Solution Pen-injector Inject 60 units Subcutaneous twice daily Lisinopril 40 mg Tablet TAKE 1 TABLET BY MOUTH DAILY Pantoprazole Sodium 40 mg Tablet Delayed Release TAKE 1 TABLET BY MOUTH IN THE EVENING Pregabalin 300 mg Capsule 1 tabs oral tid Test Strips - - Use in meter to tet blood sugar once a day DX: E11.9 traZODone HCl 100 mg Tablet TAKE 1 TABLET BY MOUTH AT BEDTIME NEEDED Taking Abilify(ARIPiprazole) 2 MG Tablet 1 tablet Orally Once a day Taking Apidra SoloStar(Insulin Glulisine) 100 unit/mL Solution Pen-injector INJECT TEN UNITS SUBCUTANEOUSLY THREE TIMES DAILY WITH MEALS Taking Atorvastatin Calcium 40 mg Tablet TAKE 1 TABLET BY MOUTH DAILY Taking Blood Glucose Meter -- -- Use as directed to test blood sugar once a day DX: E11.9 Taking Blood Glucose Monitor System w/Device Kit as directed Taking Citalopram Hydrobromide 20 mg Tablet TAKE 1 TABLET BY MOUTH ONCE DAILY Taking cloNIDine HCl 0.2 mg Tablet TAKE 1 TABLET BY MOUTH THREE TIMES DAILY Taking Insulin Pen Needle 31G X 5 MM Miscellaneous Use 1 need twice daily to inject insulin DX E11.9 Taking Lancets Thin - Miscellaneous as directed Taking Lantus SoloStar(Insulin Glargine) 100 UNIT/ML Solution Pen-injector Inject 60 units Subcutaneous twice daily Taking Lisinopril 40 mg Tablet TAKE 1 TABLET BY MOUTH DAILY Taking Pantoprazole Sodium 40 mg Tablet Delayed Release TAKE 1 TABLET BY MOUTH IN THE EVENING Taking Pregabalin 300 mg Capsule 1 tabs oral tid Taking Test Strips - - Use in meter to tet blood sugar once a day DX: E11.9 Taking traZODone HCl 100 mg Tablet TAKE 1 TABLET BY MOUTH AT BEDTIME NEEDED Not-Taking/PRNLevothyroxine Sodium 100 MCG Capsule 1 capsule in the morning on an empty stomach Orally Once a day Not-Taking/PRN Levothyroxine Sodium 100 MCG Capsule 1 capsule in the morning on an empty stomach Orally Once a day DiscontinuedtiZANidine HCl 4 MG Tablet 1 tablet Orally qid Medication List reviewed and reconciled with the patientDiscontinued tiZANidine HCl 4 MG Tablet 1 tablet Orally qid Medication List reviewed and reconciled with the patient * Allergies: C ompazine: muscle spasmsno[Allergies Verified] Objective: * Vitals: W t:241.0lbs, Ht: 66 in, BP:144/82mm Hg, BMI:38.89Index, Ht-cm: 167.64 cm, Wt-k.32 kg. * Examination: G eneral Examination: GENERAL APPEARANCE: i n no acute distress, well developed, well nourished. LUNGS: clear to auscultation bilaterally. CARDIO: S1, S2 normal, no murmurs, rubs, gallops. MUSCULOSKELETAL: P oor rom in back due to pain and + - SLR wiht pain int o Lef leg. EXTREMITIES: no clubbing, cyanosis, or edema. NEUROLOGIC: alert, oriented to time, place, & person.? Assessment: * Assessment: 1. L umbar radiculopathy - M54.16 (Primary) Plan: * Treatment: 2. O thers Notes: Recommended to rest and use a heating pad on the area. Take NSAIDs for pain as needed ? * Procedure Codes: * Preventive Medicine: Screenings/Counseling: B MS ACTION PLAN Above Normal BMI Follow-up D ietary management education, guidance, and counseling * * Sign off status: Completed Visit Status: C HK (Check Out) true * Provider: Ralph Wilhelm (TTC)MD Date: 0 12/25/2024 Generated for Printi ng/Faxing/eTransmitting on: 0 01/06/2025 08:02 AM EDT History and Physical Notes * HPI (History of Present Illness) Category Sub-Category Detail Notes Category Not es General Zohreh with sig pain - into left leg - pertisitng - discussedoption - Dr Eugene no longer around - referral to Dr Solano DM - glyco 7.2 - DIsussed thyroi med - for got to fill - not taking it and thyroid levels are good Examination Category Sub-Category Detail Notes Category Not es General Examination GENERAL APPEARANCE: in no ac zuni distress, well developed, well nourished CARDIO: S1, S2 normal, no mu rmurs, rubs, gallops LUNGS: clear to auscultatio n bilaterally NEUROLOGIC: alert, oriented to t nuha, place, & person EXTREMITIES: no clubbing, cyanosi s, or edema MUSCULOSKELETAL: Poor rom in back due to pain and + - SLR wiht pain int o Lef leg Consultation Request Notes Referral Date Referring Provider Referred Provider Not es 12/25/2024 Lui Wilhelm [place] Or partner
--- OUTSIDE RECORDS SUMMARY | 2025-01-02 06:50 | XMS_ITS ---
Author Organization [facility] Address [address] [place] [address] Care Team Providers Care Index Editor Name Role Phone Royal Eugene Unavailable [phone] Cesar Wilhelm Unavailable Unavailable REASON FOR VISIT L4-S1 DECOMPRESSION AND FUSION E, L4-S1 TLIF, BVH, 11/11 Encounters Encounter Location Date Provider Diagnosis [facility] [address] [place] [id number] 01/02/2025 Royal Eugene Plan Of Treatment No Information Progress Notes * NONI SOTO MDOB:[birth year] (49 yo M)Acc No.[id number]:01/02/2025 Progress Notes Patient: Kvng MEZA CHAD Sade Provider: Oly Wilde MD, PhD :1975 A ge:49 Y S ex:Male Date:01/02/2025 Address:[address] [place] [address] [address], [id number] Subjective: * Chief Complaints: * 1 . L4-S1 DECOMPRESSION AND FUSION E, L4-S1 TLIF, BVH, 11/11. * Medical History: Objective: * Vitals: Assessment: Plan: * Treatment: Forms: * Images: * Electronic signature of Nicolasa Eugene MD, PHD on 01/06/2025 at 08:03 AM EDT Sign off status: Pending * Provider: Oly Wilde MD, PhD Date: 0 01/02/2025 Generated for Russel gillespie/Lior/eTransmitting on: 01/06/2025 08:03 AM EDT
[2025-01-06 08:02] VITALS: O2SAT 98
--- OUTSIDE RECORDS SUMMARY | 2025-01-06 08:02 | XMS_ITS | Clinical Summary ---
Author Organization [facility] Address [address] [place] [address] Care Team Providers Care Retail Attendant Name Role Phone Unavailable Primary Care Provider [...]
[2025-01-06 08:03] VITALS: BP 125/78; O2SAT 98
--- OUTSIDE RECORDS SUMMARY | 2025-01-06 08:03 | XMS_ITS | Patient Health Record ---
Author Organization [facility] [place] Address [address] [place] [address] Care Team Providers Care Wide Area Network Engineer Name Role Phone Lui Kowalski Primary Care Provider Allergies Allergen (clinical drug ingredient) Drug/Non Drug Allergy documented on EMR Reaction Allergy Type Onset Date Status Compazine muscle spasms Drug Allergy Act aylin Results Component Value Reference Range Notes PROF 14(COMP METB) Reviewed date:11/30/2024 07:47:12 PM Interpretation: Performing Lab: Notes/Report: [facility] , Sodium 139 136-145 mmol/L Potassium 3.9 3.5-5.1 mmol/L Chloride 102 98-107 mmol/L Carbon Dioxide 28.7 21.0-32.0 mmol/L Anion Gap 12.2 Glucose 224 74-106 mg/dL Blood Urea Nitrogen 15.0 7.0-18.0 mg/dL Creatinine 0.92 0.70-1.30 mg/dL Estimated GFR ( Karlie >60 >=60 mL/mi n/1.73m 2 Estimated GFR (Non- Teresa >60 >=60 mL/mi n/1.73m 2 BUN Creatinine Ratio 16.3 Calcium 9.9 8.5-10.1 mg/dL Bilirubin Total 0.3 0.2-1.0 mg/dL Aspartate Amino Transferase 21 15-37 U/L Alanine Aminotransferase 31 16-63 U/L Alkaline Phosphatase 109 46-116 U/L Total Protein 8.2 6.4-8.2 g/dL Albumin Level 4.0 3.4-5.0 g/dL Globulin 4.2 Albumin Globulin Ratio 1.0 Performing Lab: see note ML - [facility] LB PTT Reviewed date:11/30/2024 07:47:12 PM Interpretation: Performing Lab: Notes/Report: [facility] , Partial Thromboplastin Time 27.9 22.3-36.2 sec Performing Lab: see note ML - [facility] LB Prothrombin Time INR Reviewed date:11/30/2024 07:47:12 PM Interpretation: Performing Lab: Notes/Report: [facility] , Prothrombin Time 10.4 9.0-11.6 sec INR 0.98 2.5-3.5 RECURRENT THROMBOSIS 2.5-3.5 FOR PROSTHETIC HEART VALVE REPLACEMENT DESIRED INR: 2.0-3.0 CONDITIONS NOT LISTED BELOW Performing Lab: see note ML - [facility] CBC AUTO DIFF Reviewed date:12/09/2024 03:59:06 PM Interpretation: Performing Lab: Notes/Report: [facility] , White Blood Count 9.5 4.0-11.0 10 3/uL Red Blood Count 5.20 4.70-6.10 10 6/uL Hemoglobin 14.0 14.0-18.0 g/dL Hematocrit 42.1 42.0-54.0 % Mean Corpuscular Volume 81.0 80.0-94.0 fL Mean Corpuscular Hemoglobin 26.9 25.9-34.0 pg Mean Corpuscular HGB Conc 33.3 29.9-35.2 g/dL Red Cell Distribution Width 12.5 11.0-15.0 % Platelet Count 306 150-450 10 3/uL Mean Platelet Volume 9.0 9.5-13.5 fL Neutrophils Percent Auto 57.7 43.0-75.0 % Lymphocytes Percent Auto 28.4 20.5-60.0 % Monocytes Percent Auto 8.1 1.7-12.0 % Eosinophils Percent Auto 4.2 0.9-7.0 % Basophils Percent Auto 1.1 0.2-2.0 % Immature Granulocytes Pct Auto 0.5 0.0-0.5 % Neutrophils Absolute Auto 5.5 1.4-6.5 10 3/uL Lymphocytes Absolute Auto 2.7 1.2-3.8 10 3/uL Monocytes Absolute Auto 0.8 0.3-0.8 10 3/uL Eosinophils Absolute Auto 0.4 0.0-0.7 10 3/uL Basophils Absolute Auto 0.1 0.0-0.1 10 3/uL Immature Granulocytes Abs Auto 0.05 0.00-0.03 10 3/uL Performing Lab: see note ML - [facility] FREE T3 Reviewed date:12/09/2024 03:59:06 PM Interpretation: Performing Lab: Notes/Report: [facility] , Free T3 2.54 2.18-3.98 pg/mL Performing Lab: see note ML - [facility] GLYCOHEMOGLOBIN A1C Reviewed date:12/09/2024 07:35:08 PM Interpretation: Performing Lab: Notes/Report: [facility] , Glycohemoglobin A1C 7.2 4.5-6.2 % ADA THERAPEUTIC TARGET < 7.0 > 7.0 ADA RECOMMENDED LIMIT 4.0 - 6.0 ACTION SUGGESTED Estimated Average Glucose 160 Performing Lab: see note [facility] PROF 14(COMP METB) Reviewed date:12/09/2024 03:59:06 PM Interpretation: Performing Lab: Notes/Report: [facility] , Sodium 142 136-145 mmol/L Potassium 3.6 3.5-5.1 mmol/L Chloride 107 98-107 mmol/L Carbon Dioxide 29.9 21.0-32.0 mmol/L Anion Gap 8.7 Glucose 58 74-106 mg/dL Blood Urea Nitrogen 14.0 7.0-18.0 mg/dL Creatinine 0.75 0.70-1.30 mg/dL Estimated GFR ( Karlie >60 >=60 mL/mi n/1.73m 2 Estimated GFR (Non- Teresa >60 >=60 mL/mi n/1.73m 2 BUN Creatinine Ratio 18.7 Calcium 9.1 8.5-10.1 mg/dL Bilirubin Total 0.2 0.2-1.0 mg/dL Aspartate Amino Transferase 25 15-37 U/L Alanine Aminotransferase 29 16-63 U/L Alkaline Phosphatase 93 46-116 U/L Total Protein 7.6 6.4-8.2 g/dL Albumin Level 3.5 3.4-5.0 g/dL Globulin 4.1 Albumin Globulin Ratio 0.9 Performing Lab: see note ML - [facility] PSA SCREENING Reviewed date:12/09/2024 03:59:06 PM Interpretation: Performing Lab: Notes/Report: [facility] , Prostate Specific Antigen Scrn 1.16 <=4.00 ng/ mL Performing Lab: see note ML - [facility] LB T4 Reviewed date:12/09/2024 03:59:06 PM Interpretation: Performing Lab: Notes/Report: [facility] , T4 Thyroxine 7.40 4.50-12.10 ug/dL Performing Lab: see note ML - [facility] LB TSH Reviewed date:12/09/2024 03:59:06 PM Interpretation: Performing Lab: Notes/Report: [facility] , Thyroid Stimulating Hormone 2.946 0.358-3.740 u IU/mL Performing Lab: see note ML - [facility] LB XR lumbar spine 2-3V Reviewed date:10/30/2024 06:35:20 PM Interpretation: Performing Lab: Notes/Report: Source Facility: [facility]-[address] [place] [address] [place] [address] XRay Report Signed Patient: NONI SOTO MR#: [id number] : 1975 Acct:[id number] Age/Sex: 49 / M ADM Date: 10/30/24 Loc: ER Attending Dr: Ordering Physician: Caroline Lala M.D. Date of Service: 10/30/24 Procedure(s): XR lumbar spine 2-3V Accession Number(s): [id number] cc: Jadyn Kowalski M.D.; Caroline Lala M.D. The [place] [address] Patient Name: NONI SOTO MRN: [id number] date: 1975 Sex: M Assigned Patient Location: ER Current Patient Location: ER Accession/Order Number: [id number] Exam Date: 10/30/2024 16:37 Report Date: 10/30/2024 16:39 At the request of: CAROLINE LALA MD Procedure: XR lumbar spine 2-3V X-rays lumbar spine the views INDICATION: Atraumatic pain COMPARISON: Lumbar spine MRI 07/25/2024 FINDINGS: Mild dextrocurvature. Pcpl-pc-cvgwcgig intervertebral space narrowing L3-S1 with associated facet arthropathy. Otherwise no fracture malalignment. XR/XR lumbar spine 2-3V IMPRESSION: Degenerative changes lower lumbar spine. Negative acute osseous abnormality. Impression dictated by: Lionel Perry M.D. 10/30/2024 4:39 PM Dictation Location: [place] [address] Electronically authenticated by: [id number] Y Date: 10/30/2024 16:39 Dictated By: Lionel Perry M.D. Signed By: 10/30/24 1641 DD/ 1639 TD/TT: Manager Pricing: GLYCOHEMOGLOBIN A1C Reviewed date:09/21/2024 04:21:13 PM Interpretation: Performing Lab: Notes/Report: [facility] , Glycohemoglobin A1C 10.6 4.5-6.2 % ACTION SUGGESTED ADA RECOMMENDED LIMIT 4.0 - 6.0 ADA THERAPEUTIC TARGET < 7.0 > 7.0 Estimated Average Glucose 258 Performing Lab: see note ML - [facility] LB MR lumbar spine wo con Reviewed date:07/27/2024 03:29:53 PM Interpretation: Performing Lab: Notes/Report: Source Facility: [place] [address] Magnetic Resonance Report Signed Patient: NONI SOTO MR#: [id number] : 1975 Acct:[id number] Age/Sex: 49 / M ADM Date: 07/25/24 Loc: RAD Attending Dr: Jadyn Kowalski M.D. Ordering Physician: Jadyn Kowalski M.D. Date of Service: 07/25/24 Procedure(s): MR lumbar spine wo con Accession Number(s): [id number] cc: Jadyn Kowalski M.D. [place] [address] Patient Name: NONI SOTO MRN: [id number] date: 1975 Sex: M Assigned Patient Location: PT Current Patient Location: PT Accession/Order Number: [id number] Exam Date: 07/25/2024 10:46 Report Date: 07/25/2024 [...] Samara Waddell M.D.07/25/2024 11:08 AM Dictation Location: [place] [address] Electronically authenticated by: [id number] Y Date: 07/25/2024 11:08 Dictated By: Samara Waddell M.D. Signed By: 07/25/24 1111 DD/ 1108 TD/TT: Manager Pricing: XR FOREIGN BODY EYE Reviewed date:07/27/2024 03:29:53 PM Interpretation: Performing Lab: Notes/Report: Source Facility: [place] [address] XRay Report Signed Patient: NONI SOTO MR#: [id number] : 1975 Acct:[id number] Age/Sex: 49 / M ADM Date: 07/25/24 Loc: RAD Attending Dr: Jadyn Kowalski M.D. Ordering Physician: Jadyn Kowalski M.D. Date of Service: 07/25/24 Procedure(s): XR foreign body eye KEENA Accession Number(s): [id number] cc: Jadyn Kowalski M.D. [place] [address] Patient Name: NONI SOTO MRN: [id number] date: 1975 Sex: M Assigned Patient Location: PT Current Patient Location: PT Accession/Order Number: [id number] Exam Date: 07/25/2024 09:04 Report Date: 07/25/2024 [...] Samara Waddell M.D.07/25/2024 9:07 AM Dictation Location: [place] [address] Electronically authenticated by: [id number] Y Date: 07/25/2024 09:07 Dictated By: Samara Waddell M.D. Signed By: 07/25/2409 DD/ TD/TT: Manager Pricing: CBC AUTO DIFF Reviewed date:11/30/2024 07:47:12 PM Interpretation: Performing Lab: Notes/Report: [facility] , White Blood Count 12.5 4.0-11.0 10 3/uL Red Blood Count 5.38 4.70-6.10 10 6/uL Hemoglobin 14.5 14.0-18.0 g/dL Hematocrit 43.7 42.0-54.0 % Mean Corpuscular Volume 81.2 80.0-94.0 fL Mean Corpuscular Hemoglobin 27.0 25.9-34.0 pg Mean Corpuscular HGB Conc 33.2 29.9-35.2 g/dL Red Cell Distribution Width 12.4 11.0-15.0 % Platelet Count 378 150-450 10 3/uL Mean Platelet Volume 9.1 9.5-13.5 fL Neutrophils Percent Auto 69.7 43.0-75.0 % Lymphocytes Percent Auto 19.8 20.5-60.0 % Monocytes Percent Auto 7.5 1.7-12.0 % Eosinophils Percent Auto 1.7 0.9-7.0 % Basophils Percent Auto 0.8 0.2-2.0 % Immature Granulocytes Pct Auto 0.5 0.0-0.5 % Neutrophils Absolute Auto 8.7 1.4-6.5 10 3/uL Lymphocytes Absolute Auto 2.5 1.2-3.8 10 3/uL Monocytes Absolute Auto 0.9 0.3-0.8 10 3/uL Eosinophils Absolute Auto 0.2 0.0-0.7 10 3/uL Basophils Absolute Auto 0.1 0.0-0.1 10 3/uL Immature Granulocytes Abs Auto 0.06 0.00-0.03 10 3/uL Performing Lab: see note ML - [facility] LB AMMONIA Reviewed date:11/30/2024 07:47:12 PM Interpretation: Performing Lab: Notes/Report: [facility] , Ammonia 21 11-32 umol/L Performing Lab: see note ML - [facility] LB Reason For Referral Diagnosis 1 Lumbar radiculopathy (M54.16) Referral Organization [facility] Referring Provider First Name Lui Referring Provider Last Name Choco [facility]erred Provider [facility] Referred Provider Specialty Physical The rapist Referral Priority Routine Diagnosis 1 Lumbar radiculopathy (M54.16) Referral Organization [facility] Referring Provider First Name Lui Referring Provider Last Name Choco Referring Provider [facility] Referred Provider Pain Management, TB Referred Provider Specialty Pain Medicin e Referral Priority Routine Reason Needs sen madan Diagnosis 1 Lumbar stenosis with neurogenic claudication (M48.062) Referral Organization [facility] Referring Provider First Name Lui Referring Provider Last Name Choco Referring Provider [facility] Referred Provider Royal Eugene Referred Provider Specialty Orthopedic S urgery Referral Priority Routine Reason Or partner Diagnosis 1 Lumbar radiculopathy (M54.16) Referral Organization [facility] Referring Provider First Name Lui Referring Provider Last Name Choco Referring Provider [facility] Referred Provider Wally Solano Referred Provider Specialty Neurosurgery Referral Priority Routine Medications Medication SIG (Take, Route, Frequency, Duration) Notes Start Date End Date Status Atorvastatin Calcium 40 mg TAKE 1 TABLET BY MOUTH DAILY; Duration: 30 days Active Citalopram Hydrobromide 20 mg TAKE 1 TABLET BY MOUTH ONCE DAILY; Duration: 30 Active Blood Glucose Monitor System w/Device as directed Active traZODone HCl 100 mg TAKE 1 TABLET BY MO UTH AT BEDTIME NEEDED; Duration: 30 Active Blood Glucose Meter -- Use as directed t o test blood sugar once a day DX: E11.9 09/18/2024 Active Test Strips - Use in meter to tet blood sugar once a day DX: E11.9 09/18/2024 Active Pregabalin 300 mg 1 tabs oral tid; Duration: 30 days 10/07/2024 Active Apidra SoloStar 100 unit/mL INJECT TEN UNITS SUBCUTANEOUSLY THREE TIMES DAILY WITH MEALS; Duration: 90 Active Pantoprazole Sodium 40 mg TAKE 1 TABLET BY MOUTH IN THE EVENING; Duration: 30 Active Abilify 2 MG 1 tablet Orally Once a day; Duration: 30 days Active Lisinopril 40 mg TAKE [...] insulin DX E11.9; Duration: 90 days Active cloNIDine HCl 0.2 mg TAKE 1 TABLET BY MO [facility] THREE TIMES DAILY; Duration: 90 Active Social History Tobacco Use: Social [...] W/U Status Risk Notes Problem Testicular hypofunction (842962154) Testicular hypofunction (E29.1) Active confirmed Problem Displacement of lumbar intervertebral disc without myelopathy (10156387) Other intervertebral disc displacement, lumbar region (M51.26) Active confirmed Problem Pain in right hand (568038515634850) Pain in right hand (M79.641) Active confirmed Problem Abdominal pain (70820496) Abdominal pain (R10.9) Active confirmed Problem Migraine variant wit h headache (disorder) (712311597) Migraine headache (G43.909) Active confirmed Problem Seizure (54194766) Seizure (R56.9) Active confi rmed Problem Hypertension (92889005) Hypertension (I10) Active confirmed Problem Anxiety (63847951) Anxiety (F41.9) Active confi rmed Problem Edema (63024811) Edema (R60.9) Active confirmed Problem Anemia (307270584) Anemia (D64.9) Active confir med Problem Peripheral neuropath y (318902294) Peripheral neuropathy (G62.9) Active confirmed Problem Dyspnea (731330657) Dyspnea (R06.00) Active con firmed Problem Insomnia (046532497) Insomnia (G47.00) Active c onfirmed Problem Lumbar radiculopathy (904995488) Lumbar radiculopathy (M54.16) Active confirmed Problem Hypertriglyceridemia (670733357) Hypertriglyceridemia (E78.1) Active confirmed Problem Allergic rhinitis (37164083) Allergic rhinitis (J30.9) Active confirmed Problem Disorder of lumbar disc (698221158) Lumbar disc disease (M51.9) Active confirmed Problem Prolapsed lumbar intervertebral disc (775630960) Lumbar disc herniation (M51.26) Active confirmed Problem Acute bronchitis (21163238) Acute bronchitis (J20.9) Active confirmed Problem Sleep disorder (32047685) Sleep disorder (G47.9) Active confirmed Problem Left lower quadrant pain (111273134) Abdominal pain, LLQ (R10.32) Active confirmed Problem Ascencion's thyroiditis (32805515) Ascencion's thyroiditis (E06.3) Active confirmed Problem Opioid abuse (3095845) Narcotic abuse (F11.10) Active confirmed Problem Otitis externa (6307403) Otitis external (H60.90) Active confirmed Problem Easy bruising (462937737) Easy bruising (R23.8) Active confirmed Problem Impingement syndrome of shoulder region (557390914) Shoulder impingement syndrome, right (M75.41) Active confirmed Problem Acute osteomyelitis of mandible (883692872) Acute osteomyelitis of mandible (M27.2) Active confirmed Problem Closed fracture of mandible, angle of jaw (796703715) Fracture of angle of right mandible, initial encounter for closed fracture (S02.651A) Active confirmed Problem Neurogenic claudication (210245946) Lumbar stenosis with neurogenic claudication (M48.062) Active confirmed Problem Type II diabetes mellitus without complication (650134642) Diabetes (E11.9) Active confirmed Problem Diabetes mellitus (80450413) Diabetes mellitus (E11.9) Active confirmed Problem Disease caused by Severe acute respiratory syndrome coronavirus 2 (disorder) (115178890) COVID-19 virus infection (U07.1) Active confirmed Vital Signs Blood pressure diastolic 82 mm Hg 12/25/2024 Height 66 in 12/25/2024 Blood pressure systolic 144 mm Hg 12/25/2024 Weight 241.0 lbs 12/25/2024 BMI 38.89 kg/m2 12/25/2024 Encounters Encounter Location Date Provider Diagnosis [facility] [address] [place] [address] 01/11/2024 Lui Hoy Shoulder impingement syndrome, right M75.41 [facility] [address] [place] [address] 06/25/2024 Lui Hoy Lumbar radiculopathy M54.16 [facility] [address] [place] [facility] [place] [place] [address] 07/04/2024 Lui Hoy Lumbar radiculopathy M54.16 [facility] [address] [place] [place] [place] [address] 08/13/2024 Lui Hoy Lumbar stenosis with neurogenic claudication M48.062 [facility] [address] [place] [facility] [place] [place] [address] 09/04/2024 Lui Hoy Hypertension I10 ; L umbar radiculopathy M54.[address] [facility] [address] [place] [place] [place] [address] 11/28/2024 Lui Hoy Hypertension I10 and Easy bruising R23.8 [facility] [address] [place] [place] [place] [address] 12/25/2024 Lui Hoy Lumbar radiculopathy M54.16 [facility] [address] [place] [address] 04/14/2024 Lui Hoy Shoulder impingement syndrome, right M75.41 [facility] [address] [place] [address] 05/07/2024 Lui Hoy Wellness examination Z01.89 [facility] [address] [place] [place] [place] [address] 05/19/[address] [facility] [address] [place] [place] [place] [address] 05/20/[address] [facility] [address] [place] [place] [place] [address] 07/04/2024 Lui Hoy Lumbar radiculopathy M54.16 [facility] [address] [place] [place] [place] [address] 07/21/2024 Lui Hoy Lumbar radiculopathy M54.16 ; Other intervertebral disc displacement, lumbar region M51.26 ; Lumbar disc disease M51.9 and Lumbar disc herniation M51.26 [facility] [address] [place] [address] 07/25/2024 Lui Kowalski Shoulder impingement syndrome, right M75.41 [facility] [address] [place] [address] 07/27/[address] [facility] [address] [facility] [place] [address] 09/10/2024 Lui Kowalski Diabetes mellitus E1 1.9 [facility] [address] [facility] [address] [place] [address] 09/18/[address] [facility] [address] [place] [address] 09/18/[address] [facility] [address] [facility] [place] [address] 09/21/2024 Lui Kowalski [facility] [address] [facility] [address] [place] [address] 10/02/[address] [facility] [address] [place] [address] 10/07/2024 Lui Kowalski Lumbar radiculopathy M54.16 [facility] [address] [place] [address] 10/30/[address] [facility] [address] [facility] [place] [address] 11/04/[address] [facility] [address] [facility] [place] [address] 11/30/[address] [facility] [address] [place] [address] 12/02/[address] [facility] [address] [place] [address] 12/03/[address] [facility] [address] [facility] [place] [address] 12/09/[address] [facility] [address] [place] [address] 12/09/2024 Lui Kowalski Assessments Encounter Date Diagnosis (ICD Code) Assessment Notes Treatment Notes Treatment Clinical Notes Section Notes 11/28/2024 Hypertension (ICD-10 - I10) 11/28/2024 Easy bruising (ICD-10 - R23.8) 12/25/2024 Lumbar radiculopathy (ICD-10 - M54.16) 04/14/2024 Shoulder impingement syndrome, right (ICD-10 - M75.41) 05/07/2024 Wellness examination (ICD-10 - Z01.89) 07/04/2024 Lumbar radiculopathy (ICD-10 - M54.16) 07/21/2024 Other intervertebral disc displacement, lumbar region (ICD-10 - M51.26) 07/21/2024 Lumbar radiculopathy (ICD-10 - M54.16) 01/11/2024 Shoulder impingement syndrome, right (ICD-10 - [...] area. Take NSAIDs for pain as needed 12/25/2024 Other Recommended to rest and use a heating pad on the area. Take NSAIDs for pain as needed Plan Of Treatment Pending Test Test Name Order Date CMP - Comprehensive Metabolic Panel 04/23 CBC W/AUTO DIFF 05/07/2024 STOOL OCCULT BLOOD 05/07/2024 GLYCOHEMOGLOBIN A1C 05/07/2024 GLYCOHEMOGLOBIN A1C 09/10/2024 PROTIME 11/28/2024 MRI LSPINE WO CON 07/04/2024 XR SHOULDER RT 2V or > 01/11/2024 THYROID PANEL (T4/TSH/FREE T3) PSA, SCREENING 05/07/2024 Insurance Providers Payer Name Payer Address Payer Phone Subscriber Number Group Number Insured Name Patient Relationship to Insured Coverage Start Date Coverage End Date [employer] [place] [employer] [address] [facility] [place] [address] [phone] [id number] Noni Soto Self - patient is the [...]
--- OUTSIDE RECORDS SUMMARY | 2025-01-06 08:03 | XMS_ITS | Clinical Summary ---
Author Organization [facility] tem Address [id number] [address] [place] [address] Care Team Providers Care Straight Knife Cutter Machine Name Role Phone Cesar Wilhelm MD Primary Care Provider [phone] Allergies Active Allergy Reactions Criticality Noted Date [...] needed for cough. 120 mL 5 Active Social History Tobacco Use Types Packs/Day Years [...] Vaccines (1 - Tdap) 1994 COVID-19 Vaccine (2023-2 5 season) 2023 03/24/2022, 05/25/2021, 01/13/2021 Influenza Vaccine 12/22/2024 Adult BMI Screening 08/09/2025 08/09/2024 Tobacco Screening 09/08/2025 09/08/2024 Medical Devices Not on file Insurance [place] [employer] Care Teams Straight Knife Cutter Machine Relationship Specialty Start Date End Date Cesar Wilhelm MD PCP - General 10/19/16
--- OUTSIDE RECORDS SUMMARY | 2025-01-06 08:03 | XMS_ITS | Clinical Summary ---
Author Organization [facility] Address [address] [place] [address] [place] [address] Care Team Providers Care Marine Engineering Teacher Name Role Phone Cesar Wilhelm MD Primary Care Provider [phone] Allergies Active Allergy Reactions Criticality Noted Date [...] (05/10/2019): Added automatically from request for surgery [id number] Family History Medical History Relation Name Comments [...] 05/09/2020 05/09/2019 COVID-19 VACCINE (2023-2 5 season) 2024 INFLUENZA VACCINE (#1) 2024 TSH Discontinued 05/10/2019 HIV SCREENING DISCUSSION Completed 05/15/2019 PNEUMOCOCCAL VACCINE SERIES Aged Out No longer eligible based on patient's age to complete this topic Medical Devices Implanted Type Area Family Educator Device Identifier Shelf Expiration Date Model / Serial / Lot Xfix Pin, 2.7 X 80 Mm, 9 Mm Implanted:Qty: 1 on 05/15/2019 by Darwin Mojica DDS at [facility] Right: Mandible [employer] 51-673- / / Xfix Pin, 2.7 X 80 Mm, 13 Mm Implanted:Qty: 3 on 05/15/2019 by Darwin Mojica DDS at [facility] Bilateral: Mandible [employer] 51-673- / / Bar Connection Clamp Implanted:Qty: 4 on 05/15/2019 by Darwin Mojica DDS at [facility] Bilateral: Mandible [employer] 51-670- / / Fadi, 3/4 Mandible Implanted:Qty: 1 on 05/15/2019 by Darwin Mojica DDS at [facility] Bilateral: Mandible [employer] 51-672- / [...] Reactive Non Reactive 05/15/2019 9:22 AM EST [facility] Blood Venipuncture / Unknown 05/15/2019 3:21 AM EST 05/15/2019 4:04 AM EST us Bettie Apodaca MD IMMUNOLOGY ORDERABLES Final Res ult Performing Organization Address [facility]/ZIP Co de Phone Number [facility] [address] [address] * (ABNORMAL) TSH W/FT4 REFLEX (05/10/2019 3:50 AM EST) TSH 5.090(H) 0.550 - 4.780 uIU/mL 05/10/2019 5:33 AM EST [facility] Blood Venipuncture / Unknown 05/10/2019 3:50 AM EST 05/10/2019 4:26 AM EST us Oscar Marc MD ENDOCRINOLOGY Final Result Performing Organization Address [facility]/ZIP Co de Phone Number [facility] [address] [address] * (ABNORMAL) HEMOGLOBIN A1C (05/09/2019 10:32 PM EST) Hemoglobin A1C HPLC 11.2(H) 4.7 - 5.6 % 05/10/2019 7:48 AM EST [facility] Estimated Average Glucose 275 mg/dL 05/10/2019 7:48 AM EST [facility] Blood Venipuncture / Unknown 05/09/2019 10:32 PM EST 05/09/2019 10:41 PM EST us Oscar Marc MD HEMATOLOGY ORDERABLES Final Resu lt Performing Organization Address [facility]/ZIP Co de Phone Number [facility] [address] [address] * (ABNORMAL) LIPID PANEL W CALCULATED LDL (05/09/2019 10:32 PM EST) Cholesterol 221(H) <200 mg/dL 05/10/2019 3:05 AM EST [facility] Comment: [<200 mg/dL: Desirable] [200-239 mg/dL: Borderline High] [>239 mg/dL: High] Triglycerides 311(H) <150 mg/dL 05/10/2019 3:05 AM [facility] Comment: [<150 mg/dL: Desirable] [150-199 mg/dL: Borderline] [200-499 mg/dL: High] [>500 mg/dL: Very High] HDL Cholesterol 49 >=40 mg/dL 05/10/2019 3:05 AM [facility] Comment: [<40 mg/dL: Low (High Risk)] [>59 mg/dL: High (Low Risk)] Calculated LDL Cholesterol 110(H) 0 - 99 mg/dL 05/10/2019 3:05 AM [facility] Comment: [<100 mg/dL: Optimal] [100-129 mg/dL: Near Optimal] [130-159 mg/dL: Borderline High] [160-189 mg/dL: High] [>189 mg/dL: Very High] Total Cholesterol/HDL Ratio 4.5(H) <4.5 05/10/2019 3:05 AM [facility] Non HDL Cholesterol 172(H) <130 mg/dL 05/10/2019 3:05 AM [facility] Blood Venipuncture / Unknown 05/09/2019 10:32 PM EST 05/09/2019 10:40 PM EST us Oscar Marc MD CHEMISTRY ORDERABLES Final Resul t [facility] [address] [address] from Last 3 Months or Most Recently Relevant to Health Maintenance Insurance [facility] Plan Advance Directives For more information, please contact: [phone] (7:30 AM - 6PM [facility], Sunday-Sunday) * Full Code (Latest Code Status on File) Date Activated Date Inactivated Comments 05/10/2019 3:08 AM Care Teams Marine Engineering Teacher Relationship Specialty Start Date End Date Cesar Wilhelm MD PCP - General Family Medicine 05/19/19
--- OUTSIDE RECORDS SUMMARY | 2025-01-06 08:03 | XMS_ITS | Encounter Summary ---
Author Organization [facility] [employer] enter Address [address] [place] [address] Care Team Providers Care Medical Charge Entry Specialist Name Role Phone Cesar Wilhelm MD Primary Care Provider [phone] Reason for Referral * MRI/CAT Scan (Routine) - Closed Specialty Diagnoses / Procedures Referred By Fuentes holland Referred To Contact Diagnoses Disease of jaw Procedures CT FACIAL WITHOUT CONTRAST DC CT SCAN,MAXILLOFACIAL AREA,W/O CONTRAST Darwin Mojica DDS Referral ID Status Reason Start Date Expiration Date Visits Re quested Visits Authorized [id number] Closed 06/30/2019 07/24/2020 1 1 Encounter Details Date Type Department Care Team (Late st Contact Info) Description 06/30/2019 Orders Only [facility] [address] [place] [address] Rigoberto Tripp DDS Disease of jaw Social [...] jaws documented in this encounter Care Teams Medical Charge Entry Specialist Relationship Specialty Start Date End Date Cesar Wilhelm MD PCP - General Family Medicine 05/19/19 documented as of this encounter
--- OUTSIDE RECORDS SUMMARY | 2025-01-06 08:03 | XMS_ITS | CCD ---
Author Organization [facility] ion [facility] Care Team Providers Care Histology Manager Name Role Phone VIVIAN LESTER Admitting Unavailable [...] ELLSWORTH Consulting Unavailable SONA ELLSWORTH Attending Unavailable MEGAHNA Carbajal, DR SALAMANCA Primary Care Unavailable AKILAH [...] ; Translations: [Compazine] Drug Allergy [address] 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 (current) drug therapy; Translations: [OTH MANAGER PHARMACEUTICAL CURRENT DRUG THERAPY] Onset: 08-14-2022 Episodic Other aftercare (1 source) group home (current) use of insulin; Translations: [MANAGER PHARMACEUTICAL CURRENT USE OF INSULIN] Onset: 08-14-2022 Episodic [...] BY AUTOMATED COUNT 0.1 10*3/uL Normal 0.0-0.2 [facility] Comment on above: Performed By: #### C BCA #### [address] [address] VIR BASOPHILS RELATIVE PERCENT BY AUTOMATED COUNT 0.3 % Normal [facility] Comment on above: Performed By: #### C BCA #### [address] [address] VIR CELLAVISION DIFFERENTIAL TYPE AUTOMATED DIFFERENTIAL Normal [facility] Comment on above: Performed By: #### C BCA #### [facility] ([address] [address] VIR Eosinophils (Bld) [#/Vol] 0.2 10*3/uL Normal 0.0-0.4 [facility] Comment on above: Performed By: #### C BCA #### [facility] ([address] [address] VIR EOSINOPHILS RELATIVE PERCENT BY AUTOMATED COUNT 1.0 % Normal [facility] Comment on above: Performed By: #### C BCA #### [facility] ([address] [place] [address] VIR Erythrocyte distribution width (RBC) [Ratio] 15.5 % High 11.5-15 [facility] Comment on above: Performed By: #### C BCA #### [facility] ([address] [address] VIR Hematocrit (Bld) [Volume fraction] 46.2 % Normal 39-50 [facility] Comment on above: Performed By: #### C BCA #### [facility] ([address] [address] VIR Hemoglobin (Bld) [Mass/Vol] 15.6 g/dL Normal 13-17 [facility] Comment on above: Performed By: #### C BCA #### [facility] ([address] [address] VIR LYMPHOCYTES ABSOLUTE COUNT (10*3/UL) BY AUTOMATED COUNT 1.9 10*3/uL Normal 1.0-3.5 [facility] Comment on above: Performed By: #### C BCA #### [facility] ([address] [address] VIR LYMPHOCYTES RELATIVE PERCENT BY AUTOMATED COUNT 11.2 % Normal [facility] Comment on above: Performed By: #### C BCA #### [facility] ([address] [address] VIR MCH (RBC) [Entitic mass] 27.6 pg Normal 27-34 [facility] Comment on above: Performed By: #### C BCA #### [facility] ([address] [address] VIR MCHC (RBC) [Mass/Vol] 33.8 g/dL Normal 32-36 [facility] Comment on above: Performed By: #### C BCA #### [facility] ([address] [address] VIR MCV (RBC) [Entitic vol] 82 fL Normal 80-100 [facility] Comment on above: Performed By: #### C BCA #### [facility] ([address] [address] VIR MONOCYTES ABSOLUTE COUNT (10*3/UL) BY AUTOMATED COUNT 0.9 10*3/uL Normal 0.0-0.9 [facility] Comment on above: Performed By: #### C BCA #### [facility] ([address] [address] VIR MONOCYTES RELATIVE PERCENT BY AUTOMATED COUNT 5.3 % Normal [facility] Comment on above: Performed By: #### C BCA #### [facility] ([address] [address] VIR NEUTROPHILS ABSOLUTE COUNT BY AUTOMATED COUNT 14.0 10*3/uL High 1.5-6.6 [facility] Comment on above: Performed By: #### C BCA #### [facility] ([address] [address] VIR NEUTROPHILS RELATIVE PERCENT BY AUTOMATED COUNT 82.2 % Normal [facility] Comment on above: Performed By: #### C BCA #### [facility] ([address] [address] VIR Platelet mean volume (Bld) [Entitic vol] 7.3 fL Normal 7-12 [facility] Comment on above: Performed By: #### C BCA #### [facility] ([address] [address] VIR Platelets (Bld) [#/Vol] 295 10*3/uL Normal 150-450 [facility] Comment on above: Performed By: #### C BCA #### [facility] ([facility]) [facility] [address] [address] VIR RBC COUNT 5.66 X10E12/L Normal 4.1-5.7 [facility] Comment on above: Performed By: #### C BCA #### [facility] ([address] [place] [address] VIR WBC (Bld) [#/Vol] 17.1 10*3/uL High 4-11 [facility] Comment on above: Performed By: #### C BCA #### [facility] ([address] [place] [address] VIR COMPREHENSIVE METABOLIC PANE Ruddy 09-08-2024 Albumin [Mass/Vol] 3.9 g/dL Normal 3.2-5.3 [facility] Comment on above: Performed By: #### C MP #### [facility] ([address] [place] [address] VIR ALP [Catalytic activity/Vol] 99 U/L Normal 39-130 [facility] Comment on above: Performed By: #### C MP #### [facility] ([address] [place] [address] VIR ALT [Catalytic activity/Vol] 65 U/L High <=40 [facility] Comment on above: Performed By: #### C MP #### [facility] ([address] [place] [address] VIR Anion gap [Moles/Vol] 12 mmol/L Normal 5-15 [facility] Comment on above: Performed By: #### C MP #### [facility] ([place] [address] [place] [address] VIR AST [Catalytic activity/Vol] 40 U/L Normal <=41 [facility] Comment on above: Performed By: #### C MP #### [facility] ([place] [address] [place] [address] VIR Bilirubin [Mass/Vol] 0.8 mg/dL Normal 0.3-1.2 [facility] Comment on above: Performed By: #### C MP #### [facility] ([address] [place] [address] VIR Calcium [Mass/Vol] 9.0 mg/dL Normal 8.5-10.5 [facility] Comment on above: Performed By: #### C MP #### [facility] ([address] [place] [address] VIR Chloride [Moles/Vol] 100 mmol/L Normal 98-109 [facility] Comment on above: Performed By: #### C MP #### [facility] ([address] [place] [address] VIR CO2 [Moles/Vol] 22 mmol/L Normal 22-32 [facility] Comment on above: Performed By: #### C MP #### [facility] ([address] [place] [address] VIR Creatinine [Mass/Vol] 0.76 mg/dL Normal 0.70-1.20 [facility] Comment on above: Result Comment: METH OD TRACEABLE TO IDMS STANDARD Performed By: #### C MP #### [facility] ([address] [place] [address] VIR EGFR (CKD-EPI) NON-RACE DEPENDENT >^90 Normal >=60 [facility] Comment on above: Result Comment: eGFR not reported due to non-numeric value for Creatinine. Reported eGFR is based on the CKD-EPI 2021 equation that does not use a race coefficient. Performed By: #### C MP #### [facility] ([address] [place] [address] VIR Glucose [Mass/Vol] 202 mg/dL High 65-99 [facility] Comment on above: Performed By: #### C MP #### [facility] ([address] [place] [address] VIR Potassium [Moles/Vol] 3.4 mmol/L Low 3.5-5.0 [facility] Comment on above: Performed By: #### C MP #### [facility] ([address] [place] [address] VIR Protein [Mass/Vol] 7.8 g/dL Normal 6.0-8.0 [facility] Comment on above: Performed By: #### C MP #### [facility] ([address] [place] [address] VIR Sodium [Moles/Vol] 134 mmol/L Normal 134-146 [facility] Comment on above: Performed By: #### C MP #### [facility] ([address] [place] [address] VIR Urea nitrogen [Mass/Vol] 23 mg/dL Normal 5-23 [facility] Comment on above: Performed By: #### C MP #### [facility] ([address] [place] [address] VIR LIPASEon 09-08-2024 Lipase [Catalytic activity/Vol] 72 U/L High 17-40 [facility] Comment on above: Performed By: #### L IPA #### [facility] ([address] [place] [address] VIR TROPONIN I, HIGH SENSITIVITY 0 HOURon 09-08-2024 TROPONIN I, HIGH SENSITIVITY 2 ng/L Normal <21 [facility] Comment on above: Performed By: #### T NIHS0 #### [facility] ([address] [address] VIR Auth for Release of Medical Recordson 12-07-2022 Auth for Release of Medical Records [id number]#[id number]:127 Normal [facility] CARDIAC ROSLYN 3-6on 3 CK [Catalytic activity/Vol] 288 U/L Normal 39-308 [facility] Comment on above: Performed By: #### C MREP #### [facility] [address] [address] [address] Kiran Ivey CK.MB [Mass/Vol] 4.71 ng/mL Critically high <=3.60 [facility] Comment on above: Performed By: #### C MREP #### [facility] [address] [address] [address] Kiran Ivey HSTROP 5.8 pg/mL Normal 4.0-76.1 [facility] Comment on above: Result Comment: CUT- OFF POINTS HAVE BEEN ESTABLISHED BASED ON THE FOURTH UNIVERSAL DEFINITIONS OF MYOCARDIAL INFARCTION. THE UPPER REFERENCE LIMIT (URL) OF TROPONIN, DEFINED THE 99TH PERCENTILE OF cTnI DISTRIBUTION IN A REFERENCE POPULATION, HAS BEEN CONFIRMED THE DECISION THRESHOLD FOR [place] DIAGNOSIS. Performed By: #### C MREP #### [facility] [address] [address] [address] Kiran Ivey CARDIAC ROSLYN ADMITon 023 CK [Catalytic activity/Vol] 297 U/L Normal 39-308 [facility] Comment on above: Performed By: #### C MADM, BMP #### [facility] [address] [address] [address] Kiran Ivey CK.MB [Mass/Vol] 5.29 ng/mL Critically high <=3.60 [facility] Comment on above: Performed By: #### C MADM, BMP #### [facility] [address] [address] [address] Kiran Ivey HSTROP 6.1 pg/mL Normal 4.0-76.1 [facility] Comment on above: Result Comment: CUT- OFF POINTS HAVE BEEN ESTABLISHED BASED ON THE FOURTH UNIVERSAL DEFINITIONS OF MYOCARDIAL INFARCTION. THE UPPER REFERENCE LIMIT (URL) OF TROPONIN, DEFINED THE 99TH PERCENTILE OF cTnI DISTRIBUTION IN A REFERENCE POPULATION, HAS BEEN CONFIRMED THE DECISION THRESHOLD FOR [place] DIAGNOSIS. Performed By: #### C MADM, BMP #### [facility] [address] [address] [address] Kiran Ivey MALIHA 50 ng/mL Normal 16-96 [facility] Comment on above: Performed By: #### C MADM, BMP #### [facility] [address] [address] [address] Kiran Ivey CBC AUTO DIFFon 08-10-2022 BASO # 0.1 103/ul Normal 0.0-0.1 [facility] Comment on above: Performed By: #### C BC #### [facility] [address] [address] [address] Kiran Ivey Basophils/100 WBC (Bld) 0.8 % Normal 0.2-2.0 [facility] Comment on above: Performed By: #### C BC #### [facility] [address] [place] [address] Dr. Kiran Ivey EO # 0.3 103/ul Normal 0.0-0.7 [facility] Comment on above: Performed By: #### C BC #### [facility] [address] [place] [address] Dr. Kiran Ivey Eosinophils/100 WBC (Bld) 3.6 % Normal 0.9-7.0 [facility] Comment on above: Performed By: #### C BC #### [facility] [address] [place] [address] Dr. Kiran Ivey Erythrocyte distribution width (RBC) [Ratio] 14.9 % Normal 11.0-15.0 [facility] Comment on above: Performed By: #### C BC #### [facility] [address] [place] [address] Dr. Kiran Ivey Hematocrit (Bld) [Volume fraction] 38.9 % Critically low 42.0-54.0 [facility] Comment on above: Performed By: #### C BC #### [facility] [address] [place] [address] Dr. Kiran Ivey Hemoglobin (Bld) [Mass/Vol] 12.6 g/dL Critically low 14.0-18.0 [facility] Comment on above: Performed By: #### C BC #### [facility] [address] [place] [address] Dr. Kiran Ivey IG # 0.02 10e3/ul Normal 0.00-0.03 [facility] Comment on above: Performed By: #### C BC #### [facility] [address] [place] [address] Dr. Kiran Ivey IG % 0.3 % Normal 0.0-0.5 [facility] Comment on above: Performed By: #### C BC #### [facility] [address] [place] [address] Dr. Kiran Ivey LYMPH # 2.4 103/ul Normal 1.2-3.8 [facility] Comment on above: Performed By: #### C BC #### [facility] [address] [place] [address] Dr. Kiran Ivey Lymphocytes/100 WBC (Bld) 33.1 % Normal 20.5-60.0 [facility] Comment on above: Performed By: #### C BC #### [facility] [address] [place] [address] Dr. Kiran Ivey MANUAL DIFF REQ NO Normal [facility] Comment on above: Performed By: #### C BC #### [facility] [address] [place] [address] Dr. Kiran Ivey MCH (RBC) [Entitic mass] 24.4 pg Critically low 25.9-34.0 [facility] Comment on above: Performed By: #### C BC #### [facility] [address] [place] [address] Dr. Kiran vIey MCHC (RBC) [Mass/Vol] 32.4 g/dL Normal 29.9-35.2 [facility] Comment on above: Performed By: #### C BC #### [facility] [address] [place] [address] Dr. Kiran Ivey MCV (RBC) [Entitic vol] 75.4 fL Critically low 80.0-94.0 [facility] Comment on above: Performed By: #### C BC #### [facility] [address] [address] [address] Kiran Ivey MONO # 0.5 103/ul Normal 0.3-0.8 [facility] Comment on above: Performed By: #### C BC #### [facility] [address] [address] [address] Kiran Ivey Monocytes/100 WBC (Bld) 7.0 % Normal 1.7-12.0 [facility] Comment on above: Performed By: #### C BC #### [facility] [address] [place] [address] Dr. Kiran Ivey NEUT # 4.0 103/ul Normal 1.4-6.5 [facility] Comment on above: Performed By: #### C BC #### [facility] [address] [place] [address] Dr. Kiran Ivey Neutrophils/100 WBC (Bld) 55.2 % Normal 43.0-75.0 [facility] Comment on above: Performed By: #### C BC #### [facility] [address] [place] [address] Dr. Kiran Ivey Platelet mean volume (Bld) [Entitic vol] 9.1 fL Critically low 9.5-13.5 [facility] Comment on above: Performed By: #### C BC #### [facility] [address] [place] [address] Dr. Kiran Ivey PLT 310 103/ul Normal 150-450 [facility] Comment on above: Performed By: #### C BC #### [facility] [address] [place] [address] Dr. Kiran Ivey RBC 5.16 106/ul Normal 4.70-6.10 [facility] Comment on above: Performed By: #### C BC #### [facility] [address] [place] [address] Dr. Kiran Ivey WBC 7.2 103/ul Normal 4.0-11.0 [facility] Comment on above: Performed By: #### C BC #### [facility] [address] [address] [address] Kiran Ivey PROF CHEM 8 (BAS METB)on Anion gap [Moles/Vol] 11.1 mmol/L Normal [facility] Comment on above: Performed By: #### C MADM, BMP #### [facility] [address] [place] [address] Dr. Kiran Ivey Calcium [Mass/Vol] 9.3 mg/dL Normal 8.5-10.1 [facility] Comment on above: Performed By: #### C MADM, BMP #### [facility] [address] [place] [address] Dr. Kiran Ivey Chloride [Moles/Vol] 100 mmol/L Normal 98-107 [facility] Comment on above: Performed By: #### C MADM, BMP #### [facility] [address] [place] [address] Dr. Kiran Ivey CO2 [Moles/Vol] 30.1 mmol/L Normal 21.0-32.0 [facility] Comment on above: Performed By: #### C MADM, BMP #### [facility] [address] [place] [address] Dr. Kiran Ivey Creatinine [Mass/Vol] 1.03 mg/dL Normal 0.70-1.30 [facility] Comment on above: Performed By: #### C MADM, BMP #### [facility] [address] [place] [address] Dr. Kiran Ivey EGFR-AF ANDORRAN >60 Normal >=60 [facility] Comment on above: Performed By: #### C MADM, BMP #### [facility] [address] [place] [address] Dr. Kiran Ivey EGFR-NON AF ANDORRAN >60 Normal >=60 [facility] Comment on above: Performed By: #### C MADM, BMP #### [facility] [address] [place] [address] Dr. Kiran Ivey Glucose [Mass/Vol] 226 mg/dL Critically high 74-106 [facility] Comment on above: Performed By: #### C MADM, BMP #### [facility] [address] [address] [address] Kiran Ivey Potassium [Moles/Vol] 4.2 mmol/L Normal 3.5-5.1 [facility] Comment on above: Performed By: #### C MADM, BMP #### [facility] [address] [place] [address] Dr. Kiran Ivey Sodium [Moles/Vol] 137 mmol/L Normal 136-145 [facility] Comment on above: Performed By: #### C MADM, BMP #### [facility] [address] [place] [address] Dr. Kiran Ivey Urea nitrogen [Mass/Vol] 19.0 mg/dL Critically high 7.0-18.0 [facility] Comment on above: Performed By: #### C MADM, BMP #### [facility] [address] [place] [address] Dr. Kiran Ivey Urea nitrogen/Creatinin e [Mass ratio] 18.4 mg/mg Normal [facility] Comment on above: Performed By: #### C IBETHM, BMP #### [facility] [address] [place] [address] Dr. Kiran Ivey GLYCOHEMOGLOBIN A1Con 2022 ADA RECOMMENDATION SEE BELOW Normal [facility] Comment on above: Result Comment: ADA RECOMMENDED LIMIT 4.0 - 6.0 ADA THERAPEUTIC TARGET < 7.0 ACTION SUGGESTED > 7.0 Performed By: #### C BC #### [facility] [address] [place] [address] Dr. Kiran Ivey Glucose [Mass/Vol] 269 mg/dL Normal [facility] Comment on above: Performed By: #### C BC #### [facility] [address] [place] [address] Dr. Kiran Ivey HbA1c (Bld) [Mass fraction] 11.0 % Critically high 4.5-6.2 [facility] Comment on above: Performed By: #### C BC #### [facility] [address] [place] [address] Dr. Kiran Ivey LIPID PROFILEon 06-12-2022 CHOL-HDL RATIO NORM SEE BELOW Normal [facility] Comment on above: Result Comment: 3.3 - 4.4 LOW RISK 4.4 - 7.1 AVERAGE RISK 7.1 - 11.0 MODERATE RISK >11.0 HIGH RISK Performed By: #### L IPID #### [facility] [address] [address] [address] Kiran Ivey Cholesterol [Mass/Vol] 193 mg/dL Normal <=200 [facility] Comment on above: Performed By: #### L IPID #### [facility] [address] [address] [address] Kiran Ivey Cholesterol in HDL [Mass/Vol] 47 mg/dL Normal 40-60 [facility] Comment on above: Performed By: #### L IPID #### [facility] [address] [address] [address] Kiran Ivey Cholesterol in LDL [Mass/Vol] 109.4 mg/dL Normal [facility] Comment on above: Performed By: #### L IPID #### [facility] [address] [address] [address] Kiran Ivey Cholesterol.total/ Cholesterol in HDL [Mass ratio] 4.1 {ratio} Normal [facility] Comment on above: Performed By: #### L IPID #### [facility] [address] [address] [address] Kiran Ivey HDL NORMAL > or = 60 mg/dl - LO W CARDIOVASCULAR RISK <40 mg/dl - HIGH CARDIOVASCULAR RISK Normal [facility] Comment on above: Performed By: #### L IPID #### [facility] [address] [address] [address] Kiran Ivey LDL CALC NORMAL SEE BELOW Normal [facility] Comment on above: Result Comment: <100 mg/dl OPTIMAL 100 - 129 mg/dl NEAR OR ABOVE OPTIMAL 130 - 159 mg/dl BORDERLINE HIGH 160 - 189 mg/dl HIGH >190 mg/dl VERY HIGH Performed By: #### L IPID #### [facility] [address] [address] [address] Kiran Ivey Triglyceride [Mass/Vol] 183 mg/dL Critically high <=150 [facility] Comment on above: Performed By: #### L IPID #### [facility] [address] [place], [place] [address] Dr. Kiran Ivey VLDL CALC 36.6 mg/dL Normal [facility] Comment on above: Performed By: #### L IPID #### [facility] [address] [place], [place] [address] Dr. Kiran Ivey General Surgery Office/Clini c [...] Sister. COPD: Father. Heart disease: Father. Normal [facility] Comment on above: Result Comment: Elec tronically Signed By: CAMI HUNT, Naye Bell\Date and Time Signed: 05/02/22 15:50 EST Reminderson 05-02-2022 Reminders - From: Suad Fitzpatrick LPN To: [facility] - Clinical; Sent: 05/02/2022 15:51:15 EST Show up: 03/20/2027 07:00:00 EST Subject: colonoscopy recall Due Date/Time: 04/19/2027 07:00:00 EST Reminder/Recall Patient is due for colonoscopy 04/19/2027 due to history of colonic polyp. Normal [facility] Pathology Noteon 04-21-2022 Pathology Note [id number]#[id number]:127 Normal [facility] Outside Colonoscopyon 2021 Outside Colonoscopy [id number]#[id number]:127 Normal [facility] POINT OF CARE GLUCOSEon 03-24 Glucose [Mass/Vol] 114 mg/dL Critically high 74-106 [facility] Comment on above: Performed By: #### P OCGLUC #### [facility] [address] [address] [address] Kiran Ivey Lab Reportson 2022 Lab Reports [id number]#[id number]:127 Normal [facility] Covid-19 PCR (CVDTBH)on 03-24 SARS-CoV-2 (COVID-19) RNA JOANNA+probe Ql (Unsp spec) Not detected Normal NOT DETECTED [facility] Comment on above: Result Comment: This test is not yet approved or cleared by the [place] FDA. When there are no FDA-approved or cleared tests available, and other criteria are met, FDA can make tests available under an emergency access mechanism called an Emergency Use Authorization (EUA). The EUA for this test is supported by the [place] of Health and Human Service's (HHS's) declaration [...] consistent with SARS-CoV-2. Performed By: #### C [facility] #### [facility] [address] [place] [address] Dr. Kiran Ivey Pre-Certification Formon Pre-Certification Form [id number]#[id number]:127 Normal [facility] Consent for Procedure/Surger yon 03-20-2022 Consent for Procedure/Surgery [id number]#[id number]:127 Normal [facility] Ambulatory Visit Summaryon 1 05-13-2021 Ambulatory [...] Testicular hypofunction Vapes nicotine containing substance Normal [facility] CBC AUTO DIFFon 03-09-2022 BASO # 0.0 103/ul Normal 0.0-0.1 [facility] Comment on above: Performed By: #### C BC #### [facility] [address] [address] [address] Kiran Ivey Basophils/100 WBC (Bld) 0.6 % Normal 0.2-2.0 [facility] [facility] Comment on above: Performed By: #### C BC #### [facility] [address] [address] [address] Kiran Ivey EO # 0.0 103/ul Normal 0.0-0.7 [facility] Comment on above: Performed By: #### C BC #### [facility] [address] [address] [address] Kiran Ivey Eosinophils/100 WBC (Bld) 1.2 % Normal 0.9-7.0 [facility] Comment on above: Performed By: #### C BC #### [facility] [address] [place] [address] Dr. Kiran Ivey Erythrocyte distribution width (RBC) [Ratio] 16.7 % Critically high 11.0-15.0 [facility] Comment on above: Performed By: #### C BC #### [facility] [address] [place] [address] Dr. Kiran Ivey Hematocrit (Bld) [Volume fraction] 38.5 % Critically low 42.0-54.0 [facility] Comment on above: Performed By: #### C BC #### [facility] [address] [place] [address] Dr. Kiran Ivey Hemoglobin (Bld) [Mass/Vol] 11.6 g/dL Critically low 14.0-18.0 [facility] Comment on above: Performed By: #### C BC #### [facility] [address] [place] [address] Dr. Kiran Ivey IG # 0.01 10e3/ul Normal 0.00-0.03 [facility] Comment on above: Performed By: #### C BC #### [facility] [address] [place] [address] Dr. Kiran Ivey IG % 0.3 % Normal 0.0-0.5 [facility] Comment on above: Performed By: #### C BC #### [facility] [address] [place] [address] Dr. Kiran Ivey LYMPH # 1.2 103/ul Normal 1.2-3.8 [facility] Comment on above: Performed By: #### C BC #### [facility] [address] [place] [address] Dr. Kiran Ivey Lymphocytes/100 WBC (Bld) 36.0 % Normal 20.5-60.0 [facility] Comment on above: Performed By: #### C BC #### [facility] [address] [place] [address] Dr. Kiran Ivey MANUAL DIFF REQ NO Normal [facility] Comment on above: Performed By: #### C BC #### [facility] [address] [address] [address] Kiran Ivey MCH (RBC) [Entitic mass] 22.2 pg Critically low 25.9-34.0 [facility] Comment on above: Performed By: #### C BC #### [facility] [address] [place] [address] Dr. Kiran Ivey MCHC (RBC) [Mass/Vol] 30.1 g/dL Normal 29.9-35.2 [facility] Comment on above: Performed By: #### C BC #### [facility] [address] [place] [address] Dr. Kiran Ivey MCV (RBC) [Entitic vol] 73.8 fL Critically low 80.0-94.0 [facility] Comment on above: Performed By: #### C BC #### [facility] [address] [place] [address] Dr. Kiran Ivey MONO # 0.5 103/ul Normal 0.3-0.8 [facility] Comment on above: Performed By: #### C BC #### [facility] [address] [place] [address] Dr. Kiran Ivey Monocytes/100 WBC (Bld) 15.1 % Critically high 1.7-12.0 [facility] Comment on above: Performed By: #### C BC #### [facility] [address] [place] [address] Dr. Kiran Ivey NEUT # 1.5 103/ul Normal 1.4-6.5 [facility] Comment on above: Performed By: #### C BC #### [facility] [address] [place] [address] Dr. Kiran Ivey Neutrophils/100 WBC (Bld) 46.8 % Normal 43.0-75.0 [facility] Comment on above: Performed By: #### C BC #### [facility] [address] [place] [address] Dr. Kiran Ivey Platelet mean volume (Bld) [Entitic vol] 10.2 fL Normal 9.5-13.5 [facility] Comment on above: Performed By: #### C BC #### [facility] [address] [address] [address] Kiran Ivey PLT 168 103/ul Normal 150-450 [facility] Comment on above: Performed By: #### C BC #### [facility] [address] [address] [address] Kiran Ivey RBC 5.22 106/ul Normal 4.70-6.10 [facility] Comment on above: Performed By: #### C BC #### [facility] [address] [address] [address] Kiran Ivey WBC 3.3 103/ul Critically low 4.0-11.0 [facility] Comment on above: Performed By: #### C BC #### [facility] [address] [address] [address] Kiran Ivey PROF CHEM 8 (BAS METB)on Anion gap [Moles/Vol] 10.3 mmol/L Normal [facility] Comment on above: Performed By: #### B MP #### [facility] [address] [address] [address] Kiran Ivey Calcium [Mass/Vol] 8.5 mg/dL Normal 8.5-10.1 [facility] Comment on above: Performed By: #### B MP #### [facility] [address] [address] [address] Kiran Ivey Chloride [Moles/Vol] 99 mmol/L Normal 98-107 [facility] Comment on above: Performed By: #### B MP #### [facility] [address] [address] [address] Kiran Ivey CO2 [Moles/Vol] 28.3 mmol/L Normal 21.0-32.0 [facility] Comment on above: Performed By: #### B MP #### [facility] [address] [address] [address] Kiran Ivey Creatinine [Mass/Vol] 0.81 mg/dL Normal 0.70-1.30 [facility] Comment on above: Performed By: #### B MP #### [facility] [address] [address] [address] Kiran Ivey EGFR-AF ANDORRAN >60 Normal >=60 [facility] Comment on above: Performed By: #### B MP #### [facility] [id number] Kiran Ivey EGFR-NON AF ANDORRAN >60 Normal >=60 [facility] Comment on above: Performed By: #### B MP #### [facility] [address] [address] [address] Kiran Ivey Glucose [Mass/Vol] 152 mg/dL Critically high 74-106 [facility] Comment on above: Performed By: #### B MP #### [facility] [address] [place] [address] Dr. Kiran Ivey Potassium [Moles/Vol] 4.6 mmol/L Normal 3.5-5.1 [facility] Comment on above: Performed By: #### B MP #### [facility] [address] [place] [address] Dr. Kiran Ivey Sodium [Moles/Vol] 133 mmol/L Critically low 136-145 [facility] Comment on above: Performed By: #### B MP #### [facility] [address] [place] [address] Dr. Kiran Ivey Urea nitrogen [Mass/Vol] 13.0 mg/dL Normal 7.0-18.0 [facility] Comment on above: Performed By: #### B MP #### [facility] [address] [place] [address] Dr. Kiran Ivey Urea nitrogen/Creatinin e [Mass ratio] 16.0 mg/mg Normal [facility] Comment on above: Performed By: #### B MP #### [facility] [address] [place] [address] Dr. Kiran Ivey Physician Referralon 022 Physician Referral [id number] Normal [facility] TESTOSTERONE, TOTALon 2021 Testosterone [Mass/Vol] 56 ng/dL Critically low 264-916 [facility] Comment on above: Result Comment: Adul t male reference interval is based on a population of healthy nonobese males (BMI <30) between 19 and 39 years old. tatiana Gonzalez.al. JCEM 2017,102;0962-8892. PMID: [id number]. Performed By: #### C BC #### [facility] [address] [place] [address] Dr. Kiran Ivey AMYLASEon 02-15-2022 Amylase [Catalytic activity/Vol] 35 U/L Normal 25-115 [facility] Comment on above: Performed By: #### C BC #### [facility] [address] [place] [address] Dr. Kiran Ivey BNPon 02-15-2022 Natriuretic peptide B (Bld) [Mass/Vol] 7.0 pg/mL Normal <=450.0 [facility] Comment on above: Performed By: #### C BC #### [facility] [address] [place] [address] Dr. Kiran Ivey CBC AUTO DIFFon 02-15-2022 BASO # 0.1 103/ul Normal 0.0-0.1 [facility] Comment on above: Performed By: #### C BC #### [facility] [address] [place] [address] Dr. Kiran Ivey Basophils/100 WBC (Bld) 0.7 % Normal 0.2-2.0 [facility] Comment on above: Performed By: #### C BC #### [facility] [address] [place] [address] Dr. Kiran Ivey EO # 0.2 103/ul Normal 0.0-0.7 [facility] Comment on above: Performed By: #### C BC #### [facility] [address] [place] [address] Dr. Kiran Ivey Eosinophils/100 WBC (Bld) 2.3 % Normal 0.9-7.0 [facility] Comment on above: Performed By: #### C BC #### [facility] [address] [place] [address] Dr. Kiran Ivey Erythrocyte distribution width (RBC) [Ratio] 15.2 % Critically high 11.0-15.0 [facility] Comment on above: Performed By: #### C BC #### [facility] [address] [place] [address] Dr. Kiran Ivey Hematocrit (Bld) [Volume fraction] 38.3 % Critically low 42.0-54.0 [facility] Comment on above: Performed By: #### C BC #### [facility] [address] [place] [address] Dr. Kiran Ivey Hemoglobin (Bld) [Mass/Vol] 12.1 g/dL Critically low 14.0-18.0 [facility] Comment on above: Performed By: #### C BC #### [facility] [address] [place] [address] Dr. Kiran Ivey IG # 0.06 10e3/ul Critically high 0.00-0.03 [facility] Comment on above: Performed By: #### C BC #### [facility] [address] [place] [address] Dr. Kiran Ivey IG % 0.6 % Critically high 0.0-0.5 [facility] Comment on above: Performed By: #### C BC #### [facility] [address] [place] [address] Dr. Kiran Ivey LYMPH # 2.6 103/ul Normal 1.2-3.8 [facility] Comment on above: Performed By: #### C BC #### [facility] [address] [place] [address] Dr. Kiran Ivey Lymphocytes/100 WBC (Bld) 25.0 % Normal 20.5-60.0 [facility] Comment on above: Performed By: #### C BC #### [facility] [address] [place] [address] Dr. Kiran Ivey MANUAL DIFF REQ NO Normal [facility] Comment on above: Performed By: #### C BC #### [facility] [address] [place] [address] Dr. Kiran Ivey MCH (RBC) [Entitic mass] 22.5 pg Critically low 25.9-34.0 [facility] Comment on above: Performed By: #### C BC #### [facility] [address] [address] [address] Kiran Ivey MCHC (RBC) [Mass/Vol] 31.6 g/dL Normal 29.9-35.2 [facility] Comment on above: Performed By: #### C BC #### [facility] [address] [address] [address] Kiran Ivey MCV (RBC) [Entitic vol] 71.2 fL Critically low 80.0-94.0 [facility] Comment on above: Performed By: #### C BC #### [facility] [address] [place] [address] Dr. Kiran Ivey MONO # 0.7 103/ul Normal 0.3-0.8 [facility] Comment on above: Performed By: #### C BC #### [facility] [address] [place] [address] Dr. Kiran Ivey Monocytes/100 WBC (Bld) 6.6 % Normal 1.7-12.0 [facility] Comment on above: Performed By: #### C BC #### [facility] [address] [place] [address] Dr. Kiran Ivey NEUT # 6.7 103/ul Critically high 1.4-6.5 [facility] Comment on above: Performed By: #### C BC #### [facility] [address] [place] [address] Dr. Kiran Ivey Neutrophils/100 WBC (Bld) 64.8 % Normal 43.0-75.0 [facility] Comment on above: Performed By: #### C BC #### [facility] [address] [place] [address] Dr. Kiran Ivey Platelet mean volume (Bld) [Entitic vol] 9.0 fL Critically low 9.5-13.5 [facility] Comment on above: Performed By: #### C BC #### [facility] [address] [place] [address] Dr. Kiran Ivey PLT 338 103/ul Normal 150-450 [facility] Comment on above: Performed By: #### C BC #### [facility] [address] [place] [address] Dr. Kiran Ivey RBC 5.38 106/ul Normal 4.70-6.10 [facility] Comment on above: Performed By: #### C BC #### [facility] [address] [place] [address] Dr. Kiran Ivey WBC 10.3 103/ul Normal 4.0-11.0 [facility] Comment on above: Performed By: #### C BC #### [facility] [address] [place] [address] Dr. Kiran Ivey FREE THYROXINE INDEX T7on FTI 3.04 Normal 1.30-4.50 [facility] Comment on above: Performed By: #### C BC #### [facility] [address] [place] [address] Dr. Kiran Ivey T3U 33.0 % Normal 33.0-40.0 [facility] Comment on above: Performed By: #### C BC #### [facility] [address] [place] [address] Dr. Kiran Ivey T4 [Mass/Vol] 9.20 ug/dL Normal 4.50-12.10 [facility] Comment on above: Performed By: #### C BC #### [facility] [address] [place] [address] Dr. Kiran Ivey IRONon 02-15-2022 Iron [Mass/Vol] 25.0 ug/dL Critically low 65.0-175.0 [facility] Comment on above: Performed By: #### C BC #### [facility] [address] [place] [address] Dr. Kiran Ivey LIPASEon 02-15-2022 Lipase [Catalytic activity/Vol] 90.0 U/L Normal 73.0-393.0 [facility] Comment on above: Performed By: #### C BC #### [facility] [address] [place] [address] Dr. Kiran Ivey PROF 14(COMP METB)on 022 Albumin [Mass/Vol] 3.4 g/dL Normal 3.4-5.0 [facility] Comment on above: Performed By: #### C BC #### [facility] [address] [place] [address] Dr. Kiran Ivey Albumin/Globulin [Mass ratio] 0.8 {ratio} Normal [facility] Comment on above: Performed By: #### C BC #### [facility] [address] [place] [address] Dr. Kiran Ivey ALP [Catalytic activity/Vol] 118 U/L Critically high 46-116 [facility] Comment on above: Performed By: #### C BC #### [facility] [address] [place] [address] Dr. Kiran Ivey ALT [Catalytic activity/Vol] 30 U/L Normal 16-63 [facility] Comment on above: Performed By: #### C BC #### [facility] [address] [place] [address] Dr. Kiran Ivey Anion gap [Moles/Vol] 9.8 mmol/L Normal [facility] Comment on above: Performed By: #### C BC #### [facility] [address] [place] [address] Dr. Kiran Ivey AST [Catalytic activity/Vol] 20 U/L Normal 15-37 [facility] Comment on above: Performed By: #### C BC #### [facility] [address] [place] [address] Dr. Kiran Ivey Bilirubin [Mass/Vol] 0.2 mg/dL Normal 0.2-1.0 [facility] Comment on above: Performed By: #### C BC #### [facility] [address] [place] [address] Dr. Kiran Ivey Calcium [Mass/Vol] 9.5 mg/dL Normal 8.5-10.1 [facility] Comment on above: Performed By: #### C BC #### [facility] [address] [place], [place] [id number] Dr. Kiran Ivey Chloride [Moles/Vol] 99 mmol/L Normal 98-107 [facility] Comment on above: Performed By: #### C BC #### [facility] [address] [place] [address] Dr. Kiran Ivey CO2 [Moles/Vol] 29.1 mmol/L Normal 21.0-32.0 [facility] Comment on above: Performed By: #### C BC #### [facility] [address] [place] [address] Dr. Kiran Ivey Creatinine [Mass/Vol] 0.83 mg/dL Normal 0.70-1.30 [facility] Comment on above: Performed By: #### C BC #### [facility] [address] [place] [address] Dr. Kiran Ivey EGFR-AF ANDORRAN >60 Normal >=60 [facility] Comment on above: Performed By: #### C BC #### [facility] [address] [place] [address] Dr. Kiran Ivey EGFR-NON AF ANDORRAN >60 Normal >=60 [facility] Comment on above: Performed By: #### C BC #### [facility] [address] [place] [address] Dr. Kiran Ivey Globulin (S) [Mass/Vol] 4.1 g/dL Normal [facility] Comment on above: Performed By: #### C BC #### [facility] [address] [place] [address] Dr. Kiran Ivey Glucose [Mass/Vol] 157 mg/dL Critically high 74-106 [facility] Comment on above: Performed By: #### C BC #### [facility] [address] [place] [address] Dr. Kiran Ivey Potassium [Moles/Vol] 3.9 mmol/L Normal 3.5-5.1 [facility] Comment on above: Performed By: #### C BC #### [facility] [address] [place] [address] Dr. Kiran Ivey Protein [Mass/Vol] 7.5 g/dL Normal 6.4-8.2 [facility] Comment on above: Performed By: #### C BC #### [facility] [address] [place] [address] Dr. Kiran Ivey Sodium [Moles/Vol] 134 mmol/L Critically low 136-145 [facility] Comment on above: Performed By: #### C BC #### [facility] [address] [place] [address] Dr. Kiran Ivey Urea nitrogen [Mass/Vol] 13.0 mg/dL Normal 7.0-18.0 [facility] Comment on above: Performed By: #### C BC #### [facility] [address] [place] [address] Dr. Kiran Ivey Urea nitrogen/Creatinin e [Mass ratio] 15.7 mg/mg Normal [facility] Comment on above: Performed By: #### C BC #### [facility] [address] [place] [address] Dr. Kiran Ivey TSHon 02-15-2022 TSH 1.756 uIU/mL Normal 0.358-3.740 [facility] Comment on above: Performed By: #### C BC #### [facility] [address] [place] [address] Dr. Kiran Ivey Covid-19 PCR ([facility])on 12-23 SARS-CoV-2 (COVID-19) RNA JOANNA+probe Ql (Unsp spec) Not detected Normal NOT DETECTED [facility] Comment on above: Result Comment: When diagnostic [...] for this test is supported by the [facility] Director of Health and Human Service's declaration that [...] be used). Performed By: #### C #### [facility] [address] [address] [address] Kiran Ivey ECHOCARDIO M/2D COMPLETEon 0 09-14-2021 ECHOCARDIO M/2D COMPLETE Patient: NONI SOTO. Exam Date: 09/14/2021 : 1975 Gender:M Ordering : DR JADYN WILHELM . Admission #: [id number] Family : Order #: [id number] CLICK HERE TO VIEW EXAM ECHOCARDIOGRAM REPORT [...] Perez M.D. on 09/15/2021 at 13:12 Normal [facility] CREATININEon 09-09-2021 Creatinine [Mass/Vol] 0.95 mg/dL Normal 0.70-1.30 [facility] Comment on above: Performed By: #### C BC #### [facility] [address] [place] [address] Dr. Kiran Ivey EGFR-AF ANDORRAN >60 Normal >=60 [facility] Comment on above: Performed By: #### C BC #### [facility] [address] [place] [address] Dr. Kiran Ivey EGFR-NON AF ANDORRAN >60 Normal >=60 [facility] Comment on above: Performed By: #### C BC #### [facility] [address] [place] [address] Dr. Kiran Ivey CTA CHEST WO W [...] by: IGNACIO FERRARA Date: 2021-09-09 10:05 Normal [facility] US WOODROW DOP LEG BILon 022 US [...] by: IGNACIO FERRARA Date: 2021-09-05 16:26 Normal [facility] POC GLUCOSE LABon 01-09-2019 Glucose [Mass/Vol] 233 mg/dL High 70-100 [facility] Comment on above: Performed By: #### [id number] #### [facility] [address] [place] [address], [facility] Glucose [Mass/Vol] 199 mg/dL High 70-[address] [facility] Comment on above: Performed By: #### [id number] #### [facility] [address] [place] [address], [facility] POC GLUCOSE LABon 01-08-2019 Glucose [Mass/Vol] 251 mg/dL High 70-[address] [facility] Comment on above: Performed By: #### [id number] #### [facility] [address] [place] [address], [facility] Glucose [Mass/Vol] 212 mg/dL High 70-[address] [facility] Comment on above: Performed By: #### [id number] #### [facility] [address] [place] [address], [facility] Glucose [Mass/Vol] 238 mg/dL High 70-[address] [facility] Comment on above: Performed By: #### [id number] #### [facility] [address] [place] [address], [facility] Glucose [Mass/Vol] 160 mg/dL High 70-[address] [facility] Comment on above: Performed By: #### 0 0121 #### [facility] [address] [place] [address], [facility] BASIC METABOLIC PANELon - Calcium [Mass/Vol] 9.3 mg/dL Normal 8.6-10.[address] [facility] Comment on above: Order Comment: Yes: Add to Previous draw if able Performed By: #### 0 0121 #### [facility] [address] [place] [address], [facility] Chloride [Moles/Vol] 100 mmol/L Normal 98-[address] [facility] Comment on above: Order Comment: Yes: Add to Previous draw if able Performed By: #### 0 0121 #### [facility] [address] [address], [facility] CO2 [Moles/Vol] 30 mmol/L Normal 21-[address] [facility] Comment on above: Order Comment: Yes: Add to Previous draw if able Performed By: #### 0 0121 #### [facility] [address] [address] [place] [address], [facility] Creatinine [Mass/Vol] 0.74 mg/dL Normal 0.70-1.[address] [facility] Comment on above: Order Comment: Yes: Add to Previous draw if able Performed By: #### 0 0121 #### [facility] [address] [place] [address], [facility] GFR/1.73 sq M predicted among blacks MDRD (S/P/Bld) [Vol rate/Area] mL/min/{1.73_m2} Normal >[address] [facility] Comment on above: Order Comment: Yes: Add to Previous draw if able Performed By: #### 0 0121 #### [facility] [address] [place] [address], [facility] GFR/1.73 sq M predicted among non-blacks MDRD (S/P/Bld) [Vol rate/Area] mL/min/{1.73_m2} Normal >[address] [facility] Comment on above: Order Comment: Yes: Add to Previous draw if able Performed By: #### 0 0121 #### [facility] [address] [place] [address], [place] Glucose [Mass/Vol] 176 mg/dL High 70-[address] [facility] Comment on above: Order Comment: Yes: Add to Previous draw if able Performed By: #### 0 0121 #### [facility] [address] [place] [address], [facility] Potassium [Moles/Vol] 3.6 mmol/L Normal 3.5-5.[address] [facility] Comment on above: Order Comment: Yes: Add to Previous draw if able Performed By: #### 0 0121 #### [facility] [address] [place] [address], [facility] Sodium [Moles/Vol] 137 mmol/L Normal 136-[address] [facility] Comment on above: Order Comment: Yes: Add to Previous draw if able Performed By: #### 0 0121 #### [facility] [address] [place] [address], [facility] Urea nitrogen [Mass/Vol] 15 mg/dL Normal 7-25 The [facility] Comment on above: Order Comment: Yes: Add to Previous draw if able Performed By: #### 0 0121 #### [facility] [address] [place] [address], [facility] CBC COMPLETE BLOOD COUNTon 0 - Erythrocyte distribution width (RBC) [Ratio] 12.7 % Normal 11.5-15.[address] [facility] Comment on above: Order Comment: Yes: Add to Previous draw if able Performed By: #### 0 0121 #### [facility] [address] [place] [address], [facility] Hematocrit (Bld) [Volume fraction] 35.4 % Low 39.0-50.[address] [facility] Comment on above: Order Comment: Yes: Add to Previous draw if able Performed By: #### 0 0121 #### [facility] [address] [place] [id number], [facility] Hemoglobin (Bld) [Mass/Vol] 11.8 g/dL Low 13.0-17.[address] [facility] Comment on above: Order Comment: Yes: Add to Previous draw if able Performed By: #### 0 0121 #### [facility] [address] [place] [address], [facility] MCH (RBC) [Entitic mass] 26.1 pg Low 27.0-33.[address] [facility] Comment on above: Order Comment: Yes: Add to Previous draw if able Performed By: #### 0 0121 #### [facility] [address] [place] [address], [facility] MCHC (RBC) [Mass/Vol] 33.3 g/dL Normal 32.0-35.[address] [facility] Comment on above: Order Comment: Yes: Add to Previous draw if able Performed By: #### 0 0121 #### [facility] [address] [place] [id number], [facility] MCV (RBC) [Entitic vol] 78.3 fL Low 82.0-98.[address] [facility] Comment on above: Order Comment: Yes: Add to Previous draw if able Performed By: #### 0 0121 #### [facility] [address] [place] [address], [facility] Nucleated RBC/100 WBC (Bld) [Ratio] 0 % Normal 0-[address] [facility] Comment on above: Order Comment: Yes: Add to Previous draw if able Performed By: #### 0 0121 #### [facility] [address] [place] [address], [facility] PLAT CNT 411 10*3/uL High 150-[address] [facility] Comment on above: Order Comment: Yes: Add to Previous draw if able Performed By: #### 0 0121 #### [facility] [address] [place] [id number], [facility] RBC (Bld) [#/Vol] 4.52 10*6/uL Normal 4.20-5.[address] [facility] Comment on above: Order Comment: Yes: Add to Previous draw if able Performed By: #### 0 0121 #### [facility] [address] [place] [address], [facility] WBC (Bld) [#/Vol] 7.62 10*3/uL Normal 4.00-10.[address] [facility] Comment on above: Order Comment: Yes: Add to Previous draw if able Performed By: #### 0 0121 #### [facility] [address] [place] [address], [facility] HEMOGLOBIN A1Con 01-07-2019 HbA1c (Bld) [Mass fraction] 338 mg/dL High 70-[address] [facility] Comment on above: Order Comment: Yes: Add to Previous draw if able Performed By: #### 8 [id number] #### [facility] [address] [place] [address], [facility] HbA1c (Bld) [Mass fraction] 13.4 % High 4.0-6.[address] [facility] Comment on above: Order Comment: Yes: Add to Previous draw if able Performed By: #### 8 5499 #### [facility] [address] [place] [id number], [facility] POC GLUCOSE LABon 01-07-2019 Glucose [Mass/Vol] 317 mg/dL High 70-[address] [facility] Comment on above: Performed By: #### 0 0121 #### [facility] [address] [place] [address], [place] Glucose [Mass/Vol] 142 mg/dL High 70-[address] [facility] Comment on above: Performed By: #### 0 0121 #### [facility] [address] [place] [address], [place] Glucose [Mass/Vol] 190 mg/dL High 70-[address] [facility] Comment on above: Performed By: #### 0 0121 #### [facility] [address] [place] [address], [place] VANCOMYCIN TROUGHon 01-08-20 19 VANCOMYCIN TROU 11.5 mcg/mL Normal 5.0-20.[address] [facility] Comment on above: Performed By: #### 0 0121 #### [facility] [address] [place] [address], [place] BASIC METABOLIC PANELon 12-22 Calcium [Mass/Vol] 9.1 mg/dL Normal 8.6-10.[address] [facility] Comment on above: Order Comment: No: D o not add to previous draw Performed By: #### 1 69, 10657, 01130 #### [facility] [address] [place] [address], [place] Chloride [Moles/Vol] 100 mmol/L Normal 98-[address] [facility] Comment on above: Order Comment: No: D o not add to previous draw Performed By: #### 1 69, 13765, 43979 #### [facility] [address] [place] [address], [place] CO2 [Moles/Vol] 29 mmol/L Normal 21-[address] [facility] Comment on above: Order Comment: No: D o not add to previous draw Performed By: #### 1 0, 46670, 93858 #### [facility] [address] [place] [address], [place] Creatinine [Mass/Vol] 0.57 mg/dL Low 0.70-1.[address] [facility] Comment on above: Order Comment: No: D o not add to previous draw Performed By: #### 1 0070, 01171, 42762 #### [facility] [address] [place] [address], [place] GFR/1.73 sq M predicted among blacks MDRD (S/P/Bld) [Vol rate/Area] mL/min/{1.73_m2} Normal >[address] [facility] Comment on above: Order Comment: No: D o not add to previous draw Performed By: #### 1 0, 26822, 26526 #### [facility] [address] [place] [address], [place] GFR/1.73 sq M predicted among non-blacks MDRD (S/P/Bld) [Vol rate/Area] mL/min/{1.73_m2} Normal >[address] [facility] Comment on above: Order Comment: No: D o not add to previous draw Performed By: #### 1 0, 73876, 77732 #### [facility] [address] [place] [address], [place] Glucose [Mass/Vol] 157 mg/dL High 70-[address] [facility] Comment on above: Order Comment: No: D o not add to previous draw Performed By: #### 1 0, 23577, 17111 #### [facility] [address] [place] [address], [place] Potassium [Moles/Vol] 3.5 mmol/L Normal 3.5-5.[address] [facility] Comment on above: Order Comment: No: D o not add to previous draw Performed By: #### 1 0, 25672, 36758 #### [facility] [address] [place] [address], [place] Sodium [Moles/Vol] 135 mmol/L Low 136-[address] [facility] Comment on above: Order Comment: No: D o not add to previous draw Performed By: #### 1 0, 65395, 15993 #### [facility] [address] [facility]. [address] Urea nitrogen [Mass/Vol] 7 mg/dL Normal 7-[address] [facility] Comment on above: Order Comment: No: D o not add to previous draw Performed By: #### 1 0070, 48623, 65946 #### [facility] [address] [place] [address], [facility] CBC W/DIFFon 01-06-2019 ABS BASOPHILS 0.1 10*3/uL Normal 0.0-0.[address] [facility] Comment on above: Order Comment: No: D o not add to previous draw Performed By: #### 5 0103 #### [facility] [address] ABS IMM GRANS 0.1 10*3/uL Normal 0.0-0.[address] [facility] Comment on above: Order Comment: No: D o not add to previous draw Performed By: #### 5 0103 #### [facility] [address] [facility]. [address] ABS NEUTROPHILS 4.5 10*3/uL Normal 1.6-7.[address] [facility] Comment on above: Order Comment: No: D o not add to previous draw Performed By: #### 5 0103 #### [facility] [address] [facility]. [address] Basophils/100 WBC (Bld) 0.7 % Normal 0.0-1.[address] [facility] Comment on above: Order Comment: No: D o not add to previous draw Performed By: #### 5 0103 #### [facility] [address] [place] [address], [facility] Eosinophils (Bld) [#/Vol] 0.3 10*3/uL Normal 0.0-0.[address] [facility] Comment on above: Order Comment: No: D o not add to previous draw Performed By: #### 5 0103 #### [facility] [address] [place] [address], [facility] Eosinophils/100 WBC (Bld) 3.4 % Normal 0.0-6.[address] [facility] Comment on above: Order Comment: No: D o not add to previous draw Performed By: #### 5 0103 #### [facility] [address] [place] [address], [facility] Erythrocyte distribution width (RBC) [Ratio] 12.7 % Normal 11.5-15.[address] [facility] Comment on above: Order Comment: No: D o not add to previous draw Performed By: #### 5 0103 #### [facility] [address] [place] [address], [facility] Hematocrit (Bld) [Volume fraction] 35.1 % Low 39.0-50.[address] [facility] Comment on above: Order Comment: No: D o not add to previous draw Performed By: #### 5 0103 #### [facility] [address] [place] [address], [facility] Hemoglobin (Bld) [Mass/Vol] 11.9 g/dL Low 13.0-17.[address] [facility] Comment on above: Order Comment: No: D o not add to previous draw Performed By: #### 5 0103 #### [facility] [address] [facility] [place] [address], [facility] IMMATURE GRANS 0.6 % Normal 0.0-1.[address] [facility] Comment on above: Order Comment: No: D o not add to previous draw Performed By: #### 5 0103 #### [facility] [address] [place] [address], [facility] Lymphocytes (Bld) [#/Vol] 3.0 10*3/uL Normal 1.2-4.[address] [facility] Comment on above: Order Comment: No: D o not add to previous draw Performed By: #### 5 0103 #### [facility] [address] [place] [address], [facility] Lymphocytes/100 WBC (Bld) 34.7 % Normal 20.0-45.[address] [facility] Comment on above: Order Comment: No: D o not add to previous draw Performed By: #### 5 0103 #### [facility] [address] [place] [address], [facility] MCH (RBC) [Entitic mass] 26.6 pg Low 27.0-33.[address] [facility] Comment on above: Order Comment: No: D o not add to previous draw Performed By: #### 5 0103 #### [facility] [address] MCHC (RBC) [Mass/Vol] 33.9 g/dL Normal 32.0-35.[address] [facility] Comment on above: Order Comment: No: D o not add to previous draw Performed By: #### 5 0103 #### [facility] [address] [place] [address], [facility] MCV (RBC) [Entitic vol] 78.5 fL Low 82.0-98.[address] [facility] Comment on above: Order Comment: No: D o not add to previous draw Performed By: #### 5 102 #### [facility] [address] [place] [address], [facility] Monocytes (Bld) [#/Vol] 0.7 10*3/uL Normal 0.1-1.[address] [facility] Comment on above: Order Comment: No: D o not add to previous draw Performed By: #### 5 3 #### [facility] [address] [place] [address], [facility] MONOS 8.1 % Normal 5.0-12.[address] [facility] Comment on above: Order Comment: No: D o not add to previous draw Performed By: #### 5 3 #### [facility] [address] [place] [address], [facility] Neutrophils/100 WBC (Bld) 52.5 % Normal 40.0-72.[address] [facility] Comment on above: Order Comment: No: D o not add to previous draw Performed By: #### 5 0103 #### [facility] [address] [place] [address], [facility] Nucleated RBC/100 WBC (Bld) [Ratio] 0 % Normal 0-[address] [facility] Comment on above: Order Comment: No: D o not add to previous draw Performed By: #### 5 0103 #### [facility] [address] [facility] [place] [id number], [facility] PLAT CNT 445 10*3/uL High 150-[address] [facility] Comment on above: Order Comment: No: D o not add to previous draw Performed By: #### 5 0103 #### [facility] [address] [facility] [place] [id number], [facility] RBC (Bld) [#/Vol] 4.47 10*6/uL Normal 4.20-5.[address] [facility] Comment on above: Order Comment: No: D o not add to previous draw Performed By: #### 5 0103 #### [facility] [address] [facility] [place] [address], [place] WBC (Bld) [#/Vol] 8.51 10*3/uL Normal 4.00-10.[address] [facility] Comment on above: Order Comment: No: D o not add to previous draw Performed By: #### 5 0103 #### [facility] [address] [place] [address], [facility] MAGNESIUM BLOODon 01-06-2019 Magnesium [Mass/Vol] 1.5 mg/dL Low 1.9-2.[address] [facility] Comment on above: Order Comment: No: D o not add to previous draw Performed By: #### 1 0070, 87783, 47756 #### [facility] [address] [place] [address], [place] PHOSPHORUS BLOODon 9 Phosphate [Mass/Vol] 3.0 mg/dL Normal 2.5-5.[address] [facility] Comment on above: Order Comment: No: D o not add to previous draw Performed By: #### 1 0070, 37638, 65260 #### [facility] [address] [place] [address], [place] POC GLUCOSE LABon 01-06-2019 Glucose [Mass/Vol] 293 mg/dL High 70-[address] [facility] Comment on above: Performed By: #### 0 0121 #### [facility] [address] [place] [address], [place] Glucose [Mass/Vol] 317 mg/dL High 70-[address] [facility] Comment on above: Performed By: #### 0 0121 #### [facility] [address] [place] [address], [place] Glucose [Mass/Vol] 264 mg/dL High 70-[address] [facility] Comment on above: Performed By: #### 0 0121 #### [facility] [address] [place] [address], [place] Glucose [Mass/Vol] 104 mg/dL High 70-[address] [facility] Comment on above: Performed By: #### 8 5499 #### [facility] [address] [place] [address], [place] Glucose [Mass/Vol] 236 mg/dL High 70-[address] [facility] Comment on above: Performed By: #### 8 5499 #### [facility] [address] [place] [address], [place] Glucose [Mass/Vol] 247 mg/dL High 70-[address] [facility] Comment on above: Performed By: #### 8 5499 #### [facility] [address] CBC W/DIFFon 01-05-2019 ABS BASOPHILS 0.1 10*3/uL Normal 0.0-0.[address] [facility] Comment on above: Performed By: #### 5 0103 #### [facility] [address] [facility]. [address] ABS IMM GRANS 0.1 10*3/uL Normal 0.0-0.[address] [facility] Comment on above: Performed By: #### 5 0103 #### [facility] [address] ABS NEUTROPHILS 5.9 10*3/uL Normal 1.6-7.[address] [facility] Comment on above: Performed By: #### 5 0103 #### [facility] [address] Basophils/100 WBC (Bld) 0.5 % Normal 0.0-1.[address] [facility] Comment on above: Performed By: #### 5 0103 #### [facility] [address] Eosinophils (Bld) [#/Vol] 0.4 10*3/uL Normal 0.0-0.[address] [facility] Comment on above: Performed By: #### 5 0103 #### [facility] [address] [place] [address], [facility] Eosinophils/100 WBC (Bld) 3.8 % Normal 0.0-6.[address] [facility] Comment on above: Performed By: #### 5 0103 #### [facility] [address] Erythrocyte distribution width (RBC) [Ratio] 12.8 % Normal 11.5-15.[address] [facility] Comment on above: Performed By: #### 5 0103 #### [facility] [address] [place] [address], [facility] Hematocrit (Bld) [Volume fraction] 42.5 % Normal 39.0-50.[address] [facility] Comment on above: Performed By: #### 5 0103 #### [facility] [address] [place] [address], [facility] Hemoglobin (Bld) [Mass/Vol] 14.2 g/dL Normal 13.0-17.[address] [facility] Comment on above: Performed By: #### 5 0103 #### [facility] [address] [place] [address], [facility] IMMATURE GRANS 0.7 % Normal 0.0-1.[address] [facility] Comment on above: Performed By: #### 5 0103 #### [facility] [address] [facility]. [address] Lymphocytes (Bld) [#/Vol] 2.9 10*3/uL Normal 1.2-4.[address] [facility] Comment on above: Performed By: #### 5 0103 #### [facility] [address] [place] [address], [facility] Lymphocytes/100 WBC (Bld) 28.8 % Normal 20.0-45.[address] [facility] Comment on above: Performed By: #### 5 3 #### [facility] [address] [facility] [address] MCH (RBC) [Entitic mass] 25.8 pg Low 27.0-33.[address] [facility] Comment on above: Performed By: #### 5 0103 #### [facility] [address] [facility] [place] [address], [facility] MCHC (RBC) [Mass/Vol] 33.4 g/dL Normal 32.0-35.[address] [facility] Comment on above: Performed By: #### 5 3 #### [facility] [address] [facility] [place] [place] [address] MCV (RBC) [Entitic vol] 77.3 fL Low 82.0-98.[address] [facility] Comment on above: Performed By: #### 5 0103 #### [facility] [address] [place] [address], [facility] Monocytes (Bld) [#/Vol] 0.8 10*3/uL Normal 0.1-1.[address] [facility] Comment on above: Performed By: #### 5 0103 #### [facility] [address] [place] [address], [facility] MONOS 8.1 % Normal 5.0-12.[address] [facility] Comment on above: Performed By: #### 5 3 #### [facility] [address] [place] [address], [facility] Neutrophils/100 WBC (Bld) 58.1 % Normal 40.0-72.[address] [facility] Comment on above: Performed By: #### 3 #### [facility] [address] [place] [address], [facility] Nucleated RBC/100 WBC (Bld) [Ratio] 0 % Normal 0-[address] [facility] Comment on above: Performed By: #### 5 3 #### [facility] [address] [place] [address], [facility] PLAT CNT 524 10*3/uL High 150-[address] [facility] Comment on above: Performed By: #### 5 3 #### [facility] [address] [place] [address], [facility] RBC (Bld) [#/Vol] 5.50 10*6/uL Normal 4.20-5.[address] [facility] Comment on above: Performed By: #### 102 #### [facility] [address] [place] [id number], [facility] WBC (Bld) [#/Vol] 10.19 10*3/uL Normal 4.00-10.[address] [facility] Comment on above: Performed By: #### 5 0103 #### [facility] [address] COMP METABOLIC PANELon 01-05 Albumin [Mass/Vol] 4.3 g/dL Normal 3.5-5.[address] [facility] Comment on above: Performed By: #### 0 0121 #### [facility] [address] [facility]. [address] ALKALINE PHOSPH 115 IU/L High 34-[address] [facility] Comment on above: Performed By: #### 0 0121 #### [facility] [address] [facility]. [address] ALT [Catalytic activity/Vol] 14 U/L Normal 7-[address] [facility] Comment on above: Performed By: #### 0 0121 #### [facility] [address] AST [Catalytic activity/Vol] 16 U/L Normal 13-[address] [facility] Comment on above: Performed By: #### 0 0121 #### [facility] [address] Bilirubin [Mass/Vol] 0.4 mg/dL Normal 0.3-1.[address] [facility] Comment on above: Performed By: #### 0 0121 #### [facility] [address] Calcium [Mass/Vol] 10.2 mg/dL Normal 8.6-10.[address] [facility] Comment on above: Performed By: #### 0 0121 #### [facility] [address] [place] [address], [facility] Chloride [Moles/Vol] 92 mmol/L Low 98-[address] [facility] Comment on above: Performed By: #### 0 0121 #### [facility] [address] [place] [address], [place] CO2 [Moles/Vol] 32 mmol/L High 21-[address] [facility] Comment on above: Performed By: #### 0 0121 #### [facility] [address] [place] [address], [place] Creatinine [Mass/Vol] 0.74 mg/dL Normal 0.70-1.[address] [facility] Comment on above: Performed By: #### 0 0121 #### [facility] [address] [place] [address], [place] GFR/1.73 sq M predicted among blacks MDRD (S/P/Bld) [Vol rate/Area] mL/min/{1.73_m2} Normal >[address] [facility] Comment on above: Performed By: #### 0 0121 #### [facility] [address] [place] [address], [place] GFR/1.73 sq M predicted among non-blacks MDRD (S/P/Bld) [Vol rate/Area] mL/min/{1.73_m2} Normal >[address] [facility] Comment on above: Performed By: #### 0 0121 #### [facility] [address] [place] [address], [place] Glucose [Mass/Vol] 320 mg/dL High 70-[address] [facility] Comment on above: Performed By: #### 0 0121 #### [facility] [address] [place] [address], [place] Potassium [Moles/Vol] 4.2 mmol/L Normal 3.5-5.[address] [facility] Comment on above: Performed By: #### 0 0121 #### [facility] [address] [place] [address], [place] Protein [Mass/Vol] 8.6 g/dL High 6.0-8.[address] [facility] Comment on above: Performed By: #### 0 0121 #### [facility] [address] [place] [address], [facility] Sodium [Moles/Vol] 133 mmol/L Low 136-[address] [facility] Comment on above: Performed By: #### 0 0121 #### [facility] [address] [facility] [place] [address], [facility] Urea nitrogen [Mass/Vol] 9 mg/dL Normal 7-[address] [facility] Comment on above: Performed By: #### 0 0121 #### [facility] [address] [place] [address], [facility] CT SOFT TISSUE NECK W CONTRA STon 01-05-2019 CT SOFT TISSUE NECK W [facility] Department of Radiology [address] [place] [address] [id number] Patient Name: NONI SOTO : 1975 Sex: M Age: Race: White Pt. Location: [facility] Patient Status: I Ordered Date: 01/05/2019 [...] findings. Electronically signed by:Mamta Garcia. Transcribed by: [id number], User Resident: ANTONELLA WHITFIELD Electronically Signed by: MAMTA GARCIA @ 01/06/2019 09:55 AM I personally read this/these film(s) with this resident Normal [facility] Vital Signs Date Time Vital Sign Value Performing Clinician Ynes méndez 03-13-2022 13:08-0500 Blood Pressure Location [employer] [facility] 03-13-2022 13:08-0500 Diastolic blood pressure 97 mm[Hg] Naye NILL [facility] 03-13-2022 13:08-0500 Heart rate 89 /min Naye NILL [facility] 03-13-2022 13:08-0500 Respiratory rate 16 /min [employer] [facility] 03-13-2022 13:08-0500 Systolic blood pressure 160 mm[Hg] Naye NILL [facility] Encounters Encounter Date Encounter Type Care Provider Facility Start: 10-07-2024 ambulatory Royal Eugene MD Fa cility:[facility] Start: 09-08-2024 End: 09-08-2024 Emergency department patient visit [facility] Start: 08-25-2024 End: 08-25-2024 ambulatory Hawk Ryan MD Facility:[facility] Start: 08-09-2024 End: 08-09-2024 Emergency department patient visit [facility] Start: 08-03-2024 ambulatory [facility] Start: 07-28-2024 End: 07-28-2024 ambulatory Hawk Ryan MD Facility:[facility] Start: 08-10-2022 End: 08-11-2022 ambulatory LUCIO NEVAREZ Facility:[facility] Start: 06-12-2022 End: 06-13-[address] JADYN WILHELM . Facility:[facility] Start: 05-02-2022 End: 05-03-2022 ambulatory Naye STILL Facility:[facility] Start: 04-26-2022 ambulatory aNye STILL Facility:[facility] Start: 04-21-2022 Encounter for preprocedural laboratory examination DR NAYE STILL . [facility] Start: 04-19-2022 End: 04-20-[address] NAYE STILL . Facility:[facility] Start: 04-17-2022 End: [address] NAYE STILL . Facility:[facility] Start: 04-17-2022 End: 2022 Encounter for preprocedural laboratory examination DR NAYE STILL . Facility:[facility] Start: 03-13-2022 End: 03-14-2022 ambulatory Naye STILL Facility:[facility] Start: 03-13-2022 End: 03-13-2022 Patient encounter procedure Naye STILL [facility] Start: 03-09-2022 End: 03-09-2022 ambulatory CAROLINE LALA Facility:[facility] Start: 02-27-2022 End: 02-27-2022 ambulatory SONA ISBELL . Facility:[facility] Start: 02-15-2022 ambulatory Naye STILL Facility:[facility] Start: 02-15-2022 End: 02-16-[address] JADYN [...] Evaluation and management of inpatient VIVIAN LESTER Facility:[facility] Procedures Date Procedure Procedure Detail Performing Clinician Appendectomy Naye CAMI Cholecystectomy Naye CAMI Reconstruction of mandible Sade FLEMINGKelly Renal artery stent ( physical object) Naye FLEMINGKelly Payers Date Payer Category Payer Unknown 1975 Unknown [id number] 2.16.8 40.1.387042.3.579.2.647 1975 Unknown [id number] 2.16.84 0.1.625711.3.579.2.593 1975 Unknown [id number] 2.16.84 0.1.799378.3.579.2.593 1975 Unknown [id number] 2.16.84 0.1.403580.3.579.2.593 1975 Unknown [id number] 2.16.84 0.1.413644.3.579.2.593 1975 Unknown [id number] 2.16.84 0.1.138790.3.579.2.593 1975 Unknown [id number] 2.16.84 0.1.908500.3.579.2.593 1975 Unknown [id number] 2.16.84 0.1.146323.3.579.2.593 1975 Unknown [id number] 2.16.84 0.1.912258.3.579.2.593 1975 Unknown [id number] 2.16.84 0.1.670781.3.579.2.593 1975 Unknown [id number] 2.16.84 0.1.560271.3.579.2.593 1975 Unknown [id number] 2.16.84 0.1.293941.3.579.2.593 1975 Unknown [id number] 2.16.84 0.1.061266.3.579.2.593 1975 Unknown [id number] 2.16.84 0.1.762676.3.579.2.593 1975 Unknown [id number] 2.16.84 0.1.381205.3.579.2.593 1975 Unknown [id number] 2.16.84 0.1.768503.3.579.2.593 1975 Unknown [id number] 2.16.8 40.1.762973.3.579.2.727 1975 Unknown [id number] 2.16.8 40.1.021810.3.579.2.727 1975 Unknown [id number] 2.16.8 40.1.173408.3.579.2.727 1975 Unknown [id number] 2.16.8 40.1.722994.3.579.2.727 1975 Unknown [id number] 2.16. 840.1.793260.3.579.2.1286 1975 Unknown [id number] 2.16. 840.1.093847.3.579.2.1286 1975 Unknown [id number] 2.16. 840.1.794596.3.579.2.1286 1975 Unknown [id number] 2.16. 840.1.613553.3.579.2.1286 1975 Unknown [id number] 2.16. 840.1.811391.3.579.2.196 1975 Unknown [id number] 2.16. 840.1.556582.3.579.2.196 1975 Unknown [id number] 2.16. 840.1.248257.3.579.2.196 1959 Unknown [id number] Social History Date Type Detail Facility Start: 03-13-2022 Tobacco smoking status Never s moked tobacco (finding) [facility] [place] Tobacco smoking status Smokeless tobacco user within last 30 days [facility] Sex Assigned At Male [facility] Functional Status Date Assessment Result Facility 03-13-2022 Functional Status N/A [facility] [place] Clinical Note 04-19-2022 Note Date & Type [...] good condition. CC: Jadyn Wilhelm M.D. [facility] Clinical Note 03-13-2022 Note Date & [...] injectable solution huang (more content not included)... [facility] Comment on above: Result Comment: Elec tronically Signed By: CAMI HUNT, Naye Bell\Date and Time Signed: 03/13/22 13:38 EST Evaluation + Plan note Note Date & Type Note Facility Evaluation + Plan note No data available for this section [facility] Discharge instructions Note Date & Type Note Facility Hospital Discharge instructions No data available for this section [facility] [place] Progress note Note Date & Type Note Facility Progress note No data available for this section [facility] [place] Summary Purpose Family History No Family History Records FoundNo Family History Records FoundNo Family History Records FoundNo Family History Records FoundNo Family History Records FoundNo Family History Records Found Advance Directives No Advanced Directives Records FoundNo Advanced Directives Records FoundNo Advanced Directives Records FoundNo Advanced Directives Records FoundNo Advanced Directives Records FoundNo Advanced Directives Records Found Hospital Course Note MR#: [id number] I [facility] Pt. Name: Noni Soto Admitted: 01/06/2019 [...] and content) DATE CREATED AUTHOR 01/27/2019 [facility] DATE CREATED AUTHOR AUTHOR'S ORGANIZ ATION 08/14/2022 [facility] DATE CREATED AUTHOR AUTHOR'S ORGANIZ ATION 12/08/2022 [facility] DATE CREATED AUTHOR AUTHOR'S ORGANIZ ATION 08/04/2024 [facility] DATE CREATED AUTHOR AUTHOR'S ORGANIZ ATION 09/21/2024 [facility] DATE CREATED AUTHOR AUTHOR'S ORGANIZ ATION 10/15/2024 [facility] Patient Care team informatio n (unrecognized section and content) Personnel Name: Jadyn Wilhelm MD Address: Address: [address] [place] [address] FOR RECORDS PERTAINING TO PATIENTS WHO ARE [...] BE BASED ON THE PRIMARY CLINICAL RECORDS. [facility] provides no warranty or guarantee of the accuracy or completeness of information in this document.
[2025-01-06 08:04] VITALS: BP 125/78; PULSE 58; TEMP 36.4; O2SAT 100; BMI 36.0
--- OUTSIDE RECORDS SUMMARY | 2025-01-06 08:04 | XMS_ITS | Patient Health Record ---
Author Organization [facility] Address [address] [place] [address] Care Team Providers Care Uke Driver Name Role Phone [facility] Forrest[facility] Royal Unavailable [phone] Cesar Wilhelm Unavailable Unavailable Simon Bello Unavailable [phone] Allergies Allergen (clinical drug ingredient) Drug/Non Drug Allergy documented on EMR Reaction Allergy Type Onset Date Status compazine (uncoded) severe muscle cramps Allergy Active Results Component Value Reference Range Notes Surgery Scheduling (Not yet reviewed by provider) Interpretation: Performing Lab: Notes/Report: Primary Insurance Company: MEDICAID [place] Surgeon/Assist: ST FORRESTER/IGNACIO OR SIMON Surgery Location: [facility] Surgery Date & Time: 11/11/24 @ 1:30PM Hosp arrival time day of: 11:30AM Surgery End Time: 3:30PM Procedure: L4-S1 DECOMPRESSION AND FUSION, L4-S1 TLIF Special Equipment: SSEP, PRONE, DARRION TABLE, SURGALIGN Diagnosis: M51.360 DDD LUMBAR Admission Type: INPATIENT Anesthesia Type/CPNB: GENERAL Post-op Appointment Date: 01/02/25 @ 10:50AM JAGDISH Lab Location: [place] Lab Date/Time: [facility] Hand Drawer In: PATRICIA Leach Physician: MEGHANA Leach Appt Date/T 10/30/24 @ 1:15PM History & Physical Appointme nt Date/: 10/31/24 @ 11:20AM Reason For Referral Reason PENDING OUTPATIENT..............................11/11/24............................NELSY FINNEY L4-S1 DECOMPRESSION AND FUSION, L4-S1 TLIF 47129, 34111, 51592, 07937, 43465, 57740 x2, 04718 Diagnos is 1 Degeneration of intervertebral disc of l umbar region with discogenic back pain (M51.360) Referra l [facility] Referri ng Provide r First Name Royal Referri ng Provide r Last Name [facility] Forrester Referri jose miguel Provide r Special ity Orthopedic Surgery Referre d [facility]- Referre d Address [address] [place], [place],[address] [facility], Procedu re 1 Arthrodesis, PLIF w/ PSF including zak ectomy and/or discectomy, sufficient to prepare interspace (other than for decompression), single interspace and segment; lumbar (04070) Procedu re 2 Each additional interspace and segment ( 57547) Procedu re 3 CATALAN FACETC/FRMT ARTHRD LUM 1 (21190) Procedu re 4 CATALAN FACTC/FRMT ARTHRD LUM EA (29439) Procedu re 5 Posterior segmental instrumentation, 3 t o 6 segments (17521) Procedu re 6 INSJ BIOMECHANICAL DEVICE (44198) Procedu re 7 Autograft for spine surgery only; local obtained from same incision (14637) General Notes Patricia Burnett 10/07/2024 02:34:00 PM >, Sasha Christian 10/14/2024 11:17:44 AM > AUTHORIZATION REQUEST SUBMITTED OUTPATIENT VIA [facility], TRACKING # [id number], Patricia Burnett 10/14/2024 02:51:28 PM >PATIENT CANCELLED [...] Problem Status W/U Status Risk Notes Problem 52635068 Lumbar stenosis with neurogenic claudication (M48.062) Active confirmed Problem 108381530 Neuroforaminal stenosis of lumbar spine (M48.061) Active confirmed Procedures Procedure Date Ordered Date Performed Result Body Sit e EKG 10/14/2024 N/A Encounters Encounter Location Date Provider Diagnosis [facility] Office [address] [place] [address] [place] [address] 08/22/2024 Simon Bello Degeneration of intervertebral disc of lumbar region with discogenic back pain M51.360 [facility] [address] [place] [address] 10/14/2024 Royal Eugene Degeneration of intervertebral disc [...] tear, nerve root injury, paralysis, nonunion, DVT/PE, MO, stroke etc. Patient has tried and failed [...] Name Order Date Chest 2 views - 46137 10/14/2024 Lumbar spine, 4v flex ext - 83960 2024 CBC 10/14/2024 HGB A1C 10/14/2024 PT/PTT 10/14/2024 BMP 10/14/2024 Surgery Scheduling 10/07/2024 MRSA (Bilateral Nares) PCR 10/14/2024 EKG 10/14/2024 Insurance Providers Payer Name Payer Address Payer Phone Subscriber Number Group Number Insured Name Patient Relationship to Insured Coverage Start Date Coverage End Date Medicaid [employer] [place] [address] [place] [address] [id number] NONI SOTO Self - patient is the insured Medical (General) History Medical History History ICD Code High Blood Pressure Kidney stones Diabetes Anxiety Depression Drug Allergies
--- NOTE | 2025-01-06 08:07 | CT_ITS ---
The [address] [address] Patient Name: NONI SOTO MRN: [id number] date: 1975 Sex: M Assigned Patient Location: ER Current Patient Location: ER Accession/Order Number: [id number] Exam Date: 01/06/2025 08:35 Report Date: 01/06/2025 09:49 At the request of: PETE BURTON MD Procedure: CT abdomen pelvis wo con CT ABDOMEN AND PELVIS WITHOUT INTRAVENOUS CONTRAST: CLINICAL HISTORY: LLQ pain hx of kidney stone COMPARISON: None TECHNIQUE: Spiral images were obtained through the abdomen and pelvis without intravenous contrast. This CT exam was performed using one or more following dose reduction techniques: Automated exposure control, adjustment of the mA and/or kV according to patient size, or use of iterative reconstruction technique. FINDINGS: Lung Bases: [Minor hypoventilatory changes.] Organs:Mild left-sided hydroureter and trace left hydronephrosis caused by a 1 cm calculus left ureteral vesicle junction.[. No additional nephrolithiasis or ureteral calculi identified. Otherwise gallbladder absent. Liver, spleen, adrenals and pancreas unremarkable. GI: Moderate stool burden. Appendectomy. Colonic diverticulosis.[ Pelvis:[Mild bladder wall thickening posterior to under distention. Prostate unremarkable] Peritoneum/Retroperitoneum:No free air or free fluid. Mild aortic plaque Abd wall/Bones: [. Multilevel degenerative changes of the lumbar spine.[ CT/CT abdomen pelvis wo con IMPRESSION: Mild left-sided hydroureter caused by a 1 cm ureteral vesicle junction calculus. Impression dictated by: Lionel Perry M.D. 01/06/2025 9:49 AM Dictation Location: [place] [address] Electronically authenticated by: [id number] Y Date: 01/06/2025 09:49
[2025-01-06 08:08] VITALS: O2SAT 100
--- NOTE | 2025-01-06 08:12 | ED.ABDPAIN1 ---
HPI - Abdominal Pain General Chief Complaint: Abdominal Pain Stated Complaint: flank pain Time Seen by Provider: 01/06/25 08:06 Source: patient Mode of arrival: walk-in Limitations: no limitations History of Present Illness HPI narrative: The patient have a history of kidney stones coming to the ER with a left lower quadrant pain that started this morning severe 10 out of 10 associated with nausea and vomiting Pain is radiating to his back No changes in bowel movement No fever no chills no burning with urination Related Data Home Medications ?Medication ?Instructions ?Recorded ?Confirmed aripiprazole 2 mg tablet 2 mg PO BEDTIME 06/28/24 10/30/24 atorvastatin 40 mg tablet 40 mg PO BEDTIME 06/28/24 10/30/24 citalopram 20 mg tablet 20 mg PO BEDTIME 06/28/24 10/30/24 clonidine HCl 0.2 mg tablet 0.2 mg PO Q8H 06/28/24 10/30/24 insulin glargine 100 unit/mL (3 60 unit subcut BID 06/28/24 10/30/24 mL) subcutaneous pen (Lantus Solostar U-100 Insulin) insulin glulisine U-100 100 15 unit subcut QID 06/28/24 10/30/24 unit/mL subcutaneous pen (Apidra SoloStar U-100 Insulin) lisinopril 40 mg tablet 40 mg PO DAILY 06/28/24 10/30/24 pantoprazole 40 mg tablet,delayed 40 mg PO DAILY 06/28/24 10/30/24 release pregabalin 300 mg capsule 300 mg PO TID 06/28/24 10/30/24 trazodone 100 mg tablet 100 mg PO DAILY 06/28/24 10/30/24 Previous Rx's ?Medication ?Instructions ?Recorded acetaminophen 300 mg-codeine 30 mg 1 tab PO Q6H PRN pain 5 days #20 10/30/24 tablet tabs ibuprofen 800 mg tablet 800 mg PO Q8H PRN pain #20 tabs 10/30/24 methocarbamol 750 mg tablet 750 mg PO Q8H #20 tabs 10/30/24 prednisone 10 mg tablet See Rx Instructions .Route 10/30/24 .COMPLEX #30 tabs ondansetron 4 mg disintegrating 4 mg PO Q8H PRN nausea and 11/03/24 tablet vomiting 4 days #10 tabs cephalexin 500 mg capsule 500 mg PO BID 7 days #14 caps 01/06/25 diclofenac sodium 75 mg 75 mg PO BID PRN pain #20 tabs 01/06/25 tablet,delayed release oxycodone-acetaminophen 5 mg-325 1 tab PO Q12H PRN pain #6 tabs 01/06/25 mg tablet (Percocet) tamsulosin 0.4 mg capsule (Flomax) 0.4 mg PO DAILY #10 caps 01/06/25 Allergies Allergy/AdvReac Type Severity Reaction Status Date / Time prochlorperazine (From AdvReac Severe panic Verified 01/06/25 08:04 Compazine) attack Review of Systems ROS Status of ROS 10 or more systems reviewed and unremarkable except as noted in history and below [facility] Medical History (Updated 01/06/25 @ 11:13 by Ansley Borja MD) TMJ (dislocation of temporomandibular joint) ?S03.00XA - Dislocation of jaw, unspecified side, initial encounter (ICD-10) Low back pain ?M54.50 - Low back pain, unspecified (ICD-10) Osteoarthritis ?M19.90 - Unspecified osteoarthritis, unspecified site (ICD-10) Anxiety ?F41.9 - Anxiety disorder, unspecified (ICD-10) Heartburn ?R12 - Heartburn (ICD-10) Obesity ?E66.9 - Obesity, unspecified (ICD-10) Diabetes ?E11.9 - Type 2 diabetes mellitus without complications (ICD-10) High cholesterol ?E78.00 - Pure hypercholesterolemia, unspecified (ICD-10) Surgical History History of appendectomy ?Z90.49 - Acquired absence of other specified parts of digestive tract (ICD-10) Hx of cholecystectomy ?Z90.49 - Acquired absence of other specified parts of digestive tract (ICD-10) Social History Little interest or pleasure in doing things: not at all Feeling down, depressed, or hopeless: not at all Exam Narrative Exam Narrative: Nurses notes and vital signs reviewed and patient is not hypoxic. General: Well-appearing and in mild distress due to pain Skin: Warm, dry, no pallor noted. No rash. Head: Normocephalic, atraumatic. Neck: Supple, non-tender. Eye: Pupils are equal, round and EOMI. No scleral icterus. Ears, Nose, Mouth, and Throat: TM are clear, no nasal mucosal hypertrophy. Oral mucosa is moist, no posterior oropharynx erythema, uvula is mid-line Cardiovascular: Regular Rate and Rhythm without murmur, gallop or rub. Respiratory: No accessory muscle use or respiratory distress. Lungs are clear to auscultation, no wheezing, rales or rhonchi Chest Wall: no tenderness Back: No midline thoracic or lumbar vertebral tenderness. Left CVA tenderness Musculoskeletal: normal ROM, no calf or popliteal tenderness, no lower extremity edema/swelling GI: Abdomen is soft, non-distended. Normal bowel sounds. No masses appreciated. Left lower quadrant tenderness Neurological: A&O x4. No cranial nerve dysfunction observed. No truncal ataxia. Moves all extremities. Sensation intact. Psychiatric: Cooperative and interactive. Normal mood and affect. Constitutional Vital Signs, click to edit/add: Last Vital Signs Temp 97.5 F L 01/06/25 08:04 Pulse 58 L 01/06/25 08:04 Resp 18 01/06/25 08:04 BP 116/73 01/06/25 09:16 Pulse Ox 100 01/06/25 08:08 O2 Del Method Room Air 01/06/25 08:04 Course Vital Signs Vital signs: Vital Signs Pulse Oximetry 98 01/06/25 08:02 Temperature 97.5 F L 01/06/25 08:04 Pulse Rate 58 L 01/06/25 08:04 Respiratory Rate 18 01/06/25 08:04 Blood Pressure 116/73 01/06/25 09:16 Pulse Oximetry 100 01/06/25 08:08 Oxygen Delivery Method Room Air 01/06/25 08:04 MDM - Abdominal Pain MDM Narrative Medical decision making narrative: The patient presentation is mostly secondary to kidney stone although it could be secondary to diverticulitis as well The patient CBC and chemistry shows no acute significant pathology Urine analysis showed no UTI but there is some bacteriuria Patient was feeling much better after being treated with Toradol although he still have a 4 out of 10 pain The patient CAT scan shows a 1 cm ureterovesical kidney stone on the left side with mild hydronephrosis The patient was started on Flomax discharged home with Keflex as a prophylaxis Instructed about straining his urine and he also was discharged with Voltaren and Percocet for pain Patient referred to urology as outpatient with instruction to come back to the ER in case of any increasing pain or any fever The patient is to follow up with primary care physician in next 2-3 days or to return to the emergency department should any of the signs or symptoms worsen or new symptoms develop. The patient agrees with the following Diagnosis and Treatment plan and the patient will be discharged home. Lab Data Labs: Lab Results 01/06/25 01/06/25 Range/Units 08:10 10:30 WBC 10.1 (4.0-11.0) 10^3/uL RBC 5.17 (4.70-6.10) 10^6/uL Hgb 13.7 L (14.0-18.0) g/dL Hct 41.1 L (42.0-54.0) % MCV 79.5 L (80.0-94.0) fL MCH 26.5 (25.9-34.0) pg MCHC 33.3 (29.9-35.2) g/dL RDW 13.0 (11.0-15.0) % Plt Count 338 (150-450) 10^3/uL MPV 9.1 L (9.5-13.5) fL Neut % (Auto) 61.0 (43.0-75.0) % Lymph % (Auto) 22.1 (20.5-60.0) % [place] % (Auto) 10.7 (1.7-12.0) % Eos % (Auto) 4.6 (0.9-7.0) % Baso % (Auto) 0.9 (0.2-2.0) % Neut # (Auto) 6.2 (1.4-6.5) 10^3/uL Lymph # (Auto) 2.2 (1.2-3.8) 10^3/uL [place] # (Auto) 1.1 H (0.3-0.8) 10^3/uL Eos # (Auto) 0.5 (0.0-0.7) 10^3/uL Baso # (Auto) 0.1 (0.0-0.1) 10^3/uL Abs Immat Gran (auto) 0.07 H (0.00-0.03) 10^3/uL Imm/Tot Granulo (auto) 0.7 H (0.0-0.5) % Sodium 140 (136-145) mmol/L Potassium 3.7 (3.5-5.1) mmol/L Chloride 102 (98-107) mmol/L Carbon Dioxide 27.9 (21.0-32.0) mmol/L Anion Gap 13.8 BUN 17.0 (7.0-18.0) mg/dL Creatinine 1.09 (0.70-1.30) mg/dL Est GFR ( Amer) >60 (>=60 mL/min/1.73m^2) Est GFR (Non-Af Amer) >60 (>=60 mL/min/1.73m^2) BUN/Creatinine Ratio 15.6 Glucose 236 H (74-106) mg/dL Calcium 9.1 (8.5-10.1) mg/dL Total Bilirubin 0.3 (0.2-1.0) mg/dL AST 26 (15-37) U/L ALT 30 (16-63) U/L Alkaline Phosphatase 98 (46-116) U/L Total Protein 7.5 (6.4-8.2) g/dL Albumin 3.4 (3.4-5.0) g/dL Globulin 4.1 g/dL Albumin/Globulin Ratio 0.8 Urine Color Yellow (YELLOW) Urine Clarity Clear (CLEAR) Urine pH 5.5 (5.0-9.0) Ur Specific [place] >=1.030 A (1.005-1.025) Urine Protein 30 A (NEG/TRACE) mg/dL Urine Glucose (UA) 250 A (NEGATIVE) mg/dL Urine Ketones Negative (NEGATIVE) mg/dL Urine Occult Blood Large A (NEGATIVE) Urine Nitrite Negative (NEGATIVE) Urine Bilirubin Negative (NEGATIVE) Urine Urobilinogen 1.0 (0.2-1.0) EU/dL Ur Leukocyte Esterase Negative (NEGATIVE) Urine RBC 20-50 A (0-2) #/HPF Urine WBC 2-5 A (NONE SEEN) #/HPF Ur Squamous Epith Cells Rare (NONE/RARE) #/LPF Urine Crystals None seen (None Seen) #/HPF Urine Bacteria Trace A (NONE SEEN) #/HPF Urine Casts None seen (NONE SEEN) #/LPF Urine Mucus Moderate A (NONE SEEN) Ur Culture Indicated? No Discharge Plan Discharge Chief Complaint: Abdominal Pain Clinical Impression: Hydronephrosis, Kidney calculi Patient Disposition: Home, Self-Care Time of Disposition Decision: 11:13 Condition: Good Prescriptions / Home Meds: New cephalexin 500 mg capsule 500 mg PO BID 7 Days Qty: 14 0RF oxycodone-acetaminophen [Percocet] 5-325 mg tablet 1 tab PO Q12H PRN (Reason: pain) Qty: 6 0RF tamsulosin [Flomax] 0.4 mg capsule 0.4 mg PO DAILY Qty: 10 0RF diclofenac sodium 75 mg tablet,delayed release (DR/EC) 75 mg PO BID PRN (Reason: pain) Qty: 20 0RF No Action atorvastatin 40 mg tablet 40 mg PO BEDTIME clonidine HCl 0.2 mg tablet 0.2 mg PO Q8H citalopram 20 mg tablet 20 mg PO BEDTIME trazodone 100 mg tablet 100 mg PO DAILY pantoprazole 40 mg tablet,delayed release (DR/EC) 40 mg PO DAILY lisinopril 40 mg tablet 40 mg PO DAILY pregabalin 300 mg capsule 300 mg PO TID aripiprazole 2 mg tablet 2 mg PO BEDTIME insulin glargine [Lantus Solostar U-100 Insulin] 100 unit/mL (3 mL) insulin pen 60 unit SUBCUT BID Apidra SoloStar U-100 Insulin 100 unit/mL insulin pen 15 unit SUBCUT QID acetaminophen-codeine 300-30 mg tablet 1 tab PO Q6H PRN (Reason: pain) 5 Days Qty: 20 0RF prednisone 10 mg tablet See Rx Instructions .ROUTE .COMPLEX Qty: 30 0RF Rx Instructions: 4 by mouth daily for three days then 3 by mouth daily for three days then 2 by mouth daily for three days then 1 by mouth daily for three days ibuprofen 800 mg tablet 800 mg PO Q8H PRN (Reason: pain) Qty: 20 0RF methocarbamol 750 mg tablet 750 mg PO Q8H Qty: 20 0RF ondansetron 4 mg tablet,disintegrating 4 mg PO Q8H PRN (Reason: nausea and vomiting) 4 Days Qty: 10 0RF Print Language: Hungarian Instructions: Kidney Stones (ED), How to Strain Your Urine (ED) Referrals: Cesar Wilhelm MD [Primary Care Provider, Family Practice] - 1 week Sarah Vargas MD [Physician, Urology] - 1 week Discharge Date/Time: 01/06/25 11:25
[2025-01-06] MEDS: KETOROLAC TROMETHAMINE 30 MG/ML VIAL IVP (08:16)
[2025-01-06] MEDS: 0.9 % SODIUM CHLORIDE 1,000 ML 1000 ML IV (08:16)
[2025-01-06 08:21] LABS: Hematocrit 41.1 % (42.0-54.0); Hemoglobin 13.7 g/dL (14.0-18.0); Immature Granulocytes Abs Auto 0.07 10^3/uL (0.00-0.03); Immature Granulocytes Pct Auto 0.7 % (0.0-0.5); Lymphocytes Absolute Auto 2.2 10^3/uL (1.2-3.8); Mean Corpuscular HGB Conc 33.3 g/dL (29.9-35.2); Mean Corpuscular Hemoglobin 26.5 pg (25.9-34.0); Mean Corpuscular Volume 79.5 fL (80.0-94.0); Platelet Count 338 10^3/uL (150-450); Red Blood Count 5.17 10^6/uL (4.70-6.10); White Blood Count 10.1 10^3/uL (4.0-11.0)
[2025-01-06 08:35] LABS: Alanine Aminotransferase 30 U/L (16-63); Albumin Globulin Ratio 0.8; Albumin Level 3.4 g/dL (3.4-5.0); Alkaline Phosphatase 98 U/L (46-116); Anion Gap 13.8; Aspartate Amino Transferase 26 U/L (15-37); Blood Urea Nitrogen 17.0 mg/dL (7.0-18.0); Calcium 9.1 mg/dL (8.5-10.1); Carbon Dioxide 27.9 mmol/L (21.0-32.0); Chloride 102 mmol/L (98-107); Estimated GFR (African America >60 (>=60 mL/min/1.73m^2); Estimated GFR (Non-African Ame >60 (>=60 mL/min/1.73m^2); Globulin 4.1 g/dL; Glucose 236 mg/dL (74-106); Potassium 3.7 mmol/L (3.5-5.1); Sodium 140 mmol/L (136-145); Total Protein 7.5 g/dL (6.4-8.2)
[2025-01-06 09:16] VITALS: BP 116/73
[2025-01-06 10:35] LABS: Glucose Urine UA 250 mg/dL (NEGATIVE)
[2025-01-06 10:58] LABS: Cast Seen? NONE SEEN #/LPF (NONE SEEN); Crystals Seen? None Seen #/HPF (None Seen)
[2025-01-06 10:59] LABS: Urine Culture Indicated NO
[2025-01-06] MEDS: TAMSULOSIN HCL 0.4 MG CAPSULE PO (11:11)
[2025-01-06] MEDS: OXYCODONE HCL/ACETAMINOPHEN 5MG/325MG 1 TAB PO (11:11)
== END 2025-01-06 11:25 | disposition home or self-care (01) ==
PROVIDERS: Emergency Provider Emergency Medicine; PCP Family Medicine
DX: N13.2 Hydronephrosis with renal and ureteral calculous obstruction (principal); Z87.442 Personal history of urinary calculi
CPT/HCPCS: 36415; 74176; 80053; 81001; 85025; 96361; 96374; 96375; 99284; J1885; J2405

== ENCOUNTER 2025-02-16 15:50 | Outpatient (RCR) | payer OTHER, SELFPAY | END 2025-02-17 08:05 | disposition home or self-care (01) | LOC: PT 15:50 | PROVIDERS: PCP Family Medicine; Visit Provider Neurological Surgery | DX: M51.16 Intervertebral disc disorders with radiculopathy, lumbar region (principal) | CPT/HCPCS: 97110; 97162 ==